=== PATIENT | female | born 1960 | race Caucasian/White ===

== ENCOUNTER 2021-04-28 07:36 | Outpatient (REF) | payer MEDICAID, SELFPAY ==
--- NOTE | ~2021-04-28 | XR_ITS ---
EXAMINATION: XR LUMBOSACRAL SPINE WITH OBLIQUES CLINICAL INFORMATION: Back pain with left-sided sciatica. COMPARISON: None TECHNIQUE: AP, lateral, coned-down, and bilateral oblique views of the lumbar spine. FINDINGS: The lumbar lordosis is maintained. No acute fracture or subluxation. No loss of vertebral body height. Multilevel loss of intervertebral disc height with endplate osteophytes with L4-L5 and L5-S1 bilateral facet arthropathy. Moderate stool burden. No lytic or blastic osseous lesion. XR/XR lumbar spine 4V min IMPRESSION: Moderate multilevel degenerative disc disease with bilateral facet arthropathy at L4-L5 and L5-S1. Moderate stool burden.
--- NOTE | ~2021-04-28 | XR_ITS ---
EXAMINATION: XR FACIAL BONES CLINICAL INFORMATION: Ocular pain right eye. COMPARISON: None TECHNIQUE: 4 views of the facial bones were obtained. FINDINGS: There are no fractures or dislocations. No bone, joint or soft tissue abnormality is demonstrated. XR/XR facial bones min 3V IMPRESSION: Unremarkable examination.
--- NOTE | ~2021-04-28 | XR_ITS ---
EXAMINATION: XR CHEST CLINICAL INFORMATION: Moderate persistent asthma with exacerbation. COMPARISON: None TECHNIQUE: 2 views of the chest were obtained. FINDINGS: The lungs are clear. The cardiomediastinal silhouette is normal in size. There is no pleural effusion or pneumothorax. No acute osseous abnormality. XR/XR chest 2V IMPRESSION: No acute cardiopulmonary findings.
== END 2021-04-28 07:37 | disposition home or self-care (01) ==
LOC: HO.XRAY 07:36
PROVIDERS: Visit Provider Internal Medicine
DX: J45.41 Moderate persistent asthma with (acute) exacerbation (principal); H57.11 Ocular pain, right eye; M54.42 Lumbago with sciatica, left side
CPT/HCPCS: 70150; 71046; 72110

== ENCOUNTER → 2022-05-22 10:11 | Outpatient (BNVA) | payer MEDICAID, SELFPAY | PROVIDERS: PCP Internal Medicine; Visit Provider Internal Medicine Pulmonary Disease | DX: J45.909 Unspecified asthma, uncomplicated (principal); J44.9 Chronic obstructive pulmonary disease, unspecified; R06.09 Other forms of dyspnea; R91.8 Other nonspecific abnormal finding of lung field; G47.33 Obstructive sleep apnea (adult) (pediatric); Z99.89 Dependence on other enabling machines and devices | CPT/HCPCS: 99202 ==

== ENCOUNTER 2022-06-10 15:10 | Outpatient (REF) | payer MEDICAID, SELFPAY ==
--- NOTE | ~2022-06-10 | CT_ITS ---
EXAMINATION: CT CHEST WITHOUT CONTRAST CLINICAL INFORMATION: Other nonspecific finding of lung field COMPARISON: Previous chest x-ray most recent April 2021 and lung windows from pelvic CT October 2015 TECHNIQUE: Multidetector volumetric CT imaging of the chest was done. Axial MIP volume rendering provided. Sagittal and coronal reformatted images were obtained. This CT examination was performed using dose optimization techniques as appropriate, variously including the following: *Automated exposure control *Adjustment of mA and/or kV according to patient size (this includes techniques or standardized protocols for targeted exams where dose is matched to indication/reason for exam; i.e. extremities or head) *Use of iterative reconstruction technique DLP: 143 mGy-cm FINDINGS: LUNGS: There is evidence of paraseptal emphysema. There are increased peripheral reticular markings and parenchymal attenuation. This is seen diffusely throughout the lungs but greatest at the lung bases. There is mild traction bronchiolectasis. No honeycombing is seen. Findings are suggestive of mild interstitial lung disease. There are several small bilateral upper lobe nodules. Largest measure 4 mm in the left upper lobe axial image 90 series 7. There is a 4 mm right lower lobe nodule axial image 267 series 7. This may be endobronchial. There is a 4 mm left lower lobe nodule axial image 272 series 7. This may be endobronchial. There is scarring or subsegmental atelectasis in the inferior segment of the lingula. MEDIASTINUM: Shotty mediastinal lymphadenopathy. No enlarged lymph nodes. The mediastinum is otherwise normal. CORONARY ARTERY CALCIFICATION: None visualized on this study. PLEURA: There is no pleural effusion. No pleural mass or thickening. AXILLA: Asymmetric tissue in the breasts. 1 exam and mammogram recommended. No axillary adenopathy. UPPER ABDOMEN: Degenerative changes of the spine. OSSEOUS STRUCTURES: Unremarkable. CT/CT chest wo IV con IMPRESSION: Emphysema and interstitial lung disease. Several small pulmonary nodules, largest measuring 4 mm in the left upper lobe and bilateral lower lobes. According to the UPDATED 2017 Fleischner Society recommendations, the advised follow-up imaging for less than 6 mm solid nodule: Low risk, no chest CT follow-up and high risk, optional the follow-up in one year. Shotty mediastinal lymphadenopathy. No enlarged lymph nodes. Asymmetric soft tissue in the left lateral breast. Correlation with physical exam and mammogram recommended. Fleischner guidelines were followed.
== END 2022-06-10 15:11 | disposition home or self-care (01) ==
LOC: HO.CT 15:10
PROVIDERS: Visit Provider Internal Medicine Pulmonary Disease
DX: R91.8 Other nonspecific abnormal finding of lung field (principal)
CPT/HCPCS: 71250

== ENCOUNTER → 2022-06-24 14:04 | Outpatient (REF) | payer MEDICAID, SELFPAY ==
--- NOTE | 2022-06-24 14:07 | CA_ITS ---
Transthoracic Echocardiogram Patient (Last, First, Middle): Myra Parsons E Gender: Female Date of : 1960 Age: 62 Procedure Date: 06/24/2022 Procedure Type: Transthoracic Echocardiogram Location: OP Height: 154.94 cm Weight: 72.58 kg BSA: 1.72 m2 Heart Rate: bpm BP: 124 / 60 mmHg Outside Event Sales Specialist: Referring MD: Lj Espitia MD Symptoms: R06.09 - Other forms of dyspnea Study Quality: Adequate w Contrast ECG Rhythm: Sinus Conclusions: - The left ventricular systolic function is normal. The calculated ejection fraction is 56% by biplane method. - No obvious valvular pathology seen on this study. Findings Procedure Information Contrast agent, definity, is being given per protocol without apparent complications. Left Ventricle Normal left ventricular cavity size. There is normal left ventricular wall thickness. The left ventricular systolic function is normal. The calculated ejection fraction is 56% by biplane method. There is no evidence of regional wall motion abnormalities. Diastolic function is normal for age. Right Ventricle Normal right ventricular cavity size and systolic function. Atria Both atria are normal in size. Aortic Valve There is a normal trileaflet aortic valve. There is no aortic valve stenosis. There is no aortic valve regurgitation. Mitral Valve The mitral valve appears normal. There is mild mitral valve regurgitation. There is no mitral valve stenosis. Pulmonic Valve The pulmonic valve is likely normal. Tricuspid Valve There is trace tricuspid valve regurgitation. There is no evidence of pulmonary hypertension. Great Vessels The aortic annulus, sinuses of valsalva, and asc aorta are normal in size. Venous The inferior vena cava is normal in size and collapses greater than 50% with inspiration. Pericardium/Pleural There is no evidence of pericardial effusion. Prior Study Comparison No prior study available for comparison. Recommendations, Care & Conclusions No obvious valvular pathology seen on this study. Measurements 2D Linear Measurements IVSd: 1.10 0.6-0.9/0.6-1.0 cm LVIDd: 4.40 3.9-5.3/4.2-5.9 cm LVIDd Index: 2.56 2.4-3.2/2.2-3.1 cm/m2 LVIDs: 2.81 2.0-3.6 cm LVPWd: 1.03 0.7-1.1 cm Ao Root: 2.90 2.1-3.5 cm LA Diam: 3.60 2.7-3.8/3.0-4.0 cm LAIDs Index: 2.09 1.5-2.3 cm/m2 LV Mass: 200.99 67-162/88-224 g LV Mass Index: 116.86 43-95/49-115 g/m2 LVOT Diam: 1.90 3.0+(-)1.3 cm 2D Systolic Function EF 4C: 52.10 >55% EF 2C: 55.20 >55% EF BiP: 55.50 >55% Mitral Valve MV Pk E: 0.92 MV PK A: 0.90 MV Decel Time: 214.00 E/A: 1.00 E'Lateral: 8.59 E'Medial: 7.18 E/E' Med: 12.80 E/E' Lat: 10.70 PHT: 63.00 MVA PHT: 3.49 Decel [place]: 4.28 Aortic Valve AoV Pk Will: 1.33 AoV Mn Will: 0.85 AoV VTI: 0.29 AoV Pk Grad: 7.00 Aov Mn Grad: 4.00 EMILEE Cont.VTI: 2.07 LVOT LVOT Pk Will: 0.95 LVOT Mn Will: 0.66 LVOT VTI: 0.21 LVOT Pk Grad: 4.00 LVOT Mn Grad: 2.00 LVOT Diam: 1.90 LVOT Area: 2.84 Diastolic Function MV Pk E: 0.92 MV Pk A: 0.90 E/A: 1.00 E'Medial: 7.18 E/E' Med: 12.80 E' Laterial: 8.59 E/E' Lat: 10.70 Right Ventricle TAPSE (mm): 22.00 Tricuspid Valve TR Pk Will: 2.10 TR Pk Grad: 18.00 RA Press: 3.00 RVSP: 21.00 Great Vessels Aorta Ao Root-2D: 2.90 2.0-3.7 cm Ao Asc: 2.60 2.1-3.4 cm Pulmonary Valve PV Pk Will: 0.98 Peak PV Grad: 4.00 Updated in Other Vendor System with Status of Final Christos Forrest MD electronically signed on 06/25/2022 12:35:41 PM with status of Final
== END ==
LOC: HO.CARD 14:04
PROVIDERS: Visit Provider Internal Medicine Pulmonary Disease
DX: R06.09 Other forms of dyspnea (principal)
CPT/HCPCS: 93306; Q9957

== ENCOUNTER 2022-09-19 10:00 | Outpatient (REF) | payer MEDICAID, SELFPAY ==
--- NOTE | 2022-09-19 12:49 | PFT_ITS ---
FLOWS: FEV1 80% of predicted at 1.81 L. FVC 82% of predicted at 2.36 L. FEV1 to FVC ratio of 0.76. No bronchodilator response except in small to medium airways. LUNG VOLUMES: Total lung capacity 77% of predicted at 3.55 L. Residual volume 58% of predicted at 1.09 L. Slow vital capacity 89% of predicted at 2.46 L. Expiratory reserve volume 127% of predicted at 0.93 L. Diffusion capacity is moderately decreased, diffusion capacity corrects to normal after adjustment to alveolar ventilation. IMPRESSION: Mild restrictive ventilatory defect with no bronchodilator response except in small to medium airways. MD ZIA Villanueva/MODL / [id number]
== END 2022-09-19 10:01 | disposition home or self-care (01) ==
LOC: HO.RESP 10:00
PROVIDERS: Visit Provider Internal Medicine Pulmonary Disease
DX: J45.909 Unspecified asthma, uncomplicated (principal)
CPT/HCPCS: 94060; 94727; 94729

== ENCOUNTER → 2022-10-22 15:02 | Outpatient (BNVA) | payer MEDICAID, SELFPAY | PROVIDERS: PCP Internal Medicine; Visit Provider Internal Medicine Pulmonary Disease | DX: J44.9 Chronic obstructive pulmonary disease, unspecified (principal); J45.909 Unspecified asthma, uncomplicated; G47.33 Obstructive sleep apnea (adult) (pediatric); Z99.89 Dependence on other enabling machines and devices | CPT/HCPCS: 99212 ==

== ENCOUNTER → 2023-03-18 11:52 | Outpatient (BNVA) | payer MEDICAID, SELFPAY | PROVIDERS: PCP Internal Medicine; Visit Provider Internal Medicine Pulmonary Disease ==

== ENCOUNTER 2023-10-28 10:50 | Outpatient (REF) | payer MEDICAID, SELFPAY ==
[2023-10-28 12:28] LABS: Alanine Aminotransferase 12 U/L (0-31); Albumin Level 3.5 g/dL (3.5-5.0); Alkaline Phosphatase 87 U/L (39-117); Anion Gap 12 (12-20); Aspartate Amino Transferase 18 U/L (5-31); Bilirubin Total 0.8 mg/dL (0.0-1.0); Blood Urea Nitrogen 7 mg/dL (9-16); Calcium 8.7 mg/dL (8.4-10.2); Carbon Dioxide 29 mmol/L (22-29); Chloride 103 mmol/L (96-108); Estimated Glomerular Filt Rate > 60; Glucose Random 114 mg/dL (60-115); Potassium 4.3 mmol/L (3.3-5.1); Sodium 140 mmol/L (135-145); Total Protein 6.9 g/dL (6.5-8.0)
[2023-10-28 12:31] LABS: TSH reflex Free T4 1.87 uIU/mL (0.32-4.0)
== END 2023-10-28 10:51 | disposition home or self-care (01) ==
LOC: HO.HHCL 10:50
PROVIDERS: Visit Provider Student in an Organized Health Care Education/Training Program
DX: R60.0 Localized edema (principal)
CPT/HCPCS: 36415; 80053; 84443

== ENCOUNTER 2024-03-04 13:17 | Emergency (ER) | payer MEDICAID, SELFPAY ==
--- NOTE | ~2024-03-04 | XR_ITS ---
EXAMINATION: XR CHEST 2 VIEW CLINICAL INFORMATION: Shortness of breath COMPARISON: 04/28/2021 TECHNIQUE: PA and lateral views of the chest obtained. FINDINGS: There are increased bronchovascular markings bilaterally. No pleural effusions are evident. The cardiomediastinal silhouette is stable. XR/XR chest 2V IMPRESSION: Increased bronchovascular markings bilaterally, nonspecific. This might be on the basis of viral syndrome, although other interstitial lung processes are not excluded. Suggest follow-up to confirm clearing. If persistent, suggest thoracic CT.
[2024-03-04 13:26] VITALS: BP 156/91; PULSE 100; RESP 19; TEMP 36.8; O2SAT 96; BMI 26.2
--- NOTE | 2024-03-04 13:26 | ED_ITS ---
HPI - General Adult General Chief complaint: General Medical Stated complaint: swollen glands lots of phlem Related Data Home Medications ?Medication ?Instructions ?Recorded ?Confirmed albuterol sulfate 90 mcg/actuation 2 puff inhalation Q4-6H PRN asthma 05/22/22 aerosol inhaler (ProAir HFA) clonidine HCl 0.1 mg tablet 0.1 mg PO BID PRN 05/22/22 famotidine 20 mg tablet 20 mg PO DAILY 05/22/22 hydroxyzine pamoate 25 mg capsule 25 mg PO TID PRN anxiety 05/22/22 lamotrigine 25 mg tablet 25 mg PO BEDTIME 05/22/22 montelukast 10 mg tablet 10 mg PO QPM 05/22/22 trazodone 100 mg tablet 100 mg PO BEDTIME 05/22/22 fluticasone 250 mcg-salmeterol 50 ea inhalation 10/22/22 mcg/dose blistr powdr for inhalation (Advair Diskus) Previous Rx's ?Medication ?Instructions ?Recorded levofloxacin 750 mg tablet 750 mg PO DAILY 7 days #7 tabs 10/22/22 Allergies Allergy/AdvReac Type Severity Reaction Status Date / Time Sulfa (Sulfonamide Allergy Unknown HIVES AND Verified 03/04/24 13:28 Antibiotics) RASH [SULFA (SULFONAMIDE ANTIBIOTICS)] sulfamethoxazole Allergy Unknown HIVES AND Verified 03/04/24 13:28 [From BACTRIM] RASH trimethoprim [From BACTRIM] Allergy Unknown HIVES AND Verified 03/04/24 13:28 RASH Physical Exam ED Vital Signs: BMI result Body Mass Index 26.2 Course Course Course Narrative: This is an RME: Additional HPI, ROS, PE not included below will be deferred to primary provider. 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 Patient also states that her asthma has been exacerbated. She is speaking in full sentences. Plan: Labs, chest x-ray, strep test Reevaluation(s) Reevaluation #1: Patient left without completing treatment. Medical Decision Making Lab Data 03/04/24 15:05 03/04/24 15:05 Labs: Lab Results 03/04/24 Range/Units 15:05 WBC 10.8 (4.8-10.8) X10*3/uL RBC 4.06 L (4.20-5.50) X10*6/uL Hgb 13.8 (12.0-16.0) g/dl Hct 39.8 (37.0-47.0) % MCV 98.0 (80.0-98.0) fL MCH 34.0 H (27.0-33.0) pg MCHC 34.7 (31.0-35.0) g/dl RDW 13.5 (11.0-16.0) % Plt Count 256 (160-400) X10*3/uL MPV 9.1 L (9.4-12.3) fL Immature Gran % (Auto) 1.0 H (0.0-0.4) % Neut % (Auto) 80.0 H (45-73) % Lymph % (Auto) 11.6 L (20-40) % [place] % (Auto) 5.2 (2-11) % Eos % (Auto) 1.8 (0-4) % Baso % (Auto) 0.4 (0-2) % Lymph # (Auto) 1.3 (1.2-4.9) X10*3/uL [place] # (Auto) 0.6 (0.1-1.2) X10*3/uL Eos # (Auto) 0.2 (0.0-0.4) X10*3/uL Baso # (Auto) 0.0 (0.0-0.2) X10*3/uL Abs Immat Gran (auto) 0.11 H (0.00-0.03) X10*3/uL Absolute Neuts (auto) 8.7 H (2.0-8.3) x10*3/uL Absolute Nucleated RBC 0.000 (0.0-0.012) X10*3/uL Nucleated RBC % (auto) 0.0 (0.0-0.2) /100WBC Sodium 137 (135-145) mmol/L Potassium 3.8 (3.3-5.1) mmol/L Chloride 102 (96-108) mmol/L Carbon Dioxide 28 (22-29) mmol/L Anion Gap 11 L (12-20) BUN 8 L (9-16) mg/dL Creatinine 0.72 (0.5-1.4) mg/dL Estim Creat Clear Calc 69.8 Estimated GFR > 60 Random Glucose 103 (60-115) mg/dL Calcium 9.0 (8.4-10.2) mg/dL Total Bilirubin 1.4 H (0.0-1.0) mg/dL Direct Bilirubin 0.6 H (0.0-0.5) mg/dL AST 120 H (5-31) U/L ALT 58 H (0-31) U/L Alkaline Phosphatase 117 (39-117) U/L Total Protein 7.1 (6.5-8.0) g/dL Albumin 3.5 (3.5-5.0) g/dL Monoscreen Negative (Negative) Influenza Type A (PCR) NEGATIVE (Negative) Influenza Type B (PCR) NEGATIVE (Negative) RSV RNA Qual (PCR) NEGATIVE (Negative) SARS-CoV-2 RNA (RT-PCR) NEGATIVE (Negative) S. pyogenes GrpA VIKTORIYA Negative (Negative) Discharge Plan Discharge Clinical Impression: Sore throat Patient Disposition: Left W/O Completing Treatment Prescriptions: No Action lamotrigine 25 mg tablet 25 mg PO BEDTIME clonidine HCl 0.1 mg tablet 0.1 mg PO BID PRN trazodone 100 mg tablet 100 mg PO BEDTIME albuterol sulfate [ProAir HFA] 90 mcg/actuation HFA aerosol inhaler 2 puff inhalation Q4-6H PRN (Reason: asthma) montelukast 10 mg tablet 10 mg PO QPM famotidine 20 mg tablet 20 mg PO DAILY hydroxyzine pamoate 25 mg capsule 25 mg PO TID PRN (Reason: anxiety) fluticasone propion-salmeterol [Advair Diskus] 250-50 mcg/dose blister with device inhalation levofloxacin 750 mg tablet 750 mg PO DAILY 7 Days Qty: 7 0RF Discharge Date/Time: 03/05/24 00:35
[2024-03-04 15:14] LABS: MANUAL DIFF FLAG NO
[2024-03-04 15:19] LABS: Basophils Percent Auto 0.4 % (0-2); Eosinophils Absolute Auto 0.2 X10*3/uL (0.0-0.4); Eosinophils Percent Auto 1.8 % (0-4); Hematocrit 39.8 % (37.0-47.0); Hemoglobin 13.8 g/dl (12.0-16.0); Imm Gran Abs Auto 0.11 X10*3/uL (0.00-0.03); Lymphocytes Absolute Auto 1.3 X10*3/uL (1.2-4.9); Lymphocytes Percent Auto 11.6 % (20-40); Mean Corpuscular HGB Conc 34.7 g/dl (31.0-35.0); Mean Platelet Volume 9.1 fL (9.4-12.3); Monocytes Absolute Auto 0.6 X10*3/uL (0.1-1.2); Monocytes Percent Auto 5.2 % (2-11); Neutrophils Absolute Auto 8.7 x10*3/uL (2.0-8.3); Platelet Count 256 X10*3/uL (160-400); Red Blood Count 4.06 X10*6/uL (4.20-5.50); Red Cell Distribution Width 13.5 % (11.0-16.0); White Blood Count 10.8 X10*3/uL (4.8-10.8)
[2024-03-04 15:28] LABS: IDNOW Serial# 58CA691E; Strep A Nucleic Acid Negative (Negative)
[2024-03-04 15:31] LABS: Alanine Aminotransferase 58 U/L (0-31); Albumin Level 3.5 g/dL (3.5-5.0); Alkaline Phosphatase 117 U/L (39-117); Anion Gap 11 (12-20); Aspartate Amino Transferase 120 U/L (5-31); Bilirubin Direct 0.6 mg/dL (0.0-0.5); Bilirubin Total 1.4 mg/dL (0.0-1.0); Blood Urea Nitrogen 8 mg/dL (9-16); Carbon Dioxide 28 mmol/L (22-29); Chloride 102 mmol/L (96-108); Creatinine Clr Calc Pharmacy 69.8; Estimated Glomerular Filt Rate > 60; Glucose Random 103 mg/dL (60-115); Potassium 3.8 mmol/L (3.3-5.1); Sodium 137 mmol/L (135-145); Total Protein 7.1 g/dL (6.5-8.0)
[2024-03-04 15:32] LABS: Monotest Negative (Negative)
[2024-03-04 15:58] LABS: Influenza A PCR NEGATIVE (Negative); Influenza B PCR NEGATIVE (Negative); Resp Syncy Virus RNA Qual PCR NEGATIVE (Negative); SARS COV2 PCR INHOUSE NEGATIVE (Negative)
[2024-03-04 19:26] VITALS: PULSE 95; RESP 18; TEMP 36.5; O2SAT 97
--- NOTE | 2024-03-05 00:34 | PC.NURSE ---
Pt not present in [facility] when called for reeval.
== END 2024-03-05 00:35 | disposition left against medical advice (07) ==
PROVIDERS: Physician Assistant Medical; Emergency Provider Emergency Medicine; PCP Student in an Organized Health Care Education/Training Program
DX: J02.9 Acute pharyngitis, unspecified (principal); F11.20 Opioid dependence, uncomplicated; J45.909 Unspecified asthma, uncomplicated; Z03.818 Encounter for observation for suspected exposure to other biological agents ruled out
CPT/HCPCS: 0241U; 36415; 71046; 80048; 80076; 85025; 86308; 87651; 99281; 99283

== ENCOUNTER 2024-03-05 17:08 | Outpatient (REF) | payer MEDICAID, SELFPAY ==
[2024-03-10 04:59] LABS: Legionella Ag Urine Not Detected (Not Detected)
== END 2024-03-05 17:09 | disposition home or self-care (01) ==
LOC: HO.HHCLNP 17:08
PROVIDERS: Visit Provider Internal Medicine
DX: R05.9 Cough, unspecified (principal)
CPT/HCPCS: 87449

== ENCOUNTER 2024-08-02 15:22 | Emergency (ER) | payer MEDICAID, SELFPAY ==
--- NOTE | ~2024-08-02 | CT_ITS ---
EXAM: CT HEAD WITHOUT CONTRAST CT CERVICAL SPINE INDICATION: headache, photophobia TECHNIQUE: A noncontrast CT scan was performed from the skull base to the vertex. A noncontrast CT scan of the cervical spine was performed from the base of the skull through T1 at 2.5 mm and 0.625 mm collimation. Coronal and sagittal reformats were obtained at the acquisition workstation. This CT examination was performed using dose optimization techniques as appropriate, variously including the following: * Automated exposure control * Adjustment of mA and/or kV according to patient size (this includes techniques or standardized protocols for targeted exams where dose is matched to indication/reason for exam; i.e. extremities or head) * Use of iterative reconstruction technique Dose length product is 382 mGy-cm. COMPARISON: None FINDINGS: Head: There is no evidence of acute intracranial hemorrhage or edematous large vessel territorial infarction. No abnormal mass effect or midline shift is seen. Mcclellan to white matter differentiation is well preserved. No abnormal extra-axial fluid collections are identified. The ventricles are normal in size. No abnormal attenuation in the brain parenchyma. Cerebellar tonsils are appropriately positioned. No acute calvarial fracture.. Partial effusions and bilateral mastoid air cells. Right maxillary, ethmoid sinus mucosal thickening. Cervical Spine: The atlantooccipital and atlantoaxial articulations remain well aligned. Straightening of the normal cervical lordosis. Vertebral body sagittal alignment is maintained. Atlantodens articulation arthritis. No evidence of acute fracture or subluxation. The vertebral bodies and posterior elements are normal. The disc spaces are preserved. The bony canal is maintained. No prevertebral soft tissue swelling.The visualized lung apices are clear. CT/CT cervical spine wo IV con IMPRESSION: No CT evidence of acute intracranial hemorrhage or edematous territorial infarction. No CT evidence of acute cervical spine fracture or malalignment. Electronically signed by: Jose Francis MD 08/02/2024 06:41 PM [facility]
--- NOTE | ~2024-08-02 | CT_ITS ---
EXAM: CT HEAD WITHOUT CONTRAST CT CERVICAL SPINE INDICATION: headache, photophobia TECHNIQUE: A noncontrast CT scan was performed from the skull base to the vertex. A noncontrast CT scan of the cervical spine was performed from the base of the skull through T1 at 2.5 mm and 0.625 mm collimation. Coronal and sagittal reformats were obtained at the acquisition workstation. This CT examination was performed using dose optimization techniques as appropriate, variously including the following: * Automated exposure control * Adjustment of mA and/or kV according to patient size (this includes techniques or standardized protocols for targeted exams where dose is matched to indication/reason for exam; i.e. extremities or head) * Use of iterative reconstruction technique Dose length product is 382 mGy-cm. COMPARISON: None FINDINGS: Head: There is no evidence of acute intracranial hemorrhage or edematous large vessel territorial infarction. No abnormal mass effect or midline shift is seen. Mcclellan to white matter differentiation is well preserved. No abnormal extra-axial fluid collections are identified. The ventricles are normal in size. No abnormal attenuation in the brain parenchyma. Cerebellar tonsils are appropriately positioned. No acute calvarial fracture.. Partial effusions and bilateral mastoid air cells. Right maxillary, ethmoid sinus mucosal thickening. Cervical Spine: The atlantooccipital and atlantoaxial articulations remain well aligned. Straightening of the normal cervical lordosis. Vertebral body sagittal alignment is maintained. Atlantodens articulation arthritis. No evidence of acute fracture or subluxation. The vertebral bodies and posterior elements are normal. The disc spaces are preserved. The bony canal is maintained. No prevertebral soft tissue swelling.The visualized lung apices are clear. CT/CT head/brain wo IV con IMPRESSION: No CT evidence of acute intracranial hemorrhage or edematous territorial infarction. No CT evidence of acute cervical spine fracture or malalignment. Electronically signed by: Jose Francis MD 08/02/2024 06:41 PM [facility]
[2024-08-02 15:40] VITALS: BP 166/91; PULSE 86; RESP 18; TEMP 36.8; O2SAT 97; BMI 29.4
--- NOTE | 2024-08-02 15:58 | ED.GENADULT ---
HPI - General Adult General Chief complaint: Headache Stated complaint: Migraine 1 week Source: patient and family (patient's daughter) Mode of arrival: ambulatory Limitations: no limitations History of Present Illness ED Provider: Elly Willis PA-C HPI narrative: Patient is a 64 year old assigned female at with a history of COPD, asthma, and [place]ASIA presenting to the emergency department today with a right sided headache. Patient states that she has been having a right sided headache for a week with intermittent blurry vision and photophobia. Patient denies any dizziness, lightheadedness, abdominal pain, nausea, vomiting, fever, chills, double vision, loss of vision, chest pain, difficulty breathing, shortness of breath, back pain, night sweats, pain with urination, increased urinary frequency, increased urinary urgency, blood in her urine or stool, syncope or a near syncopal episode, recent trauma or falls, bowel incontinence, bladder incontinence, or any other complaints at this time. Onset (ago): week(s) (1) Location: head Relieving factors: none Exacerbating factors: other (lights) Associated symptoms: headaches Treatments prior to arrival: other (tylenol) Related Data Home Medications ?Medication ?Instructions ?Recorded ?Confirmed albuterol sulfate 90 mcg/actuation 2 puff inhalation Q4-6H PRN asthma 05/22/22 aerosol inhaler (ProAir HFA) clonidine HCl 0.1 mg tablet 0.1 mg PO BID PRN 05/22/22 famotidine 20 mg tablet 20 mg PO DAILY 05/22/22 hydroxyzine pamoate 25 mg capsule 25 mg PO TID PRN anxiety 05/22/22 lamotrigine 25 mg tablet 25 mg PO BEDTIME 05/22/22 montelukast 10 mg tablet 10 mg PO QPM 05/22/22 trazodone 100 mg tablet 100 mg PO BEDTIME 05/22/22 fluticasone 250 mcg-salmeterol 50 ea inhalation 10/22/22 mcg/dose blistr powdr for inhalation (Advair Diskus) Previous Rx's ?Medication ?Instructions ?Recorded levofloxacin 750 mg tablet 750 mg PO DAILY 7 days #7 tabs 10/22/22 Allergies Allergy/AdvReac Type Severity Reaction Status Date / Time Sulfa (Sulfonamide Allergy Unknown HIVES AND Verified 08/02/24 15:43 Antibiotics) RASH [SULFA (SULFONAMIDE ANTIBIOTICS)] sulfamethoxazole Allergy Unknown HIVES AND Verified 08/02/24 15:43 [From BACTRIM] RASH trimethoprim [From BACTRIM] Allergy Unknown HIVES AND Verified 08/02/24 15:43 RASH Review of Systems Constitutional: Constitutional: Reports no additional constitutional complaints, Denies chills, Denies fever(s), Reports headache(s) and Denies night sweats Eyes: Eyes: Reports no additional eye complaints, Reports blurry vision, Denies change in vision, Denies diplopia, Denies eye discharge, Denies loss of vision, Denies eye pain and Reports photophobia ENT: Denies dizziness and Reports headache(s) Cardiovascular: Cardiovascular: Reports no additional cardiovascular complaints, Denies chest pain, Denies lightheadedness, Denies Loss of Consciousness and Denies dyspnea Respiratory: Respiratory: Reports no additional respiratory complaints and Denies dyspnea Gastrointestinal: Gastrointestinal: Reports no additional gastrointestinal complaints, Denies abdominal pain, Denies melena, Denies hematochezia, Denies change in bowel habits and Denies change in stool character Genitourinary: Genitourinary: Denies hematuria, Denies urinary frequency, Denies dysuria, Denies urinary incontinence, Denies urinary hesitancy and Denies urinary urgency Musculoskeletal: Musculoskeletal: Reports no additional musculoskeletal complaints, Denies numbness and Denies tingling Neurologic: Denies dizziness, Reports headache(s), Denies loss of vision, Denies numbness and Denies tingling Psychiatric: Psychiatric: Reports no additional psychiatric complaints Endocrine: Endocrine: Reports no additional endocrine complaints Hematologic/Lymphatic: Hematologic/Lymphatic: Reports no additional hematologic/lymphatic complaints Allergic/Immunologic: Allergic/Immunologic: Reports no additional allergic/immunologic complaints PMFSH Past Medical History Attestation statement: The following information was validated with the patient. (all information validated with the patient's daughter) Source: old records reviewed, obtained from family (patient's daughter provided additional history and confirmed the history provided by the patient.) and nursing notes reviewed Physical Exam ED Vital Signs: Vital Signs - 24 hr 08/02/24 15:40 Temperature 98.3 F Pulse Rate 86 Respiratory Rate 18 Blood Pressure 166/91 H Pulse Oximetry 97 Oxygen Delivery Method Room Air BMI result Body Mass Index 29.4 Const General: cooperative, no acute distress, alert and awake Nutritional Appearance: well nourished Orientation/consciousness: patient oriented x3 Limitations: no limitations HENMT Head: Yes normal to inspection and Yes atraumatic Ears: hearing grossly normal bilaterally and external ears normal General nose exam: Normal external nose present, no nasal discharge noted and no epistaxis Face and sinus: Yes normal facial exam, No abrasion and No laceration Mouth: Normal oral and palatal mucosa present, no drooling and no muffled voice Eyes General: appearance normal, both eyes and all related structures Periorbital: periorbital findings normal Eyelids: Yes eyelids normal Conjunctivae: conjunctivae normal Pupils: Equal, round and reactive pupils present EOM: EOMs intact bilaterally Direct Ophthalmoscopy: photophobia Neck Neck: Yes normal visual inspection, Yes full ROM and Yes no lymphadenopathy Chest Chest palpation & inspection: normal inspection of the chest Resp Effort & Inspection: normal respiratory effort and able to speak in complete sentences GI Inspection: Yes normal to inspection Neuro General: patient oriented x3 and moves all extremities Cranial nerves: Yes Equal, round and reactive pupils present Cognition (Neuro): normal cognition Extrem General: Yes normal to inspection, Yes full ROM and Yes capillary refill normal Psych Appearance: grossly normal Mental Status: mental status grossly normal Affect: normal affect Attitude: cooperative Thought process: Normal thought process present Thought content: Normal thought content present Insight: Good insight present (Psych) Course Course Course Narrative: RME performed by Elly Willis PA-C. Patient is a 64 year old assigned female at presenting to the emergency department with right sided headache. Detailed physical exam and review of systems are deferred to the regional account director. Labs and imaging ordered. Patient placed back in the waiting room pending room availability and results. Medications Administered Discontinued Medications Generic Name Dose Route Start Last Admin Trade Name Rylee PRN Reason Stop Dose Admin Acetaminophen 975 mg 08/02/24 18:43 08/02/24 18:46 Acetaminophen 325 Mg Tablet PO 08/02/24 18:44 975 mg ONCE ONE Administration Medical Decision Making Medical Decision Making MDM Narrative: Patient is a 64 year old assigned female at with a history of COPD, asthma, and [place] presenting to the emergency department today with a right sided headache. Patient's limited physical exam performed in triage was unremarkable. Patient's blood work was unremarkable. Patient's CT head and C-spine were unremarkable. Patient left the department without completing treatment. Patient left the department before myself or any of the other emergency department clinicians could explain to or review with the patient; physical exam findings, test results, need or lack there of for additional testing, need or lack there of for a procedure to be performed, need or lack there of for hospital admission / transfer, need or lack there of for prescription medication, treatment options, or a treatment plan. Differential Diagnosis Differential Diagnoses: The differential diagnosis associated with the presentation includes Migraine headache Headache Admission/Observation Consideration of admission/observation: Escalation of care including admission/observation considered Patient would have been admitted to the hospital had she completed her work up and it had any findings where hospital admission was appropriate, her clinical presentation warranted hospital admission, had myself or any other emergency repair department supervisor had the ability to discuss need or lack there of for hospital admission, and the patient hadn't left the department without completing treatment. Lab Data [facility] Lab Attestation statement: I reviewed the patient's lab results. My interpretation of these results are in the [facility] Rationale portion of this note. 08/02/24 16:17 08/02/24 16:17 Labs: Lab Results 08/02/24 Range/Units 16:17 WBC 11.0 H (4.8-10.8) X10*3/uL RBC 4.49 (4.20-5.50) X10*6/uL Hgb 14.3 (12.0-16.0) g/dl Hct 43.0 (37.0-47.0) % MCV 95.8 (80.0-98.0) fL MCH 31.8 (27.0-33.0) pg MCHC 33.3 (31.0-35.0) g/dl RDW 13.2 (11.0-16.0) % Plt Count 400 D (160-400) X10*3/uL MPV 8.5 L (9.4-12.3) fL Immature Gran % (Auto) 0.8 H (0.0-0.4) % Neut % (Auto) 77.3 H (45-73) % Lymph % (Auto) 11.9 L (20-40) % [place] % (Auto) 6.5 (2-11) % Eos % (Auto) 3.1 (0-4) % Baso % (Auto) 0.4 (0-2) % Lymph # (Auto) 1.3 (1.2-4.9) X10*3/uL [place] # (Auto) 0.7 (0.1-1.2) X10*3/uL Eos # (Auto) 0.3 (0.0-0.4) X10*3/uL Baso # (Auto) 0.0 (0.0-0.2) X10*3/uL Abs Immat Gran (auto) 0.09 H (0.00-0.03) X10*3/uL Absolute Neuts (auto) 8.5 H (2.0-8.3) x10*3/uL Absolute Nucleated RBC 0.000 (0.0-0.012) X10*3/uL Nucleated RBC % (auto) 0.0 (0.0-0.2) /100WBC Sodium 137 (135-145) mmol/L Potassium 4.1 (3.3-5.1) mmol/L Chloride 101 (96-108) mmol/L Carbon Dioxide 29 (22-29) mmol/L Anion Gap 11 L (12-20) BUN 6 L (9-16) mg/dL Creatinine 0.78 (0.5-1.4) mg/dL Estim Creat Clear Calc 61.7 Estimated GFR > 60 Random Glucose 165 H (60-115) mg/dL Calcium 9.6 D (8.4-10.2) mg/dL Magnesium 2.2 (1.6-2.6) mg/dL Total Bilirubin 0.7 (0.0-1.0) mg/dL AST 30 (5-31) U/L ALT 49 H (0-31) U/L Alkaline Phosphatase 140 H (39-117) U/L Total Protein 7.7 (6.5-8.0) g/dL Albumin 3.6 (3.5-5.0) g/dL Independent Interpretation I performed an independent interpretation of an: CT Scan Interpretation: My interpretation is in agreement with the radiologist's impression of these imaging studies. EXAM: CT HEAD WITHOUT CONTRAST CT CERVICAL SPINE INDICATION: headache, photophobia TECHNIQUE: A noncontrast CT scan was performed from the skull base to the vertex. A noncontrast CT scan of the cervical spine was performed from the base of the skull through T1 at 2.5 mm and 0.625 mm collimation. Coronal and sagittal reformats were obtained at the acquisition workstation. This CT examination was performed using dose optimization techniques as appropriate, variously including the following: * Automated exposure control * Adjustment of mA and/or kV according to patient size (this includes techniques or standardized protocols for targeted exams where dose is matched to indication/reason for exam; i.e. extremities or head) * Use of iterative reconstruction technique Dose length product is 382 mGy-cm. COMPARISON: None FINDINGS: Head: There is no evidence of acute intracranial hemorrhage or edematous large vessel territorial infarction. No abnormal mass effect or midline shift is seen. Mcclellan to white matter differentiation is well preserved. No abnormal extra-axial fluid collections are identified. The ventricles are normal in size. No abnormal attenuation in the brain parenchyma. Cerebellar tonsils are appropriately positioned. No acute calvarial fracture.. Partial effusions and bilateral mastoid air cells. Right maxillary, ethmoid sinus mucosal thickening. Cervical Spine: The atlantooccipital and atlantoaxial articulations remain well aligned. Straightening of the normal cervical lordosis. Vertebral body sagittal alignment is maintained. Atlantodens articulation arthritis. No evidence of acute fracture or subluxation. The vertebral bodies and posterior elements are normal. The disc spaces are preserved. The bony canal is maintained. No prevertebral soft tissue swelling.The visualized lung apices are clear. CT/CT cervical spine wo IV con IMPRESSION: No CT evidence of acute intracranial hemorrhage or edematous territorial infarction. No CT evidence of acute cervical spine fracture or malalignment. Electronically signed by: Jose Francis MD 08/02/2024 06:41 PM [facility] [place] Dictated By: Jose Francis MD Signed By: Electronically signed by Jose Francis MD 08/02/24 184 Radiology Impression Discussion of test interpretation with radiology: I have reviewed the radiologist's reading. Independent Historian Clinical information obtained from an independent historian. History obtained from or confirmed by: Other (patient's daughter provided additional history and confirmed the history provided by the patient.) Discharge Plan Discharge Clinical Impression: Headache Patient Disposition: Left W/O Completing Treatment Prescriptions: No Action lamotrigine 25 mg tablet 25 mg PO BEDTIME clonidine HCl 0.1 mg tablet 0.1 mg PO BID PRN trazodone 100 mg tablet 100 mg PO BEDTIME albuterol sulfate [ProAir HFA] 90 mcg/actuation HFA aerosol inhaler 2 puff inhalation Q4-6H PRN (Reason: asthma) montelukast 10 mg tablet 10 mg PO QPM famotidine 20 mg tablet 20 mg PO DAILY hydroxyzine pamoate 25 mg capsule 25 mg PO TID PRN (Reason: anxiety) fluticasone propion-salmeterol [Advair Diskus] 250-50 mcg/dose blister with device inhalation levofloxacin 750 mg tablet 750 mg PO DAILY 7 Days Qty: 7 0RF Discharge Date/Time: 08/02/24 21:00
[2024-08-02 16:28] LABS: Basophils Percent Auto 0.4 % (0-2); Eosinophils Absolute Auto 0.3 X10*3/uL (0.0-0.4); Eosinophils Percent Auto 3.1 % (0-4); Hemoglobin 14.3 g/dl (12.0-16.0); Imm Gran Abs Auto 0.09 X10*3/uL (0.00-0.03); Imm Gran Pct Auto 0.8 % (0.0-0.4); Lymphocytes Absolute Auto 1.3 X10*3/uL (1.2-4.9); Lymphocytes Percent Auto 11.9 % (20-40); MANUAL DIFF FLAG NO; Mean Corpuscular HGB Conc 33.3 g/dl (31.0-35.0); Mean Corpuscular Hemoglobin 31.8 pg (27.0-33.0); Mean Corpuscular Volume 95.8 fL (80.0-98.0); Mean Platelet Volume 8.5 fL (9.4-12.3); Monocytes Absolute Auto 0.7 X10*3/uL (0.1-1.2); Monocytes Percent Auto 6.5 % (2-11); Neutrophils Absolute Auto 8.5 x10*3/uL (2.0-8.3); Neutrophils Percent Auto 77.3 % (45-73); Platelet Count 400 X10*3/uL (160-400); Red Blood Count 4.49 X10*6/uL (4.20-5.50); Red Cell Distribution Width 13.2 % (11.0-16.0)
[2024-08-02 16:44] LABS: Alanine Aminotransferase 49 U/L (0-31); Albumin Level 3.6 g/dL (3.5-5.0); Alkaline Phosphatase 140 U/L (39-117); Anion Gap 11 (12-20); Aspartate Amino Transferase 30 U/L (5-31); Bilirubin Total 0.7 mg/dL (0.0-1.0); Blood Urea Nitrogen 6 mg/dL (9-16); Calcium 9.6 mg/dL (8.4-10.2); Carbon Dioxide 29 mmol/L (22-29); Chloride 101 mmol/L (96-108); Creatinine Clr Calc Pharmacy 61.7; Estimated Glomerular Filt Rate > 60; Glucose Random 165 mg/dL (60-115); Magnesium 2.2 mg/dL (1.6-2.6); Potassium 4.1 mmol/L (3.3-5.1); Sodium 137 mmol/L (135-145); Total Protein 7.7 g/dL (6.5-8.0)
[2024-08-02] MEDS: Acetaminophen 325 MG TABLET 975 MG PO (18:46)
--- NOTE | 2024-08-02 18:47 | PC.NURSE ---
pt requesting tylenol to take edge off while she was waiting in the [facility] to be seen, pt has 10/10 headache
[2024-08-02 19:26] VITALS: BP 143/71; PULSE 72; RESP 19; TEMP 36.8; O2SAT 92
== END 2024-08-02 21:00 | disposition left against medical advice (07) ==
PROVIDERS: Physician Assistant Medical; Emergency Provider Emergency Medicine
DX: R51.9 Headache, unspecified (principal); H53.149 Visual discomfort, unspecified; H53.8 Other visual disturbances; J44.9 Chronic obstructive pulmonary disease, unspecified; G47.33 Obstructive sleep apnea (adult) (pediatric); Z79.899 Other long term (current) drug therapy
CPT/HCPCS: 36415; 70450; 72125; 80053; 83735; 85025; 99282; 99284

== ENCOUNTER 2024-08-03 10:02 | Outpatient (REF) | payer MEDICAID, SELFPAY ==
[2024-08-03 12:06] LABS: Hematocrit 38.7 % (37.0-47.0); Hemoglobin 13.1 g/dl (12.0-16.0); Mean Corpuscular HGB Conc 33.9 g/dl (31.0-35.0); Mean Corpuscular Volume 94.4 fL (80.0-98.0); Mean Platelet Volume 8.7 fL (9.4-12.3); Platelet Count 357 X10*3/uL (160-400); Red Cell Distribution Width 13.1 % (11.0-16.0); White Blood Count 9.5 X10*3/uL (4.8-10.8)
[2024-08-03 12:30] LABS: Alanine Aminotransferase 45 U/L (0-31); Albumin Level 3.4 g/dL (3.5-5.0); Alkaline Phosphatase 128 U/L (39-117); Anion Gap 12 (12-20); Aspartate Amino Transferase 42 U/L (5-31); Bilirubin Direct 0.3 mg/dL (0.0-0.5); Bilirubin Total 0.6 mg/dL (0.0-1.0); Blood Urea Nitrogen 7 mg/dL (9-16); Calcium 8.9 mg/dL (8.4-10.2); Carbon Dioxide 25 mmol/L (22-29); Chloride 101 mmol/L (96-108); Estimated Glomerular Filt Rate > 60; Glucose Random 120 mg/dL (60-115); Potassium 4.1 mmol/L (3.3-5.1); Sodium 134 mmol/L (135-145)
[2024-08-03 12:42] LABS: Erythrocyte Sedimentation Rate 75 MM/HR (0-20)
== END 2024-08-03 10:03 | disposition home or self-care (01) ==
LOC: HO.HHCL 10:02
PROVIDERS: Internal Medicine; Visit Provider Student in an Organized Health Care Education/Training Program
DX: R51.9 Headache, unspecified (principal); R74.8 Abnormal levels of other serum enzymes
CPT/HCPCS: 36415; 80053; 80076; 82248; 85027; 85652; 86140

== ENCOUNTER 2024-08-10 15:25 | Outpatient (REF) | payer MEDICAID, SELFPAY ==
--- NOTE | ~2024-08-10 | MR_ITS ---
EXAMINATION: MR BRAIN WITHOUT AND WITH CONTRAST CLINICAL INFORMATION: Worsening headache COMPARISON: CT scan of brain on 08/02/2024 TECHNIQUE: Multiplanar, multisequence MRI of the brain was obtained before and after the intravenous administration of 8 mL Gadavist. FINDINGS: Ventricles, sulci and cisterns are normal. Several nonenhancing T2 hyperintense focal lesions are seen in right frontal subcortical white matter, left frontal deep white matter. No focal cerebral, brainstem or cerebellar lesions with abnormal signal can be seen. Diffusion weighted images show no abnormal regional decrease in diffusion. Post contrast images show no enhancing cerebral, brainstem or cerebellar lesions. No abnormal meningeal enhancement is seen. The pituitary gland is normal. Optic chiasm is not displaced. Cerebellar tonsils position is normal. Bilateral ethmoid sinuses, bilateral maxillary sinus floor show mild mucosal thickening. MR/MR head/brain wo/w con IMPRESSION: 1. A few nonenhancing bilateral frontal white matter lesions are seen, could represent lesions associated with migraine headache, focal demyelinating disease or ischemic white matter lesions due to microangiopathy. 2. No acute cerebral infarction is seen. 3. No evidence of space occupying mass lesion could be found. 4. No evidence of intracranial hemorrhage. Electronically signed by: Oscar Whittaker MD 08/11/2024 03:48 PM EST
[2024-08-10] MEDS: gadobutroL 10 ML VIAL 8 ML IVPUSH (16:22)
== END 2024-08-10 15:26 | disposition home or self-care (01) ==
LOC: HO.MRI 15:25
PROVIDERS: PCP Student in an Organized Health Care Education/Training Program; Visit Provider Student in an Organized Health Care Education/Training Program
DX: R51.9 Headache, unspecified (principal)
CPT/HCPCS: 70553; A9585

== ENCOUNTER 2024-11-01 12:39 | Outpatient (REF) | payer MEDICAID, SELFPAY ==
[2024-11-01 14:02] LABS: Estimated Average Glucose 103 mg/dL; Hemoglobin A1C 108.0671 umol/L; Hemoglobin A1c % 5.2 % (<6.0); Total Hemoglobin (HGBA1C) 3256.9404 umol/L
[2024-11-01 14:05] LABS: Anion Gap 12 (12-20); Blood Urea Nitrogen 8 mg/dL (9-16); Calcium 8.9 mg/dL (8.4-10.2); Carbon Dioxide 26 mmol/L (22-29); Chloride 105 mmol/L (96-108); Estimated Glomerular Filt Rate > 60; Glucose Random 94 mg/dL (60-115); Potassium 4.6 mmol/L (3.3-5.1); Sodium 138 mmol/L (135-145)
--- OUTSIDE RECORDS SUMMARY | 2024-11-01 14:19 | XMS_ITS | Encounter Summary ---
Author Organization [employer] Address [address] [place] [address] [address] [place] [address] Care Team Providers Care Hazardous Materials Handler Name Role Phone Rowena Lynne MD Primary Care Pro vider Cami Buckley Unavailable Unavailable Margarita Coulter PharmD Unavailable [phone] Maine Bass RN Unavailable [phone] Reason for Visit * Reason Comments Care Coordination mail Encounter Details Date Type Department Care Team (Latest Contact Info) Description 10/21/2024 Patient Outreach [facility] [address] [place] [address] Rowena Lynne MD [address] [place] [address] Care Coordination (mail) Social History Tobacco Use Types Packs/Day Years Used Date Smoking Tobacco: Every Day Cigarettes Passive Smoke Exposure: Current Smokeless Tobacco: Never Comments:Started smoking 14 y of age until now -smokes 5 to 10 cigarettes a day trying to cut down -smoking x 48 h -PQT a year charlene is 26 Alcohol Use Standard Drinks/Week Comments Yes 0 (1 standard drink = 0.6 oz pur e alcohol) Depression Answer Date Recorded Patient Health Questionnaire-9 Score 23 08/17/2024 Patient Health Questionnaire-9 Score 23 08/17/2024 Last PHQ-9: Questionnaire Data Not on file 1 10/18/2023 Housing Stability Answer Date Recorded What is your housing situation today? I have nallely sing 01/29/[address] you li ve. Do you have problems with any of the following? Mold 01/29/2024 Food Insecurity Answer Date Recorded Within the past 12 months, y ou worried that your food would run out before you got money to buy more: Sometimes True 2022 Within the past 12 months,th e food you bought just didn't last and you didn't have enough money to get more: Sometimes True 07/07/2023 Transportation Answer Date Recorded In the past 12 months, has l ack of transportation kept you from medical appts, meetings, work or from getting things needed for daily living? Yes, it has kept me from medical appointments or getting medications. 06/15/2023 Utilities Answer Date Recorded In the past 12 months, has t he electric, gas, oil or water company threatened to shut off services in your home? Yes 01/29/2024 Depression Answer Date Recorded Patient Health Questionnaire-2 Score 6 08/17/2024 Internet Access Answer Date Recorded Internet Access Q1 Yes 05/10/2024 Internet Access Q2 Not on file 05/10/2024 Comments Unknown Sex and Gender Information Value Date Recorded Sex Assigned at Female 07/08/2022 10:14 AM EDT Legal Sex Female 10:14 AM EDT Gender Identity Female 07/08/2022 10:14 AM EDT Sexual Orientation Straight 07/08/2022 10 :14 AM EDT documented as of this encounter Progress Notes * Lyndsey Shea - 10/21/2024 11:18 AM EST [facility] Lyndsey Shea mailed out housing resources and applications. CHW will call patient within 10 days to see if she received them. documented in this encounter Plan of Treatment Upcoming Encounters Date Type Department Care Team (Late st Contact Info) Description 11/15/2024 11:15 AM EDT Office Visit [facility] [address] [place] [address] Rowena Rodriguez MD [address] [place] [address] documented as of this encounter Goals Goal Patient Goal Type Associated Problems Recent Progress Patient-Stated? Author Quit using tobacco (cigarettes, smokeless, etc) Tobacco Use Tobacco dependence syndrome On track(09/15/19 24 4:37 PM EST) No Margarita Coulter, PharmD documented as of this encounter Visit Diagnoses Not on filedocumented in this encounter Additional Health Concerns Assessment Noted Time PHQ-9 Depression Total Score: 23 024 9:16 AM EST documented as of this encounter Care Teams Hazardous Materials Handler Relationship Specialty Start Date End Date Rowena Lynne MD [address] [place] [id number] PCP - General Internal Medicine 02/20/23 Cami Buckley [facility] Worker 10/16/23 Margarita Coulter, PharmD [address] [place] [address] Pharmacist Internal Medicine 11/20/23 Maine Bass RN [address] [place] [id number] Test DriverBenzene Washer Operator 09/30/24 documented as of this encounter
--- OUTSIDE RECORDS SUMMARY | 2024-11-01 14:19 | XMS_ITS | Encounter Summary ---
Author Organization [employer] Address [address] [facility] 7t [place] [address] Care Team Providers Care Statement Request Clerk Name Role Phone Rowena Lynne MD Primary Care Pro vider Cami Buckley Unavailable Unavailable Margarita Coulter PharmD Unavailable [phone] Maine Bass RN Unavailable [phone] Reason for Visit * Reason Onset Date Comments Care Management 10/13/2024 C3CM- f/u call Encounter Details Date Type Department Care Team (Late st Contact Info) Description 10/13/2024 Telephone [facility] MEDICINE [address] [place] [address] Maine Bass, RN [address] [place], [place] [phone] Care Management (C3CM- f/u call) Social History Tobacco Use Types Packs/Day Years [...] AM EDT documented as of this encounter Miscellaneous Notes * Telephone Encounter - Manie Bass RN - 10/13/2024 12:53 PM EST FRANKIE Bass RN placed outbound call to patient. FRANKIE spoke with patient's daughter Myra. Patient's name, and address confirmed. Myra states patient is doing well with no recent [facility]. She states patient attended visit with Neurology yesterday. She states the biopsy results were reviewed and Dx was confirmed. Per Myra, provider did tell her that the results had been discussed with patient during her hospitalization. Patient did not recall this. She states the patient has not yet been contacted with MRI appt details. She was advised that the office would reach out to her to schedule this. She also states the patient's BP was elevated yesterday. Per Myra, advised that patient address this during her scheduled HDF tomorrow. Myar also states she was advised that it is important that patient attend visit with Ophthalmology scheduled on 10/15. Per Myra,provider advised that the visit notes be faxed to Neuro after the visit. She states she will make this request with OPH during the appt. Myra is aware that PT1 has been set for the visit on 10/15/24 and she was provided with that information today. CM also reminded her of the scheduled HDF with Dr. Quiros tomorrow. She states she was under the impression that the visit was over the phone. CM advised that the visit is in person. She verbalizes understanding and denies any barriers to attending. Myra confirms that she received the [facility] [employer] list that was mailed out to her. She states she has not been able to follow up but agrees to do so when able. No further questions or concerns. CM reinforced direct contact information or CHW for any additional questions or concerns. Education provided on Walk-In Urgent Care located in [facility] of [facility]. Myra provided with after-hours line for [facility], , which offer night time triage service and option to transfer to construction stonemason provider if needed. She verbalizes understanding, and able to repeat back to process description writer. A follow up call will be placed within 10 days, she agrees with plan. documented in this encounter Plan of Treatment Upcoming Encounters Date Type Department Care Team ([facility] st Contact Info) Description 11/15/2024 11:15 AM EDT Office Visit [facility] MEDICINE [address] [place] [address] Rownea Rodriguez MD [address] [place], [place] [phone] documented as of this encounter Goals Goal [...] documented as of this encounter Care Teams Statement Request Clerk Relationship Specialty Start Date End Date Rowena Lynne MD [address] [place] [phone] PCP - General Internal Medicine 02/20/23 Cami Buckley [facility] Health Worker 10/16/23 Margarita Coulter, DoreenD [address] [place] [phone] Pharmacist Internal Medicine 11/20/23 Maine Bass, FERNANDO [address] [place] [address] Small Electric Engine TechnicianBuilding Maintenance Mechanic 09/30/24 documented as of this encounter
--- OUTSIDE RECORDS SUMMARY | 2024-11-01 14:19 | XMS_ITS | Encounter Summary ---
Author Organization [employer] Address [address] [facility] 7t [place] [address] Care Team Providers Care Food Service Sales Representatives Name Role Phone Rowena Lynne MD Primary Care Pro vider Cami Buckley Unavailable Unavailable Margarita Coulter PharmD Unavailable [phone] Maine Bass RN Unavailable [phone] Encounter Details Date Type Department Care Team (Late st Contact Info) Description 12/17/2023 Orders Only [facility] MEDICINE [address] [place] [address] Provider, MD Betsy Social History Tobacco Use Types Packs/Day Years Used Date Smoking Tobacco: Every Day Cigarettes Smokeless Tobacco: Never Comments:Started smoking 14 y of age until now -smokes 5 to 10 cigarettes a day trying to cut down -smoking x 48 h -PQT a year charlene is 26 Alcohol Use Standard Drinks/Week Comments Yes 0 (1 standard drink = 0.6 oz pur e alcohol) Depression Answer Date Recorded Patient Health Questionnaire-9 Score 10 03/26/2023 Housing Stability Answer Date Recorded What is your housing situation today? I have nallelyamandeep ordonez 06/15/[address] you li ve. Do you have problems with any of the following? Lead [place] or Pipes 06/15/2023 Food Insecurity Answer Date Recorded Within the [...] to shut off services in your home? No 07/07/2023 Depression Answer Date Recorded Patient Health Questionnaire-2 Score 2 03/26/2023 Comments Unknown Sex and Gender Information Value Date Recorded Sex Assigned at Female 07/08/2022 10:14 AM EDT Legal Sex Female 10:14 AM EDT Gender Identity Female 07/08/2022 10:14 AM EDT Sexual Orientation Straight 07/08/2022 10 :14 AM EDT documented as of this encounter Plan of Treatment Upcoming Encounters Date Type Department Care Team (Late st Contact Info) Description 11/15/2024 11:15 AM EDT Office Visit [facility] MEDICINE [address] [place] [address] Rowena Rodriguez MD [address] [place] [phone] documented as of this encounter Goals Goal Patient Goal Type Associated Problems Recent Progress Patient-Stated? Author Quit using tobacco (cigarettes, smokeless, etc) Tobacco Use Tobacco dependence syndrome On track(09/15/19 24 4:37 PM EST) No Margarita Coulter, DoreenD documented as of this encounter Procedures Procedure Name Priority Date/Time Associated Diagnosis Comments COLONOSCOPY Routine 11/30/2014 8:07 AM EDT documented in this encounter Results * Colonoscopy (11/30/2014 8:07 AM EDT) us Historical Provider HEALTH MAINTENANCE Final Result documented in this encounter Visit Diagnoses Not on filedocumented in this encounter Additional Health Concerns Assessment Noted Time PHQ-9 Depression Total Score: 10 023 3:50 PM EDT documented as of this encounter Care Teams Food Service Sales Representatives Relationship Specialty Start Date End Date Rowena Lynne MD [address] [place] [address] [phone] PCP - General Internal Medicine 02/20/23 Cami Buckley Community Health Worker 10/16/23 Margarita Coulter, DoreenD [address] [place] [phone] Pharmacist Internal Medicine 11/20/23 Maine Bass RN [address] [place] [phone] Silverware WasherVibrator Equipment Tester 09/30/24 documented as of this encounter
--- OUTSIDE RECORDS SUMMARY | 2024-11-01 14:19 | XMS_ITS | Encounter Summary ---
Author Organization [employer] Address [address] [place] [address] 7t [place] [address] Care Team Providers Care Carbide Powder Processor Name Role Phone Rowena Lynne MD Primary Care Pro vider Cami Buckley Unavailable Unavailable Margarita Coulter PharmD Unavailable [phone] Maine Bass RN Unavailable Reason for Visit * Reason Onset Date Comments Appointment Request 07/21/2023 Encounter Details Date Type Department Care Team ([facility] st Contact Info) Description 07/21/2023 Telephone [facility] MEDICINE [address] [place] [address] Rowena Lynne MD [address] [place] [address] Appointment Request Social History Tobacco Use Types Packs/Day Years [...] your housing situation today? I have nallely ordonez 06/15/[address] you li ve. Do you have problems with any of the following? Lead [place] or Pipes 06/15/2023 Food Insecurity Answer Date [...] encounter Miscellaneous Notes * Telephone Encounter - Wen Phillips - 07/21/2023 2:59 PM EST Tc from pt requesting f/u appt, public relations writer attempted to schedule, no availability at the moment. documented in this encounter Plan of Treatment Upcoming Encounters Date Type Department Care Team (Late st Contact Info) Description 11/15/2024 11:15 AM EDT Office Visit [facility] MEDICINE [address] [place] [address] Rowena Rodriguez MD [address] [place] [address] documented as of this encounter Visit Diagnoses Not on filedocumented in this encounter Additional Health Concerns Assessment Noted Time PHQ-9 Depression Total Score: 10 023 3:50 PM EDT documented as of this encounter Care Teams Carbide Powder Processor Relationship Specialty Start Date End Date Rowena Lynne MD [address] [place] [address] [phone] PCP - General Internal Medicine 02/20/23 Cami Buckley Community Health Worker 10/16/23 Margarita Coulter, DoreenD [address] [place] [phone] Pharmacist Internal Medicine 11/20/23 Maine Bass RN [address] [place] [phone] Video Game EngineerAdjusto Writer Operator 09/30/24 documented as of this encounter
--- OUTSIDE RECORDS SUMMARY | 2024-11-01 14:19 | XMS_ITS | Encounter Summary ---
Author Organization [employer] Address 75 [facility] 7t [place] [address] Care Team Providers Care Briquette Operator Name Role Phone Rowena Lynne MD Primary Care Pro vider Cami Buckley Unavailable Unavailable Margarita Coulter PharmD Unavailable [phone] Maine Bass RN Unavailable [phone] Encounter Details Date Type Department Care Team (Late st Contact Info) Description 10/12/2024 Patient Outreach [facility] MEDICINE [address] [place] [address] Rowena Lynne MD [address] [place] [address] Social History Tobacco Use Types Packs/Day Years [...] housing situation today? I have nallely ordonez 01/29/[address] you li [...] Description 11/15/2024 11:15 AM EDT Office Visit [facility] MEDICINE [address] [place] [phone] Rowena Rodriguez MD [address] [place] [address] documented as of this encounter Goals Goal Patient Goal Type Associated Problems Recent Progress Patient-Stated? Author Quit using tobacco (cigarettes, smokeless, etc) Tobacco Use Tobacco dependence syndrome On track(09/15/19 24 4:37 PM EST) No Margarita Coulter, DoreenD documented as of this encounter Visit Diagnoses Not on filedocumented in this encounter Additional Health Concerns Assessment Noted Time PHQ-9 Depression Total Score: 23 024 9:16 AM EST documented as of this encounter Care Teams Briquette Operator Relationship Specialty Start Date End Date Rowena Lynne MD [address] [place] [phone] PCP - General Internal Medicine 02/20/23 Cami Buckley Community Health Worker 10/16/23 Margarita Coulter, DoreenD [address] [place] [phone] Pharmacist Internal Medicine 11/20/23 Maine Bass, FERNANDO [address] [place] [phone] Contact Center EngineerRiveter Automobile Brakes 09/30/24 documented as of this encounter
--- OUTSIDE RECORDS SUMMARY | 2024-11-01 14:19 | XMS_ITS | Encounter Summary ---
Author Organization [employer] Address [address] [place] [address] 7t [place] [address] Care Team Providers Care Cloth Tester Quality Name Role Phone Rowena Lynne MD Primary Care Pro vider Cami Buckley Unavailable Unavailable Margarita Coulter PharmD Unavailable [phone] Maine Bass RN Unavailable Reason for Visit * Reason Comments Care Coordination PT1 Encounter Details Date Type Department Care Team (Latest Contact Info) Description 10/12/2024 Patient Outreach [facility] MEDICINE [address] [place] [address] Rowena Lynne MD [address] [place] [address] Care Coordination (PT1) Social History Tobacco Use Types Packs/Day Years [...] encounter Progress Notes * Lyndsey Shea - 10/12/2024 10:55 AM EST CHW Lyndsey Shea scheduled pt1 for appt on 10/15/24 at 1:25pm at [address] [place] [address] in [place], [place]. CHW will follow up with pt with a reminder. documented in this encounter Plan of Treatment Upcoming Encounters Date Type Department Care Team (Late st Contact Info) Description 11/15/2024 11:15 AM EDT Office Visit [facility] MEDICINE [address] [place] [address] Rowena Rodriguez MD [address] [place] [address] documented as of this encounter Goals Goal [...] documented as of this encounter Care Teams Cloth Tester Quality Relationship Specialty Start Date End Date Rowena Lynne MD [address] [place] [phone] PCP - General Internal Medicine 02/20/23 Cami Buckley [facility] Health Worker 10/16/23 Margarita Coulter, DoreenD [address] [place] [phone] Pharmacist Internal Medicine 11/20/23 Maine Bass RN [address] [place] [phone] Cabinet BuilderGrain Unloader Machine 09/30/24 documented as of this encounter
--- OUTSIDE RECORDS SUMMARY | 2024-11-01 14:19 | XMS_ITS | Encounter Summary ---
Author Organization [employer] Address 75 [facility] 7t [place] [address] Care Team Providers Care Mica Miner Blasting Name Role Phone Rowena Lynne MD Primary Care Pro vider Cami Buckley Unavailable Unavailable Margarita Coulter PharmD Unavailable [phone] Maine Bass RN Unavailable [phone] Encounter Details Date Type Department Care Team (Latest Contact Info) Description 10/14/2024 Travel Social History Tobacco Use Types Packs/Day Years [...] Description 11/15/2024 11:15 AM EDT Office Visit [facility] MEDICINE [address] [place] [address] Rowena Rodriguez MD [address] [place] [phone] documented as of this encounter Goals Goal [...] documented as of this encounter Care Teams Mica Miner Blasting Relationship Specialty Start Date End Date Rowena Lynne MD [address] [place] [phone] PCP - General Internal Medicine 02/20/23 Cami Buckley Community Health Worker 10/16/23 Margarita Coulter, PharmD [address] [place] [phone] Pharmacist Internal Medicine 11/20/23 Maine Bass RN [address] [place] [phone] Concrete SpreaderDigital Program Manager 09/30/24 documented as of this encounter
--- OUTSIDE RECORDS SUMMARY | 2024-11-01 14:19 | XMS_ITS | Clinical Summary ---
Author Organization [employer] Address [address] [place] [address] [address] [place] [address] Care Team Providers Care Automobile Washer Steam Name Role Phone Rowena Lynne MD Primary Care Pro vider Cami Buckley Unavailable Unavailable Margarita Coulter PharmD Unavailable [phone] Maine Bass RN Unavailable [phone] Allergies No known active allergies Medications methadone (Dolophine) 10 MG/ML solution Take 60 mg by mouth in the morning. Active nicotine polacrilex (Nicotine Mini) 2 MG lozenge Dissolve 1 lozenge (2 mg) in the mouth if needed for smoking cessation. May use 1 lozenge every 1-2 hours PRN. No more than 20/ daily 135 lozenge 1 09/15/19 24 Active hydrOXYzine pamoate (Vistaril) 25 MG capsule Take 1 capsule (25 mg) by mouth every 8 (eight) hours if needed for anxiety. 30 capsule 1 08/03/20 24 Active cloNIDine (Catapres) 0.1 MG tablet Take 1 tablet (0.1 mg) by mouth if needed in the morning and at bedtime (anxiety). 30 tablet 1 08/03/20 24 Active albuterol (Ventolin HFA) 108 (90 Base) MCG/ACT inhaler INHALE 2 PUFFS BY MOUTH EVERY 4 TO 6 HOURS NEEDED FOR ASTHMA 18 g 08/03/20 24 Active Advair Diskus 250-50 MCG/ACT aerosol powder Inhale 1 puff at noon and 1 puff in the evening. 1 each 2 08/03/20 24 Active albuterol (2.5 MG/3ML) 0.083% nebulizer solution USE 3 ML VIA NEBULIZER THREE TIMES DAILY DIRECTED 75 mL 1 08/03/20 24 Active pantoprazole (ProtoNix) 40 MG EC tablet Take 1 tablet by mouth Once per day. 09/21/19 25 Active sulfamethoxazole- trimethoprim (Bactrim DS) 800-160 MG tablet TAKE 1 TABLET BY MOUTH EVERY FRIDAY, FRIDAY AND FRIDAY FOR 30 DAYS WHILE ON HIGH DOSE PREDNISONE. 09/21/19 25 Active predniSONE (Deltasone) 20 MG tablet Take 3 tablets by mouth Once per day. Active predniSONE (Deltasone) 20 MG tablet Take 3 tablets (60 mg) by mouth Once per day. 90 tablet 10/05/19 25 2024 Active gabapentin (Neurontin) 100 MG capsule Take 3 capsules (300 mg) by mouth every 8 (eight) hours. 270 capsule 10/05/192025 Active losartan (Cozaar) 25 MG tablet Take 1 tablet (25 mg) by mouth Once per day. 30 tablet 10/14/192025 Active Blood Pressure Monitor [facility] Check BP daily 1 each 10/14/19 25 Active Acetaminophen Extra Strength 500 MG tablet TAKE 1 TABLET BY MOUTH EVERY 6 HOURS NEEDED FOR MILD PAIN 120 tablet 10/28/19 25 Active topiramate (Topamax) 25 MG tabletIndications :Chronic nonintractable headache, unspecified headache type Take 1 tablet (25 mg) by mouth at bedtime. 30 tablet 1 10/28/19 25 2025 Active traZODone (Desyrel) 100 MG tablet Take 1.5 tablets (150 mg) by mouth at bedtime. 45 tablet 1 10/28/19 25 Active buPROPion SR (Wellbutrin SR) 100 MG 12 hr tablet Take 100 mg by mouth 2 times daily. 02/01/20 23 2024 Discontinued(M ed list cleanup (will not trigger notification to Pharmacy)) docusate sodium (Colace) 100 MG capsule Take 1 capsule by mouth every 12 (twelve) hours. 12/10/192024 Discontinued(M ed list cleanup (will not trigger notification to Pharmacy)) Diclofenac Sodium 1 % gelIndications:Fi nger joint swelling, right,Finger joint swelling, left Apply topically to affected areas twice daily 150 g 1 02/21/20 23 2024 Discontinued(M ed list cleanup (will not trigger notification to Pharmacy)) capsaicin (Zostrix) 0.025 % creamIndications: Finger joint swelling, right,Finger joint swelling, left APPLY TOPICALLY TO THE AFFECTED AREA TWICE DAILY 60 g 01/31/20 24 2024 Discontinued(M ed list cleanup (will not trigger notification to Pharmacy)) azithromycin (Zithromax) 250 MG tablet Take 2 tabs PO daily x 1d then 1 tab PO daily on D2 to D5 6 tablet 03/05/20 24 2024 Discontinued(M ed list cleanup (will not trigger notification to Pharmacy)) acetaminophen (Tylenol Extra Strength) 500 MG tablet Take 1 tablet (500 mg) by mouth every 6 (six) hours if needed for mild pain. 120 tablet 03/05/20 24 2024 Discontinued traZODone (Desyrel) 100 MG tablet Take 1.5 tablets (150 mg) by mouth at bedtime. 45 tablet 1 08/03/20 24 2024 Discontinued(R eorder (will not trigger notification to Pharmacy)) predniSONE (Deltasone) 20 MG tabletIndications :Acute intractable headache, unspecified headache type Take 40 mg for 5 days ( 2 tab a day) ,then 1 tab and a half for 5 days ,then 1 tab for 5 days , then half tablet for 5 days 30 tablet 08/03/20 24 2024 Discontinued(M ed list cleanup (will not trigger notification to Pharmacy)) omeprazole OTC (PriLOSEC OTC) 20 MG EC tablet Take 1 tablet (20 mg) by mouth before breakfast. Do not crush, chew, or split. 30 tablet 08/03/20 24 2024 Discontinued(M ed list cleanup (will not trigger notification to Pharmacy)) topiramate (Topamax) 25 MG tabletIndications :Chronic nonintractable headache, unspecified headache type Take 1 tablet (25 mg) by mouth at bedtime. 30 tablet 1 08/17/20 24 2024 Discontinued(R eorder (will not trigger notification to Pharmacy)) Active Problems Problem Noted Date Diagnosed Date Hypertension 10/15/2024 Assessment & Plan (10/15/2024 5:58 PM EST): - in a setting of systemic steroid use and pain, yet her BP has been high at home and other clinic - continue working on lifestyle modifications - start losartan 25 mg daily - check BP at home Temporal arteritis 10/14/2024 Assessment & Plan (10/15/2024 6:01 PM EST): - confirmed by biopsy - seen by neurologist on 10/13/24. - continue prednisone - tried to reschedule rheumatology appointment which her PCP has originally made. However, there is a long wait list, and she was given an appointment in January. Will request another rheumatology office. Chronic nonintractable headache 08/17/2024 Assessment & Plan (10/15/2024 5:56 PM EST): - Dx temporal arteritis - Continue prednisone until seen by electronic prepress operator and milker machine - Continue judicious use of gabapentin Assessment & Plan (08/17/2024 2:25 PM EST): Probably multifactorial, secundary to trauma? Migraine? Temporal arteritis? Tension headaches? I advise: I advise to avoid triggers like red wine, chocolate, cheese, strong perfumes, screens, dehydration I will start her on topomax 25mg at bed time (patient has listen on her condition bipolar she ca not do amitriptyline) and I will prescribe excedrin migraines Her referral for rheumatology, ophthalmology and neurology where printed and given to patient RTC 4 weeks televisit f/u headaches Headache 08/04/2024 Assessment & Plan (08/04/2024 5:12 AM EST): Pt with on and off intense CANO worse in right side of CANO associated w nausea, photophobia, malaise, anorexia,on scalp complete neuro exam is normal but noted significant tenderness over right side of scalp w superficial palpation. Concern with possibility of GCA( temporal arteritis ) ,vs migraine CANO , Already r/o intracranial bleeding w image yesterday Noted CT scan findings of Partial effusions and bilateral mastoid air cells.Right maxillary, ethmoid sinus mucosal thickening.but clinically symptoms are not consistent w ear/mastoid infection -will need to eval at next apt -ordered CRP,ESR,CBC,chem -referred today for MRI brain w/wo contrast --sent as STAT -referred STAT to Milking Machine Technician for possible temporal arteritis for bx and management if actual dx -ophthalmology STAT referral -Start prednisone 40 mg daily for 5 days then decrease to 30 mg daily for 5 days then 20 mg daily for 5 days then 10 mg daily for 7 days --may need to prolong course -start PPIS in fasting while taking steroids given prolong course -zofran PRN -excedrin PRN -Alarm signs and symptoms discussed in length today,explained to pt nature of disease in case is dx and need to to go to ED immediately if having again episodes of blurry vision or worsening symptoms -Pt agreed w plan -requesting rn staff to f on referrals and help w f up apt in clinic Cough in adult 05/12/2024 Elevated liver enzymes 05/12/2024 Assessment & Plan (05/12/2024 3:19 PM EDT): It could be related to acute infection, will repeat LFTs in 5d. Bronchitis 03/05/2024 Assessment & Plan (05/12/2024 3:18 PM EDT): Rapid viral tests today are NEG> Order CXR to ro pneumonia. Albuterol nebs now, should continue albuterol inh q6h at home x 3d then prn. Rx medrol pack + Z-pack. Re consult prn if sxs do not significantly improve within 4d. Bipolar 1 disorder 03/26/2023 Assessment & Plan (08/04/2024 5:12 AM EST): -states will start care w new psychiatrist this week and f w therapist already weekly -refilled today requested meds today and req rn staff in green team to help w tube for NBZ machine Assessment & Plan (03/26/2023 5:47 PM EDT): Pt reports to have Bipolar dx and anxiety ,denies SI States to be stable -per pt is changing care of her previous psychiatrist and is in waiting list, reports is already following w therapist -pt request refill of clonidine taking prn BID x anxiety and trazodone x now until starts care -refilled meds today -from med reconciliation noted she used to take lamotrigine -per pt states stopped 2 mo ago ,was not taking regularly -will hold on resume -pt to start care w new psychiatrist Health care maintenance 03/26/2023 Assessment & Plan (03/26/2023 5:40 PM EDT): -menopause: 40s -pap smear: Record says JAVY 1 before but last pap smear done in 06/20/2021 was normal ---will discuss w pt at next apt if ok To be referred w Sylvia. R to repeat pap smear and if normal would to every 5 years -MM:2019: BIRADS 2-referred today -colonoscopy:per pt done 6 y ago told to be normal -.---- requested record to [facility] Fallon -vaccines: s/p covid 19 x1-pt wants to hold, tdap 2000-today tdap dose, p20 today, will offer zoster vaccine at next apt -labs x annual exam-will RTC in fasting -pt agreed to have STI testing including HIV to have for baseline Lump in neck 03/26/2023 Assessment & Plan (03/26/2023 5:41 PM EDT): Pt reports noticing since last week a lump in right side of neck w no obvious infectious symptoms and reports ongoing night sweats -will do neck US to eval palpated nodule -will also do quantiferon, LDH ,CBC Leg pain 03/26/2023 Assessment & Plan (03/26/2023 5:48 PM EDT): Reports bilateral leg pain and on and off LE swelling not seen on today exam Noted as well mottled skin -referred to vascular to r/o vascular etiology ,possible venous insuf but with her change in skin color will need as well to eval arterial specially x tobacco use -raise legs -will do MILAGROS to r/o lupus associated w skin changes Finger pain 03/26/2023 Assessment & Plan (03/26/2023 5:44 PM EDT): Pt reports pain specifically in both of her index fingers w thickening of the joint w no swelling and denies rigidity w no other concerning symptoms for autoimmune arthritis -referred x bl hand XR -pt using diclofenac and capsaicin cream that is helping -tylenol prn Moderate persistent asthma with acute exacerbati on 08/27/2022 Assessment & Plan (03/26/2023 5:29 PM EDT): asthma/COPD?f w patternmaker apprentice metal -pt on advair and albuterol prn -per pt has upcoming apt w patternmaker apprentice metal next month -pt will discuss about still needing albuterol -may need trelegy instead Anxiety 09/17/2018 Chronic hepatitis C 02/27/2017 Assessment & Plan (03/26/2023 5:29 PM EDT): S/p tx years ago w neg VL per pt -will check hep C VL Sleep apnea 07/31/2015 Assessment & Plan (03/26/2023 5:28 PM EDT): Pt w NYASIA using CPAP Cervical intraepithelial neoplasia grade 1 03/03 Assessment & Plan (03/26/2023 5:33 PM EDT): Record says JAVY 1 before but last pap smear done in 06/20/2021 was normal ---will discuss w pt at next apt if ok To be referred w J. R to repeat pap smear and if normal would to every 5 y Episodic opioid dependence 09/08/1959 Assessment & Plan (03/26/2023 5:38 PM EDT): Pt reports not been using crack nor snored heroine x the last 5 months -denies hx of IVDU -on methadone clinic Gastroesophageal reflux disease 09/08/1959 Impaired fasting glucose 09/08/1957 Assessment & Plan (10/15/2024 5:57 PM EST): - check A1C since she has been on high-dose prednisone - continue working on lifestyle modifications Tobacco dependence syndrome 09/08/1957 Overview (11/03/2023): Pharmacotherapy: (updated 11/03/23) - Nicotine Lozenges 2mg Dissolve 1 lozenge every 1-2 hours as needed History: (updated 11/03/23) First smoking cessation visit with pharmacist on 09/15/2023. Smoking since 14 years of age, at height was smoking about 12 cigarettes daily (1/2PPD). Is now down to 1/4 PPD. Does not smoke within 30 mins of waking up. Triggers include depression and anxiety. Previous attempts to quit were done without the use of NRT products but has used patches in the past and does not want to use them again. Tried lozenges but patient reports no progress. However, states that she is smoking later into the day. Congratulated on success. Assessment & Plan (11/03/2023 2:23 PM EST): Assessment: - Patient continuing to make progress toward tobacco cessation Plan: - Continue with current therapy as needed; schedule new visit when ready to try again. Assessment & Plan (09/15/2023 4:36 PM EST): Assessment: Patient is currently smoking 1/2PPD and approaching goal of tobacco cessation Plan: - START nicotine lozenges 2 MG, dissolve 1 lozenge every 1-2 hours as needed for urge to smoke - F/U in 3 weeks as requested by patient. Assessment & Plan (03/26/2023 5:37 PM EDT): Started smoking 14 y of age until now -smokes 5 to 10 cigarettes a day trying to cut down -smoking x 48 h -PQT a year charlene is 26 -CT chest 06/2022: Emphysema with interstitial lung disease and small several pulmonary nodules larger 4 mm in LAXMI and bl lung bases -tobacco cessation advised -referred today x tobacco cessation program -pt interested in smoking cessation -referred x lung ca screening program Resolved Problems Problem Noted Date Diagnosed Date Resolved Date Acute cystitis 01/07/2018 03/26/2023 Depressive disorder 09/08/1957 03/26/20 23 Encounters Date Type Department Care Team Description 10/29/2024 Telephone [facility] [address] [place] [phone] Rowena Lynne MD Care Management (C3CM- f/u call) 10/28/2024 Refill [facility] [address] [place] [id number] Rowena Rodriguez MD Chronic nonintractable headache, unspecified headache type 10/28/2024 Refill [facility] [address] [place] [address] Milagros Hernández MD Chronic nonintractable headache, unspecified headache type 10/28/2024 Refill [facility] [address] [place] [phone] Rowena Lynne MD 10/21/2024 Patient Outreach [address] [address] Rowena Lynne MD Care Coordination (mail) 10/14/2024 9:30 AM EST Office Visit [address] [address] Lauryn Quiros MD Chronic nonintractable headache, unspecified headache type (Primary Dx); Temporal arteritis ([facility]/HCC); Bilateral carotid artery stenosis; Current chronic use of systemic steroids; Hypertension, unspecified type; Impaired fasting glucose 10/14/[address] [address] Rowena Lynne MD 10/14/2024 Patient Outreach [address] [address] Rowena Lynne MD Care Coordination (Appt reminder) 10/14/2024 Travel 10/13/[address] [address] aMine Bass RN Care Management (C3- f/u call) 10/13/2024 Patient Outreach [address] [address] Rowena Lynne MD Care Coordination (SDOH) 10/12/2024 Patient Outreach [address] [id number] Rowena Lynne MD Care Coordination (PT1) 10/12/2024 Patient Outreach [facility] [address] [facility] [place] [address] Rowena Lynne MD 10/12/2024 Patient Outreach [facility] [address] [facility] [place] [address] Rowena Lynne MD Care Coordination (SDOH ) 10/08/2024 Orders Only [facility] [address] [facility] [place] [address] Lauryn Quiros MD 10/06/2024 Patient Outreach [facility] [address] [facility] [place] [address] Rowena Lynne MD Care Coordination (SDOH) 10/05/2024 Refill [facility] [address] [facility] [place] [address] Rowena Lynne MD 10/04/[address] [place] [address] Maine Bass, RN 10/01/[address] [place] [address] Maine Bass, RN 09/30/[address] [place] [address] Maine Bass, RN Care Management (C3CM- initial assessment/ enrollment) 09/29/2024 Patient Outreach [address] [place] [address] Rowena Lynne MD Care Coordination (CM/CHW appt reminder) 09/24/2024 Patient Outreach [facility] [address] [place], [place] [address] [facility] [place] [address] Rowena Lynne MD Care Coordination (CM/CHW outreach) 09/24/[address] [place] [address] Rowena Lynne MD Medication Question 09/24/2024 Patient Outreach [facility] [address] [place] [address], [place] [address] Rowena Lynne MD Transition Of Care (Tcm) (HDF scheduled) 09/20/2024 Patient Outreach [facility] [place] [facility] [place] [address] Rowena Lynne MD Care Coordination (CM/CHW outreach) 09/20/2024 Telephone [facility] [place] [address] Maine Bass RN Care Management (C3- chart review) 08/17/2024 9:15 AM EST Office Visit [facility] [place] [address] Rowena Rodriguez MD Chronic nonintractable headache, unspecified headache type (Primary Dx) 08/17/2024 Travel 08/16/2024 Telephone [facility] [place] [address] Turner Ackerman MA Chart Prep 08/13/2024 Telephone [facility] [facility] [place] [address] Rowena Lynne MD 08/12/2024 [address] [place] [address] Danii Ambrosio RN Results 08/11/2024 Orders Only [facility] [place] [place] [address] Rowena Lynne MD Nonintractable headache, unspecified chronicity pattern, unspecified headache type (Primary Dx) 08/10/2024 Telephone [facility] [facility] [place] [address] Mell Good MA Durable Medical Equipment 08/09/2024 Telephone [facility] [address] [facility] [place] [address] Mell Good MA Durable Medical Equipment 08/04/2024 Telephone [facility] [place] [facility] [place] [address] Danii Ambrosio RN 08/04/2024 Telephone [facility] [facility] [place] [address] Rowena Lynne MD 08/03/2024 9:00 AM EST Office Visit [facility] [place] [address] Rowena Lynne MD Acute intractable headache, unspecified headache type (Primary Dx); Bipolar 1 disorder (CMS/HCC); Blurry vision, right eye 08/02/2024 Orders Only GENERIC EXTERNAL DATA DEPARTMENT Provider, Generic External Data from Last 3 Months Immunizations Name Administration Dates Next Due Influenza injectable quadrivalent preservative f ree 06/20/2021 Influenza, IIV3, injectable 05/03/2013, 1 Influenza, Split (incl. purified surface antigen ) 09/22/2012 Influenza, seasonal, injectable, preservative fr ee 07/02/2015 Pneumococcal Conjugate PCV 20 03/26/2023 TD (adult), 2 Lf tetanus tox oid, preservative free, adsorbed 01/29/2000 Tdap 03/26/2023 Social History Tobacco Use Types Packs/Day Years Used Date Smoking Tobacco: Every Day Cigarettes Passive Smoke Exposure: Current Smokeless Tobacco: Never Tobacco Cessation:Ready to Q uit: Not Asked; Counseling Given: Not Answered Comments:Started smoking 14 y of age until [...] your housing situation today? I have nallely josé luis 01/29/[address] you li [...] Orientation Straight 07/08/2022 10 :14 AM EDT Last Filed Vital Signs Vital Sign Reading Time Taken Comments Blood Pressure 158/90 10/14/2024 9:36 AM EST Pulse 84 10/14/2024 9:36 AM EST Temperature 35.4 ??C (95.7 ??F) 10/14/2024 9:36 AM ES T Respiratory Rate 19 10/14/2024 9:36 AM EST Oxygen Saturation 98% 10/14/2024 9:36 AM EST Inhaled Oxygen Concentration - - Weight 69.5 kg (153 lb 3.2 oz) 10/14/2024 9:36 A M EST Height 154.5 cm (5' 0.83 ) 10/14/2024 9:36 AM ES T Body Mass Index 29.11 10/14/2024 9:36 AM EST Plan of Treatment Upcoming Encounters Date Type Department Care Team (Late st Contact Info) Description 11/15/2024 11:15 AM EDT Office Visit [facility] [address] [place] [address] Rowena Rodriguez MD [address] [place] [address] Health Maintenance Due Date Last Done Comments CT Colonography 1962 FIT DNA/Cologuard 1962 FIT 1962 FOBT 1962 HIV Screening 1962 Sigmoidoscopy 1962 Hepatitis A Vaccines (1 of 2 - Risk 2-dose series) 1981 Zoster Vaccines (1 of 2) 2012 Mammogram 11/06/2020 11/06/2018 Hepatitis B Vaccines (1 of 3 - Risk 3-dose series) 2022 RSV Patients and Patients Aged 60 years or older (1 - Risk 60-74 years 1-dose series) 2022 COVID-19 Vaccine (2 - season) 2024 01/26/2021 Influenza Vaccine (#1) 2024 , 07/02/2015, 05/03/2013, Additional history exists Colonoscopy 11/30/2024 11/30/2014 Colorectal Cancer Screening 11/30/2024 SDOH Screening 01/28/2025 01/29/2024 Depression Monitoring (PHQ-9) 02/15/2025 08/17/2024, 08/17/2024 Depression Screening 08/17/2025 08/17/2024, 08/17/20 Alcohol/Substance Use Screening 10/14/2025 10/14/2024 Tobacco Screening 10/14/2025 10/14/2024 Lipid Panel 05/07/2026 05/07/2021 Cervical Cancer Screening 06/20/2026 HPV/Cotest 06/20/2026 06/20/2021, 06/20/2021 Pap Smear 06/20/2026 06/20/2021 DTaP/Tdap/Td Vaccines (2 - Td or Tdap) 03/26/2033 03/26/2023, 01/29/2000 Pneumococcal Vaccine: 50+ Years Completed 03/26/2023 HIB Vaccines Aged Out No longer eligi ble based on patient's age to complete this topic HPV Vaccines Aged Out No longer eligi ble based on patient's age to complete this topic IPV Vaccines Aged Out No longer eligi ble based on patient's age to complete this topic Meningococcal Vaccine Aged Out No rachel romaine eligible based on patient's age to complete this topic RSV under 20 months Aged Out No longe r eligible based on patient's age to complete this topic Rotavirus Vaccines Aged Out No longer eligible based on patient's age to complete this topic Goals Goal Patient Goal Type Associated Problems Recent Progress Patient-Stated? Author Quit using tobacco (cigarettes, smokeless, etc) Tobacco Use Tobacco dependence syndrome On track(09/15/19 4:37 PM EST) No Coulter, Jerril, PharmD Procedures Procedure Name Priority Date/Time Associated Diagnosis Comments BASIC METABOLIC PANEL Routine 11/01/2024 12:42 PM EST Current chronic use of systemic steroids HEMOGLOBIN A1C Routine 11/01/2024 12:42 PM EST Current chronic use of systemic steroids AMB REFERRAL TO NEUROLOGY Routine 10/12/2024 Nonintractable headache, unspecified chronicity pattern, unspecified headache type MR BRAIN W AND WO CONTRAST STAT 08/10/2024 3:35 PM EST Acute intractable headache, unspecified headache type CBC Routine 08/03/2024 10:07 AM EST Acute intractable headache, unspecified headache type COMPREHENSIVE METABOLIC PANEL Routine 08/03/2024 10:07 AM EST Acute intractable headache, unspecified headache type C-REACTIVE PROTEIN Routine 08/03/2024 10 :07 AM EST Acute intractable headache, unspecified headache type SED RATE BY MODIFIED WESTERGREN Routine 08/03/2024 10:07 AM EST Acute intractable headache, unspecified headache type HEPATIC FUNCTION PANEL Routine 10:07 AM EST Elevated liver enzymes CT HEAD WO CONTRAST Routine 08/02/2024 4 :42 PM EST CBC WITH AUTO DIFFERENTIAL Routine 08/02/2024 4:17 PM EST MAGNESIUM Routine 08/02/2024 4:17 PM EST COMPREHENSIVE METABOLIC PANEL Routine 08/02/2024 4:[address] CERVICAL SPINE WO CONTRAST Routine 08/02/2024 3:58 PM EST HPV GENOTYPES 16,18/45 Routine 1 2:58 PM EDT THINPREP PAP Routine 06/20/2021 2:58 PM EDT LIPID PANEL, STANDARD Routine 05/07/2021 11:17 AM EDT BI MAMMOGRAM SCREENING BILATERAL Routine 11/06/2018 3:42 PM EST HM COLONOSCOPY Routine 11/30/2014 8:07 AM EDT from Last 3 Months or Most Recently Relevant to Health Maintenance Results * Hemoglobin A1c (11/01/2024 12:42 PM EST) Hemoglobin A1c 5.2 <6.0 % [facility] Comment:Hemoglobin A1C Refer ence Range Adults: 4.8 - 6.0 % Non diabetic: < 6.0 % Goal: < 7.0 %Additional Action Suggested: > 8.0 %Note: Hemoglobin A1c results are invalid for patients with abnormal amounts of HbF. Blood transfusions may impact the HbA1c concentration in the patient sample. Estimated Average Glucose 103 mg/dL [facility] Comment:eAG = Estimated ave rage glucose which is %A1C expressed asaverage glucose, using the formula of the B0A-TtmzuuaNuguksl Glucose study (ADAG), Diabetes Care, Vol.31,#8,Apr. 2007 Blood Venous blood specimen / Unknown 11/01/2024 12:42 PM EST 11/01/2024 1:40 PM EST us Lauryn Quiros MD LAB BLOOD ORDERABLES Final Resul t [facility] [address] [place] [phone] * (ABNORMAL) Basic Metabolic Panel (11/01/2024 12:42 PM EST) Sodium 138 135 - 145 mmol/L [facility] Potassium 4.6 3.3 - 5.1 mmol/L [facility] Comment:Mild Hemolysis.Inter pret result with caution Chloride 105 96 - 108 mmol/L [facility] Carbon Dioxide 26 22 - 29 mmol/L [facility] Anion Gap 12 12 - 20 [facility] Urea Nitrogen (BUN) 8(L) 9 - 16 mg/dL [facility] Creatinine, Serum 0.72 0.5 - 1.4 mg/dL [facility] Estimated Glomerular Filt Rate >60 [facility] Comment:Chronic Kidney Disea se: Estimated GFR < 60 mL/min/[id number] Kidney Disease: Estimated GFR < 15 mL/min/1.73m2 Glucose 94 60 - 115 mg/dL [facility] Calcium 8.9 8.4 - 10.2 mg/dL [facility] Blood Venous blood specimen / Unknown 11/01/2024 12:42 PM EST 11/01/2024 1:40 PM EST us Lauryn Quiros MD LAB BLOOD ORDERABLES Final Resul t [facility] [address] [place] [phone] * Referral to Neurology (10/12/2024) us Rowena Vargas MD OUTPATIENT REFERR AL ORDERABLES Final Result * Mr Brain w/ and w/o Contrast (08/10/2024 3:35 PM EST) Anatomical Region Laterality Modality Brain Magnetic Resonan ce 08/10/2024 3:35 PM EST Narrative 08/11/2024 3:50 PM EST ? [facility] ?[address] ?[place] [address] ? Magnetic Resonance Report ? Signed ? Patient: Parsons,Myra E ?MR#: [id number] ?? 60 ? : 1960 ?Acct:[id number] ? Age/Sex: 64 / F ?ADM Date: 12/03/24 ? Loc: HO.MRI ? Attending Dr: Rowena Vargas MD ? Ordering Physician: Rowena Lynne MD ?? Date of Service: 08/10/24 ?? Procedure(s): MR head/brain wo/w con ?? Accession Number(s): [id number] ? cc: Rowena Lynne MD ? EXAMINATION: ?? MR BRAIN WITHOUT AND WITH CONTRAST ? CLINICAL INFORMATION: ?? Worsening headache ? COMPARISON: ?? CT scan of brain on 08/02/2024 ? TECHNIQUE: ?? Multiplanar, multisequence MRI of the brain was obtained before and ?? after the intravenous administration of 8 mL Gadavist. ? FINDINGS: ?? Ventricles, sulci and cisterns are normal. ? Several nonenhancing T2 hyperintense focal lesions are seen in right ?? frontal subcortical white matter, left frontal deep white matter. ?? No focal cerebral, brainstem or cerebellar lesions with abnormal signal ?? can be seen. ? Diffusion weighted images show no abnormal regional decrease in ?? diffusion. ?? Post contrast images show no enhancing cerebral, brainstem or ?? cerebellar lesions. ??No abnormal meningeal enhancement is seen. ? The pituitary gland is normal. ??Optic chiasm is not displaced. ? Cerebellar tonsils position is normal. ?? Bilateral ethmoid sinuses, bilateral maxillary sinus floor show mild ?? mucosal thickening. ? MR/MR head/brain wo/w con ?? IMPRESSION: ? 1. A few nonenhancing bilateral frontal white matter lesions are seen, ?? could represent lesions associated with migraine headache, focal ?? demyelinating disease or ischemic white matter lesions due to ?? microangiopathy. ?? 2. ??No acute cerebral infarction is seen. ?? 3. ??No evidence of space occupying mass lesion could be found. ?? 4. ??No evidence of intracranial hemorrhage. ? Electronically signed by: ??Oscar Whittaker MD ??08/11/2024 03:48 PM EST ?? RP ? Dictated By: ?Oscar Whittaker ? Signed By: ?<Electronically signed by Oscar Whittaker in OV> ? 08/11/24 1548 ? DD/ 1535 ? TD/TT: 08/10/24 1605 ? Solar Sales Manager: ? Procedure Note Francisca, Leonela - 08/11/2024 [address] [place] [address] Magnetic Resonance Report Signed Patient: Myra Parsons EMR#: [id number] 60 : 2Acct:[id number] Age/Sex: 64 / FADM Date: 08/10/24 Loc: HO.MRI Attending Dr: Rowena Vargas MD Ordering Physician: Rowena Lynne MD Date of Service: 08/10/24 Procedure(s): MR head/brain wo/w con Accession Number(s): [id number] cc: Rowena Lynne MD EXAMINATION: MR BRAIN WITHOUT AND WITH CONTRAST CLINICAL INFORMATION: Worsening headache COMPARISON: CT scan of brain on 08/02/2024 TECHNIQUE: Multiplanar, multisequence MRI of the brain was obtained before and after the intravenous administration of 8 mL Gadavist. FINDINGS: Ventricles, sulci and cisterns are normal. Several nonenhancing T2 hyperintense focal lesions are seen in right frontal subcortical white matter, left frontal deep white matter. No focal cerebral, brainstem or cerebellar lesions with abnormal signal can be seen. Diffusion weighted images show no abnormal regional decrease in diffusion. Post contrast images show no enhancing cerebral, brainstem or cerebellar lesions. No abnormal meningeal enhancement is seen. The pituitary gland is normal. Optic chiasm is not displaced. Cerebellar tonsils position is normal. Bilateral ethmoid sinuses, bilateral maxillary sinus floor show mild mucosal thickening. MR/MR head/brain wo/w con IMPRESSION: 1. A few nonenhancing bilateral frontal white matter lesions are seen, could represent lesions associated with migraine headache, focal demyelinating disease or ischemic white matter lesions due to microangiopathy. 2. No acute cerebral infarction is seen. 3. No evidence of space occupying mass lesion could be found. 4. No evidence of intracranial hemorrhage. Electronically signed by: Oscar Whittaker MD 08/11/2024 03:48 PM [facility] Dictated By: Oscar Whittaker Signed By: <Electronically signed by Oscar Whittaker in OV> 08/11/24 1548 DD/ 1535 TD/TT: 08/10/24 1605 Solar Sales Manager: us Rowena Vargas MD IMG MRI PROCEDURE S Final Result * (ABNORMAL) Sed Rate by Modified Westergren (08/03/2024 10:07 AM EST) Erythrocyte Sedimentation Rate 75(H) 0 - 20 MM/HR [facility] Comment:Patients with polycy themia and many hemoglobin abnormalitiesmay have depressed sed rates whereas patients with anemiamay have elevated sed rates. Blood Venous blood specimen / Unknown 08/03/2024 10:07 AM EST 08/03/2024 11:47 AM EST us Rowena Vargas MD LAB BLOOD ORDERAB LES Final Result [facility] [address] [place] [phone] * (ABNORMAL) CBC (08/03/2024 10:07 AM EST) Pathologist [facility] White Blood Count 9.5 4.8 - 10.8 X10*3/uL [facility] Red Blood Count 4.10(L) 4.20 - 5.50 X10*6/uL [facility] Hemoglobin 13.1 12.0 - 16.0 g/dl [facility] Hematocrit 38.7 37.0 - 47.0 % [facility] Mean Corpuscular Volume 94.4 80.0 - 98.0 fL [facility] Mean Corpuscular Hemoglobin 32.0 27.0 - 33.0 pg [facility] Mean Corpuscular HGB Conc 33.9 31.0 - 35.0 g/dl [facility] Red Cell Distribution Width 13.1 11.0 - 16.0 % [facility] Platelet Count 357 160 - 400 X10*3/uL [facility] Mean Platelet Volume 8.7(L) 9.4 - 12.3 fL [facility] NRBC Pct Auto 0.0 0.0 - 0.2 /100WBC [facility] NRBC Abs Auto 0.000 0.0 - 0.012 X10*3/uL [facility] Blood Venous blood specimen / Unknown 08/03/2024 10:07 AM EST 08/03/2024 11:47 AM EST us Rowena Vargas MD LAB BLOOD ORDERAB LES Final Result Performing Organization Address [facility] Co de Phone Number [facility] [address] [place] [phone] * (ABNORMAL) C-reactive Protein (08/03/2024 10:07 AM EST) C Reactive Protein 12.70(H) < or = 0.50 mg/dL [facility] Blood Venous blood specimen / Unknown 08/03/2024 10:07 AM EST 08/03/2024 11:47 AM EST us Rowena Vargas MD LAB BLOOD ORDERAB LES Final Result Performing Organization Address [facility] Co de Phone Number [facility] [address] [place] [phone] * Hepatic Function Panel (08/03/2024 10:07 AM EST) Bilirubin, Direct 0.3 0.0 - 0.5 mg/dL [facility] Blood Venous blood specimen / Unknown 08/03/2024 10:07 AM EST 08/03/2024 11:47 AM EST Milagros Hernández MD LAB BLOOD ORDERABLES Fin al Result Performing Organization Address [facility] Co de Phone Number [facility] [address] [place] [phone] * (ABNORMAL) Comprehensive Metabolic Panel (08/03/2024 10:07 AM EST) Only the most recent of2 resultswithin the time period is included. Sodium 134(L) 135 - 145 mmol/L [facility] Potassium 4.1 3.3 - 5.1 mmol/L [facility] Chloride 101 96 - 108 mmol/L [facility] Carbon Dioxide 25 22 - 29 mmol/L [facility] Anion Gap 12 12 - 20 [facility] Urea Nitrogen (BUN) 7(L) 9 - 16 mg/dL [facility] Creatinine, Serum 0.68 0.5 - 1.4 mg/dL [facility] Estimated Glomerular Filt Rate >60 [facility] Comment:Chronic Kidney Disea se: Estimated GFR < 60 mL/min/[id number] Kidney Disease: Estimated GFR < 15 mL/min/1.73m2 Glucose 120(H) 60 - 115 mg/dL [facility] Calcium 8.9 8.4 - 10.2 mg/dL [facility] Bilirubin, Total 0.6 0.0 - 1.0 mg/dL [facility] Aspartate Amino Transferase 42(H) 5 - 31 U/L [facility] Alanine Aminotransferase 45(H) 0 - 31 U/L [facility] Total Protein 7.0 6.5 - 8.0 g/dL [facility] Albumin Level 3.4(L) 3.5 - 5.0 g/dL [facility] Alkaline Phosphatase 128(H) 39 - 117 U/L [facility] Blood Venous blood specimen / Unknown 08/03/2024 10:07 AM EST 08/03/2024 11:47 AM EST Rowena Vargas MD LAB BLOOD ORDERAB LES Final Result [facility] [address] [place] [phone] * CT Head w/o Contrast (08/02/2024 4:42 PM EST) Anatomical Region Laterality Modality Head, Neck Computed Tomogra phy 08/02/2024 4:42 PM EST Narrative 08/02/2024 6:44 PM EST ? [facility] ?[address] ?[place] [address] ? CT Scan Report ? Signed ? Patient: Parsons,Myra E ?MR#: [id number] ?? 60 ? : 1960 ?Acct:[id number] ? Age/Sex: 64 / F ?ADM Date: 08/02/24 ? Loc: HO.ED ? Attending Dr: ? Ordering Physician: Elly Willis ?? Date of Service: 08/02/24 ?? Procedure(s): CT head/brain wo IV con ?? Accession Number(s): [id number] ? cc: Elly Willis; [facility] ? EXAM: ?? CT HEAD WITHOUT CONTRAST ?? CT CERVICAL SPINE ? INDICATION: ?? headache, photophobia ? TECHNIQUE: ?? A noncontrast CT scan was performed from the skull base to the vertex. ?? A noncontrast CT scan of the cervical spine was performed from the base ?? of the skull through T1 at 2.5 mm and 0.625 mm collimation. Coronal and ?? sagittal reformats were obtained at the acquisition workstation. ?? This CT examination was performed using dose optimization techniques as ?? appropriate, variously including the following: ?? * ??Automated exposure control ?? * ??Adjustment of mA and/or kV according to patient size (this includes ?? techniques or standardized protocols for targeted exams where dose is ?? matched to indication/reason for exam; i.e. extremities or head) ?? * ??Use of iterative reconstruction technique ? Dose length product is 382 mGy-cm. ? COMPARISON: ?? None ? FINDINGS: ? Head: ?? There is no evidence of acute intracranial hemorrhage or edematous ?? large vessel territorial infarction. No abnormal mass effect or midline ?? shift is seen. Mcclellan to white matter differentiation is well preserved. ?? No abnormal extra-axial fluid collections are identified. ? The ventricles are normal in size. No abnormal attenuation in the brain ?? parenchyma. Cerebellar tonsils are appropriately positioned. No acute ?? calvarial fracture.. Partial effusions and bilateral mastoid air cells. ?? Right maxillary, ethmoid sinus mucosal thickening. ? Cervical Spine: ?? The atlantooccipital and atlantoaxial articulations remain well ?? aligned. Straightening of the normal cervical lordosis. Vertebral body ?? sagittal alignment is maintained. Atlantodens articulation arthritis. ?? No evidence of acute fracture or subluxation. The vertebral bodies and ?? posterior elements are normal. The disc spaces are preserved. The bony ?? canal is maintained. No prevertebral soft tissue swelling.The ?? visualized lung apices are clear. ? CT/CT head/brain wo IV con ?? IMPRESSION: ?? No CT evidence of acute intracranial hemorrhage or edematous ?? territorial infarction. ?? No CT evidence of acute cervical spine fracture or malalignment. ? Electronically signed by: ??Jose Francis MD ??08/02/2024 06:41 PM EST ?? RP ? Dictated By: ?Jose Francis MD ? Signed By: ?<Electronically signed by Jose Francis MD in OV> ?08/02/24 1841 ? DD/ 1642 ? TD/TT: 08/02/24 1642 ? Solar Sales Manager: HB ? Procedure Note Francisca, Image - 08/02/[address] [address] [address] Scan Report Signed Patient: Myra Parsons EMR#: [id number] 60 : 2Acct:[id number] Age/Sex: 64 / FADM Date: 08/02/24 Loc: HO.ED Attending Dr: Ordering Physician: Elly Willis Date of Service: 08/02/24 Procedure(s): CT head/brain wo IV con Accession Number(s): [id number] cc: Elly Willis; [facility] EXAM: CT HEAD WITHOUT CONTRAST CT CERVICAL SPINE INDICATION: headache, photophobia TECHNIQUE: A noncontrast CT scan was performed from the skull base to the vertex. A noncontrast CT scan of the cervical spine was performed from the base of the skull through T1 at 2.5 mm and 0.625 mm collimation. Coronal and sagittal reformats were obtained at the acquisition workstation. This CT examination was performed using dose optimization techniques as appropriate, variously including the following: * Automated exposure control * Adjustment of mA and/or kV according to patient size (this includes techniques or standardized protocols for targeted exams where dose is matched to indication/reason for exam; i.e. extremities or head) * Use of iterative reconstruction technique Dose length product is 382 mGy-cm. COMPARISON: None FINDINGS: Head: There is no evidence of acute intracranial hemorrhage or edematous large vessel territorial infarction. No abnormal mass effect or midline shift is seen. Mcclellan to white matter differentiation is well preserved. No abnormal extra-axial fluid collections are identified. The ventricles are normal in size. No abnormal attenuation in the brain parenchyma. Cerebellar tonsils are appropriately positioned. No acute calvarial fracture.. Partial effusions and bilateral mastoid air cells. Right maxillary, ethmoid sinus mucosal thickening. Cervical Spine: The atlantooccipital and atlantoaxial articulations remain well aligned. Straightening of the normal cervical lordosis. Vertebral body sagittal alignment is maintained. Atlantodens articulation arthritis. No evidence of acute fracture or subluxation. The vertebral bodies and posterior elements are normal. The disc spaces are preserved. The bony canal is maintained. No prevertebral soft tissue swelling.The visualized lung apices are clear. CT/CT head/brain wo IV con IMPRESSION: No CT evidence of acute intracranial hemorrhage or edematous territorial infarction. No CT evidence of acute cervical spine fracture or malalignment. Electronically signed by: Jose Francis MD 08/02/2024 06:41 PM EST Dictated By: Jose Francis MD Signed By: <Electronically signed by Jose Francis MD in OV> 08/02/24 1841 DD/ 1642 TD/TT: 08/02/24 1642 Solar Sales Manager: ARMANDO us [facility] External Provider IMG CT PROCEDURES Final Result * (ABNORMAL) CBC auto differential (08/02/2024 4:17 PM EST) White Blood Count 11.0(H) 4.8 - 10.8 X10*3/uL [facility] Red Blood Count 4.49 4.20 - 5.50 X10*6/uL [facility] Hemoglobin 14.3 12.0 - 16.0 g/dl [facility] Hematocrit 43.0 37.0 - 47.0 % [facility] Mean Corpuscular Volume 95.8 80.0 - 98.0 fL [facility] Mean Corpuscular Hemoglobin 31.8 27.0 - 33.0 pg [facility] Mean Corpuscular HGB Conc 33.3 31.0 - 35.0 g/dl [facility] Red Cell Distribution Width 13.2 11.0 - 16.0 % [facility] Platelet Count 400 160 - 400 X10*3/uL [facility] Mean Platelet Volume 8.5(L) 9.4 - 12.3 fL [facility] Neutrophils Percent Auto 77.3(H) 45 - 73 % [facility] Imm Gran Pct Auto 0.8(H) 0.0 - 0.4 % [facility] Lymphocytes Percent Auto 11.9(L) 20 - 40 % [facility] Monocytes Percent Auto 6.5 2 - 11 % [facility] Eosinophils Percent Auto 3.1 0 - 4 % [facility] Basophils Percent Auto 0.4 0 - 2 % [facility] NRBC Pct Auto 0.0 0.0 - 0.2 /100WBC [facility] Neutrophils Absolute Auto 8.5(H) 2.0 - 8.3 x10*3/uL [facility] Imm Gran Abs Auto 0.09(H) 0.00 - 0.03 X10*3/uL [facility] Lymphocytes Absolute Auto 1.3 1.2 - 4.9 X10*3/uL [facility] Monocytes Absolute Auto 0.7 0.1 - 1.2 X10*3/uL [facility] Eosinophils Absolute Auto 0.3 0.0 - 0.4 X10*3/uL [facility] Basophils Absolute Auto 0.0 0.0 - 0.2 X10*3/uL [facility] NRBC Abs Auto 0.000 0.0 - 0.012 X10*3/uL [facility] 08/02/2024 4:17 PM EST 08/02/2024 4:26 PM EST us Generic External Data Provider LAB BLOOD ORDERAB LES Final Result Performing Organization Address [facility] de Phone Number [facility] [address] [place] [phone] * Magnesium (08/02/2024 4:17 PM EST) Magnesium 2.2 1.6 - 2.6 mg/dL [facility] 08/02/2024 4:17 PM EST 08/02/2024 4:26 PM EST Generic External Data Provider LAB BLOOD ORDERAB LES Final Result Performing Organization Address [facility] de Phone Number [facility] [address] [place] [phone] * CT Cervical Spine w/o Contrast (08/02/2024 3:58 PM EST) Anatomical Region Laterality Modality Spine, C-spine Computed Tomogra phy 08/02/2024 3:58 PM EST Narrative 08/02/2024 6:44 PM EST ? [facility] ?[address] ?[place] [address] ? CT Scan Report ? Signed ? Patient: Parsons,Myra E ?MR#: [id number] ?? 60 ? : 1960 ?Acct:[id number] ? Age/Sex: 64 / F ?ADM Date: 08/02/24 ? Loc: HO.ED ? Attending Dr: ? Ordering Physician: Elly Willis ?? Date of Service: 08/02/24 ?? Procedure(s): CT cervical spine wo IV con ?? Accession Number(s): [id number] ? cc: Elly Willis; [facility] ? EXAM: ?? CT HEAD WITHOUT CONTRAST ?? CT CERVICAL SPINE ? INDICATION: ?? headache, photophobia ? TECHNIQUE: ?? A noncontrast CT scan was performed from the skull base to the vertex. ?? A noncontrast CT scan of the cervical spine was performed from the base ?? of the skull through T1 at 2.5 mm and 0.625 mm collimation. Coronal and ?? sagittal reformats were obtained at the acquisition workstation. ?? This CT examination was performed using dose optimization techniques as ?? appropriate, variously including the following: ?? * ??Automated exposure control ?? * ??Adjustment of mA and/or kV according to patient size (this includes ?? techniques or standardized protocols for targeted exams where dose is ?? matched to indication/reason for exam; i.e. extremities or head) ?? * ??Use of iterative reconstruction technique ? Dose length product is 382 mGy-cm. ? COMPARISON: ?? None ? FINDINGS: ? Head: ?? There is no evidence of acute intracranial hemorrhage or edematous ?? large vessel territorial infarction. No abnormal mass effect or midline ?? shift is seen. Mcclellan to white matter differentiation is well preserved. ?? No abnormal extra-axial fluid collections are identified. ? The ventricles are normal in size. No abnormal attenuation in the brain ?? parenchyma. Cerebellar tonsils are appropriately positioned. No acute ?? calvarial fracture.. Partial effusions and bilateral mastoid air cells. ?? Right maxillary, ethmoid sinus mucosal thickening. ? Cervical Spine: ?? The atlantooccipital and atlantoaxial articulations remain well ?? aligned. Straightening of the normal cervical lordosis. Vertebral body ?? sagittal alignment is maintained. Atlantodens articulation arthritis. ?? No evidence of acute fracture or subluxation. The vertebral bodies and ?? posterior elements are normal. The disc spaces are preserved. The bony ?? canal is maintained. No prevertebral soft tissue swelling.The ?? visualized lung apices are clear. ? CT/CT cervical spine wo IV con ?? IMPRESSION: ?? No CT evidence of acute intracranial hemorrhage or edematous ?? territorial infarction. ?? No CT evidence of acute cervical spine fracture or malalignment. ? Electronically signed by: ??Jose Francis MD ??08/02/2024 06:41 PM EST ?? RP ? Dictated By: ?Jose Francis MD ? Signed By: ?<Electronically signed by Jose Francis MD in OV> ?08/02/24 1841 ? DD/ 1558 ? TD/TT: 08/02/24 1642 ? Solar Sales Manager: HB ? Procedure Note Donotsherlyter, Image - 08/02/[address] [address] [address] Scan Report Signed Patient: Myra Parsons EMR#: [id number] 60 : 2Acct:[id number] Age/Sex: 64 / FADM Date: 08/02/24 Loc: HO.ED Attending Dr: Ordering Physician: Elly Willis Date of Service: 08/02/24 Procedure(s): CT cervical spine wo IV con Accession Number(s): [id number] cc: Elly Willis; [facility] EXAM: CT HEAD WITHOUT CONTRAST CT CERVICAL SPINE INDICATION: headache, photophobia TECHNIQUE: A noncontrast CT scan was performed from the skull base to the vertex. A noncontrast CT scan of the cervical spine was performed from the base of the skull through T1 at 2.5 mm and 0.625 mm collimation. Coronal and sagittal reformats were obtained at the acquisition workstation. This CT examination was performed using dose optimization techniques as appropriate, variously including the following: * Automated exposure control * Adjustment of mA and/or kV according to patient size (this includes techniques or standardized protocols for targeted exams where dose is matched to indication/reason for exam; i.e. extremities or head) * Use of iterative reconstruction technique Dose length product is 382 mGy-cm. COMPARISON: None FINDINGS: Head: There is no evidence of acute intracranial hemorrhage or edematous large vessel territorial infarction. No abnormal mass effect or midline shift is seen. Mcclellan to white matter differentiation is well preserved. No abnormal extra-axial fluid collections are identified. The ventricles are normal in size. No abnormal attenuation in the brain parenchyma. Cerebellar tonsils are appropriately positioned. No acute calvarial fracture.. Partial effusions and bilateral mastoid air cells. Right maxillary, ethmoid sinus mucosal thickening. Cervical Spine: The atlantooccipital and atlantoaxial articulations remain well aligned. Straightening of the normal cervical lordosis. Vertebral body sagittal alignment is maintained. Atlantodens articulation arthritis. No evidence of acute fracture or subluxation. The vertebral bodies and posterior elements are normal. The disc spaces are preserved. The bony canal is maintained. No prevertebral soft tissue swelling.The visualized lung apices are clear. CT/CT cervical spine wo IV con IMPRESSION: No CT evidence of acute intracranial hemorrhage or edematous territorial infarction. No CT evidence of acute cervical spine fracture or malalignment. Electronically signed by: Jose Francis MD 08/02/2024 06:41 PM EST RP Dictated By: Jose Francis MD Signed By: <Electronically signed by Jose Francis MD in OV> 08/02/24 1841 DD/ 1558 TD/TT: 08/02/24 1642 Solar Sales Manager: [facility] External Provider IMG CT PROCEDURES Final Result * THINPREP PAP (06/20/2021 2:58 PM EDT) Clinical Information: None given [facility] COMMENT SEE COMMENT [facility] Comment: EXPLANATORY NOTE: ? The Pap is a screening test for cervical cancer. It is ?? not a diagnostic test and is subject to false negative ?? and false positive results. It is most reliable when a ?? satisfactory sample, regularly obtained, is submitted ?? with relevant clinical findings and history, and when ?? the Pap result is evaluated along with historic and ?? current clinical information. ?? Director Of Sales Support : SEE COMMENT [facility] Comment: YP, CT(ASCP) CT screening location: [address] ??[address] Interpretation/R esult: Negative for intraepithelial lesion or malignancy. [facility] LMP: NONE GIVEN [facility] Prev. BX: NONE GIVEN [facility] Prev. PAP: NONE GIVEN [facility] SOURCE: None given [facility] Statement Of Adequacy: SEE COMMENT [facility] Comment: Satisfactory for evaluation. Endocervical/transformation zone component present. Age and/or menstrual status not provided 06/20/2021 2:58 PM EDT Karol Curry MD LAB PATHOLOGY ORDERABLES Fin al Result Performing Organization Address [facility] de Phone Number [facility] [address] * HPV GENOTYPES 16,18/45 (06/20/2021 2:58 PM EDT) HPV 16 RNA NOT DETECTED NOT DETECTED [facility] HPV 18/45 RNA NOT DETECTED NOT DETECTED [facility] Comment: Methodology: Seat Trimmer Mediated Amplification The analytical performance characteristics of this assay have been determined by [employer]. The modifications have not been cleared or approved by the FDA. This assay has been validated pursuant to the CLIA regulations and is used for clinical purposes. 06/20/2021 2:58 PM EDT Karol Curry MD LAB BLOOD ORDERABLES Final R esult Performing Organization Address [facility] Phone Number [facility] [address] * LIPID PANEL, STANDARD (05/07/2021 11:17 AM EDT) Pathologist [facility] Chol/HDLC Ratio 2.9 <5.0 (calc) [facility] Cholesterol, Total 163 <200 mg/dL [facility] HDL Cholesterol 56 > OR = 50 mg/dL [facility] LDL Cholesterol 91 mg/dL (calc) [facility] Comment: Reference range: <100 ?? Desirable range <100 mg/dL for primary prevention; ?? <70 mg/dL for patients with CHD or diabetic patients ?? with > or = 2 CHD risk factors. ?? LDL-C is now calculated using the Radha ?? calculation, which is a validated novel method providing ?? better accuracy than the Friedewald equation in the ?? estimation of LDL-C. ?? Chacho WILKERSON et al. EMETERIO. 2013;310(19): 7280-7630 ?? (http://education.[employer]/faq/SVA345) Non-HDL Cholesterol 107 <130 mg/dL (calc) [facility] Comment: For patients with diabetes plus 1 major ASCVD risk ?? factor, treating to a non-HDL-C goal of <100 mg/dL ?? (LDL-C of <70 mg/dL) is considered a therapeutic ?? option. Triglycerides 72 <150 mg/dL [facility] 05/07/2021 11:1 7 AM EDT us Karol Curry MD LAB BLOOD ORDERABLES Final R esult [facility] [address] [place] [address], * DIGITAL BILATERAL SCREEN 1 (11/06/2018 3:42 PM EST) Anatomical Region Laterality Modality Breast Bilateral Mammography 11/06/2018 3:42 PM EST Narrative 11/06/2018 3:45 PM EST Refer to the Notes tab for result details [facility] Procedure: DIGITAL BILATERAL SCREEN 1 Procedure Note Provider, Betsy, - 11/30/2022 Refer to the Notes tab for result details [facility] Procedure: DIGITAL BILATERAL SCREEN 1 Matteo Sanchez MD IMG BI PROCEDURES Final Resul t * Hm Colonoscopy (11/30/2014 8:07 AM EDT) Historical Provider HEALTH MAINTENANCE Final Result from Last 3 Months or Most Recently Relevant to Health Maintenance Insurance * Guarantor: Myra Parsons Account Type Relation to Patient Date of Phone Billing Address Personal/Family Self 1960 [address] [place] [address] [facility] C[facility] * Guarantor: Myra Parsons Account Type Relation to Patient Date of Phone Billing Address Personal/Family Self [address] [facility] [address] [place] [address] Care Teams Automobile Washer Steam Relationship Specialty Start Date End Date Rowena Lynne MD [address] [place] [address] PCP - General Internal Medicine 02/20/23 Cami Buckley Community Health Worker 10/16/23 Margarita Coulter, DoreenD [address] [place] [address] Pharmacist Internal Medicine 11/20/23 Maine Bass, RN [address] [place] [phone] Director Of Acquisition MarketingInjury Prevention Coordinator 09/30/24
--- OUTSIDE RECORDS SUMMARY | 2024-11-01 14:19 | XMS_ITS | Encounter Summary ---
Author Organization [employer] Address [address] [place] [address] 7t [place] [address] Care Team Providers Care Drafter Directional Survey Name Role Phone Rowena Lynne MD Primary Care Pro vider Cami Buckley Unavailable Unavailable Margarita Coulter PharmD Unavailable [phone] Maine Bass RN Unavailable [phone] Reason for Visit * Reason Onset Date Comments Med Refill 10/05/2024 Encounter Details Date Type Department Care Team (Late st Contact Info) Description 10/05/2024 Refill [facility] [address] [place] [address] Rowena Lynne MD [address] [place] [address] Social History Tobacco Use Types Packs/Day Years [...] encounter Miscellaneous Notes * Telephone Encounter - Paulie Hoffman RN - 10/05/2024 2:10 PM EST Spoke to covering provider regarding refill of prednisone which was sent to pharmacy. [facility] can be overrided for early refill [facility] but they can use a coupon and it would cost the patient $9.42 out of pocket. RN called patient who was informed of above. 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 Patient verbalized understanding and agrees with plan. Patient informed that provider here is only prescribing until her f/u with the neurologist so its very important for her to make sure she sees them for her appt. Patient agrees with plan. * Addendum Note - Selena Fofana RN - 10/05/2024 11:54 AM ESTAddended by: SELENA FOFANA on: 10/05/2024 11:54 AM Modules accepted: Orders * Telephone Encounter - Paulie Hoffman RN - 10/05/2024 11:49 AM EST Spoke to patient last dose of prednisone taken on Friday. Lost RX for prednisone cannot find it anywhere. Patient informed will call back once we figure out if we can get her a new RX filled at the pharmacy. Patient verbalized understanding and agreed with plan. * Addendum Note - Paulie Hoffman RN - 10/05/2024 11:43 AM ESTAddended by: PAULIE HOFFMAN on: 10/05/2024 11:43 AM Modules accepted: Orders * Telephone Encounter - Paulie Hoffman RN - 10/05/2024 11:40 AM EST Please review Rx request and check refills and adjust as needed. Patient has f/u with neurology on 10/12/24. HDF is next week. Thank you. * Telephone Encounter - Carmen Vargas PharmD - 10/05/2024 10:34 AM EST Contacted patient for pre-HDF med rec and patient reports prednisone has been misplaced and they are unable to find it. Requesting a new prescription from PCP. Patient was discharged on prednisone 60mg once daily for possible temporal giant cell arteritis. Please note, a lost prescription override will be most likely need to be obtained from insurance bypreferred pharmacy. * Telephone Encounter - Mary Rawls - 10/05/2024 9:13 AM EST TC from pt requesting medication refill. Medications needing refill : predniSONE (Deltasone) 20 MG tablet To be sent to:[id number] documented in this encounter Plan of Treatment Upcoming Encounters Date Type Department Care Team (Late st Contact Info) Description 11/15/2024 11:15 AM EDT Office Visit [facility] [address] [place] [address] Rowena Rodriguez MD [address] [place] [address] documented as of this encounter Goals Goal [...] documented as of this encounter Care Teams Drafter Directional Survey Relationship Specialty Start Date End Date Rowena Lynne MD [address] [place] [phone] PCP - General Internal Medicine 02/20/23 Cami Buckley Community Health Worker 10/16/23 Margarita Coulter, PharmD [address] [place] [address] Pharmacist Internal Medicine 11/20/23 Maine Bass, FERNANDO [address] [place] [phone] Cooking TeacherSenior Telecommunications Technician 09/30/24 documented as of this encounter
--- OUTSIDE RECORDS SUMMARY | 2024-11-01 14:19 | XMS_ITS | Encounter Summary ---
Author Organization [employer] Address [address] [place] [address] 7t [place] [address] Care Team Providers Care Viner Operator Name Role Phone Rowena Lynne MD Primary Care Pro vider Cami Buckley Unavailable Unavailable Margarita Coulter PharmD Unavailable [phone] Maine Bass RN Unavailable [phone] Reason for Visit * Reason Comments Care Coordination SDOH Encounter Details Date Type Department Care Team (Latest Contact Info) Description 10/06/2024 Patient Outreach [facility] [address] [place] [address] Rowena Lynne MD [address] [place] [address] Care Coordination (SDOH) Social History Tobacco Use Types Packs/Day Years [...] encounter Progress Notes * Lyndsey Shea - 10/06/2024 11:42 AM EST CHW Lyndsey Shea placed outbound call to patient to follow up on SDOH needs. Patient's name, and address confirmed. Patient states is doing well. Patient stated she gets 120 in FS a month but would benefit from a food pantry list. CHW will mail out list. Patient also requesting help with housing, patient has a huge pest problem and would like to move, CHW will also help with housing resources, will help patient fill out applications for one-bedroom apts. PT1 is also needed for upcoming appts. No further questions or concerns. CHW reinforced direct contact information or CM for any additional questions or concerns and extended clinic hours on Mondays and Wednesdays, and Walk-In Urgent Care Located in [facility]. Patient provided with after-hours line for [facility], , which offer nighttime triage service and option to transfer [facility] montessori lead [facility]. Patient verbalizes understanding, and able to repeat back to video game script writer. A follow up call will be placed within 10 days, patient agrees with plan. documented in this encounter Plan of Treatment Upcoming Encounters Date Type Department Care Team (Late st Contact Info) Description 11/15/2024 11:15 AM EDT Office Visit [facility] [address] [place] [address] Rowena Rodriguez MD [address] [place] [address] documented as of this encounter Goals Goal Patient Goal Type Associated Problems Recent Progress Patient-Stated? Author Quit using tobacco (cigarettes, smokeless, etc) Tobacco Use Tobacco dependence syndrome On track(09/15/19 24 4:37 PM EST) No Margarita Coulter PharmD documented as of this encounter Visit Diagnoses Not on filedocumented in this encounter Additional Health Concerns Assessment Noted Time PHQ-9 Depression Total Score: 23 024 9:16 AM EST documented as of this encounter Care Teams Viner Operator Relationship Specialty Start Date End Date Rowena Lynne MD [address] [place] [phone] PCP - General Internal Medicine 02/20/23 Cami Buckley Community Health Worker 10/16/23 Margarita Coulter, PharmD [address] [place] [address] Pharmacist Internal Medicine 11/20/23 Maine Bass RN [address] [place] [phone] Buffer NickelShake Packer 09/30/24 documented as of this encounter
--- OUTSIDE RECORDS SUMMARY | 2024-11-01 14:19 | XMS_ITS | Encounter Summary ---
Author Organization [employer] Address [address] [place] [address] 7t [place] [address] Care Team Providers Care Sales Promotion Representative Name Role Phone Rowena Lynne MD Primary Care Pro vider Cami Buckley Unavailable Unavailable Margarita Coulter PharmD Unavailable [phone] Maine Bass RN Unavailable [phone] Reason for Visit * Reason Onset Date Comments Lab Orders 05/26/2023 Encounter Details Date Type Department Care Team (Late st Contact Info) Description 05/26/2023 Telephone [facility] [address] [place] [address] Rowena Lynne MD [address] [place] [address] Lab Orders Social History Tobacco Use Types Packs/Day Years [...] Recorded Patient Health Questionnaire-9 Score 10 03/26/2023 Depression Answer Date Recorded Patient Health Questionnaire-2 Score 2 03/26/2023 Comments Unknown Sex and Gender Information Value Date Recorded Sex Assigned at Female 07/08/2022 10:14 AM EDT Legal Sex Female 10:14 AM EDT Gender Identity Female 07/08/2022 10:14 AM EDT Sexual Orientation Straight 07/08/2022 10 :14 AM EDT documented as of this encounter Miscellaneous Notes * Telephone Encounter - Brandy Albright RN - 05/27/2023 10:49 AM EDT Labs changed. * Telephone Encounter - Sadaf Epperson - 05/26/2023 1:47 PM EDT Tc from patient requesting all active labs to be faxed to lab. Acid Purification Equipment Operator faxed all active labs except 2 lab orders made to [facility]. Labs need to be switched to [facility] labs. TSH W/Reflex to FT4 Comprehensive Metabolic Panel documented in this encounter Plan of Treatment Upcoming Encounters Date Type Department Care Team (Late st Contact Info) Description 11/15/2024 11:15 AM EDT Office Visit [facility] [address] [place] [address] Rowena Rodriguez MD [address] [place] [address] documented as of this encounter Procedures Procedure Name Priority Date/Time Associated Diagnosis Comments TSH W/REFLEX TO FT4 Routine 10/28/2023 1 0:53 AM EST Bilateral leg edema COMPREHENSIVE METABOLIC PANEL Routine 10/28/2023 10:53 AM EST Bilateral leg edema documented in this encounter Results * TSH W/Reflex to FT4 (10/28/2023 10:53 AM EST) TSH reflex Free T4 1.87 0.32 - 4.0 uIU/mL [facility] Blood 10/28/2023 10:5 3 AM EST 10/28/2023 11:25 AM EST us Rowena Vargas MD LAB BLOOD ORDERAB LES Final Result [facility] [address] [place] [address] [phone] * (ABNORMAL) Comprehensive Metabolic Panel (10/28/2023 10:53 AM EST) Sodium 140 135 - 145 mmol/L [facility] Potassium 4.3 3.3 - 5.1 mmol/L [facility] Chloride 103 96 - 108 mmol/L [facility] Carbon Dioxide 29 22 - 29 mmol/L [facility] Anion Gap 12 12 - 20 [facility] Urea Nitrogen (BUN) 7(L) 9 - 16 mg/dL [facility] Creatinine, Serum 0.81 0.5 - 1.4 mg/dL [facility] Estimated Glomerular Filt Rate >60 [facility] Comment:NOTE: For -Am erican individuals, multiply the result by 1.210.Chronic Kidney Disease: Estimated GFR < 60 mL/min/1.84l7Gyhqvl Kidney Disease: Estimated GFR < 15 mL/min/1.73m2 Glucose 114 60 - 115 mg/dL [facility] Calcium 8.7 8.4 - 10.2 mg/dL [facility] Bilirubin, Total 0.8 0.0 - 1.0 mg/dL [facility] Aspartate Amino Transferase 18 5 - 31 U/L [facility] Alanine Aminotransferase 12 0 - 31 U/L [facility] Total Protein 6.9 6.5 - 8.0 g/dL [facility] Albumin Level 3.5 3.5 - 5.0 g/dL [facility] Alkaline Phosphatase 87 39 - 117 U/L [facility] Blood Venous blood specimen / Unknown 10/28/2023 10:53 AM EST 10/28/2023 11:25 AM EST us Rowena Vargas MD LAB BLOOD ORDERAB LES Final Result [facility] [address] [place] [address] [phone] documented in this encounter Visit Diagnoses Diagnosis Bilateral leg edema Edema documented in this encounter Additional Health Concerns Assessment Noted Time PHQ-9 Depression Total Score: 10 023 3:50 PM EDT documented as of this encounter Care Teams Sales Promotion Representative Relationship Specialty Start Date End Date Rowena Lynne MD [address] [place] [address] PCP - General Internal Medicine 02/20/23 Cami Buckley Community Health Worker 10/16/23 Margarita Coulter, DoreenD [address] [place] [address] Pharmacist Internal Medicine 11/20/23 Maine Bass, FERNANDO [address] [place] [phone] Crane HelperSchool Cleaner 09/30/24 documented as of this encounter
--- OUTSIDE RECORDS SUMMARY | 2024-11-01 14:19 | XMS_ITS | Encounter Summary ---
Author Organization [employer] Address [address] [place] [address] 7t [place] [address] Care Team Providers Care Lead Project Manager Name Role Phone Rowena Lynne MD Primary Care Pro vider Cami Buckley Unavailable Unavailable Margarita Coulter PharmD Unavailable [phone] Maine Bass RN Unavailable [phone] Reason for Visit * Reason Onset Date Comments Medication Question 09/24/2024 Encounter Details Date Type Department Care Team ([facility] st Contact Info) Description 09/24/2024 Telephone [facility] [address] [place] [address] Rowena Lynne MD [address] [place] [address] Medication Question Social History Tobacco Use Types Packs/Day Years [...] encounter Miscellaneous Notes * Telephone Encounter - Inga Fofana RN - 10/04/2024 11:40 AM EST Images from the original note were not included. Telephone call placed to pt who reports was discharged with gabapentin. However, she took the last dose last night. She states that now she has no medications at all for her pain. Pt tearful. Reportspain in her head, back, and right arm. Reports pain is 10/10 right now. Reviewed Mpages and it looks like gabapentin was Rxd in hospital: Telephone call placed to Carmen in pharmacy. No answer, left v/m requesting Carmen complete med rec ANDRES. Reviewed hospital record. Neurologist's note documents to continue gabapentin 300 mg tid and lidocaine (oragel). Yet it was not on the list of inpatient medication list or discharge medication list.Please ask if she is taking anything for her pain and where her pain is (she was hospitalized for headache). Please ask our pharmacist to do preHDF visit and ask if they can check whether gabapentin was given while she was in the hospital. Thank you. * Telephone Encounter - Gerardo Maldonado - 09/24/2024 9:27 AM EST TC from pt and daughter wanting to know if can get prescribed gabapentin . They were prescribing this while admitted and she stated it helped with pain . documented in this encounter Plan of Treatment Upcoming Encounters Date Type Department Care Team (Late st Contact Info) Description 11/15/2024 11:15 AM EDT Office Visit [facility] [address] [place] [address] Rowena Rodriguez MD [address] [place] [address] documented as of this encounter Goals Goal [...] documented as of this encounter Care Teams Lead Project Manager Relationship Specialty Start Date End Date Rowena Lynne MD [address] [place] [phone] PCP - General Internal Medicine 02/20/23 Cami Buckley Community Health Worker 10/16/23 Margarita Coulter, PharmD [address] [place] [phone] Pharmacist Internal Medicine 11/20/23 Maine Bass, FERNANDO [address] [place] [phone] Sole PolisherClam Digger 09/30/24 documented as of this encounter
--- OUTSIDE RECORDS SUMMARY | 2024-11-01 14:19 | XMS_ITS | Encounter Summary ---
Author Organization [employer] Address [address] [place] [address] 7t [place] [address] Care Team Providers Care Making Line Worker Name Role Phone Rowena Lynne MD Primary Care Pro vider Cami Buckley Unavailable Unavailable Margarita Coulter PharmD Unavailable [phone] Maine Bass RN Unavailable [phone] Reason for Visit * Reason Comments Med Refill Encounter Details Date Type Department Care Team (Late st Contact Info) Description 10/28/2024 Refill [facility] [address] [place] [address] Rowena Lynne MD [address] [place] [address] Social History Tobacco Use Types Packs/Day Years [...] housing situation today? I have nallelyamandeep ordonez 01/29/[address] you [...] Description 11/15/2024 11:15 AM EDT Office Visit [facility] [address] [place] [address] Rowena Rodriguez MD [address] [place] [address] documented as of this encounter Goals Goal Patient Goal Type Associated Problems Recent Progress Patient-Stated? Author Quit using tobacco (cigarettes, smokeless, etc) Tobacco Use Tobacco dependence syndrome On track(09/15/19 24 4:37 PM EST) No Margarita Coulter, Bogdan documented as of this encounter Visit Diagnoses Not on filedocumented in this encounter Additional Health Concerns Assessment Noted Time PHQ-9 Depression Total Score: 23 024 9:16 AM EST documented as of this encounter Care Teams Making Line Worker Relationship Specialty Start Date End Date Rowena Lynne MD [address] [place] [phone] PCP - General Internal Medicine 02/20/23 Cami Buckley Community Health Worker 10/16/23 Margarita Coulter, Bogdan [address] [place] [phone] Pharmacist Internal Medicine 11/20/23 Maine Bass, FERNANDO [address] [place] [address] Supervisor Facepiece LinePulmonologist/Intensivist 09/30/24 documented as of this encounter
--- OUTSIDE RECORDS SUMMARY | 2024-11-01 14:19 | XMS_ITS | Encounter Summary ---
Author Organization [employer] Address [address] [facility] 7t [place] [address] Care Team Providers Care Preventive Maintenance Engineer Name Role Phone Rowena Lynne MD Primary Care Pro vider Cami Buckley Unavailable Unavailable Margarita Coulter PharmD Unavailable [phone] Maine Bass RN Unavailable [phone] Reason for Visit * Reason Comments Med Refill Encounter Details Date Type Department Care Team (Late st Contact Info) Description 10/28/2024 Refill [facility] [address] [place] [address] Rowena Rodriguez MD [address] [place], [place] [phone] Chronic nonintractable headache, unspecified headache type Social History Tobacco Use Types Packs/Day Years [...] Description 11/15/2024 11:15 AM EDT Office Visit [facility] [address] [place] [address] Rowena Rodriguez MD 230 [place] [address] documented as of this encounter Goals Goal Patient Goal Type Associated Problems Recent Progress Patient-Stated? Author Quit using tobacco (cigarettes, smokeless, etc) Tobacco Use Tobacco dependence syndrome On track(09/15/19 24 4:37 PM EST) No Margarita Coulter, PharmD documented as of this encounter Visit Diagnoses Diagnosis Chronic nonintractable headache, unspecified headache type documented in this encounter Additional Health Concerns Assessment Noted Time PHQ-9 Depression Total Score: 23 024 9:16 AM EST documented as of this encounter Care Teams Preventive Maintenance Engineer Relationship Specialty Start Date End Date Rowena Lynne MD 230 [place] [address] PCP - General Internal Medicine 02/20/23 Cami Buckley Community Health Worker 10/16/23 Margarita Coulter, Bogdan [address] [place], [place] [phone] Pharmacist Internal Medicine 11/20/23 Maine Bass, FERNANDO [address] [place] [address] Business Management ConsultantCertified Diabetes Educator 09/30/24 documented as of this encounter
--- OUTSIDE RECORDS SUMMARY | 2024-11-01 14:19 | XMS_ITS | Encounter Summary ---
Author Organization [employer] Address [address] [place] [address] 7t [place] [address] Care Team Providers Care Sourcing Assistant Name Role Phone Rowena Lynne MD Primary Care Pro vider Cami Buckley Unavailable Unavailable Margarita Coulter PharmD Unavailable [phone] Maine Bass RN Unavailable [phone] Reason for Visit * Reason Onset Date Comments Care Management 10/29/2024 C3CM- f/u call Encounter Details Date Type Department Care Team (Late st Contact Info) Description 10/29/2024 Telephone [facility] [address] [place] [address] Rowena Lynne MD 230 [place] [address] Care Management (C3CM- f/u call) Social History [...] encounter Miscellaneous Notes * Telephone Encounter - Maine Bass RN - 10/29/2024 11:08 AM EST CM Maine Bass RN placed outbound call to patient. Call answered by patient's daughter Myra. Patient's name, and address confirmed. Myra states patient is doing okay. She states the patient met with Dr. Quiros as scheduled on 10/14. She states the visit went well. Myra states the patient has not completed the blood work that was ordered. She states she may bring the patient into the clini c to have those done today. Per Myra, has not monitored patient's BP. She states the patient is taking all of her medications as directed and denies any concerns or side effects. Per Myra, patient attended visit with Ophthalmology as scheduled. She states the provider was very thorough. 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 She states the patient does have to wear glasses now. She confirms receiving a prescription but has not followed up with getting the glasses. CM willcall the office to request the prescription be faxed and will f/u with [facility]. Myra states the patient is scheduled at [facility] on 11/09/24 at 2:00pm. The patient is also scheduled to [place] [facility] [place] at 5:15pm. She denies need for PT1 and confirms that she has transportation to the scheduled visits. CM also reminded her of the scheduled f/u with PCP on 11/15/24 at 11:15am. Myra states she stopped by [employer] yesterday and was informed that the application was submitted and is in process. She states she was informed that [employer] is no longer providing servic es to help with cleaning, cooking, etc. She states that if these services are no longer being offered, she may have to look elsewhere. CM will contact the agency to inquire on services. Will also mail out a list of agency names to Myra so that she can follow up. She agrees. Per Myra, [facility] is scheduled to go to the patient's home on 11/19. She also states she has not received a call from Rheumatology with an appt. (Patient recently referred to a new office as she has a pending appt in January with another office and appt too far out). Myra cannot recall who the patient is scheduled tosee in January. She states that the pending appt is scheduled in [place] and she would prefer to beseen in [place]. The new referral in the system is also noted to be [address] [place] [address] in [place]. CM will f/u. CM updated patient's daughter Myra on their upcoming graduation of the program and of CM's wish toplace a referral to the LTSS program. Myra given information on the program and is agreeable to a referral being placed. CM will place referral to LTSS in preparation for graduation. CM will follow up with program in order to ensure a warm hand-off. No further questions or concerns. CM reinforced direct contact information for any additional questions or concerns. Education provided on Walk-In Urgent Care located in [facility]. Myra provided with after-hours line for [facility], , which offer night time triage service and option to transfer to immigration manager provider if needed. She verbalizes understanding, and able to repeat back to promotion writer. A follow up call will be placed within 10 days, she agrees with plan. documented in this encounter Plan of Treatment Upcoming Encounters Date Type Department Care Team (Late st Contact Info) Description 11/15/2024 11:15 AM EDT Office Visit [facility] [address] [place] [address] [phone] Rowena Rodriguez MD [address] [place] [address] documented as of this encounter Goals Goal [...] documented as of this encounter Care Teams Sourcing Assistant Relationship Specialty Start Date End Date Rowena Lynne MD [address] [place] [phone] PCP - General Internal Medicine 02/20/23 Cami Buckley Community Health Worker 10/16/23 Margarita Coulter, PharmD [address] [place] [address] Pharmacist Internal Medicine 11/20/23 Maine Bass, FERNANDO [address] [place] [address] Stock ControllerFundraiser 09/30/24 documented as of this encounter
--- OUTSIDE RECORDS SUMMARY | 2024-11-01 14:19 | XMS_ITS | Encounter Summary ---
Author Organization [employer] Address 75 [facility] 7t [place] [address] Care Team Providers Care Stitch Rubber Name Role Phone Rowena Lynne MD Primary Care Pro vider Cami Buckley Unavailable Unavailable Margarita Coulter PharmD Unavailable [phone] Maine Bass RN Unavailable [phone] Reason for Visit * Reason Onset Date Comments Care Management 09/30/2024 C3- initial as sessment/ enrollment Encounter Details Date Type Department Care Team (Late st Contact Info) Description 09/30/2024 Telephone [facility] [address] [place] [address] Maine Bass, RN [address] [place], [place] [phone] Care Management (C3- initial assessment/ enrollment) Social History Tobacco Use Types Packs/Day Years [...] Telephone Encounter - Maine Bass RN - 09/30/2024 6:11 PM EST FRANKIE Bass RN, provided notification to PCP Dr. Lux of patient's enrollment into C3 Complex Care Program. CM Maine Bass RN, completed care plan and sent to HIM to be scanned into the medical record. PCP notified and awaiting review from provider. CM plan: - assist patient with scheduling appointments with [facility] and Ophthalmology - provide appointment reminders and transportation to visits as needed - provide education on disease processes and management - provide resources based on positive SDOH needs * Telephone Encounter - Maine Bass RN - 09/30/2024 6:11 PM EST FRANKIE Bass RN placed outbound call to patient for agreed upon time for initial assessment for enrollment into Adult Care Management Program. Patient's name, , and address were verified. Myra is a 64 year old female with Hx of sleep apnea, chronic non intractable headache, asthma, chronicHep C, GERD, impaired fasting glucose, anxiety, opioid dependence, tobacco dependence, bipolar 1 disorder, lump in neck, and elevated liver enzymes. Patient reports recent discharge from [facility]. 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 Per patient, a biopsy was done during the hospital admission and she is awaiting results. Patient in need of assistance with scheduling appointments with Ophthalmology, Rheumatology (if bx positive), and Vascular. Patient does have an appointment scheduled with [facility] on [place]/[place]. CM reminded patient and daughter of the scheduled visit and provided patient with appointment details. She verbalizes understanding and confirms that she will be attending. Patient is also aware of her scheduled HDF on 10/14/24 and denies any barriers to attending. She states her daughter- Myra, who is her office machines teacher, will be taking her to her appointments but agrees to f/u with CM/CHW if in need of PT1. Patient also reports being followed by [facility] for [facility] Health. She states she sees her therapist via telehealth on a biweekly basis and follows up with her psychiatrist every month. Per patient, being transferred to another psych provider within the same practice. She reports having a pending appt scheduled. Patient reports increase in anxiety and depression within the last few days. She denies SI/HI. Per patient, just had a televisit with her therapist yesterday and states she is able to follow up as needed. She also confirms having the number to crisis and knows to call as needed. Per patient, attends the methadone clinic ([place]) daily. She reports taking Rx as directed. Per patient, stopped smoking cigarettes and drinking alcohol about 2 weeks ago. Patient states I don't even miss it. She also states she has not used any illegal drugs in 3 weeks. Patient reports needing assistance with ADLs. She states she suffers from anxiety and tends to lose her train of thought often. Patient worried because she lives alone. She states she receives help from her daughter but would like to start receiving [employer] services. CM provided education and also prepared a list of local agencies to be mailed out to patient. Advised that she contact these offices to inquire on services. She agrees. Patient denies use of DME other than a CPAP and nebulizer machine. She states the CPAP settings are up to date and reports receiving supplies every 2 months. Patient states she has a working nebulizer machine but would like a new one as hers is several years old. CM recommended she make request for Rx during upcoming visit. She agrees. Patient requesting assistance with moving into a new apartment. She states her current apartment is not up to code.Per patient, unit had recent vance infestation as well as mold. She states she has been getting sick more often and believes that this may be a factor. Per daughter, has called several offices, including units for the elderly, and is waiting to hear back. CHW will assist with providing resources. Patient denies any further needs or concerns at this time. Care management program explained and contact information given. Patient verbalizes understanding, and able to repeat back to ticket writer. A follow up call will be placed within 10 days, patient agrees with plan. documented in this encounter Plan of Treatment Upcoming Encounters Date Type Department Care Team (Late st Contact Info) Description 11/15/2024 11:15 AM EDT Office Visit [facility] [address] [place] [address] [phone] Rowena Rodriguez MD [address] [place] [address] documented as of this encounter Goals Goal [...] documented as of this encounter Care Teams Stitch Rubber Relationship Specialty Start Date End Date Rowena Lynne MD [address] [place] [phone] PCP - General Internal Medicine 6/15/23 Cami Buckley Community Health Worker 10/16/23 Margarita Coulter, DoreenD [address] [place] [address] Pharmacist Internal Medicine 11/20/23 Maine Bass RN [address] [place] [address] Tape Controlled Machine StitcherOilseed Meat Presser 09/30/24 documented as of this encounter
--- OUTSIDE RECORDS SUMMARY | 2024-11-01 14:19 | XMS_ITS | Encounter Summary ---
Author Organization [employer] Address 75 [facility] 7t [place] [address] Care Team Providers Care Fisherman Helper Name Role Phone Rowena Lynne MD Primary Care Pro vider Cami Buckley Unavailable Unavailable Margarita Coulter PharmD Unavailable [phone] Maine Bass RN Unavailable [phone] Encounter Details Date Type Department Care Team (Late st Contact Info) Description 10/14/2024 Telephone [facility] [address] [place] [address] Rowena Lynne MD 230 [place] [address] Social History Tobacco Use Types Packs/Day Years [...] Description 11/15/2024 11:15 AM EDT Office Visit [facility] [address] [place] [address] Rowena Rodriguez MD [address] [place] [address] documented as of this encounter Goals Goal [...] documented as of this encounter Care Teams Fisherman Helper Relationship Specialty Start Date End Date Rowena Lynne MD [address] [place] [address] PCP - General Internal Medicine 02/20/23 Cami Buckley Community Health Worker 10/16/23 Margarita Coulter, DoreenD [address] [place] [address] Pharmacist Internal Medicine 11/20/23 Maine Bass RN [address] [place] [address] Skip PitmanChemistry Department Chair 09/30/24 documented as of this encounter
--- OUTSIDE RECORDS SUMMARY | 2024-11-01 14:19 | XMS_ITS | Encounter Summary ---
Author Organization [employer] Address [address] [place] [address] 7t [place] [address] Care Team Providers Care Control Panel Builder Name Role Phone Rowena Lynne MD Primary Care Pro vider Cami Buckley Unavailable Unavailable Margarita Coulter PharmD Unavailable [phone] Miane Bass RN Unavailable [phone] Reason for Visit * Reason Comments Care Coordination SDOH Encounter Details Date Type Department Care Team (Latest Contact Info) Description 10/13/2024 Patient Outreach [facility] [address] [place] [address] Rowena Lynne MD 230 [place] [address] Care Coordination (SDOH) Social History Tobacco Use [...] t he electric, gas, oil or water [employer] threatened to shut off services in your [...] encounter Progress Notes * Lyndsey Shea - 10/13/2024 9:25 AM EST CHW Lyndsey Shea mailed out an updated food pantry list, CHW will follow up with patient within 10 days. documented in this encounter Plan of Treatment Upcoming Encounters Date Type Department Care Team (Late st Contact Info) Description 11/15/2024 11:15 AM EDT Office Visit [facility] [address] [place] [address] Rowena Rodriguez MD [address] [place] [address] documented as of this encounter Goals Goal [...] documented as of this encounter Care Teams Control Panel Builder Relationship Specialty Start Date End Date Rowena Lynne MD [address] [place] [address] PCP - General Internal Medicine 02/20/23 Cami Buckley [facility] Health Worker 10/16/23 Margarita Coulter, PharmD 230 [place] [address] Pharmacist Internal Medicine 11/20/23 Maine Bass RN [address] [place] [address] Solder SprayerManager Of Manufacturing 09/30/24 documented as of this encounter
--- OUTSIDE RECORDS SUMMARY | 2024-11-01 14:19 | XMS_ITS | Encounter Summary ---
Author Organization [employer] Address [address] [place] [address] 7t [place] [address] Care Team Providers Care Otr Driver Name Role Phone Rowena Lynne MD Primary Care Pro vider Cami Buckley Unavailable Unavailable Margarita Coulter PharmD Unavailable [phone] Maine Bass RN Unavailable [phone] Reason for Visit * Reason Comments Care Coordination Appt reminder Encounter Details Date Type Department Care Team (Latest Contact Info) Description 10/14/2024 Patient Outreach [facility] [address] [place] [address] Rowena Lynne MD 230 [place] [address] Care Coordination (Appt reminder) Social History Tobacco Use Types Packs/Day Years [...] encounter Progress Notes * Lyndsey Shea - 10/14/2024 9:30 AM EST CHW Lyndsey Shea placed call to patient's daughter Myra to remind of appt for Ophthalmology set up pt1 10/15/24 at 1:25pm at [address] [place] [address] [address] in [place], [place]. Daughter is aware PT1 will pickup patient at 1245pm and has no barriers in attending. documented in this encounter Plan of Treatment Upcoming Encounters Date Type Department Care Team (Late st Contact Info) Description 11/15/2024 11:15 AM EDT Office Visit [facility] [address] [place] [address] Rowena Rodriguez MD [address] [place] [address] documented as of this encounter Goals Goal [...] documented as of this encounter Care Teams Otr Driver Relationship Specialty Start Date End Date Rowena Lynne MD [address] [place] [address] PCP - General Internal Medicine 02/20/23 Cami Buckley [facility] Health Worker 10/16/23 Margarita Coulter, DoreenD [address] [place] [phone] Pharmacist Internal Medicine 11/20/23 Maine Bass, FERNANDO [address] [place] [address] Mill OperatorDispensary Clerk 09/30/24 documented as of this encounter
--- OUTSIDE RECORDS SUMMARY | 2024-11-01 14:19 | XMS_ITS | Encounter Summary ---
Author Organization [employer] Address [address] [place] [address] 7t [place] [address] Care Team Providers Care Senior Reservations Agent Name Role Phone Rowena Lynne MD Primary Care Pro vider Cami Buckley Unavailable Unavailable Margarita Coulter PharmD Unavailable [phone] Maine Bass RN Unavailable [phone] Reason for Visit * Reason Comments Care Coordination SDOH Encounter Details Date Type Department Care Team (Latest Contact Info) Description 10/12/2024 Patient Outreach [facility] [address] [place] [address] Rowena Lynne MD [address] [place] [address] Care Coordination (SDOH ) Social History Tobacco Use Types Packs/Day Years [...] Progress Notes * Lyndsey Shea - 10/12/2024 10:28 AM EST CHW Lyndsey Shea placed outbound call to patient for follow up call on SDOH needs. No answer at this time. LVM introducing herself from [facility] CM Department. Requested call back. CHWreinforced direct contact information or for any additional questions or concernsand extended clinic hours on Mondays and Wednesdays, and Walk-In Urgent Care Located in [facility]. Patient provided with after-hours line for [facility], , which offer night time triage service and option to transfer to chemist water purification provider if needed. CHW will attempt another follow up call within 10 days. documented in this encounter Plan of Treatment Upcoming Encounters Date Type Department Care Team (Late st Contact Info) Description 11/15/2024 11:15 AM EDT Office Visit [facility] [address] [place] [address] Rowena Rodriguez MD [address] [place] [address] documented as of this encounter Goals Goal [...] documented as of this encounter Care Teams Senior Reservations Agent Relationship Specialty Start Date End Date Rowena Lynne MD [address] [place] [address] PCP - General Internal Medicine 02/20/23 Cami Buckley [facility] Health Worker 10/16/23 Margarita Coulter, PharmD [address] [place] [address] Pharmacist Internal Medicine 11/20/23 Maine Bass, FERNANDO [address] [place] [address] Kaiako Kura TuaruaMaterials Management Manager 09/30/24 documented as of this encounter
--- OUTSIDE RECORDS SUMMARY | 2024-11-01 14:19 | XMS_ITS | Encounter Summary ---
Author Organization [employer] Address [address] [facility] [address] [place] [address] Care Team Providers Care Skein Bander Name Role Phone Rowena Lynne MD Primary Care Pro vider Cami Buckley Unavailable Unavailable Margarita Coulter PharmD Unavailable [phone] Maine Bass RN Unavailable [phone] Reason for Referral * Consultation (Urgent) - Authorized Specialty Diagnoses / Procedures Referred By Bertrand cowan Referred To Contact Rheumatology Diagnoses Temporal arteritis (CMS/HCC) Lauryn Quiros MD [address] [place] [address] Phone: tel: fax: [facility] [address] [place] [address] Phone: tel: fax: Referral ID Status Reason Start Date Expiration Date Visits Requested Visits Authorized [id number] Authorized Specialty Services Required 10/14/2024 10/14/2025 6 6 * Imaging (Routine) - Authorized Specialty Diagnoses / Procedures Referred By Bertrand cowan Referred To Contact Cardiology Diagnoses Bilateral carotid artery stenosis Procedures Vascular US carotid artery duplex bilateral Lauryn Quiros MD [address] [place] [address] Phone: tel: fax: [facility] [address] [place] [address] Phone: tel: fax: Referral ID Status Reason Start Date Expiration Date Visits Requested Visits Authorized [id number] Authorized Perform Procedure 10/14/2024 10/14/2025 1 1 Encounter Details Date Type Department Care Team (Latest Contact Info) Description 10/14/2024 9:30 AM EST Office Visit [facility] [address] [place] [address] Lauryn Quiros MD [address] [place] [address] Chronic nonintractable headache, unspecified headache type (Primary Dx); Temporal arteritis (CMS/HCC); Bilateral carotid artery stenosis; Current chronic use of systemic steroids; Hypertension, unspecified type; Impaired fasting glucose Social History Tobacco Use Types Packs/Day Years Used Date Smoking Tobacco: Every Day Cigarettes Passive Smoke Exposure: Current Smokeless Tobacco: Never Comments:Started smoking 14 y of age until now -smokes 5 to 10 cigarettes a day trying to cut down -smoking x 48 h -PQT a year chalrene is 24 Alcohol Use Standard Drinks/Week Comments [...] AM EDT documented as of this encounter Last Filed Vital Signs Vital Sign Reading [...] Mass Index 29.11 10/14/2024 9:36 AM EST documented in this encounter Progress Notes * Lauryn Quiros MD - 10/14/2024 9:30 AM EST Subjective Myra Parsons is a 64 y.o. female who has asthma/COPD, NYASIA, mood disorder, prediabetes, and tobacco use, and patient presents for hospital discharge follow-up on Migraines. Background: Seen by her PCP, Dr. Lux, on 08/03/24 for headache. Patient was seen in ED and had CT scan. PCP evaluated for temporal arteritis. Patient was referred to strand galvanizer and neurologist. Interval history: Patient was hospitalized at [facility] from 09/19/24 to 09/13/24 for headache with right eye pain and blindness. Admitted for giant cell arteritis, which was confirmed by biopsy. Started on high-dose methylprednisolone. Discharged with prednisone 60 mg daily, and with recommendation to follow up with neurology, ophthalmology, and rheumatology. CT head on 09/19/24: Unremarkable. CTA head/neck on 09/19/24 Bilateral internal carotid arteries at the skull base appear decreased in calibers with diffuse irregularities. The right cavernous ICA has focal areas of moderate to severe stenosis. There is a focal mural calcification causing a severe stenosis versus occlusion at the anterior genu of the cavernous segment of the left ICA. No cutoff or high-grade stenosis of the major branches of the intracranial arteries. There is a 2 mm focal dilatation at the right MCA bifurcation projecting laterally suspicious for tiny aneurysm. The right proximal internal carotid artery show no significant stenosis byNASCET criteria. The mid and distal cervical ICA shows diffuse moderate stenosis. The left proximalinternal carotid artery show no significant stenosis by NASCET criteria. The mid and distal cervical ICA shows diffuse moderate stenosis. The right cervical vertebral artery shows no significant stenosis. The left cervical vertebral artery shows no significant stenosis. The preliminary reports were given by the [facility]. WSN: [id number] Patient called our clinic stating that they lost prednisone. Patient also requested gabapentin because she was receiving it while she was in the hospital and it was effective in pain management. Prednisone and gabapentin scripts were sent, for the period until patient follow up with strand galvanizer / neurologist. Patient was seen by [facility] neurologist on 10/13/24. Dr. Bernstein ordered MRI/MRA, CBC, ESR, and recommended to continue prednisone 60 mg daily until seen by supervisor blasting and strand galvanizer. Started on indomethacin 25 mg bid for CANO. Follow up in 1 mo. Today: Patient is accompanied by her Daughter. Patient complains of headache. The first time this happened she went to the ED, they performed sometest and they all came back normal. After some days she felt like she was having a stroke and was admitted to [facility] ED. She was in migraine like pain and visual disturbance from right eye. At the ED they diagnosed her with Temporal Arteritis that was confirmed with a biopsy on 09/20/2024. Patient was seen by the neurologist 10/13/2024, has had no significant improvment in her symptoms. She is currently taking Prednisone, antibiotics, migraine medication, Gabapentin and antidepressant. Patient's daughter is concerned about the patient's BP rising. She denies being diagnosed with HTN inthe past and does not take any BP medications. Patient complains of not being able to see from her right eye. She currently smokes one cigarette a day. Review of Systems Constitutional: Positive for activity change. Negative for appetite change and fever. HENT: Positive for facial swelling. Eyes: Positive for photophobia and visual disturbance (Right eye is not closing properly). Respiratory: Negative for shortness of breath. Cardiovascular: Negative for chest pain. Musculoskeletal: Positive for gait problem. Neurological: Positive for numbness and headaches. Objective Vitals: 10/14/24 0936 BP: (!) 158/90 Pulse: 84 Resp: 19 Temp: 95.7 ??F (35.4 ??C) TempSrc: Temporal SpO2: 98% Weight: 153 lb 3.2 oz (69.5 kg) Height: 5' 0.83 (1.545 m) Physical Exam Constitutional: General: She is not in acute distress. Appearance: Normal appearance. She is not ill-appearing. HENT: Head: Normocephalic and atraumatic. Comments: Scar from the biopsy on right forehead, dry, closed, and intact. No erythema. Mouth/Throat: Mouth: Mucous membranes are moist. Eyes: Extraocular Movements: Extraocular movements intact. Pupils: Pupils are equal, round, and reactive to light. Cardiovascular: Rate and Rhythm: Normal rate and regular rhythm. Heart sounds: No murmur heard. Pulmonary: Effort: Pulmonary effort is normal. No respiratory distress. Breath sounds: Normal breath sounds. No wheezing or rhonchi. Skin: General: Skin is warm. Neurological: Mental Status: She is alert. Mental status is at baseline. Psychiatric: Mood and Affect: Mood normal. Assessment/Plan Problem List Items Addressed This Visit Impaired fasting glucose - check A1C since she has been on high-dose prednisone - continue working on lifestyle modifications Chronic nonintractable headache - Primary - Dx temporal arteritis - Continue prednisone until seen by strand galvanizer and supervisor blasting - Continue judicious use of gabapentin Temporal arteritis (CMS/HCC) - confirmed by biopsy - seen by neurologist on 10/13/24. - continue prednisone - tried to reschedule rheumatology appointment which her PCP has originally made. However, there ivon long wait list, and she was given an appointment in January. Will request another rheumatology office. Relevant Orders Referral to Rheumatology Hypertension - in a setting of systemic steroid use and pain, yet her BP has been high at home and other clinic - continue working on lifestyle modifications - start losartan 25 mg daily - check BP at home Other Visit Diagnoses Bilateral carotid artery stenosis Relevant Orders Vascular US carotid artery duplex bilateral Current chronic use of systemic steroids Relevant Orders Hemoglobin A1c Basic Metabolic Panel No Known Allergies Current Outpatient Medications Medication Instructions Advair Diskus 250-50 MCG/ACT aerosol powder 1 puff, Inhalation, Twice a day (mid-day and evening) albuterol (2.5 MG/3ML) 0.083% nebulizer solution USE 3 ML VIA NEBULIZER THREE TIMES DAILY DIRECTED albuterol (Ventolin HFA) 108 (90 Base) MCG/ACT inhaler INHALE 2 PUFFS BY MOUTH EVERY 4 TO 6 HOURS NEEDED FOR ASTHMA Blood Pressure Monitor [facility] Check BP daily cloNIDine (CATAPRES) 0.1 mg, Oral, 2 times daily PRN gabapentin (NEURONTIN) 300 mg, Oral, Every 8 hours scheduled hydrOXYzine pamoate (VISTARIL) 25 mg, Oral, Every 8 hours PRN losartan (COZAAR) 25 mg, Oral, Daily methadone (DOLOPHINE) 60 mg, Oral, Daily nicotine polacrilex (NICOTINE MINI) 2 mg, Mouth/Throat, As needed, May use 1 lozenge every 1-2 hours PRN. No more than 20/ daily pantoprazole (ProtoNix) 40 MG EC tablet 1 tablet, Daily predniSONE (Deltasone) 20 MG tablet 3 tablets, Oral, Daily predniSONE (DELTASONE) 60 mg, Oral, Daily sulfamethoxazole-trimethoprim (Bactrim DS) 800-160 MG tablet TAKE 1 TABLET BY MOUTH EVERY FRIDAY, FRIDAY AND FRIDAY FOR 30 DAYS WHILE ON HIGH DOSE PREDNISONE. topiramate (TOPAMAX) 25 mg, Oral, Nightly traZODone (DESYREL) 150 mg, Oral, Nightly Follow-up: with PCP or sooner if any problem arises. Scribe Attestation: Soo Keen, am serving as a scribe to document services personally performed by Lauryn Quiros MD, based on the patient's response to questions by provider and provides statements to me. documented in this encounter Miscellaneous Notes * Assessment & Plan Note - Lauryn Quiros MD - 10/15/2024 6:01 PM ESTAssociated Problem(s): Temporal arteritis (CMS/HCC) - confirmed by biopsy - seen by neurologist on 10/13/24. - continue prednisone - tried to reschedule rheumatology appointment which her PCP has originally made. However, there ivon long wait list, and she was given an appointment in January. Will request another rheumatology office. * Assessment & Plan Note - Lauryn Quiros MD - 10/15/2024 5:58 PM ESTAssociated Problem(s): Hypertension - in a setting of systemic steroid use and pain, yet her BP has been high at home and other clinic - continue working on lifestyle modifications - start losartan 25 mg daily - check BP at home * Assessment & Plan Note - Lauryn Quiros MD - 10/15/2024 5:57 PM ESTAssociated Problem(s): Impaired fasting glucose - check A1C since she has been on high-dose prednisone - continue working on lifestyle modifications * Assessment & Plan Note - Lauryn Quiros MD - 10/15/2024 5:56 PM ESTAssociated Problem(s): Chronic nonintractable headache - Dx temporal arteritis - Continue prednisone until seen by strand galvanizer and supervisor blasting - Continue judicious use of gabapentin documented in this encounter Plan of Treatment Upcoming Encounters Date Type Department Care Team (Late st Contact Info) Description 11/15/2024 11:15 AM EDT Office Visit [address] [address] Rowena Rodriguez MD [address] [place] [address] Scheduled Referrals Name Type Priority Associated Diagnoses Order Schedule Referral to Rheumatology Outpatient Referral Urgent Temporal arteritis (CMS/HCC) Expected: 10/14/2024 (Approximate), Expires: 10/14/2025 documented as of this encounter Goals Goal Patient Goal Type Associated Problems Recent Progress Patient-Stated? Author Quit using tobacco (cigarettes, smokeless, etc) Tobacco Use Tobacco dependence syndrome On track(09/15/19 4:37 PM EST) No Margarita Coulter, DoreenD documented as of this encounter Procedures Procedure Name Priority Date/Time Associated Diagnosis Comments HEMOGLOBIN A1C Routine 11/01/2024 12:42 PM EST Current chronic use of systemic steroids BASIC METABOLIC PANEL Routine 11/01/2024 12:42 PM EST Current chronic use of systemic steroids documented in this encounter Results * (ABNORMAL) Basic Metabolic Panel (11/01/2024 12:42 PM EST) Sodium 138 135 - 145 mmol/L [facility] Potassium 4.6 3.3 - 5.1 mmol/L [facility] Comment:Mild Hemolysis.Inter pret result with caution Chloride 105 96 - 108 mmol/L [facility] Carbon Dioxide 26 22 - 29 mmol/L [facility] Anion Gap 12 12 - 20 [facility] Urea Nitrogen (BUN) 8(L) 9 - 16 mg/dL [facility] Creatinine, Serum 0.72 0.5 - 1.4 mg/dL [facility] Estimated Glomerular Filt Rate >60 [facility] Comment:Chronic Kidney Disea se: Estimated GFR < 60 mL/min/1.86s6Hkrzwd Kidney Disease: Estimated GFR < 15 mL/min/1.73m2 Glucose 94 60 - 115 mg/dL [facility] Calcium 8.9 8.4 - 10.2 mg/dL [facility] Blood Venous blood specimen / Unknown 11/01/2024 12:42 PM EST 11/01/2024 1:40 PM EST us Lauryn Quiros MD LAB BLOOD ORDERABLES Final Resul t Performing Organization Address [facility] Co de Phone Number [facility] [address] [place] [phone] * Hemoglobin A1c (11/01/2024 12:42 PM EST) Hemoglobin A1c 5.2 <6.0 % [facility] Comment:Hemoglobin A1C Refer ence Range Adults: 4.8 - 6.0 % Non diabetic: < 6.0 % Goal: < 7.0 %Additional Action Suggested: > 8.0 %Note: Hemoglobin A1c results are invalid for patients with abnormal amounts of HbF. Blood transfusions may impact the HbA1c concentration in the patient sample. Estimated Average Glucose 103 mg/dL [facility] Comment:eAG = Estimated ave rage glucose which is %A1C expressed asaverage glucose, using the formula of the N1X-MoyjjaiExbiihb Glucose study (ADAG), Diabetes Care, Vol.31,#8,Apr. 2007 Blood Venous blood specimen / Unknown 11/01/2024 12:42 PM EST 11/01/2024 1:40 PM EST us Lauryn Quiros MD LAB BLOOD ORDERABLES Final Resul t Performing Organization Address [facility] Co de Phone Number [facility] [address] [place] [phone] documented in this encounter Visit Diagnoses Diagnosis Chronic nonintractable headache, unspecified headache type- Primary Temporal arteritis (CMS/HCC) Giant cell arteritis Bilateral carotid artery stenosis Occlusion and stenosis of carotid artery without mention of cerebral infarction Current chronic use of systemic steroids Hypertension, unspecified type Impaired fasting glucose documented in this encounter Additional Health Concerns Assessment Noted Time PHQ-9 Depression Total Score: 23 12/2 024 9:16 AM EST documented as of this encounter Care Teams Skein Bander Relationship Specialty Start Date End Date Rowena Lynne MD [address] [place] [phone] PCP - General Internal Medicine 02/20/23 Cami Buckley Community Health Worker 10/16/23 Margarita Coulter, DoreenD [address] [place] [phone] Pharmacist Internal Medicine 11/20/23 Maine Bass RN [address] [place] [phone] Nut ThreaderBread Wrapper Operator 09/30/24 documented as of this encounter
--- OUTSIDE RECORDS SUMMARY | 2024-11-01 14:19 | XMS_ITS | Encounter Summary ---
Author Organization [employer] Address [address] [facility] 7t [place] [address] Care Team Providers Care Corporate Receptionist Name Role Phone Rowena Lynne MD Primary Care Pro vider Cami Buckley Unavailable Unavailable Margarita Coulter PharmD Unavailable [phone] Maine Bass RN Unavailable [phone] Encounter Details Date Type Department Care Team (Late st Contact Info) Description 10/08/2024 Orders Only [facility] [address] [place] [address] Lauryn Quiros MD [address] [place] [address] Social History Tobacco Use Types Packs/Day Years [...] Office Visit [facility] [address] [place] [phone] Rowena Rodriguez MD [address] [place] [phone] documented as of this encounter Goals Goal [...] documented as of this encounter Care Teams Corporate Receptionist Relationship Specialty Start Date End Date Rowena Lynne MD [address] [place] [address] PCP - General Internal Medicine 02/20/23 Cami Buckley Community Health Worker 10/16/23 Margarita Coulter, DoreenD [address] [place] [phone] Pharmacist Internal Medicine 11/20/23 Maine Bass RN [address] [place] [phone] Space And Missile Operations SpaceliftScuba Dive Training Instructor 09/30/24 documented as of this encounter
--- OUTSIDE RECORDS SUMMARY | 2024-11-01 14:19 | XMS_ITS | Encounter Summary ---
Author Organization [employer] Address [address] [facility] 7t [place] [address] Care Team Providers Care Lead Press Operator Name Role Phone Rowena Lynne MD Primary Care Pro vider Cami Buckley Unavailable Unavailable Margarita Coulter PharmD Unavailable [phone] Maine Bass RN Unavailable [phone] Encounter Details Date Type Department Care Team (Late st Contact Info) Description 10/04/2024 Telephone [facility] [address] [place], [place] [phone] Maine Bass, RN [address] [place], [place] [phone] Social History Tobacco Use Types Packs/Day Years [...] the past 12 months, has t he [employer], gas, oil or water company threatened to [...] Telephone Encounter - Inga Fofana RN - 10/05/2024 12:57 PM EST Addressed in other encounter * Telephone Encounter - Chayo Braun RN - 10/04/2024 3:59 PM EST [facility] discharge papers from 09/23/24 state that the pt was discharged on PredniSONE (predniSONE 20 mgoral tablet) 60 Milligram By Mouth Daily . Discharge papers available under Media. Please advise on if new Rx can be sent. Green team contacted [facility] to complete med rec priorto HDF with Dr Quiros on 10/14/24. * Telephone Encounter - Maine Bass RN - 10/04/2024 3:02 PM EST CM received v/m from patient's daughter Myra. Call returned. She is requesting PT1 to the visit with [facility] on 10/15/24. [facility] made aware and will submit the request today. Patient's daughter also states she has not been contacted by [facility] regarding the MRI. CM will f/u with the office. Myra also states she was preparing patient's med boxes for the upcoming week and noted that the patient did not have the prednisone. She states she is unsure if the patient finished Rx or if she misplaced the medication? She states patient last took prednisone yesterday. CM advised a call will be placed to [facility] to f/u. Will contact her with status. She agrees. Call placed to [facility]. Informed the prednisone 20mg (take 60mg by mouth daily) was last filled on 09/24/24. Patient was given 90 tabs (30 day supply). Call placed to Myra. Informed a message will be sent to covering provider to review Rx request. She verbalizes understanding and states she will continue to look for Rx. Will call CM if she finds the medications. documented in this encounter Plan of Treatment Upcoming Encounters Date Type Department Care Team (Late st Contact Info) Description 11/15/2024 11:15 AM EDT Office Visit [facility] [address] [place] [phone] Rowena Rodriguez MD [address] [place] [phone] documented as of this encounter Goals Goal [...] as of this encounter Care Teams Lead Press Operator Relationship Specialty Start Date End Date Rowena Lynne MD [address] [place] [phone] PCP - General Internal Medicine 02/20/23 Cami Buckley Community Health Worker 10/16/23 Margarita Coulter, Bogdan [address] [place] [phone] Pharmacist Internal Medicine 11/20/23 Maine Bass RN [address] [place] [phone] Health Insurance AssessorRules Examiner 09/30/24 documented as of this encounter
--- OUTSIDE RECORDS SUMMARY | 2024-11-01 14:19 | XMS_ITS | Encounter Summary ---
Author Organization [employer] Address [address] [facility] 7t [place] [address] Care Team Providers Care Automotive Tire Testing Supervisor Name Role Phone Rowena Lynne MD Primary Care Pro vider Cami Buckley Unavailable Unavailable Margarita Coulter PharmD Unavailable [phone] Maine Bass RN Unavailable [phone] Reason for Visit * Reason Comments Med Refill Encounter Details Date Type Department Care Team (Late st Contact Info) Description 10/28/2024 Refill [facility] [address] [place] [address] Dagmar Hernández MD [address] [place], [place] [phone] Chronic nonintractable headache, unspecified headache type Social [...] 11:15 AM EDT Office Visit [facility] [address] [place] [phone] Rowena Rodriguez MD [address] [place] [address] documented as of this encounter Goals Goal [...] documented as of this encounter Care Teams Automotive Tire Testing Supervisor Relationship Specialty Start Date End Date Rowena Lynne MD [address] [place] [address] PCP - General Internal Medicine 02/20/23 Cami Buckley Community Health Worker 10/16/23 Margarita Coulter, DoreenD [address] [place] [phone] Pharmacist Internal Medicine 11/20/23 Maine Bass, FERNANDO [address] [place] [phone] LeathersmithShale Planer Operator Helper 09/30/24 documented as of this encounter
--- OUTSIDE RECORDS SUMMARY | 2024-11-01 14:19 | XMS_ITS | Encounter Summary ---
Author Organization [employer] Address [address] [place] [address] 7t [place] [address] Care Team Providers Care Library Services Assistant Name Role Phone Rowena Lynne MD Primary Care Pro vider Cami Buckley Unavailable Unavailable Margarita Coulter PharmD Unavailable [phone] Maine Bass RN Unavailable [phone] Reason for Visit * Reason Onset Date Comments Appointment Request 11/17/2023 Encounter Details Date Type Department Care Team (Late st Contact Info) Description 11/17/2023 Telephone [facility] [address] [place] [address] Rowena Lynne MD [address] [place] [address] Appointment Request Social History Tobacco Use Types [...] problems with any of the following? Lead [place] or [place] 06/15/2023 Food Insecurity Answer Date [...] encounter Miscellaneous Notes * Telephone Encounter - Donnell Miles - 11/17/2023 3:12 PM EDT Tc from patient calling to reschedule PE appt on 11/16 was not able to attend appt due to emergency in family telegraphic typewriter installer did offer appt but patient wanted something sooner documented in this encounter Plan of Treatment Upcoming Encounters Date Type Department Care Team (Late st Contact Info) Description 11/15/2024 11:15 AM EDT Office Visit [facility] [address] [place] [address] Rowena Rodriguez MD [address] [place] [address] documented as of this encounter Goals Goal [...] documented as of this encounter Care Teams Library Services Assistant Relationship Specialty Start Date End Date Rowena Lynne MD [address] [place] [address] PCP - General Internal Medicine 02/20/23 Cami Buckley Community Health Worker 10/16/23 Margarita Coulter, PharmD [address] [place] [phone] Pharmacist Internal Medicine 11/20/23 Maine Bass, FERNANDO [address] [place] [phone] [address] EngineerReceptionist Scheduler 09/30/24 documented as of this encounter
--- OUTSIDE RECORDS SUMMARY | 2024-11-01 14:19 | XMS_ITS | Encounter Summary ---
Author Organization [employer] Address [address] [place] [address] 7t [place] [address] Care Team Providers Care Sizing Machine Tender Name Role Phone China Chris VMWARE SYSTEMS ADMINISTRATOR Primary Care Provider [phone] Rowena Lynne MD Primary Care Pro vider Cami Buckley Unavailable Unavailable Margarita Coulter PharmD Unavailable [phone] Maine Bass RN Unavailable [phone] Encounter Details Date Type Department Care Team (Late st Contact Info) Description 01/27/2023 Telephone [facility] [address] [place], [place] [phone] Uzma Aguilar, FERNANDO Social History Tobacco Use Types Packs/Day Years Used Date Smoking Tobacco: Every Day Cigarettes Alcohol Use Standard Drinks/Week Comments Never 0 (1 standard drink = 0.6 oz pur e alcohol) Comments Unknown Sex and Gender Information Value [...] Description 11/15/2024 11:15 AM EDT Office Visit [facility] [address] [place], [place] [phone] Rowena Rodriguez MD [address] [place], [place] [phone] documented as of this encounter Visit Diagnoses Not on filedocumented in this encounter Additional Health Concerns Assessment Noted Time PHQ-9 Depression Total Score: 0 08/27/20 1:32 PM EST documented as of this encounter Care Teams Sizing Machine Tender Relationship Specialty Start Date End Date China Chris FNP [address] [place] [address] PCP - General Family Medicine 07/30/22 02/19/23 Rowena Lynne MD [address] [place] [address] PCP - General Internal Medicine 02/20/23 Cami Buckley [facility] Health Worker 10/16/23 Margarita Coulter, Bogdan [address] [place] [address] Pharmacist Internal Medicine 11/20/23 Maine Bass, FERNANDO [address] [place] [address] Bench ManagerLabel Press Operator 09/30/24 documented as of this encounter
== END 2024-11-01 12:40 | disposition home or self-care (01) ==
LOC: HO.HHCL 12:39
PROVIDERS: Visit Provider Family Medicine
DX: Z79.52 Long term (current) use of systemic steroids (principal)
CPT/HCPCS: 36415; 80048; 83036

== ENCOUNTER 2024-11-09 13:51 | Outpatient (REF) | payer MEDICAID, SELFPAY ==
--- NOTE | ~2024-11-09 | US_ITS ---
EXAMINATION: US EXTRACRANIAL CAROTID DUPLEX, BILATERAL CLINICAL INFORMATION: Incidental finding of carotid stenosis on CT angiogram neck. COMPARISON: None available. TECHNIQUE: Real-time ultrasound and Doppler techniques (integrating B-mode 2-D vascular images, Doppler spectral analysis and color-flow Doppler imaging) were utilized to interrogate the extracranial carotid arteries, the vertebral arteries and proximal subclavian arteries bilaterally. The degree of stenosis is determined by criteria similar to NASCET. FINDINGS: Right Side: 1. There is calcified atherosclerotic plaque seen in the bifurcation/proximal ICA region. 2. The common carotid artery PSV proximally is 56 cm/s and distally 38 cm/s. 3. The proximal internal carotid artery velocities are 75 cm/s systolic and 8 cm/s diastolic. There is no flow in the distal segment. 4. The proximal external carotid artery PSV is 118 cm/s. Spectral broadening. 5. The vertebral artery shows antegrade flow. Peak systolic velocity: 122 cm/s. Spectral broadening. 6. The subclavian artery waveforms are triphasic. Left Side: 1. There is calcified atherosclerotic plaque seen in the bifurcation/proximal ICA region. 2. The common carotid artery PSV proximally is 54 cm/s and distally 39 cm/s. 3. The proximal internal carotid artery velocities are 99 cm/s systolic and 10 cm/s diastolic. 4. The proximal external carotid artery PSV is 96 cm/s. 5. The vertebral artery shows antegrade flow. 6. The subclavian artery waveforms are triphasic. US/US carotid duplex BI IMPRESSION: 1. RIGHT: High degree stenosis in the distal right ICA with trickle flow. 2. LEFT: 0-49% stenosis left ICA. Consider CT angiogram neck. Electronically signed by: Rickie Jimenez MD 11/09/2024 03:33 PM EST
--- OUTSIDE RECORDS SUMMARY | 2024-11-09 17:28 | XMS_ITS | Clinical Summary ---
Author Organization [employer] Address [address] [place] [address] 7t [place] [address] Care Team Providers Care Java Enterprise Architect Name Role Phone Rowena Lynne MD Primary Care Pro vider Cami Buckley Unavailable Unavailable Margarita Coulter PharmD Unavailable [phone] Maine Bass RN Unavailable [phone] Allergies No known active allergies Medications [...] DIRECTED 75 mL 1 08/03/20 24 Active predniSONE (Deltasone) 20 MG tablet Take 3 tablets by mouth Once per day. Active gabapentin (Neurontin) 100 MG capsule Take 3 capsules (300 mg) by mouth every 8 (eight) hours. 270 capsule 11 10/05/19 25 2025 Active losartan (Cozaar) 25 MG tablet Take 1 tablet (25 mg) by mouth Once per day. 30 tablet 11 10/14/19 25 2025 Active Blood Pressure Monitor [facility] Check BP daily 1 each 10/14/19 25 [...] bedtime. 45 tablet 1 10/28/19 25 Active pantoprazole (ProtoNix) 40 MG EC tabletIndications :Gastroesophageal reflux disease, unspecified whether esophagitis present Take 1 tablet (40 mg) by mouth Once per day. 90 tablet 11/09/19 25 Active acetaminophen (Tylenol Extra Strength) 500 MG tablet Take 1 tablet (500 mg) by mouth every 6 (six) hours if needed for mild pain. 120 tablet 03/05/20 24 2024 Discontinued traZODone (Desyrel) 100 MG tablet Take 1.5 tablets (150 mg) by mouth at bedtime. 45 tablet 1 08/03/20 24 2024 Discontinued(R eorder (will not trigger notification to Pharmacy)) topiramate (Topamax) 25 MG tabletIndications :Chronic nonintractable headache, unspecified headache type Take 1 tablet (25 mg) by mouth at bedtime. 30 tablet 1 08/17/20 24 2024 Discontinued(R eorder (will not trigger notification to Pharmacy)) pantoprazole (ProtoNix) 40 MG EC tablet Take 1 tablet by mouth Once per day. 09/21/192024 Discontinued(R eorder (will not trigger notification to Pharmacy)) sulfamethoxazole- trimethoprim (Bactrim DS) 800-160 MG tablet TAKE 1 TABLET BY MOUTH EVERY FRIDAY, FRIDAY AND FRIDAY FOR 30 DAYS WHILE ON HIGH DOSE PREDNISONE. 09/21/192024 Discontinued(M ed list cleanup (will not trigger notification to Pharmacy)) predniSONE (Deltasone) 20 MG tablet Take 3 tablets (60 mg) by mouth Once per day. 90 tablet 10/05/192024 Active Problems Problem Noted Date Diagnosed Date [...] arteritis - Continue prednisone until seen by psych assistant and brake adjuster - Continue judicious use of gabapentin Assessment [...] contrast --sent as STAT -referred STAT to Team Psychologist for possible temporal arteritis for bx and [...] worsening symptoms -Pt agreed w plan -requesting staff physician to f on referrals and help w [...] -refilled today requested meds today and req staff physician in green team to help w tube [...] Plan (03/26/2023 5:29 PM EDT): asthma/COPD?f w seed production field supervisor -pt on advair and albuterol prn -per pt has upcoming apt w seed production field supervisor next month -pt will discuss about still [...] Encounters Date Type Department Care Team Description 11/08/2024 Orders Only [facility] [address] [place] [address] Lauryn Quiros MD 11/08/2024 Orders Only [facility] [address] [place] [address] Leann Bunn ANP Gastroesophageal reflux disease, unspecified whether esophagitis present (Primary Dx) 11/08/2024 Telephone [facility] [address] [place] [address] Rowena Lynne MD Medication Question 10/29/2024 Telephone [facility] [address] [place] [address] Rowena Lynne MD Care Management (C3CM- f/u call) 10/28/2024 Refill [facility] [address] [place] [address] Rowena Rodriguez MD Chronic nonintractable headache, unspecified headache type 10/28/2024 Refill [facility] [address] [place] [address] Milagros Hernández MD Chronic nonintractable headache, unspecified headache type 10/28/2024 Refill [facility] [address] [place] [address] [phone] Rowena Lynne MD 10/21/2024 Patient Outreach [facility] [address] [place] [address] Rowena Lynne MD Care Coordination (mail) 10/14/2024 9:30 AM EST Office Visit [facility] [address] [place] [address] Lauryn Quiros MD Chronic nonintractable headache, unspecified headache type (Primary Dx); Temporal arteritis (CMS/HCC); Bilateral carotid artery stenosis; Current chronic use of systemic steroids; Hypertension, unspecified type; Impaired fasting glucose 10/14/[address] [address] Rowena Lynne MD 10/14/2024 Patient Outreach [address] [address] Rowena Lynne MD Care Coordination (Appt reminder) 10/14/2024 Travel 10/13/[address] [address] Maine Bass, RN Care Management (C3- f/u call) 10/13/2024 Patient Outreach [address] [address] Rowena Lynne MD Care Coordination (SDOH) 10/12/2024 Patient Outreach [address] [address] Rowena Lynne MD Care Coordination (PT1) 10/12/2024 Patient Outreach [address] [address] Rowena Lynne MD 10/12/2024 Patient Outreach [address] [address] Rowena Lynne MD Care Coordination (SDOH ) 10/08/2024 Orders Only [address] [address] Lauryn Quiros MD 10/06/2024 Patient Outreach [address] [address] Rowena Lynne MD Care Coordination (SDOH) 10/05/2024 Refill [facility] [address] [place] [address] Rowena Lynne MD 10/04/[address] [address] Maine Bass RN 10/01/2024 Telephone [facility] [place] [address] Maine Bass RN 09/30/2024 Telephone [facility] [place] [address] Maine Bass RN Care Management (C3- initial assessment/ enrollment) 09/29/2024 Patient Outreach [address] [place] [address] Rowena Lynne MD Care Coordination (CM/CHW appt reminder) 09/24/2024 Patient Outreach [address] [place] [address] Rowena Lynne MD Care Coordination (CM/CHW outreach) 09/24/2024 Telephone [address] [place] [address] Rowena Lynne MD Medication Question 09/24/2024 Patient Outreach [address] [place] [address] Rowena Lynne MD Transition Of Care (Tcm) (HDF scheduled) 09/20/2024 Patient Outreach [address] [place] [address] Rowena Lynne MD Care Coordination (CM/CHW outreach) 09/20/[address] [address] Maine Bass RN Care Management (C3- chart review) 08/17/2024 9:15 AM EST Office Visit [facility] [place] [address] Rowena Rodriguez MD Chronic nonintractable headache, unspecified headache type (Primary Dx) 08/17/2024 Travel 08/16/2024 Telephone [address] [place] [address] Turner Ackerman MA Chart Prep 08/13/[address] [address] Rowena Lynne MD 08/12/2024 Telephone [facility] [address] [facility] [place] [address] Danii Ambrosio RN Results 08/11/2024 Orders Only [facility] [address] [place] [address] Rowena Lynne MD Nonintractable headache, unspecified chronicity pattern, unspecified headache type (Primary Dx) from Last 3 Months Immunizations Name Administration [...] Description 11/15/2024 11:15 AM EDT Office Visit [facility] [address] [place] [address] Rowena Rodriguez MD [address] [place] [address] Health Maintenance Due Date Last Done Comments [...] 08/17/2024, 08/17/2024 Depression Screening 08/17/2025 08/17/2024, 08/17/20 24 Alcohol/Substance Use Screening 10/14/2025 10/14/2024 Tobacco Screening [...] On track(09/15/19 4:37 PM EST) No Margarita Coulter PharmD Procedures Procedure Name Priority Date/Time Associated Diagnosis Comments [facility] US CAROTID ARTERY DUPLEX BILATERAL Routine 11/09/2024 2:16 PM EST Bilateral carotid artery stenosis BASIC METABOLIC PANEL Routine 11/01/2024 12:42 PM EST Current chronic use of systemic steroids HEMOGLOBIN A1C Routine 11/01/2024 12:42 PM EST Current chronic use of systemic steroids AMB REFERRAL TO NEUROLOGY Routine 10/12/2024 Nonintractable headache, unspecified chronicity pattern, unspecified headache type HPV GENOTYPES 16,18/45 Routine 06/20/2021 2:58 PM EDT THINPREP PAP Routine 06/20/2021 2:58 PM EDT LIPID PANEL, STANDARD Routine 05/07/2021 11:17 AM EDT BI MAMMOGRAM SCREENING BILATERAL Routine 11/06/2018 3:42 PM EST HM COLONOSCOPY Routine 11/30/2014 8:07 AM EDT from Last 3 Months or Most Recently Relevant to Health Maintenance Results * Vascular US carotid artery duplex bilateral (11/09/2024 2:16 PM EST) 11/09/2024 2:16 PM EST Narrative [facility] - 11/09/2024 3:36 PM EST ? [facility] ?[address] ?[place] [address] ? Ultrasound Report ? Signed ? Patient: Parsons,Myra E ?MR#: [id number] ?? 60 ? : 1960 ?Acct:[id number] ? Age/Sex: 64 / F ?ADM Date: 03/04/25 ? Loc: HO.US ? Attending Dr: Lauryn Quiros MD ? Ordering Physician: Lauryn Quiros MD ?? Date of Service: 11/09/24 ?? Procedure(s): US carotid duplex BI ?? Accession Number(s): [id number] ? cc: Rowena Lynne MD; Lauryn Quiros MD ? EXAMINATION: ?? US EXTRACRANIAL CAROTID DUPLEX, BILATERAL ? CLINICAL INFORMATION: ?? Incidental finding of carotid stenosis on CT angiogram neck. ? COMPARISON: ?? None available. ? TECHNIQUE: ?? Real-time ultrasound and Doppler techniques (integrating B-mode 2-D ?? vascular images, Doppler spectral analysis and color-flow Doppler ?? imaging) were ?? utilized to interrogate the extracranial carotid arteries, the ?? vertebral arteries and proximal subclavian arteries bilaterally. The ?? degree of stenosis is determined by criteria similar to NASCET. ? FINDINGS: ?? Right Side: ?? 1. There is calcified atherosclerotic plaque seen in the ?? bifurcation/proximal ICA region. ?? 2. The common carotid artery PSV proximally is 56 cm/s and distally 38 ?? cm/s. ?? 3. The proximal internal carotid artery velocities are 75 cm/s systolic ?? and 8 cm/s diastolic. There is no flow in the distal segment. ?? 4. The proximal external carotid artery PSV is 118 cm/s. Spectral ?? broadening. ?? 5. The vertebral artery shows antegrade flow. Peak systolic velocity: ?? 122 cm/s. Spectral broadening. ?? 6. The subclavian artery waveforms are triphasic. ? Left Side: ?? 1. There is calcified atherosclerotic plaque seen in the ?? bifurcation/proximal ICA region. ?? 2. The common carotid artery PSV proximally is 54 cm/s and distally 39 ?? cm/s. ?? 3. The proximal internal carotid artery velocities are 99 cm/s systolic ?? and 10 cm/s diastolic. ?? 4. The proximal external carotid artery PSV is 96 cm/s. ?? 5. The vertebral artery shows antegrade flow. ?? 6. The subclavian artery waveforms are triphasic. ? US/US carotid duplex BI ?? IMPRESSION: ?? 1. RIGHT: High degree stenosis in the distal right ICA with trickle ?? flow. ? 2. LEFT: 0-49% stenosis left ICA. ? Consider CT angiogram neck. ? Electronically signed by: ??Rickie Jimenez MD ??11/09/2024 03:33 PM ?? EST RP ? Dictated By: ?Rickie Mckeon MD ? Signed By: ?<Electronically signed by Rickie Fofana MD in OV> ? 11/09/24 1533 ? DD/ 1416 ? TD/TT: 11/09/24 1507 ? Spray Mixer: ? Procedure Note Donsarahter, Image - 11/09/[address] [address] Ultrasound Report Signed Patient: Myra Parsons EMR#: [id number] 60 : 1960cct:[id number] Age/Sex: 64 / FADM Date: 11/09/24 Loc: .US Attending Dr: Lauryn Quiros MD Ordering Physician: Lauryn Quiros MD Date of Service: 11/09/24 Procedure(s): US carotid duplex BI Accession Number(s): [id number] cc: Rowena Lynne MD; Lauryn Quiros MD EXAMINATION: US EXTRACRANIAL CAROTID DUPLEX, BILATERAL CLINICAL INFORMATION: Incidental finding of carotid stenosis on CT angiogram neck. COMPARISON: None available. TECHNIQUE: Real-time ultrasound and Doppler techniques (integrating B-mode 2-D vascular images, Doppler spectral analysis and color-flow Doppler imaging) were utilized to interrogate the extracranial carotid arteries, the vertebral arteries and proximal subclavian arteries bilaterally. The degree of stenosis is determined by criteria similar to NASCET. FINDINGS: Right Side: 1. There is calcified atherosclerotic plaque seen in the bifurcation/proximal ICA region. 2. The common carotid artery PSV proximally is 56 cm/s and distally 38 cm/s. 3. The proximal internal carotid artery velocities are 75 cm/s systolic and 8 cm/s diastolic. There is no flow in the distal segment. 4. The proximal external carotid artery PSV is 118 cm/s. Spectral broadening. 5. The vertebral artery shows antegrade flow. Peak systolic velocity: 122 cm/s. Spectral broadening. 6. The subclavian artery waveforms are triphasic. Left Side: 1. There is calcified atherosclerotic plaque seen in the bifurcation/proximal ICA region. 2. The common carotid artery PSV proximally is 54 cm/s and distally 39 cm/s. 3. The proximal internal carotid artery velocities are 99 cm/s systolic and 10 cm/s diastolic. 4. The proximal external carotid artery PSV is 96 cm/s. 5. The vertebral artery shows antegrade flow. 6. The subclavian artery waveforms are triphasic. US/US carotid duplex BI IMPRESSION: 1. RIGHT: High degree stenosis in the distal right ICA with trickle flow. 2. LEFT: 0-49% stenosis left ICA. Consider CT angiogram neck. Electronically signed by: Rickie Jimenez MD 11/09/2024 03:33 PM EST Dictated By: Rickie Mckeon MD Signed By: <Electronically signed by Rickie Fofana MDin OV> 11/09/24 1533 DD/ 1416 TD/TT: 11/09/24 1507 Spray Mixer: us Lauryn Quiros MD CV VASCULAR PROCEDURES Final Res ult [facility] [address] [place] [phone] * Hemoglobin A1c (11/01/2024 12:42 PM EST) Hemoglobin A1c 5.2 <6.0 % [facility] Comment:Hemoglobin A1C Refer ence Range Adults: 4.8 - 6.0 % Non diabetic: < 6.0 % Goal: < 7.0 %Additional Action Suggested: > 8.0 %Note: Hemoglobin A1c results are invalid for patients with abnormal amounts of HbF. Blood transfusions may impact the HbA1c concentration in the patient sample. Estimated Average Glucose 103 mg/dL [facility] Comment:eAG = Estimated ave rage glucose which is %A1C expressed asaverage glucose, using the formula of the [id number] Glucose study (ADAG), Diabetes Care, Vol.31,#8,Apr. 2007 Blood Venous blood specimen / Unknown 11/01/2024 12:42 PM EST 11/01/2024 1:40 PM EST Lauryn Quiros MD LAB BLOOD ORDERABLES Final Resul t Performing Organization Address [facility] de Phone Number [facility] [address] [place] [phone] * (ABNORMAL) Basic Metabolic Panel (11/01/2024 12:42 PM EST) Sodium 138 135 - 145 mmol/L [facility] Potassium 4.6 3.3 - 5.1 mmol/L [facility] Comment:Mild Hemolysis.Inter pret result with caution Chloride 105 96 - 108 mmol/L [facility] Carbon Dioxide 26 22 - 29 mmol/L [facility] Anion Gap 12 12 - 20 [facility] Urea Nitrogen (BUN) 8(L) 9 - 16 mg/dL [facility] Creatinine, Serum 0.72 0.5 - 1.4 mg/dL [facility] Estimated Glomerular Filt Rate >60 [facility] Comment:Chronic Kidney Disea se: Estimated GFR < 60 mL/min/[id number] Kidney Disease: Estimated GFR < 15 mL/min/1.73m2 Glucose 94 60 - 115 mg/dL [facility] Calcium 8.9 8.4 - 10.2 mg/dL [facility] Blood Venous blood specimen / Unknown 11/01/2024 12:42 PM EST 11/01/2024 1:40 PM EST Lauryn Quiros MD LAB BLOOD ORDERABLES Final Resul t Performing Organization Address [facility] Co de Phone Number [facility] [address] [place] [phone] [phone] * Referral to Neurology (10/12/2024) Rowena Vargas MD OUTPATIENT REFERR AL ORDERABLES Final Result * THINPREP PAP (06/20/2021 2:58 [...] historic and ?? current clinical information. ?? Dryland Farmer : SEE COMMENT [facility] Comment: YP, CT(ASCP) CT screening location: [address] ??[phone] Interpretation/R esult: Negative for intraepithelial lesion or malignancy. [facility] LMP: NONE GIVEN [facility] Prev. BX: NONE [facility]IVEN [facility] Prev. PAP: NONE GIVEN [facility] SOURCE: None given [facility] Statement Of Adequacy: [facility] Comment: Satisfactory for evaluation. Endocervical/transformation zone component present. Age and/or menstrual status not provided 06/20/2021 2:58 PM EDT Karol Curry MD LAB PATHOLOGY ORDERABLES Fin al Result Performing Organization Address [facility] de Phone Number [facility] [address] * HPV GENOTYPES 16,18/45 (06/20/2021 2:58 PM EDT) Pathologist [facility] HPV 16 RNA NOT DETECTED NOT DETECTED [facility] HPV 18/45 RNA NOT DETECTED NOT DETECTED [facility] Comment: Methodology: Real Estate Sales Agent Mediated Amplification The analytical performance characteristics of this assay have been determined by [employer]. The modifications have not been cleared or approved by the FDA. This assay has been validated pursuant to the CLIA regulations and is used for clinical purposes. 06/20/2021 2:58 PM EDT Karol Curry MD LAB BLOOD ORDERABLES Final R esult Performing Organization Address [facility] Co de Phone Number [facility] [address] [place] [address], * LIPID PANEL, STANDARD (05/07/2021 11:17 AM EDT) Chol/HDLC Ratio 2.9 <5.0 (calc) [facility] [...] ?? Chacho WILKERSON et al. EMETERIO. 2013;310(19): 7154-6277 ?? (http://education.WeVideo.It/faq/FZT310) Non-HDL Cholesterol 107 <130 mg/dL (calc) [facility] Comment: For patients with diabetes plus 1 major ASCVD risk ?? factor, treating to a non-HDL-C goal of <100 mg/dL ?? (LDL-C of <70 mg/dL) is considered a therapeutic ?? option. Triglycerides 72 <150 mg/dL [facility] 05/07/2021 11:1 7 AM EDT Karol Curry MD LAB BLOOD ORDERABLES Final R esult [facility] [address] [place] [address], [place] * DIGITAL BILATERAL SCREEN 1 (11/06/2018 3:42 PM EST) Anatomical Region Laterality Modality Breast Bilateral Mammography 11/06/2018 3:42 PM EST Narrative 11/06/2018 3:45 PM EST Refer to the Notes tab for result details [facility] Procedure: DIGITAL BILATERAL SCREEN 1 Procedure Note Provider, MD Betsy - 11/30/2022 Refer to the Notes tab for result details [facility] Procedure: DIGITAL BILATERAL SCREEN 1 Matteo Sanchez MD IMG BI PROCEDURES Final Resul t * Hm Colonoscopy (11/30/2014 8:07 AM EDT) Historical Provider HEALTH MAINTENANCE Final Result from Last 3 Months or Most Recently Relevant to Health Maintenance Insurance Care Teams Java Enterprise Architect Relationship Specialty Start Date End Date Rowena Lynne MD [address] [place] [address] PCP - General Internal Medicine 02/20/23 Cami Buckley Community Health Worker 10/16/23 Margarita Coulter, DoreenD [address] [place] [address] Pharmacist Internal Medicine 11/20/23 Maine Bass RN [address] [place] [address] DensitometristCosmetic Maker 09/30/24
--- OUTSIDE RECORDS SUMMARY | 2024-11-09 17:28 | XMS_ITS | Encounter Summary ---
Author Organization [employer] Address [address] [facility] 7t [place] [address] Care Team Providers Care Sporting Goods Sales Associate Name Role Phone Rowena Lynne MD Primary Care Pro vider Cami Buckley Unavailable Unavailable Margarita Coulter PharmD Unavailable [phone] Maine Bass RN Unavailable [phone] Encounter Details Date Type Department Care Team (Late st Contact Info) Description 10/08/2024 Orders Only [facility] [address] [place] [address] Lauryn Quiros MD [address] [place] [address] Social History Tobacco Use Types Packs/Day Years [...] 11:15 AM EDT Office Visit [facility] [address] [place] [address] Rowena Rodriguez MD [address] [place] [phone] documented as of this encounter Goals Goal [...] documented as of this encounter Care Teams Sporting Goods Sales Associate Relationship Specialty Start Date End Date Rowena Lynne MD [address] [place] [phone] PCP - General Internal Medicine 02/20/23 Cami Buckley Community Health Worker 10/16/23 Margarita Coulter, DoreenD [address] [place] [phone] Pharmacist Internal Medicine 11/20/23 Maine Bass RN [address] [place] [phone] Solar Energy Systems DesignerSupervisor Delivery Department 09/30/24 documented as of this encounter
--- OUTSIDE RECORDS SUMMARY | 2024-11-09 17:28 | XMS_ITS | Encounter Summary ---
Author Organization [employer] Address [address] [place] [address] 7t [place] [address] Care Team Providers Care Internet Technology Manager Name Role Phone Rowena Lynne MD Primary Care Pro vider Cami Buckley Unavailable Unavailable Margarita Coulter PharmD Unavailable [phone] Maine Bass RN Unavailable [phone] Reason for Visit * Reason Onset Date Comments Medication Question 09/24/2024 Encounter Details Date Type Department Care Team ([facility] st Contact Info) Description 09/24/2024 Telephone [facility] [address] [place] [address] Rowena Lynne MD 230 [place] [address] Medication Question Social History Tobacco Use Types [...] 11:15 AM EDT Office Visit [facility] [address] [place] [address] Rowena Rodriguez MD [address] [place] [address] documented as of this encounter Goals Goal [...] documented as of this encounter Care Teams Internet Technology Manager Relationship Specialty Start Date End Date Rowena Lynne MD [address] [place] [address] 264[address] PCP - General Internal Medicine 02/20/23 Cami Buckley Community Health Worker 10/16/23 Margarita Coulter, PharmD [address] [place] [address] 11206 Pharmacist Internal Medicine 11/20/23 Maine Bass, FERNANDO [address] [place] [address] Paste MixerDirector Of Therapy Services 09/30/24 documented as of this encounter
--- OUTSIDE RECORDS SUMMARY | 2024-11-09 17:29 | XMS_ITS | Encounter Summary ---
Author Organization [employer] Address [address] [facility] 7t [place] [address] Care Team Providers Care Injection Molding Supervisor Name Role Phone Rowena Lynne MD Primary Care Pro vider Cami Buckley Unavailable Unavailable Margarita Coulter PharmD Unavailable [phone] Maine Bass RN Unavailable [phone] Encounter Details Date Type Department Care Team (Late st Contact Info) Description 11/08/2024 Orders Only [facility] MEDICINE 230 [place] [address] Leann Bunn, ANP 230 [place] [address] Gastroesophageal reflux disease, unspecified whether esophagitis present (Primary Dx) Social History Tobacco Use Types Packs/Day Years [...] as of this encounter Progress Notes * WAQAR Samuels - 11/08/2024 5:01 PM EST Have sent PPI to continue - pt on high dose prednisone and indomethacin via neurology documented in this encounter Plan of Treatment Upcoming Encounters Date Type Department Care Team (Late st Contact Info) Description 11/15/2024 11:15 AM EDT Office Visit [facility] MEDICINE 230 [place] [address] Rowena Rodriguez MD 230 [place] [address] documented as of this encounter Goals Goal Patient Goal Type Associated Problems Recent Progress Patient-Stated? Author Quit using tobacco (cigarettes, smokeless, etc) Tobacco Use Tobacco dependence syndrome On track(09/15/19 4:37 PM EST) No Margarita Coulter, PharmD documented as of this encounter Visit Diagnoses Diagnosis Gastroesophageal reflux disease, unspecified whether esophagitis present- Primary documented in this encounter Additional Health Concerns Assessment Noted Time PHQ-9 Depression Total Score: 23 024 9:16 AM EST documented as of this encounter Care Teams Injection Molding Supervisor Relationship Specialty Start Date End Date Rowena Lynne MD [address] [place] [address] PCP - General Internal Medicine 02/20/23 Cami Buckley [facility] Health Worker 10/16/23 Margarita Coulter PharmD [address] [place] [address] Pharmacist Internal Medicine 11/20/23 Maine Bass RN [address] [place] [address] Skein Yarn DyerBoom Stick Worker 09/30/24 documented as of this encounter
--- OUTSIDE RECORDS SUMMARY | 2024-11-09 17:29 | XMS_ITS | Encounter Summary ---
Author Organization [employer] Address [address] [place] [address] 7t [place] [address] Care Team Providers Care Strategic Advisor Name Role Phone Rowena Lynne MD Primary Care Pro vider Cami Buckley Unavailable Unavailable Margarita Coulter PharmD Unavailable [phone] Maine Bass RN Unavailable [phone] Reason for Visit * Reason Comments Care Coordination Appt reminder Encounter Details Date Type Department Care Team (Latest Contact Info) Description 10/14/2024 Patient Outreach [facility]INE 230 [place] [address] Rowena Lynne MD 230 [place] [address] Care Coordination (Appt reminder) Social History Tobacco [...] set up pt1 10/15/24 at 1:25pm at [address] [place] [address] [address] in [place], [place]. Daughter is aware PT1 will pickup patient at 1245pm and has no barriers in attending. documented in this encounter Plan of Treatment Upcoming Encounters Date Type Department Care Team (Late st Contact Info) Description 11/15/2024 11:15 AM EDT Office Visit [facility] 230 [place] [address] Rowena Rodriguez MD 230 [place] [address] documented as of this encounter [...] documented as of this encounter Care Teams Strategic Advisor Relationship Specialty Start Date End Date Rowena Lynne MD [address] [place] [address]47 PCP - General Internal Medicine 02/20/23 Cami Buckley [facility] Health Worker 10/16/23 Margarita Coulter, DoreenD [address] [place] [address]326 Pharmacist Internal Medicine 11/20/23 Maine Bass, FERNANDO [address] [place] [address] Cv RnWindows Server Specialist 09/30/24 documented as of this encounter
--- OUTSIDE RECORDS SUMMARY | 2024-11-09 17:29 | XMS_ITS | Encounter Summary ---
Author Organization [employer] Address [address] [place] [address] 7t [place] [address] Care Team Providers Care Elementary School Librarian Name Role Phone Rowena Lynne MD Primary Care Pro vider Cami Buckley Unavailable Unavailable Margarita Coulter PharmD Unavailable [phone] Maine Bass RN Unavailable [phone] Reason for Visit * Reason Comments Care Coordination SDOH Encounter Details Date Type Department Care Team (Latest Contact Info) Description 10/13/2024 Patient Outreach [facility] MEDICINE 230 [place] [address] Rowena Lynne MD 230 [place] [address] Care Coordination (SDOH) Social History Tobacco Use [...] t he electric, gas, oil or water [employer] threatened to shut off services in your [...] Description 11/15/2024 11:15 AM EDT Office Visit [facility] MEDICINE 230 [place] [address] Rowena Rodriguez MD 230 [place] [address] documented as of this encounter Goals Goal [...] documented as of this encounter Care Teams Elementary School Librarian Relationship Specialty Start Date End Date Rowena Lynne MD [address] [place] [address] PCP - General Internal Medicine 02/20/23 Cami Buckley [facility] Health Worker 10/16/23 Margarita Coulter, PharmD 230 [place] [address] Pharmacist Internal Medicine 11/20/23 Maine Bass RN [address] [place] [address] MeringuerElectrodynamicist 09/30/24 documented as of this encounter
--- OUTSIDE RECORDS SUMMARY | 2024-11-09 17:29 | XMS_ITS | Encounter Summary ---
Author Organization [employer] Address [address] [facility] 7t [place] [address] Care Team Providers Care Marker Machine Attendant Name Role Phone Rowena Lynne MD Primary Care Pro vider Cami Buckley Unavailable Unavailable Margarita Coulter PharmD Unavailable [phone] Maine Bass RN Unavailable [phone] Encounter Details Date Type Department Care Team (Late st Contact Info) Description 10/12/2024 Patient Outreach [facility] MEDICINE 230 [place] [address] Rowena Lynne MD 230 [place] [address] Social History Tobacco Use Types Packs/Day Years [...] 11:15 AM EDT Office Visit [facility] MED[facility]INE [address] [place] [address] Rowena Rodriguez MD [address] [place] [address] documented as of this encounter Goals Goal [...] documented as of this encounter Care Teams Marker Machine Attendant Relationship Specialty Start Date End Date Rowena Lynne MD [address] [place] [address] PCP - General Internal Medicine 02/20/23 Cami Buckley Community Health Worker 10/16/23 Margarita Coulter, DoreenD [address] [place] [address] Pharmacist Internal Medicine 11/20/23 Maine Bass, FERNANDO [address] [place] [address] Bpm AnalystTurkey Boner 09/30/24 documented as of this encounter
--- OUTSIDE RECORDS SUMMARY | 2024-11-09 17:29 | XMS_ITS | Encounter Summary ---
Author Organization [employer] Address [address] [place] [address] 7t [place] [address] Care Team Providers Care Applications Administrator Name Role Phone Rowena Lynne MD Primary Care Pro vider Cami Buckley Unavailable Unavailable Margarita Coulter PharmD Unavailable [phone] Maine Bass RN Unavailable [phone] Reason for Visit * Reason Comments Med Refill Encounter Details Date Type Department Care Team (Late st Contact Info) Description 10/28/2024 Refill [facility] 230 [place] [address] Rowena Lynne MD 230 [place] [address] Social History Tobacco Use Types Packs/Day Years [...] Description 11/15/2024 11:15 AM EDT Office Visit [facility] MEDICINE [address] [place] [address] Rowena Rodriguez MD 230 [place] [address] documented as of this encounter Goals Goal [...] documented as of this encounter Care Teams Applications Administrator Relationship Specialty Start Date End Date Rowena Lynne MD [address] [place] [address] PCP - General Internal Medicine 02/20/23 Cami Buckley Community Health Worker 10/16/23 Margarita Coulter, Bogdan [address] [place] [address] Pharmacist Internal Medicine 11/20/23 Maine Bass, FERNANDO [address] [place] [address]118 Content AnalystOccupational Therapy Professor 09/30/24 documented as of this encounter
--- OUTSIDE RECORDS SUMMARY | 2024-11-09 17:29 | XMS_ITS | Encounter Summary ---
Author Organization [employer] Address [address] [facility] 7t [place] [address] Care Team Providers Care Pt Escort Name Role Phone Rowena Lynne MD Primary Care Pro vider Cami Buckley Unavailable Unavailable Margarita Coulter PharmD Unavailable [phone] Maine Bass RN Unavailable [phone] Reason for Visit * Reason Onset Date Comments Care Management 10/13/2024 C3CM- f/u call Encounter Details Date Type Department Care Team (Late st Contact Info) Description 10/13/2024 Telephone [facility] MEDICINE 230 [place] [address] Maine Bass, RN [address] [place], [place] [phone] Care Management (C3CM- f/u call) Social History [...] Telephone Encounter - Maine Bass RN - 10/13/2024 12:53 PM EST FRANKIE Bass RN placed outbound call to patient. FRANKIE spoke with patient's daughter Myra. Patient's name, and address confirmed. Myra states patient is doing well with no recent [facility]. She states patient attended [...] address this during her scheduled HDF tomorrow. Myra also states she was advised that it [...] attending. Myra confirms that she received the MANAGER BRIDGE list that was mailed out to her. She states she has not been able to follow up but agrees to do so when able. No further questions or concerns. CM reinforced direct contact information or CHW for any additional questions or concerns. Education provided on Walk-In Urgent Care located in [facility]. Myra provided with after-hours line for [facility], , which offer night time triage service and option to transfer to paper conservator provider if needed. She verbalizes understanding, and able to repeat back to commercial insurance underwriter. A follow up call will be placed within 10 days, she agrees with plan. documented in this encounter Plan of Treatment Upcoming Encounters Date Type Department Care Team ([facility] st Contact Info) Description 11/15/2024 11:15 AM EDT Office Visit [facility] MEDICINE 230 [place] [address] Rowena Rodriguez MD 230 [place], [place] [phone] documented as of this encounter Goals Goal [...] documented as of this encounter Care Teams Pt Escort Relationship Specialty Start Date End Date Rowena Lynne MD [address] [place] [address] PCP - General Internal Medicine 02/20/23 Cami Buckley [facility] Health Worker 10/16/23 Margarita Coulter, DoreenD [address] [place] [address]761 Pharmacist Internal Medicine 11/20/23 Maine Bass, FERNANDO [address] [place] [address] 04191 Diesel ElectricianQuality Control Lab Tech 09/30/24 documented as of this encounter
--- OUTSIDE RECORDS SUMMARY | 2024-11-09 17:29 | XMS_ITS | Encounter Summary ---
Author Organization [employer] Address [address] [facility] 7t [place] [address] Care Team Providers Care Embedder Name Role Phone Rowena Lynne MD Primary Care Pro vider Cami Buckley Unavailable Unavailable Margarita Coulter PharmD Unavailable [phone] Maine Bass RN Unavailable [phone] Encounter Details Date Type Department Care Team (Late st Contact Info) Description 10/14/2024 Telephone [facility] MEDICINE 230 [place] [address] Rowena Lynne MD 230 [place] [address] Social History Tobacco Use Types Packs/Day Years [...] Description 11/15/2024 11:15 AM EDT Office Visit [facility] MEDICINE [address] [place] [address] Rowena Rodriguez MD [address] [place] [address] documented as of this encounter Goals Goal [...] documented as of this encounter Care Teams Embedder Relationship Specialty Start Date End Date Rowena Lynne MD [address] [place] [address]773 PCP - General Internal Medicine 02/20/23 Cami Buckley Community Health Worker 10/16/23 Margarita Coulter, DoreenD [address] [place] [address]24 Pharmacist Internal Medicine 11/20/23 Maine Bass RN [address] [place] [address] 24685 Rn ClinicianWell Reactivator Operator 09/30/24 documented as of this encounter
--- OUTSIDE RECORDS SUMMARY | 2024-11-09 17:29 | XMS_ITS | Encounter Summary ---
Author Organization [employer] Address [address] [place] [address] 7t [place] [address] Care Team Providers Care Electrician Chief Name Role Phone Rowena Lynne MD Primary Care Pro vider Cami Buckley Unavailable Unavailable Margarita Coulter PharmD Unavailable [phone] Maine Bass RN Unavailable [phone] Reason for Visit * Reason Comments Care Coordination mail Encounter Details Date Type Department Care Team (Latest Contact Info) Description 10/21/2024 Patient Outreach [facility] MEDICINE 230 [place] [address] Rowena Lynne MD 230 [place] [address] Care Coordination (mail) Social History Tobacco Use [...] 11:15 AM EDT Office Visit [facility] MED[facility]INE 230 [place] [address] Rowena Rodriguez MD 230 [place] [address] documented as of this encounter Goals Goal [...] documented as of this encounter Care Teams Electrician Chief Relationship Specialty Start Date End Date Rowena Lynne MD [address] [place] [address] PCP - General Internal Medicine 02/20/23 Cami Buckley [facility] Health Worker 10/16/23 Margarita Coulter, PharmD 230 [place] [address] Pharmacist Internal Medicine 11/20/23 Maine Bass RN [address] [place] [address]67 Rolling AttendantOperator Automated Process 09/30/24 documented as of this encounter
--- OUTSIDE RECORDS SUMMARY | 2024-11-09 17:29 | XMS_ITS | Encounter Summary ---
Author Organization [employer] Address [address] [place] [address] 7t [place] [address] Care Team Providers Care Construction Manager Name Role Phone Rowena Lynne MD Primary Care Pro vider Cami Buckley Unavailable Unavailable Margarita Coulter PharmD Unavailable [phone] Maine Bass RN Unavailable [phone] Reason for Visit * Reason Onset Date Comments Appointment Request 07/21/2023 Encounter Details Date Type Department Care Team ([facility] st Contact Info) Description 07/21/2023 Telephone [facility] 230 [place] [address] Rowena Lynne MD 230 [place] [address] Appointment Request Social History Tobacco Use Types [...] problems with any of the following? Lead [place] or [place] 06/15/2023 Food Insecurity Answer Date [...] EST Tc from pt requesting f/u appt, senior grant writer attempted to schedule, no availability at the moment. documented in this encounter Plan of Treatment Upcoming Encounters Date Type Department Care Team (Late st Contact Info) Description 11/15/2024 11:15 AM EDT Office Visit [facility] [address] [place] [address] Rowena Rodriguez MD 230 [place] [address] documented as of this encounter Visit Diagnoses Not on filedocumented in this encounter Additional Health Concerns Assessment Noted Time PHQ-9 Depression Total Score: 10 023 3:50 PM EDT documented as of this encounter Care Teams Construction Manager Relationship Specialty Start Date End Date Rowena Lynne MD [address] [place] [address] [phone] PCP - General Internal Medicine 02/20/23 Cami Buckley Community Health Worker 10/16/23 Margarita Coulter, DoreenD [address] [place] [address] 28431 Pharmacist Internal Medicine 11/20/23 Maine Bass RN [address] [place] [address] 95681 Camp ManagerHand Worker 09/30/24 documented as of this encounter
--- OUTSIDE RECORDS SUMMARY | 2024-11-09 17:29 | XMS_ITS | Encounter Summary ---
Author Organization [employer] Address [address] [facility] 7t [place] [address] Care Team Providers Care Screw Machine Tender Name Role Phone Rowena Lynne MD Primary Care Pro vider Cami Buckley Unavailable Unavailable Margarita Coulter PharmD Unavailable [phone] Maine Bass RN Unavailable [phone] Reason for Visit * Reason Comments Med Refill Encounter Details Date Type Department Care Team (Late st Contact Info) Description 10/28/2024 Refill [facility] MEDICINE 230 [place] [address] Rowena Rodriguez MD 230 [place], [place] [phone] Chronic nonintractable headache, unspecified headache type Social [...] Description 11/15/2024 11:15 AM EDT Office Visit [facility] MEDICINE [address] [place] [address] Rowena Rodriguez MD 230 [place] [address] documented as of this encounter Goals Goal [...] documented as of this encounter Care Teams Screw Machine Tender Relationship Specialty Start Date End Date Rowena Lynne MD 230 [place] [address] PCP - General Internal Medicine 02/20/23 Cami Buckley Community Health Worker 10/16/23 Margarita Coulter, Bogdan 230 [place], [place] [phone] Pharmacist Internal Medicine 11/20/23 Maine Bass, FERNANDO [address] [place] [address] Psychometric ExaminerSticker Hand 09/30/24 documented as of this encounter
--- OUTSIDE RECORDS SUMMARY | 2024-11-09 17:29 | XMS_ITS | Encounter Summary ---
Author Organization [employer] Address [address] [place] [address] 7t [place] [address] Care Team Providers Care Methods And Procedures Analyst Name Role Phone Rowena Lynne MD Primary Care Pro vider Cami Buckley Unavailable Unavailable Margarita Coulter PharmD Unavailable [phone] Maine Bass RN Unavailable [phone] Reason for Visit * Reason Onset Date Comments Medication Question 11/08/2024 Encounter Details Date Type Department Care Team (Late st Contact Info) Description 11/08/2024 Telephone [facility] MEDICINE 230 [place] [address] Rowena Lynne MD 230 [place] [address] Medication Question Social History Tobacco Use Types [...] the past 12 months, has t he [employer], gas, oil or water [employer] threatened to shut off services in your [...] encounter Miscellaneous Notes * Telephone Encounter - Chayo Braun RN - 11/09/2024 9:30 AM EST Telephone call to pt to advise pantoprazole Rx sent to pharmacy. Pt verbalized understanding, no further questions. * Telephone Encounter - Lauryn Quiros MD - 11/08/2024 5:33 PM EST It seems that Leann has already sent pantoprazole script, and I agree with the plan. * Telephone Encounter - Chayo Braun RN - 11/08/2024 4:08 PM EST Spoke with [place]. [facility] neuro stated below no need to continue Bactrim at this point while on prednisone. Pt was prescribed pantoprazole at [facility], in discharge note from 09/21/24 it states Will also keep her on Protonix however no pantoprazole listed on previous med list. Pt saw Dr Quiros for hospital follow up on 10/14/24, PCP out of office, will send message to Dr Quiros to comment on pantoprazole med at this point. * Telephone Encounter - Maine Bass RN - 11/08/2024 3:47 PM EST CM received call back from Gabrielle with [facility] Neurology. She states their provider advised no need for Bactrim. Patient to continue the prednisone until she is seen by Ophthalmology and Rheumatology. Per Gabrielle, called the patient and informed her of this so patient is aware of plan. She states the patient is scheduled to f/u with Neurology on 11/24/24 at 10:30am. * Telephone Encounter - Maine Bass RN - 11/08/2024 3:12 PM EST FRANKIE received call from patient's daughter requesting medication refills for Rx sulfamethoxazole-trimethoprim and pantoprazole. She states these medications were prescribed to the patient during her hospitalization at [facility]. She states patient ran out of meds today. FRANKIE advised a message will be sent toteam to review. She verbalizes understanding and is requesting return call to [phone]. Call to [facility]. Informed both medications were last filled on 09/21/24- 30 day supply. Advised no refills left on Rx. FRANKIE called [facility] Neuro. FRANKIE spoke with Chichi who states she will be sending a message to the team to inquire on meds, including prednisone, as well as the ordered MRI/MRA and f/u visit in 1 month. -FRANKIE received a call from Gabrielle with [facility] Neuro. She state she will be sending a message to their provider to inquire on the plan for prednisone and Bactrim. She states she will also be following up withthe scheduling team to inquire on the status of the f/u appt. Patient was last seen by Dr. Quiros on 10/14. Will send message to team to review and f/u with patient. documented in this encounter Plan of Treatment Upcoming Encounters Date Type Department Care Team (Late st Contact Info) Description 11/15/2024 11:15 AM EDT Office Visit [facility] MEDICINE [address] [place] [address] Rowena Rodriguez MD [address] [place] [address] documented as of this encounter Goals Goal [...] documented as of this encounter Care Teams Methods And Procedures Analyst Relationship Specialty Start Date End Date Rowena Lynne MD [address] [place] [address] PCP - General Internal Medicine 02/20/23 Cami Buckley Community Health Worker 10/16/23 Margarita Coulter, PharmD [address] [place] [address] Pharmacist Internal Medicine 11/20/23 Maine Bass RN [address] [place] [address] Non Emergency Services Ambulance DriverMath And Sciences Department Chair 09/30/24 documented as of this encounter
--- OUTSIDE RECORDS SUMMARY | 2024-11-09 17:29 | XMS_ITS | Encounter Summary ---
Author Organization [email or web address] Address [address] [place] [address] 7t [place] [address] Care Team Providers Care Splicing Supervisor Name Role Phone China Chris COMPLAINT OPERATOR Primary Care Provider [phone] Rowena Lynne MD Primary Care Pro vider Cami Buckley Unavailable Unavailable Margarita Coulter PharmD Unavailable [phone] Maine Bass RN Unavailable [phone] Encounter Details Date Type Department Care Team (Late st Contact Info) Description 01/27/2023 Telephone [facility] MED[facility]INE [address] [place], [place] [phone] Uzma Aguilar, FERNANDO Social History Tobacco Use [...] Description 11/15/2024 11:15 AM EDT Office Visit [facility] [address] [place], [place] [phone] Rowena Rodriguez MD 230 [place], [place] [phone] documented as of this encounter Visit Diagnoses Not on filedocumented in this encounter Additional Health Concerns Assessment Noted Time PHQ-9 Depression Total Score: 0 08/27/20 1:32 PM EST documented as of this encounter Care Teams Splicing Supervisor Relationship Specialty Start Date End Date China Chris FNP [address] [place] [address] PCP - General Family Medicine 07/30/22 02/19/23 Rowena Lynne MD [address] [place] [address] PCP - General Internal Medicine 02/20/23 Cami Buckley [facility] Health Worker 10/16/23 Margarita Coulter, Bogdan [address] [place] [address] Pharmacist Internal Medicine 11/20/23 Maine Bass, FERNANDO [address] [place] [address] Ax Survey WorkerComplaint Specialist 09/30/24 documented as of this encounter
--- OUTSIDE RECORDS SUMMARY | 2024-11-09 17:29 | XMS_ITS | Encounter Summary ---
Author Organization [employer] Address [address] [facility] 7t [place] [address] Care Team Providers Care Sustainability Director Name Role Phone Rowena Lynne MD Primary Care Pro vider Cami Buckley Unavailable Unavailable Margarita Coulter PharmD Unavailable [phone] Maine Bass RN Unavailable [phone] Reason for Visit * Reason Comments Med Refill Encounter Details Date Type Department Care Team (Late st Contact Info) Description 10/28/2024 Refill [facility] MEDICINE [address] [place] [address] Dagmar Hernández MD [address] [place], [place] [phone] Chronic nonintractable headache, unspecified headache type Social [...] 11:15 AM EDT Office Visit [facility] [address] [place] [address] Rowena Rodriguez MD [address] [place] [address] documented as of this encounter Goals Goal [...] documented as of this encounter Care Teams Sustainability Director Relationship Specialty Start Date End Date Rowena Lynne MD 230 [place] [address] PCP - General Internal Medicine 02/20/23 Cami Buckley Community Health Worker 10/16/23 Margarita Coulter, DoreenD [address] [place] [address] Pharmacist Internal Medicine 11/20/23 Maine Bass, FERNANDO [address] [place] [address] Mold Car PusherNewspaper Distributor Supervisor 09/30/24 documented as of this encounter
--- OUTSIDE RECORDS SUMMARY | 2024-11-09 17:29 | XMS_ITS | Encounter Summary ---
Author Organization [employer] Address [address] [place] [address] 7t [place] [address] Care Team Providers Care Wire Harness Design Engineer Name Role Phone Rowena Lynne MD Primary Care Pro vider Cami Buckley Unavailable Unavailable Margarita Coulter PharmD Unavailable [phone] Maine Bass RN Unavailable [phone] Reason for Visit * Reason Onset Date Comments Appointment Request 11/17/2023 Encounter Details Date Type Department Care Team (Late st Contact Info) Description 11/17/2023 Telephone [facility] MEDICINE 230 [place] [address] Rowena Lynne MD 230 [place] [address] Appointment Request Social History Tobacco Use Types [...] problems with any of the following? Lead [place] or Pipes 06/15/2023 Food Insecurity Answer Date [...] attend appt due to emergency in family tag writer did offer appt but patient wanted something sooner documented in this encounter Plan of Treatment Upcoming Encounters Date Type Department Care Team (Late st Contact Info) Description 11/15/2024 11:15 AM EDT Office Visit [facility] MEDICINE [address] [place] [address] Rowena Rodriguez MD 230 [place] [address] documented as of this encounter Goals Goal [...] documented as of this encounter Care Teams Wire Harness Design Engineer Relationship Specialty Start Date End Date Rowena Lynne MD [address] [place] [address] PCP - General Internal Medicine 02/20/23 Cami Buckley Community Health Worker 10/16/23 Margarita Coulter, PharmD [address] [place] [address] Pharmacist Internal Medicine 11/20/23 Maine Bass, FERNANDO [address] [place] [address] Beef GraderLine Servicer 09/30/24 documented as of this encounter
--- OUTSIDE RECORDS SUMMARY | 2024-11-09 17:29 | XMS_ITS | Encounter Summary ---
Author Organization [employer] Address [address] [facility] 7t [place] [address] Care Team Providers Care Date Night Caregiver Name Role Phone Rowena Lynne MD Primary Care Pro vider Cami Buckley Unavailable Unavailable Margarita Coulter PharmD Unavailable [phone] Maine Bass RN Unavailable [phone] Encounter Details Date Type Department Care Team (Late st Contact Info) Description 12/17/2023 Orders Only [facility] MEDICINE [address] [place] [address] Provider, MD Betsy Social History Tobacco Use [...] problems with any of the following? Lead [place] or [place] 06/15/2023 Food Insecurity Answer Date [...] 11:15 AM EDT Office Visit [facility] MEDICINE [address] [place] [address] Rowena Rodriguez MD [address] [place] [address] documented as of this encounter Goals Goal [...] documented as of this encounter Care Teams Date Night Caregiver Relationship Specialty Start Date End Date Rowena Lynne MD [address] [place] [address] [phone] PCP - General Internal Medicine 02/20/23 Cami Buckley Community Health Worker 10/16/23 Margarita Coulter, DoreenD [address] [place] [address] Pharmacist Internal Medicine 11/20/23 Maine Bass RN [address] [place] [address] Precision Machine OperatorHand Brush Filler 09/30/24 documented as of this encounter
--- OUTSIDE RECORDS SUMMARY | 2024-11-09 17:29 | XMS_ITS | Encounter Summary ---
Author Organization [employer] Address [address] [place] [address] 7t [place] [address] Care Team Providers Care Assistant Casino Shift Manager Name Role Phone Rowena Lynne MD Primary Care Pro vider Cami Buckley Unavailable Unavailable Margarita Coulter PharmD Unavailable [phone] Maine Bass RN Unavailable [phone] Reason for Visit * Reason Onset Date Comments Lab Orders 05/26/2023 Encounter Details Date Type Department Care Team (Late st Contact Info) Description 05/26/2023 Telephone [facility] MEDICINE [address] [place] [address] Rowena Lynne MD [address] [place] [address] Lab Orders Social History Tobacco Use Types [...] active labs to be faxed to lab. Manager Machine faxed all active labs except 2 lab orders made to [employer]. Labs need to be switched to [facility] labs. TSH W/Reflex to FT4 Comprehensive Metabolic Panel documented in this encounter Plan of Treatment Upcoming Encounters Date Type Department Care Team (Late st Contact Info) Description 11/15/2024 11:15 AM EDT Office Visit [facility] MEDICINE [address] [place] [address] Rowena Rodriguez MD 230 [place] [address] documented as of this encounter Procedures Procedure Name Priority Date/Time Associated Diagnosis Comments TSH W/REFLEX TO FT4 Routine 10/28/2023 1 0:53 AM EST Bilateral leg edema COMPREHENSIVE METABOLIC PANEL Routine 10/28/2023 10:53 AM EST Bilateral leg edema documented in this encounter Results * TSH W/Reflex to FT4 (10/28/2023 10:53 AM EST) TSH reflex Free T4 1.87 0.32 - 4.0 uIU/mL [facility] Blood 10/28/2023 10:5 3 AM EST 10/28/2023 11:25 AM EST us Rowena Vargas MD LAB BLOOD ORDERAB LES Final Result [facility] [address] [place] [address] [phone] * (ABNORMAL) Comprehensive Metabolic Panel (10/28/2023 10:53 AM EST) Sodium 140 135 - 145 mmol/L [facility] Potassium 4.3 3.3 - 5.1 mmol/L [facility] Chloride 103 96 - 108 mmol/L [facility] Carbon Dioxide 29 22 - 29 mmol/L [facility] Anion Gap 12 12 - 20 [facility] Urea Nitrogen (BUN) 7(L) 9 - 16 mg/dL [facility] Creatinine, Serum 0.81 0.5 - 1.4 mg/dL [facility] Estimated Glomerular Filt Rate >60 [facility] Comment:NOTE: For -Am erican individuals, multiply the result by 1.210.Chronic Kidney Disease: Estimated GFR < 60 mL/min/1.65y3Ypuyzq Kidney Disease: Estimated GFR < 15 mL/min/1.73m2 Glucose 114 60 - 115 mg/dL [facility] Calcium 8.7 8.4 - 10.2 mg/dL [facility] Bilirubin, Total 0.8 0.0 - 1.0 mg/dL [facility] Aspartate Amino Transferase 18 5 - 31 U/L [facility] Alanine Aminotransferase 12 0 - 31 U/L [facility] Total Protein 6.9 6.5 - 8.0 g/dL [facility] Albumin Level 3.5 3.5 - 5.0 g/dL [facility] Alkaline Phosphatase 87 39 - 117 U/L [facility] Blood Venous blood specimen / Unknown 10/28/2023 10:53 AM EST 10/28/2023 11:25 AM EST us Rowena Vargas MD LAB BLOOD ORDERAB LES Final Result [facility] [address] [place] [address] [phone] documented in this encounter Visit Diagnoses Diagnosis Bilateral leg edema Edema documented in this encounter Additional Health Concerns Assessment Noted Time PHQ-9 Depression Total Score: 10 023 3:50 PM EDT documented as of this encounter Care Teams Assistant Casino Shift Manager Relationship Specialty Start Date End Date Rowena Lynne MD [address] [place] [address] PCP - General Internal Medicine 02/20/23 Cami Buckley Community Health Worker 10/16/23 Margarita Coulter, DoreenD [address] [place] [address] Pharmacist Internal Medicine 11/20/23 Maine Bass, FERNANDO [address] [place] [phone] Sugar DrierLine Analyst 09/30/24 documented as of this encounter
--- OUTSIDE RECORDS SUMMARY | 2024-11-09 17:29 | XMS_ITS | Encounter Summary ---
Author Organization [employer] Address [address] [place] [address] 7t [place] [address] Care Team Providers Care Sales Representative Gas Service Name Role Phone Rowena Lynne MD Primary Care Pro vider Cami Buckley Unavailable Unavailable Margarita Coulter PharmD Unavailable [phone] Maine Bass RN Unavailable [phone] Reason for Visit * Reason Comments Care Coordination SDOH Encounter Details Date Type Department Care Team (Latest Contact Info) Description 10/12/2024 Patient Outreach [facility] MEDICINE [address] [place] [address] Rowena Lynne MD [address] [place] [address] Care Coordination (SDOH ) Social History Tobacco [...] at this time. LVM introducing herself from [facility] CM Department. Requested call back. CHWreinforced direct contact information or for any additional questions or concernsand extended clinic hours on Mondays and Wednesdays, and Walk-In Urgent Care Located in [facility] of [facility]. Patient provided with after-hours line for [facility], , which offer night time triage service and option to transfer to reconnaissance crewmember provider if needed. CHW will attempt another follow up call within 10 days. documented in this encounter Plan of Treatment Upcoming Encounters Date Type Department Care Team (Late st Contact Info) Description 11/15/2024 11:15 AM EDT Office Visit [facility] MEDICINE [address] [place] [address] Rowena Rodriguez MD 230 [place] [address] documented as of this encounter Goals Goal [...] as of this encounter Care Teams Sales Representative Gas Service Relationship Specialty Start Date End Date Rowena Lynne MD [address] [place] [address] PCP - General Internal Medicine 02/20/23 Cami Buckley [facility] Health Worker 10/16/23 Margarita Coulter, PharmD [address] [place] [address] Pharmacist Internal Medicine 11/20/23 Maine Bass, FERNANDO [address] [place] [address] Gusset MakerSole Stapler Welt 09/30/24 documented as of this encounter
--- OUTSIDE RECORDS SUMMARY | 2024-11-09 17:29 | XMS_ITS | Encounter Summary ---
Author Organization [employer] Address [address] [facility] 7t [place] [address] Care Team Providers Care Craft Artist Name Role Phone Rowena Lynne MD Primary Care Pro vider Cami Buckley Unavailable Unavailable Margarita Coulter PharmD Unavailable [phone] Maine Bass RN Unavailable [phone] Reason for Referral * Consultation (Urgent) - Authorized Specialty Diagnoses / Procedures Referred By Bertrand cowan Referred To Contact Rheumatology Diagnoses Temporal arteritis (CMS/HCC) Lauryn Quiros MD [address] [place] [address] Phone: tel: fax: [facility] [address] [place] [address] Phone: tel: fax: Referral ID Status Reason Start Date Expiration Date Visits Requested Visits Authorized [id number] Authorized Specialty Services Required 10/14/2024 10/14/2025 6 6 * Imaging (Routine) - Authorized Specialty Diagnoses / Procedures Referred By Bertrand cowan Referred To Contact Cardiology Diagnoses Bilateral carotid artery stenosis Procedures Vascular US carotid artery duplex bilateral Lauryn Quiros MD [address] [place] [address] Phone: tel: fax: [facility] [address] [place] [address] Phone: tel: fax: Referral ID Status Reason Start Date Expiration Date Visits Requested Visits Authorized [id number] Authorized Perform Procedure 10/14/2024 10/14/2025 1 1 Encounter Details Date Type Department Care Team (Latest Contact Info) Description 10/14/2024 9:30 AM EST Office Visit [facility] MEDICINE [address] [place] [address] Lauryn Quiros MD [address] [place] [address] Chronic nonintractable headache, unspecified headache type (Primary [...] for temporal arteritis. Patient was referred to fire extinguisher installer and neurologist. Interval history: Patient was hospitalized at [facility] from 09/19/24 to 09/13/24 for headache with [...] The preliminary reports were given by the [facility]. WSN: [id number] Patient called our clinic stating that they lost prednisone. Patient also requested gabapentin because she was receiving it while she was in the hospital and it was effective in pain management. Prednisone and gabapentin scripts were sent, for the period until patient follow up with fire extinguisher installer / neurologist. Patient was seen by [facility] neurologist on 10/13/24. Dr. Bernstein ordered MRI/MRA, CBC, ESR, and recommended to continue prednisone 60 mg daily until seen by strategic communications specialist and fire extinguisher installer. Started on indomethacin 25 mg bid for CANO. Follow up in 1 mo. Today: Patient is accompanied by her Daughter. Patient complains of headache. The first time this happened she went to the ED, they performed sometest and they all came back normal. After some days she felt like she was having a stroke and was admitted to [facility] ED. She was in migraine like [...] arteritis - Continue prednisone until seen by fire extinguisher installer and strategic communications specialist - Continue judicious use of gabapentin Temporal [...] HOURS NEEDED FOR ASTHMA Blood Pressure Monitor [facility] Check BP daily cloNIDine (CATAPRES) 0.1 mg, [...] arteritis - Continue prednisone until seen by fire extinguisher installer and strategic communications specialist - Continue judicious use of gabapentin documented in this encounter Plan of Treatment Upcoming Encounters Date Type Department Care Team (Late st Contact Info) Description 11/15/2024 11:15 AM EDT Office Visit [address] [address] Rowena Rodriguez MD [address] [place] [address] Scheduled Referrals Name Type Priority Associated Diagnoses [...] Coulter, PharmD documented as of this encounter Procedures Procedure Name Priority Date/Time Associated Diagnosis Comments VASC US CAROTID ARTERY DUPLEX BILATERAL Routine 11/09/2024 2:16 PM EST Bilateral carotid artery stenosis HEMOGLOBIN A1C Routine 11/01/2024 12:42 PM EST Current chronic use of systemic steroids BASIC METABOLIC PANEL Routine 11/01/2024 12:42 PM EST Current chronic use of systemic steroids documented in this encounter Results * Vascular US carotid artery duplex bilateral (11/09/2024 2:16 PM EST) 11/09/2024 2:16 PM EST Narrative [facility] - 11/09/2024 3:36 PM EST ? [facility] ?[address] ?[place] [address] ? Ultrasound Report ? Signed ? Patient: Parsons,Myra E ?MR#: [id number] ?? 60 ? : 1960 ?Acct:[id number] ? Age/Sex: 64 / F ?ADM Date: 03/04/25 ? Loc: HO.US ? Attending Chente Quiros MD ? Ordering Physician: Lauryn Quiros MD ?? Date of Service: 11/09/24 ?? Procedure(s): carotid duplex BI ?? Accession Number(s): [id number] ? cc: Rowena Lynne MD; Lauryn Quiros [...] DD/ 1416 ? TD/TT: 11/09/24 1507 ? Lgsw: ? Procedure Note Donotuseinterpreter, Image - 11/09/[address] [address] Ultrasound Report Signed Patient: Myra Parsons EMR#: [id number] 60 : 2Acct:[id number] Age/Sex: 64 / FADM Date: 11/09/24 Loc: HO.US Attending Dr: Lauryn Quiros MD Ordering Physician: Lauryn Quiros MD Date of Service: 11/09/24 Procedure(s): US carotid duplex BI Accession Number(s): [id number] cc: Rowena Lynne MD; Lauryn Quiros MD [...] Rickie Jimenez MD 11/09/2024 03:33 PM EST RP Dictated By: Rickie Mckeon MD Signed By: <Electronically signed by Rickie Fofana MDin OV> 11/09/24 1533 DD/ 1416 TD/TT: 11/09/24 1507 Lgsw: us Lauryn Quiros MD CV VASCULAR PROCEDURES Final Res ult [facility] [address] [place] [address] [phone] * (ABNORMAL) Basic Metabolic Panel (11/01/2024 12:42 PM EST) Sodium 138 135 - 145 mmol/L [facility] Potassium 4.6 3.3 - 5.1 mmol/L [facility] Comment:Mild Hemolysis.Inter pret result with caution Chloride 105 96 - 108 mmol/L [facility] Carbon Dioxide 26 22 - 29 mmol/L [facility] Anion Gap 12 12 - 20 [facility] Urea Nitrogen (BUN) 8(L) 9 - 16 mg/dL [facility] Creatinine, Serum 0.72 0.5 - 1.4 mg/dL [facility] Estimated Glomerular Filt Rate >60 [facility] Comment:Chronic Kidney Disea se: Estimated GFR < 60 mL/min/1.92v9Nchpti Kidney Disease: Estimated GFR < 15 mL/min/1.73m2 Glucose 94 60 - 115 mg/dL [facility] Calcium 8.9 8.4 - 10.2 mg/dL [facility] Blood Venous blood specimen / Unknown 11/01/2024 12:42 PM EST 11/01/2024 1:40 PM EST us Lauryn Quiros MD LAB BLOOD ORDERABLES Final Resul t Performing Organization Address [facility] Co de Phone Number [facility] [address] [place] [phone] * Hemoglobin A1c (11/01/2024 12:42 PM EST) Hemoglobin A1c 5.2 <6.0 % [facility] Comment:Hemoglobin A1C Refer ence Range Adults: 4.8 - 6.0 % Non diabetic: < 6.0 % Goal: < 7.0 %Additional Action Suggested: > 8.0 %Note: Hemoglobin A1c results are invalid for patients with abnormal amounts of HbF. Blood transfusions may impact the HbA1c concentration in the patient sample. Estimated Average Glucose 103 mg/dL [facility] Comment:eAG = Estimated ave rage glucose which is %A1C expressed asaverage glucose, using the formula of the D0A-WhftnheGctzcgt Glucose study (ADAG), Diabetes Care, Vol.31,#8,Apr. 2007 Blood Venous blood specimen / Unknown 11/01/2024 12:42 PM EST 11/01/2024 1:40 PM EST us Lauryn Quiros MD LAB BLOOD ORDERABLES Final Resul t Performing Organization Address [facility] Co de Phone Number [facility] [address] [place] [phone] documented in this encounter Visit Diagnoses [...] documented as of this encounter Care Teams Craft Artist Relationship Specialty Start Date End Date Rowena Lynne MD [address] [place] [address] PCP - General Internal Medicine 02/20/23 Cami Buckley Community Health Worker 10/16/23 Margarita Coulter, DoreenD [address] [place] [address] Pharmacist Internal Medicine 11/20/23 Maine Bass RN [address] [place] [phone] Intensive Care Unit Registered NurseEngineering Tech 09/30/24 documented as of this encounter
--- OUTSIDE RECORDS SUMMARY | 2024-11-09 17:29 | XMS_ITS | Encounter Summary ---
Author Organization [employer] Address [address] [place] [address] 7t [place] [address] Care Team Providers Care Server Developer Name Role Phone Rowena Lynne MD Primary Care Pro vider Cami Buckley Unavailable Unavailable Margarita Coulter PharmD Unavailable [phone] Maine Bass RN Unavailable [phone] Reason for Visit * Reason Onset Date Comments Care Management 10/29/2024 C3CM- f/u call Encounter Details Date Type Department Care Team (Late st Contact Info) Description 10/29/2024 Telephone [facility] [address] [place] [address] Rowena Lynne MD [address] [place] [address] Care Management (C3CM- f/u call) Social History [...] prescription be faxed and will f/u with [facility]. Myra states the patient is scheduled at [facility] on 11/09/24 at 2:00pm. The patient is also [place] [facility] [place] at 5:15[place]. She denies need for PT1 and confirms that she has transportation to the scheduled visits. CM also reminded her of the scheduled f/u with PCP on 11/15/24 at 11:15am. Myra states she stopped by [employer] yesterday and was informed that the application was submitted and is in process. She states she was informed that [employer] is no longer providing servic es to help with cleaning, cooking, etc. She states that if these services are no longer being offered, she may have to look elsewhere. CM will contact the agency to inquire on services. Will also mail out a list of agency names to Myra so that she can follow up. She agrees. Per Myra, [facility] is scheduled to go to the patient's [...] that the pending appt is scheduled in [place] and she would prefer to beseen in [place]. The new referral in the system is also noted to be [address] [place] [address] in [place]. CM will f/u. CM updated patient's daughter [...] provided on [facility] located in [facility] of [facility]. Myra provided with after-hours line for [facility], , which offer night time triage service and option to transfer to concrete pavement installer provider if needed. She verbalizes understanding, and able to repeat back to junior underwriter. A follow up call will be placed within 10 days, she agrees with plan. documented in this encounter Plan of Treatment Upcoming Encounters Date Type Department Care Team (Late st Contact Info) Description 11/15/2024 11:15 AM EDT Office Visit [facility] [address] [place] [address] [phone] Rowena Rodriguez MD [address] [place] [phone] documented as of this encounter Goals Goal [...] documented as of this encounter Care Teams Server Developer Relationship Specialty Start Date End Date Rowena Lynne MD [address] [place] [phone] PCP - General Internal Medicine 02/20/23 Cami Buckley Community Health Worker 10/16/23 Margarita Coulter, PharmD [address] [place] [phone] Pharmacist Internal Medicine 11/20/23 Maine Bass, FERNANDO [address] [place] [address] Waste Water WorkerMedical Associate 09/30/24 documented as of this encounter
--- OUTSIDE RECORDS SUMMARY | 2024-11-09 17:29 | XMS_ITS | Encounter Summary ---
Author Organization [employer] Address [address] [place] [address] 7t [place] [address] Care Team Providers Care Marble Mechanic Helper Name Role Phone Rowena Lynne MD Primary Care Pro vider Cami Buckley Unavailable Unavailable Margarita Coulter PharmD Unavailable [phone] Maine Bass RN Unavailable [phone] Reason for Visit * Reason Comments Care Coordination PT1 Encounter Details Date Type Department Care Team (Latest Contact Info) Description 10/12/2024 Patient Outreach [facility] MEDICINE [address] [place] [address] Rowena Lynne MD [address] [place] [address] Care Coordination (PT1) Social History Tobacco Use [...] for appt on 10/15/24 at 1:25pm at [address] [place] [address] in [place], [place]. CHW will follow up with pt with a reminder. documented in this encounter Plan of Treatment Upcoming Encounters Date Type Department Care Team (Late st Contact Info) Description 11/15/2024 11:15 AM EDT Office Visit [facility] MED[facility]INE [address] [place] [address] Rowena Rodriguez MD [address] [place] [address] documented as of this encounter Goals Goal [...] documented as of this encounter Care Teams Marble Mechanic Helper Relationship Specialty Start Date End Date Rowena Lynne MD [address] [address] PCP - General Internal Medicine 02/20/23 Cami Buckley [facility] Health Worker 10/16/23 Margarita Coulter, DoreenD [address] [place] [phone] Pharmacist Internal Medicine 11/20/23 Maine Bass RN [address] [place] [phone] Ball SorterCommunication Arts Lecturer 09/30/24 documented as of this encounter
--- OUTSIDE RECORDS SUMMARY | 2024-11-09 17:29 | XMS_ITS | Encounter Summary ---
Author Organization [employer] Address [address] [facility] 7t [place] [address] Care Team Providers Care Forging Dies Final Finisher Name Role Phone Rowena Lynne MD Primary Care Pro vider Cami Buckley Unavailable Unavailable Margarita Coulter PharmD Unavailable [phone] Maine Bass RN Unavailable [phone] Encounter Details Date Type Department Care [...] 11:15 AM EDT Office Visit [facility] MEDICINE [address] [place] [address] Rowena Rodriguez MD [address] [place] [address] documented as of this encounter Goals Goal [...] documented as of this encounter Care Teams Forging Dies Final Finisher Relationship Specialty Start Date End Date Rowena Lynne MD [address] [place] [phone] PCP - General Internal Medicine 02/20/23 Cami Buckley Community Health Worker 10/16/23 Margarita Coulter, PharmD [address] [place] [address] Pharmacist Internal Medicine 11/20/23 Maine Bass RN [address] [place] [address] Government Affairs ResearcherFreelance Copywriter 09/30/24 documented as of this encounter
--- OUTSIDE RECORDS SUMMARY | 2024-11-09 17:29 | XMS_ITS | Encounter Summary ---
Author Organization [email or web address] Address [address] [facility] 7t [place] [address] Care Team Providers Care Communications Equipment Supervisor Name Role Phone Rowena Lynne MD Primary Care Pro vider Cami Buckley Unavailable Unavailable Margarita Coulter PharmD Unavailable [phone] Maine Bass RN Unavailable [phone] Encounter Details Date Type Department Care Team (Late st Contact Info) Description 11/08/2024 Orders Only [facility] MEDICINE [address] [place] [address] Lauryn Quiros MD [address] [place] [address] Social History Tobacco Use Types Packs/Day Years [...] Description 11/15/2024 11:15 AM EDT Office Visit [facility] [address] [place] [address] Rowena Rodriguez MD [address] [place] [phone] documented as of this encounter Goals Goal [...] documented as of this encounter Care Teams Communications Equipment Supervisor Relationship Specialty Start Date End Date Rowena Lynne MD [address] [place] [address] PCP - General Internal Medicine 02/20/23 Cami Buckley Community Health Worker 10/16/23 Margarita Coulter, DoreenD [address] [place] [phone] Pharmacist Internal Medicine 11/20/23 Maine Bass RN [address] [place] [address] Automotive Sales ProfessionalProgramming Development Project Manager 09/30/24 documented as of this encounter
== END 2024-11-09 13:52 | disposition home or self-care (01) ==
LOC: HO.US 13:51
PROVIDERS: PCP Student in an Organized Health Care Education/Training Program; Visit Provider Family Medicine
DX: I65.23 Occlusion and stenosis of bilateral carotid arteries (principal)
CPT/HCPCS: 93880

== ENCOUNTER → 2024-11-09 13:53 | Outpatient (BNV) | payer MEDICAID, SELFPAY | PROVIDERS: PCP Student in an Organized Health Care Education/Training Program; Visit Provider Radiology Diagnostic Radiology | DX: I65.23 Occlusion and stenosis of bilateral carotid arteries (principal) | CPT/HCPCS: 93880 ==

== ENCOUNTER 2024-11-19 13:05 | Outpatient (REF) | payer MEDICAID, SELFPAY ==
--- NOTE | ~2024-11-19 | US_ITS ---
EXAMINATION: US LOWER EXTREMITY VEINS LIMITED FOLLOW UP RIGHT HISTORY: RLE PAIN COMPARISON: There are no prior studies for comparison. TECHNIQUE: Duplex and color Doppler sonographic examination of the deep venous system of the right lower extremity was performed. FINDINGS: The common femoral, superficial femoral, and popliteal veins are patent demonstrating normal compressibility, spontaneous flow, and augmentation. There is a normal color and spectral Doppler waveform appearance of the visualized deep venous system above the knee. The posterior tibial and peroneal veins are patent. US/US venous duplex LE RT IMPRESSION: No evidence of acute DVT in the right lower extremity. Electronically signed by: Placido Cee MD 11/19/2024 02:21 PM EDT
[2024-11-19 14:43] LABS: Anion Gap 15 (12-20); Blood Urea Nitrogen 9 mg/dL (9-16); C Reactive Protein 4.57 mg/dL (< or = 0.50); Calcium 9.4 mg/dL (8.4-10.2); Carbon Dioxide 28 mmol/L (22-29); Chloride 103 mmol/L (96-108); Estimated Glomerular Filt Rate > 60; Glucose Random 108 mg/dL (60-115); Potassium 3.7 mmol/L (3.3-5.1); Sodium 142 mmol/L (135-145)
[2024-11-19 15:08] LABS: Erythrocyte Sedimentation Rate 42 MM/HR (0-20)
== END 2024-11-19 13:06 | disposition home or self-care (01) ==
LOC: HO.LAB 13:05
PROVIDERS: Surgery Vascular Surgery; Visit Provider Nurse Practitioner Primary Care
DX: Z87.39 Personal history of other diseases of the musculoskeletal system and connective tissue (principal); M62.838 Other muscle spasm
CPT/HCPCS: 36415; 80048; 85652; 86140; 93971

== ENCOUNTER → 2024-11-19 13:29 | Outpatient (BNV) | payer MEDICAID, SELFPAY | PROVIDERS: Visit Provider Radiology Diagnostic Radiology | DX: M79.661 Pain in right lower leg (principal) | CPT/HCPCS: 93971 ==

== ENCOUNTER 2024-12-14 11:30 | Outpatient (REF) | payer MEDICAID, SELFPAY ==
--- NOTE | ~2024-12-14 | CT_ITS ---
EXAMINATION: CTA NECK WITH CONTRAST (STROKE) CTA BRAIN WITH CONTRAST (STROKE) CLINICAL INFORMATION: Occlusion and stenosis carotid arteries, right ICA. COMPARISON: None available. TECHNIQUE: CTA of the head and neck was performed in the axial plane from the mediastinum to the skull vertex using 70 mL Omnipaque 350 intravenous contrast. Additional reformatted multiplanar images including maximum intensity projection MIP images are generated on the CT workstation. This CT examination was performed using dose optimization techniques as appropriate, variously including the following: *Automated exposure control *Adjustment of mA and/or kV according to patient size (this includes techniques or standardized protocols for targeted exams where dose is matched to indication/reason for exam; i.e. extremities or head) *Use of iterative reconstruction technique. DLP: 1412 mGy centimeter FINDINGS: The degree of stenosis determined by criteria similar to NASCET. Brain: No acute intracranial hemorrhage, mass effect, midline shift, hydrocephalus or herniation. Multifocal old lacunar infarcts, centrum semiovale and caba radiata. Bilateral mild patchy deep periventricular white matter hypodensity. Calcified plaques in the cavernous supracavernous segments of the ICA and V4 segments of the vertebral arteries. No air-fluid levels in the included paranasal sinuses. Tympanic cavities and mastoid cells are aerated. Edentulous. Chest CTA: Normal diameter without focal stenosis or intimal flap, thoracic aortic arch. Calcified plaque in the aortic arch. The left vertebral artery origin is between the left CCA and the left subclavian artery. The right vertebral artery origin is from the right subclavian artery. Neck CTA: Right CCA: Normal patency. No focal stenosis. No intimal flap. Right ICA: No IV contrast within its lumen from the origin. Left CCA: Normal patency. No focal stenosis. No intimal flap. Mixed plaques in the distal segment. Left ICA: Circumferential mixed plaque reducing the and the IV contrast lumen involving more than 90% with a trickle flow distally. V1/V2 segments: Normal patency. No focal stenosis. No intimal flap. Codominant vertebral arteries. Brain CTA: Anterior cerebral circulation: ICAs: No IV contrast enhancement in the right. Right ICA terminus is enhanced via right posterior communicating artery. There is a trickle of flow/IV contrast in the petrous and cavernous segment of the left ICA. The left ICA terminus intravenous patent left posterior communicating artery. MCA's: There is IV contrast enhancement/patency without focal stenosis or abrupt cut off. Bifurcation/trifurcation demonstrated normal vascular irregularity. ACAs: There is any contrast enhancement without focal stenosis or abrupt cut off. Anterior communicating artery is patent with small caliber. The right ophthalmic artery is patent with a trickle of flow. The left ophthalmic artery is not fully enhanced. The posterior communicating arteries are patent, the left is robust. Posterior cerebral circulation: V3/V4 segments: Normal patency without focal stenosis or intimal flap. Codominant vertebral arteries. Posterior inferior cerebral arteries are patent. Anterior inferior cerebral arteries are patent. Basilar artery is patent without focal stenosis or intimal flap. Superior cerebellar arteries are patent. spot machine operator: No focal stenosis or abrupt cut off. Ancillary findings: Centrilobular and paraseptal emphysematous changes. Pulmonary mosaic pattern. CT/CT angio head neck IMPRESSION: Right ICA occlusion, likely old. 90-99 % stenosis, Left ICA with trickle flow, intracranially Restitution of the enterprise of [place] via posterior communicating artery/posterior cerebral circulation. This critical test result is communicated to: Electronically signed by: Rickie Jimenez MD 12/14/2024 01:09 PM EDT
[2024-12-14] MEDS: iohexoL 350 MG/ML 75 ML INFUS..BTL 70 ML IV (12:36)
== END 2024-12-14 11:31 | disposition home or self-care (01) ==
LOC: HO.CT 11:30
PROVIDERS: Visit Provider Surgery Vascular Surgery
DX: I65.23 Occlusion and stenosis of bilateral carotid arteries (principal)
CPT/HCPCS: 70496; 70498; Q9967

== ENCOUNTER → 2024-12-14 11:32 | Outpatient (BNV) | payer MEDICAID, SELFPAY | PROVIDERS: Visit Provider Radiology Diagnostic Radiology | DX: I65.23 Occlusion and stenosis of bilateral carotid arteries (principal); I66.29 Occlusion and stenosis of unspecified posterior cerebral artery; Q25.49 Other congenital malformations of aorta | CPT/HCPCS: 70496; 70498 ==

== ENCOUNTER 2025-01-04 14:18 | Outpatient (AMB) | payer MEDICAID, SELFPAY ==
--- NOTE | 2025-01-04 14:22 | MHC.OFFVIS ---
Intake Visit Reasons: TECHNOLOGY INFUSION SPECIALIST/HHC ref for CT neck Intake Note: New patient presents for s/p CT neck. Patient states she had a CT scan after having vision problems in the right eye. Had migraines for months, lost eyesight completely. Numbness on right side. Patient also had a biopsy after complaining of migraines. Accompanied by: Daughter Allergies Sulfa (Sulfonamide Antibiotics) [SULFA (SULFONAMIDE ANTIBIOTICS)] Allergy (Unknown, Verified 01/04/25 14:25) HIVES AND RASH sulfamethoxazole [From BACTRIM] Allergy (Unknown, Verified 01/04/25 14:25) HIVES AND RASH trimethoprim [From BACTRIM] Allergy (Unknown, Verified 01/04/25 14:25) HIVES AND RASH HPI HPI TECHNOLOGY INFUSION SPECIALIST/HHC ref for CT neck: Details: Complex 64-year-old female who smokes a proximally 5 cigarettes daily. presents for evaluation regarding carotid stenosis that was discovered upon workup for a right-sided headache. She originally presented to our emergency room on 08/02/2024. At that time she a right-sided headache and intermittent blurry vision photophobia. At that time she was worked up and CT of the head demonstrated no acute intracranial hemorrhage, and MRI had no evidence of an acute cerebral infarct or hemorrhage as well. It appears that at that point the patient left without her workup being complete. She then presented to her primary care physician complaints right lower extremity pain and weakness in addition to some right upper extremity discomfort. At that point it appears an ultrasound was obtained and we subsequently obtained a CT angiogram. She now presents to us for vascular evaluation. Upon discussion with her it is ascertain a good history and timeline of events for her. She does note right upper extremity and lower extremity weakness and discomfort. She now presents for vascular evaluation Review of Systems Const All systems reviewed & are unremarkable except as noted in HPI and below Reports no additional complaints ENT Reports Normal hearing present Card Denies chest pain, Denies chest pain at rest, Denies chest pain with activity and Denies pedal edema Resp Denies cough GI Denies abdominal pain Musc Denies abnormal gait, Denies muscle cramps and Denies radiating pain into limb Skin/Breast Denies skin ulcer and Denies wounds Neuro Reports Normal hearing present and Denies abnormal gait Psych Reports no additional complaints Physical Exam Const General: cooperative, healthy appearing and comfortable Orientation/consciousness: oriented to person, oriented to place and oriented to time HEENT Head: Yes normal to inspection Neck Neck: Yes normal visual inspection Carotids: no bruits Chest Chest palpation & inspection: normal inspection of the chest Resp Effort & Inspection: normal respiratory effort and able to speak in complete sentences Auscultation: clear to auscultation bilaterally, no crackles, no rales, no rhonchi and no wheezes Cardio Rate: regular rate Rhythm: regular rhythm Heart sounds: S1 normal heart sound present and S2 normal heart sound present Bruits: no carotid bruits Peripheral pulses: Peripheral pulses 2+ throughout GI Inspection: Yes normal to inspection Skin Wounds: no wounds Hair: normal Neuro General: oriented to person, oriented to place and oriented to time Cranial nerves: Yes CN's II-XII intact bilaterally and Yes Normal hearing present Cognition (Neuro): normal cognition Motor exam (neuro): 5/5 motor strength present throughout Extrem Other: Bilateral upper and lower extremities appear to have equal motor and sensation at the current time. General: No clubbing, No cyanosis and No edema Psych Appearance: grossly normal Mental Status: mental status grossly normal Speech and movement: Normal speech and movement present Results Reviewed Results Reviewed: Ultrasound dated 11/09/2024 demonstrates right with tick trickle flow and left with 0-49% stenosis this is not in agreement with CT angiogram findings dated 12/14 2024 which demonstrates right side occlusion 90-99% stenosis on the left side. Assessment & Plan Assessment & Plan (1) Bilateral carotid artery stenosis: Code(s): I65.23 - Occlusion and stenosis of bilateral carotid arteries Category: Medical Plan: In short patient has high-grade carotid stenosis and occlusion.. We have reviewed signs and symptoms of a stroke. We also discussed risk factor modification inclusive a healthy diet low in cholesterol. The patient will require higher level care in regards to her carotid disease. We will try to refer her out to higher institution. Should there be any changes or signs or symptoms of a stroke we will be happy to try to expedite transfer of care to a higher institution.. Thank you for allowing us to participate in this patient's care. If there are any questions or concerns please do not hesitate to contact us. Coding Level of Care Code New Pt Level 4 (93197) Complex EM visit Add On G2211 Diagnoses Bilateral carotid artery stenosis I65.23
--- OUTSIDE RECORDS SUMMARY | 2025-01-04 16:32 | XMS_ITS | Encounter Summary ---
Author Organization [employer] Address [address] [facility] 7t [place] [address] Care Team Providers Care Marriage And Family Social Worker Name Role Phone Rowena yLnne MD Primary Care Pro vider Cami Buckley Unavailable Unavailable Margarita Coulter PharmD Unavailable [phone] Maine Bass RN Unavailable [phone] Reason for Visit * Reason Onset Date Comments Appointment Request 07/21/2023 Encounter Details Date Type Department Care Team (Late st Contact Info) Description 07/21/2023 Telephone [facility] [address] [place] [address] Rowena Lynne MD [address] [place] [address] Appointment Request Social History Tobacco Use Types [...] problems with any of the following? Lead Johnston or Pipes 06/15/2023 Food Insecurity Answer Date [...] the past 12 months, has t he [employer], gas, oil or water [employer] threatened to shut off services in your [...] EST Tc from pt requesting f/u appt, advertising copywriter attempted to schedule, no availability at the moment. documented in this encounter Plan of Treatment Upcoming Encounters Date Type Department Care Team (Late st Contact Info) Description 01/25/2025 1:00 PM EDT Office Visit [facility] [address] [place] [address] Rowena Lynne MD [address] [place] [address] documented as of this encounter Visit Diagnoses Not on filedocumented in this encounter Additional Health Concerns Assessment Noted Time PHQ-9 Depression Total Score: 10 023 3:50 PM EDT documented as of this encounter Care Teams Marriage And Family Social Worker Relationship Specialty Start Date End Date Rowena Lynne MD [address] [place] [phone] PCP - General Internal Medicine 02/20/23 Cami Buckley Community Health Worker 10/16/23 Margarita Coulter, DoreenD [address] [place] [address] Pharmacist Internal Medicine 11/20/23 Maine Bass RN [address] [place] [phone] Assistant Program DirectorMortising Machine Operator 09/30/24 12/28/24 documented as of this encounter
--- OUTSIDE RECORDS SUMMARY | 2025-01-04 16:32 | XMS_ITS | Encounter Summary ---
Author Organization [employer] Address [address] [facility] 7t [place] [address] Care Team Providers Care Self Pay Representative Name Role Phone Rowena Lynne MD Primary Care Pro vider Cami Buckley Unavailable Unavailable Margarita Coulter PharmD Unavailable [phone] Maine Bass RN Unavailable [phone] Encounter Details Date Type Department Care Team (Late st Contact Info) Description 11/08/2024 Orders Only [facility] MEDICINE [address] [place] [address] Lauryn Quiros MD [address] [place] [address] Social History Tobacco Use Types Packs/Day Years [...] Description 01/25/2025 1:00 PM EDT Office Visit [facility] MEDICINE [address] [place] [address] Rowena Lynne MD [address] [place] [address] documented as of this encounter Goals Goal [...] documented as of this encounter Care Teams Self Pay Representative Relationship Specialty Start Date End Date Rowena Lynne MD [address] [place] [address] PCP - General Internal Medicine 02/20/23 Cami Buckley Community Health Worker 10/16/23 Margarita Coulter, DoreenD [address] [place] [address] Pharmacist Internal Medicine 11/20/23 Maine Bass RN [address] [place] [address] Agriculture Science TeacherPlatform Mill Supervisor 09/30/24 12/28/24 documented as of this encounter
--- OUTSIDE RECORDS SUMMARY | 2025-01-04 16:32 | XMS_ITS | Clinical Summary ---
Author Organization [employer] Address [address] [place] [address] 7[address] [place] [address] Care Team Providers Care Surface Boss Name Role Phone Rowena Lynne MD Primary Care Pro vider Cami Buckley Unavailable Unavailable Margarita Coulter PharmD Unavailable [phone] Allergies No known active allergies Medications methadone (Dolophine) 10 MG/ML solution Take 60 mg by mouth in the morning. Active hydrOXYzine pamoate (Vistaril) 25 MG capsule Take 1 capsule (25 mg) by mouth every 8 (eight) hours if needed for anxiety. 30 capsule 1 4 Active cloNIDine (Catapres) 0.1 MG tablet Take 1 tablet (0.1 mg) by mouth if needed in the morning and at bedtime (anxiety). 30 tablet 1 4 Active albuterol (Ventolin HFA) 108 (90 Base) MCG/ACT inhaler INHALE 2 PUFFS BY MOUTH EVERY 4 TO 6 HOURS NEEDED FOR ASTHMA 18 g 4 Active Advair Diskus 250-50 MCG/ACT aerosol powder Inhale 1 puff at noon and 1 puff in the evening. 1 each 2 4 Active albuterol (2.5 MG/3ML) 0.083% nebulizer solution USE 3 ML VIA NEBULIZER THREE TIMES DAILY DIRECTED 75 mL 1 4 Active predniSONE (Deltasone) 20 MG tablet Take 3 tablets by mouth Once per day. Active gabapentin (Neurontin) 100 MG capsule Take 3 capsules (300 mg) by mouth every 8 (eight) hours. 270 capsule 11 5 10/05/19 26 Active losartan (Cozaar) 25 MG tablet Take 1 tablet (25 mg) by mouth Once per day. 30 tablet 11 5 10/14/19 26 Active Blood Pressure Monitor misc Check BP daily 1 each 5 Active Acetaminophen Extra Strength 500 MG tablet TAKE 1 TABLET BY MOUTH EVERY 6 HOURS NEEDED FOR MILD PAIN 120 tablet 5 Active topiramate (Topamax) 25 MG tabletIndications: Chronic nonintractable headache, unspecified headache type Take 1 tablet (25 mg) by mouth at bedtime. 30 tablet 1 5 10/28/19 26 Active traZODone (Desyrel) 100 MG tablet Take 1.5 tablets (150 mg) by mouth at bedtime. 45 tablet 5 Active pantoprazole (ProtoNix) 40 MG EC tabletIndications: Gastroesophageal reflux disease, unspecified whether esophagitis present Take 1 tablet (40 mg) by mouth Once per day. 90 tablet 5 Active capsaicin (Zostrix) 0.025 % creamIndications:R ight leg pain Apply topically 2 times daily. As needed to affected areas 60 g 1 5 11/20/19 26 Active nicotine polacrilex (Nicotine Mini) 2 MG lozenge Dissolve 1 lozenge (2 mg) in the mouth if needed for smoking cessation. May use 1 lozenge every 1-2 hours PRN. No more than 20/ daily 135 lozenge 1 5 Active Active Problems Problem Noted Date Diagnosed Date History of temporal arteritis 11/19/2024 Hypertension 10/15/2024 Assessment & Plan (10/15/2024 5:58 [...] arteritis - Continue prednisone until seen by tow truck operator and operational risk manager - Continue judicious use of gabapentin Assessment [...] contrast --sent as STAT -referred STAT to [facility] for possible temporal arteritis for bx and [...] symptoms -Pt agreed w plan -requesting staff psychiatrist to f on referrals and help w [...] today requested meds today and req staff psychiatrist in green team to help w tube [...] Plan (03/26/2023 5:29 PM EDT): asthma/COPD?f w chairman and chief executive officer -pt on advair and albuterol prn -per pt has upcoming apt w chairman and chief executive officer next month -pt will discuss about still [...] Encounters Date Type Department Care Team Description 01/04/2025 Patient Outreach [facility] [address] [place] [phone] Rowena Lynne MD Care Coordination (Appt reminder) 01/03/2025 Patient Outreach [facility] [address] [place] [address] Rowena Lynne MD Care Coordination (Appt reminder) 12/30/[address] [address] Rowena Lynne MD 12/29/2024 Patient Outreach [address] [address] Rowena Lynne MD Care Coordination (SDOH f/u) 12/29/[address] [address] Rowena Lynne MD Care Management (C3CM- f/u call) 12/17/[address] [address] Rowena Lynne MD Care Management (C3CM- f/u call lvm) 12/13/2024 Patient Outreach [address] [address] Rowena Lynne MD Care Coordination (Appt reminder) 12/07/[address] [address] Rowena Lynne MD Care Management (C3CM- f/u call) 12/07/2024 Patient Outreach [address] [address] Rowena Lynne MD Care Coordination (SDOH f/u) 11/26/2024 Patient Outreach [address] [address] Rowena Lynne MD Care Coordination (SDOH f/u) 11/26/[address] [address] Rowena Lynne MD Care Management (C3- f/u call) 11/23/2024 Patient Outreach [address] [address] Rowena Lynne MD Care Coordination (Appt reminder) 11/19/2024 11:15 AM EDT Office Visit [address] [address] Alva Travis ANP Muscle spasm (Primary Dx); Right leg pain; Right leg weakness; History of temporal arteritis; Smoking; Acute right-sided low back pain with right-sided sciatica 11/19/2024 Orders Only [address] [address] Alva Travis ANP 11/19/2024 Telephone [facility] [address] [facility] [place] [address] Alva Travis ANP Referral 11/19/2024 Travel 11/19/2024 Population Health Risk Score [facility] (C3) [address] [phone] Provider, Population Health Generic 11/18/2024 3:15 PM EDT Office Visit [facility] [address] [place] [address] Collin, Alda, OD Presbyopia (Primary Dx) 11/18/2024 Patient Outreach [facility] [address] [facility] [place] [address] Rowena Lynne MD Care Coordination (Appt reminder) 11/15/2024 Telephone [facility] [place] [address] Rowena Lynne MD Care Management ([facility]- f/u call) 11/12/2024 Telephone [facility] [place] [address] Rowena Lynne MD Chart Prep 11/11/2024 Telephone [facility] [address] Inga Fofana, RN Results 11/10/2024 Orders Only [facility] [address] Lauryn Quiros MD Carotid stenosis, right (Primary Dx) 11/08/2024 Orders Only [facility] [address] Lauryn Quiros MD 11/08/2024 Orders Only [facility] [address] Alva Travis ANP Gastroesophageal reflux disease, unspecified whether esophagitis present (Primary Dx) 11/08/2024 Telephone [facility] [address] Rowena Lynne MD Medication Question 10/29/2024 Telephone [facility] [address] Rowena Lynne MD Care Management (C3CM- f/u call) 10/28/2024 Refill [facility] [address] [place] [address] Rowena Rodriguez MD Chronic nonintractable headache, unspecified headache type 10/28/2024 Refill [facility] [address] [place] [address] Milagros Hernández MD Chronic nonintractable headache, unspecified headache type 10/28/2024 Refill [facility] [address] [place] [address] Rowena Lynne MD 10/21/2024 Patient Outreach [address] [address] Rowena Lynne MD Care Coordination (mail) 10/14/2024 9:30 AM EST Office Visit [address] [address] Lauryn Quiros MD Chronic nonintractable headache, unspecified headache type (Primary Dx); Temporal arteritis ([facility]/HCC); Bilateral carotid artery stenosis; Current chronic use of systemic steroids; Hypertension, unspecified type; Impaired fasting glucose 10/14/[address] [address] Rowena Lynne MD 10/14/2024 Patient Outreach [address] [address] Rowena Lynne MD Care Coordination (Appt reminder) 10/14/2024 Travel 10/13/[address] [address] Maine Bass RN Care Management (C3CM- f/u call) 10/13/2024 Patient Outreach [address] [address] Rowena Lynne MD Care Coordination (SDOH) 10/12/2024 Patient Outreach [address] [address] Rowena Lynne MD Care Coordination (PT1) 10/12/2024 Patient Outreach [facility] [address] [place] [address] Rowena Lynne MD 10/12/2024 Patient Outreach [facility] [address] [place] [address] Rowena Lynne MD Care Coordination (SDOH ) 10/08/2024 Orders Only [facility] [address] [facility], [place] [phone] Lauryn Quiros MD 10/06/2024 Patient Outreach [facility] [address] [place] [address] Rowena Lynne MD Care Coordination (SDOH) from Last 3 Months Immunizations Name Administration [...] Sign Reading Time Taken Comments Blood Pressure 109/67 11/19/2024 11:33 AM EDT Pulse 86 11/19/2024 11:33 AM EDT Temperature 36.2 ??C (97.1 ??F) 11/19/2024 11:33 AM E DT Respiratory Rate 12 11/19/2024 11:33 AM EDT Oxygen Saturation 97% 11/19/2024 11:33 AM EDT Inhaled Oxygen Concentration - - Weight 67 kg (147 lb 9.6 oz) 11/19/2024 11:33 AM EDT Height 152.4 cm (5') 11/19/2024 11:33 AM EDT Body Mass Index 28.83 11/19/2024 11:33 AM EDT Plan of Treatment Upcoming Encounters Date Type Department Care Team (Late st Contact Info) Description 01/25/2025 1:00 PM EDT Office Visit [facility] [address] [place] [address] Rowena Lynne MD [address] [place] [address] Health Maintenance Due Date Last Done Comments [...] Screening 11/30/2024 SDOH Screening 01/28/2025 01/29/2024 Depression Screening 08/17/2025 08/17/2024, 08/17/20 Alcohol/Substance Use Screening 10/14/2025 10/14/2024 Tobacco Screening 11/19/2025 11/19/2024 Lipid Panel 05/07/2026 05/07/2021 Cervical Cancer Screening [...] Procedure Name Priority Date/Time Associated Diagnosis Comments US VENOUS DUPLEX LE RT Routine 11/19/2024 1:59 PM EDT C-REACTIVE PROTEIN Routine 11/19/2024 1: 20 PM EDT History of temporal arteritis SED RATE BY MODIFIED WESTERGREN Routine 11/19/2024 1:20 PM EDT History of temporal arteritis BASIC METABOLIC PANEL Routine 11/19/2024 1:20 PM EDT Muscle spasm VASC US CAROTID ARTERY DUPLEX BILATERAL Routine [...] Recently Relevant to Health Maintenance Results * US VENOUS DUPLEX LE RT (11/19/2024 1:59 PM EDT) Anatomical Region Laterality Modality Abdomen Ultrasound 11/19/2024 1:59 PM EDT Narrative 11/19/2024 2:24 PM EDT ? [facility] ?[address] ?[place] [address] ? Ultrasound Report ? Signed ? Patient: Parsons,Myra E ?MR#: [id number] ?? 60 ? : 1960 ?Acct:[id number] ? Age/Sex: 64 / F ?ADM Date: 11/19/24 ? Loc: HO.LAB ? Attending Dr: Alva Travis NP ? Ordering Physician: ALVA TRAVIS NP ?? Date of Service: 11/19/24 ?? Procedure(s): US venous duplex LE RT ?? Accession Number(s): [id number] ? cc: ALVA TRAVIS NP ? EXAMINATION: ??US LOWER EXTREMITY VEINS LIMITED FOLLOW UP RIGHT ? HISTORY: RLE PAIN ? COMPARISON: There are no prior studies for comparison. ? TECHNIQUE: ??Duplex and color Doppler sonographic examination of the ?? deep venous system of the right lower extremity was performed. ? FINDINGS: ? The common femoral, superficial femoral, and popliteal veins are patent ?? demonstrating normal compressibility, spontaneous flow, and ?? augmentation. ??There is a normal color and spectral Doppler waveform ?? appearance of the visualized deep venous system above the knee. ??The ?? posterior tibial and peroneal veins are patent. ? US/US venous duplex LE RT ?? IMPRESSION: ?? No evidence of acute DVT in the right lower extremity. ? Electronically signed by: ??Placido Cee MD ??11/19/2024 02:21 PM EDT ?? RP ? Dictated By: ?Placido Cee MD ? Signed By: ?<Electronically signed by Placido Cee MD in OV> ?11/19/24 1421 ? DD/ 1359 ? TD/TT: 11/19/24 1410 ? Clinical Leader: ? Procedure Note Francisca Image - 11/19/[address] [address] Ultrasound Report Signed Patient: Myra Parsons EMR#: [id number] 60 : 2Acct:[id number] Age/Sex: 64 / FADM Date: 11/19/24 Loc: .LAB Attending Dr: Alva Travis NP Ordering Physician: ALVA TRAVIS NP Date of Service: 11/19/24 Procedure(s): US venous duplex LE RT Accession Number(s): [id number] cc: ALVA TRAVIS NP EXAMINATION: US LOWER EXTREMITY VEINS LIMITED FOLLOW UP RIGHT HISTORY: RLE PAIN COMPARISON: There are no prior studies for comparison. TECHNIQUE: Duplex and color Doppler sonographic examination of the deep venous system of the right lower extremity was performed. FINDINGS: The common femoral, superficial femoral, and popliteal veins are patent demonstrating normal compressibility, spontaneous flow, and augmentation. There is a normal color and spectral Doppler waveform appearance of the visualized deep venous system above the knee. The posterior tibial and peroneal veins are patent. US/US venous duplex LE RT IMPRESSION: No evidence of acute DVT in the right lower extremity. Electronically signed by: Placido Cee MD 11/19/2024 02:21 PM EDT Dictated By: Placido Cee MD Signed By: <Electronically signed by Placido Cee MD in OV> 11/19/24 1421 DD/ 1359 TD/TT: 11/19/24 1410 Clinical Leader: us Alva Travis ANP IMG US PROCEDURES Final Result * (ABNORMAL) Sed Rate by Modified Karma (11/19/2024 1:20 PM EDT) Erythrocyte Sedimentation Rate 42(H) 0 - 20 MM/HR [facility] Comment:Patients with polycy themia and many hemoglobin abnormalitiesmay have depressed sed rates whereas patients with anemiamay have elevated sed rates. Blood Venous blood specimen / Unknown 11/19/2024 1:20 PM EDT 11/19/2024 1:20 PM EDT Critical access hospital LAB BLOOD ORDERABLES Final Resul t Performing Organization Address [facility] de Phone Number [facility] [address] [place] [address] [phone] * (ABNORMAL) C-reactive Protein (11/19/2024 1:20 PM EDT) C Reactive Protein 4.57(H) < or = 0.50 mg/dL [facility] Blood Venous blood specimen / Unknown 11/19/2024 1:20 PM EDT 11/19/2024 1:20 PM EDT Critical access hospital LAB BLOOD ORDERABLES Final Resul t Performing Organization Address [facility] de Phone Number [facility] [address] [place] [address] [phone] * Basic Metabolic Panel (11/19/2024 1:20 PM EDT) Only the most recent of2 resultswithin the time period is included. Sodium 142 135 - 145 mmol/L [facility] Potassium 3.7 3.3 - 5.1 mmol/L [facility] Chloride 103 96 - 108 mmol/L [facility] Carbon Dioxide 28 22 - 29 mmol/L [facility] Anion Gap 15 12 - 20 [facility] Urea Nitrogen (BUN) 9 9 - 16 mg/dL [facility] Creatinine, Serum 0.87 0.5 - 1.4 mg/dL [facility] Estimated Glomerular Filt Rate >60 [facility] Comment:Chronic Kidney Disea se: Estimated GFR < 60 mL/min/1.98s3Axxrjs Kidney Disease: Estimated GFR < 15 mL/min/1.73m2 Glucose 108 60 - 115 mg/dL [facility] Calcium 9.4 8.4 - 10.2 mg/dL [facility] Blood Venous blood specimen / Unknown 11/19/2024 1:20 PM EDT 11/19/2024 1:20 PM EDT us Alva Travis ANP LAB BLOOD ORDERABLES Final Resul t [facility] [address] [place] [address] [phone] * Vascular US carotid artery duplex bilateral (11/09/2024 2:16 PM EST) 11/09/2024 2:16 PM EST Narrative [facility] - 11/09/2024 3:36 PM EST ? [facility] ?[address] ?[place] [address] ? Ultrasound Report ? Signed ? Patient: Parsons,Myra E ?MR#: [id number] ?? 60 ? : 1960 ?Acct:[id number] ? Age/Sex: 64 / F ?ADM Date: 11/09/24 ? Loc: HO.US ? Attending Dr: Lauryn Quiros MD ? Ordering Physician: Lauryn Quiros MD ?? Date of Service: 11/09/24 ?? Procedure(s): US carotid duplex BI ?? Accession Number(s): [id number] ? cc: Rowena Lynne MD; Lauryn Quiros [...] Jimenez MD ??11/09/2024 03:33 PM ?? EST ? Dictated By: ?Rickie Mckeon MD ? Signed By: ?<Electronically signed by Rickie Fofana MD in OV> ? 11/09/24 1533 ? DD/ 1416 ? TD/TT: 11/09/24 1507 ? Clinical Leader: ? Procedure Note Francisca, Image - 11/09/[address] [address] Ultrasound Report Signed Patient: Myra Parsons EMR#: [id number] 60 : 2Acct:[id number] Age/Sex: 64 / FADM Date: 11/09/24 Loc: HO. Attending Dr: Lauryn Quiros MD Ordering Physician: Lauryn Quiros MD Date of Service: 11/09/24 Procedure(s): US carotid duplex BI Accession Number(s): [id number] cc: Rowena Lynne MD; Lauryn Quiros MD [...] 11/09/24 1533 DD/ 1416 TD/TT: 11/09/24 1507 Clinical Leader: Lauryn Quiros MD CV VASCULAR PROCEDURES Final Res ult Performing Organization Address City/[facility]/ZIP Co de Phone Number [facility] [address] [place] [address] * Hemoglobin A1c (11/01/2024 12:42 PM EST) Hemoglobin A1c 5.2 <6.0 % [facility] Comment:Hemoglobin A1C Refer ence Range Adults: 4.8 - 6.0 % Non diabetic: < 6.0 % Goal: < 7.0 %Additional Action Suggested: > 8.0 %Note: Hemoglobin A1c results are invalid for patients with abnormal amounts of HbF. Blood transfusions may impact the HbA1c concentration in the patient sample. Estimated Average Glucose 103 mg/dL [facility] Comment:eAG = Estimated ave rage glucose which is %A1C expressed asaverage glucose, using the formula of the K0T-NpjtgnbFjelgag Glucose study (ADAG), Diabetes Care, Vol.31,#8,Aug. 2007 Blood Venous blood specimen / Unknown 11/01/2024 12:42 PM EST 11/01/2024 1:40 PM EST Lauryn Quiros MD LAB BLOOD ORDERABLES Final Resul t Performing Organization Address [facility]/ZIP Co de Phone Number [facility] [address] [place] [address] [phone] * Referral to Neurology (10/12/2024) us [...] historic and ?? current clinical information. ?? Manager Revenue : SEE COMMENT [facility] Comment: YP, CT(ASCP) CT screening location: [address] ??[address] Interpretation/R esult: Negative for intraepithelial lesion or malignancy. [facility] LMP: NONE GIVEN [facility] Prev. BX: NONE [facility]IV[facility] Prev. PAP: NONE [facility]IVEN [facility] SOURCE: None given [facility] Statement Of Adequacy: SEE COMMENT [facility] Comment: Satisfactory for evaluation. Endocervical/transformation zone component present. Age and/or menstrual status not provided 06/20/2021 2:58 PM EDT Karol Curry MD LAB PATHOLOGY ORDERABLES Fin al Result Performing Organization Address [facility] de Phone Number [facility] [address] * HPV GENOTYPES 16,18/45 (06/20/2021 2:58 PM EDT) Pathologist [facility] HPV 16 RNA NOT DETECTED NOT DETECTED [facility] HPV 18/45 RNA NOT DETECTED NOT DETECTED [facility] Comment: Methodology: Fashion Editor Mediated Amplification The analytical performance characteristics of this assay have been determined by [facility]. The modifications have not been cleared or approved by the FDA. This assay has been validated pursuant to the CLIA regulations and is used for clinical purposes. 06/20/2021 2:58 PM EDT Karol Curry MD LAB CYTOLOGY ORDERABLES Vilma l Result Performing Organization Address [facility] de Phone Number [facility] [address] * LIPID PANEL, STANDARD (05/07/2021 11:17 [...] ?? LDL-C is now calculated using the Radah ?? calculation, which is a validated novel method providing ?? better accuracy than the Friedewald equation in the ?? estimation of LDL-C. ?? Chacho WILKERSON et al. EMETERIO. 2013;310(19): 4350-3361 ?? (http://[employer]/faq/MVQ896) Non-HDL Cholesterol 107 <130 mg/dL (calc) [facility] Comment: For patients with diabetes plus 1 major ASCVD risk ?? factor, treating to a non-HDL-C goal of <100 mg/dL ?? (LDL-C of <70 mg/dL) is considered a therapeutic ?? option. Triglycerides 72 <150 mg/dL [facility] 05/07/2021 11:1 7 AM EDT Karol Curry MD LAB BLOOD ORDERABLES Final R esult Performing Organization Address City/State/[facility] Co de Phone Number [facility] [address] [place] [address], * DIGITAL BILATERAL SCREEN 1 (11/06/2018 3:42 [...] Relevant to Health Maintenance Insurance Care Teams Surface Boss Relationship Specialty Start Date End Date Rowena Lynne MD [address] [place] [address] PCP - General Internal Medicine 02/20/23 Cami Buckley Community Health Worker 10/16/23 Margarita Coulter, DoreenD [address] [place] [phone] Pharmacist Internal Medicine 11/20/23
--- OUTSIDE RECORDS SUMMARY | 2025-01-04 16:32 | XMS_ITS | Encounter Summary ---
Author Organization [employer] Address [address] [facility] 7t [place] [address] Care Team Providers Care Counter Clerk Name Role Phone Rowena Lynne MD Primary Care Pro vider Cami Buckley Unavailable Unavailable Margarita Coulter PharmD Unavailable [phone] Reason for Visit * Reason Comments Care Coordination Appt reminder Encounter Details Date Type Department Care Team (Latest Contact Info) Description 01/04/2025 Patient Outreach [facility] [address] [place] [address] Rowena Lynne MD [address] [place] [phone] Care Coordination (Appt reminder) Social History Tobacco [...] encounter Progress Notes * Lyndsey Shea - 01/04/2025 9:44 AM EDT CHW Lyndsey Shea placed call to patient's daughter to remind of appt for [facility]- EEG 01/05/25 at 11:00am, daughter has no barriers in attend to appt with patient. documented in this encounter Plan of Treatment Upcoming Encounters Date Type Department Care Team (Late st Contact Info) Description 01/25/2025 1:00 PM EDT Office Visit [facility] [address] [place] [address] Rowena Lynne MD [address] [place], [place] [phone] documented as of this encounter Goals Goal [...] documented as of this encounter Care Teams Counter Clerk Relationship Specialty Start Date End Date Rowena Lynne MD [address] [place] [address] PCP - General Internal Medicine 02/20/23 Cami Buckley [facility] Health Worker 10/16/23 Margarita Coulter PharmD [address] [place] [phone] Pharmacist Internal Medicine 11/20/23 documented as of this encounter
--- OUTSIDE RECORDS SUMMARY | 2025-01-04 16:32 | XMS_ITS | Encounter Summary ---
Author Organization [employer] Address [address] [facility] 7t [place] [address] Care Team Providers Care Dairy Chemist Name Role Phone [facility] Primary Care Provider [phone] Rowena Lynne MD Primary Care Pro vider Cami Buckley Unavailable Unavailable Margarita Coulter PharmD Unavailable [phone] Maine Bass RN Unavailable [phone] Encounter Details Date Type Department Care Team (Late Contact Info) Description 01/27/2023 Telephone [facility] [address] [place] [phone] Uzma Aguilar, FERNANDO Social History Tobacco Use [...] Encounters Date Type Department Care Team (Late Contact Info) Description 01/25/2025 1:00 PM EDT Office Visit [facility] [address] [place], [place] [phone] Rowena Lynne MD [address] [place], [place] [phone] documented as of this encounter Visit Diagnoses Not on filedocumented in this encounter Additional Health Concerns Assessment Noted Time PHQ-9 Depression Total Score: 0 08/27/20 22 1:32 PM EST documented as of this encounter Care Teams Dairy Chemist Relationship Specialty Start Date End Date [place] Chris FNP [address] [place] [address] PCP - General Family Medicine 07/30/22 02/19/23 Rowena Lynne MD [address] [place] [address] PCP - General Internal Medicine 02/20/23 Cami Buckley Community Health Worker 10/16/23 Margarita Coulter, DoreenD [address] [place] [phone] Pharmacist Internal Medicine 11/20/23 Maine Bass, RN [address] [place] [address] Jackhammer Splitter OperatorVamp Strap Ironer 09/30/24 12/28/24 documented as of this encounter
--- OUTSIDE RECORDS SUMMARY | 2025-01-04 16:32 | XMS_ITS | Encounter Summary ---
Author Organization [employer] Address [address] [facility] 7t [place] [address] Care Team Providers Care Buy Boat Operator Name Role Phone Rowena Lynne MD Primary Care Pro vider Cami Buckley Unavailable Unavailable Margarita Coulter PharmD Unavailable [phone] Maine Bass RN Unavailable [phone] Reason for Visit * Reason Onset Date Comments Appointment Request 11/17/2023 Encounter Details Date Type Department Care Team (Late st Contact Info) Description 11/17/2023 Telephone [facility] MEDICINE [address] [place] [address] Rowena Lynne MD [address] [place] [address] Appointment Request Social History Tobacco Use Types [...] problems with any of the following? Lead [place] or Pipes 06/15/2023 Food Insecurity Answer Date [...] the past 12 months, has t he [employer], gas, oil or water [employer] threatened to shut off services in your [...] attend appt due to emergency in family entry writer did offer appt but patient wanted something sooner documented in this encounter Plan of Treatment Upcoming Encounters Date Type Department Care Team (Late st Contact Info) Description 01/25/2025 1:00 PM EDT Office Visit [facility] MEDICINE [address] [place] [address] Rowena Lynne MD [address] [place] [address] documented as of this encounter Goals Goal [...] documented as of this encounter Care Teams Buy Boat Operator Relationship Specialty Start Date End Date Rowena Lynne MD [address] [place] [address] PCP - General Internal Medicine 02/20/23 Cami Buckley [facility] Health Worker 10/16/23 Margarita Coulter, DoreenD [address] [place] [address] Pharmacist Internal Medicine 11/20/23 Maine Bass, FERNANDO [address] [place] [address] Immunology TeacherUnit Manager [employer]ience [employer] 09/30/24 12/28/24 documented as of this encounter
--- OUTSIDE RECORDS SUMMARY | 2025-01-04 16:32 | XMS_ITS | Encounter Summary ---
Author Organization [employer] Address [address] [facility] 7t [place] [address] Care Team Providers Care Director Of Analytical Development Name Role Phone Rowena Lynne MD Primary Care Pro vider Cami Buckley Unavailable Unavailable Margarita Coulter PharmD Unavailable [phone] Reason for Visit * Reason Comments Care Coordination Appt reminder Encounter Details Date Type Department Care Team (Latest Contact Info) Description 01/03/2025 Patient Outreach [facility] MEDICINE [address] [place] [address] Rowena Lynne MD [address] [place] [address] Care Coordination (Appt reminder) Social History Tobacco [...] t he electric, gas, oil or water [employer] threatened to shut off services in your [...] encounter Progress Notes * Lyndsey Shea - 01/03/2025 1:17 PM EDT CHW Lyndsey Shea placed call to patient's daughter Myra no answer at this time, left VM with details of appt for [facility] Vascular 01/04/25 at 2:30pm. [address] documented in this encounter Plan of Treatment Upcoming Encounters Date Type Department Care Team (Late st Contact Info) Description 01/25/2025 1:00 PM EDT Office Visit [facility] MEDICINE [address] [place] [address] [phone] Rowena Lynne MD 230 [place], [place] [phone] documented as of this encounter Goals Goal [...] documented as of this encounter Care Teams Director Of Analytical Development Relationship Specialty Start Date End Date Rowena Lynne MD [address] [place] [address] PCP - General Internal Medicine 02/20/23 Cami Buckley [facility] Health Worker 10/16/23 Margarita Coulter, DoreenD [address] [place] [address] Pharmacist Internal Medicine 11/20/23 documented as of this encounter
--- OUTSIDE RECORDS SUMMARY | 2025-01-04 16:32 | XMS_ITS | Encounter Summary ---
Author Organization [employer] Address [address] [facility] 7t [place] [address] Care Team Providers Care Media Center Specialist Name Role Phone Rowena Lynne MD Primary Care Pro vider Cami Buckley Unavailable Unavailable Margarita Coulter PharmD Unavailable [phone] Maine Bass RN Unavailable [phone] Encounter Details Date Type Department Care Team (Late st Contact Info) Description 10/08/2024 Orders Only [facility] MEDICINE 230 [place] [address] Lauryn Quiros MD [address] [place] [address] Social History Tobacco Use Types Packs/Day Years [...] Description 01/25/2025 1:00 PM EDT Office Visit [facility]INE [address] [place] [address] Rowena Lynne MD [address] [place] [address] documented as of this encounter Goals Goal [...] documented as of this encounter Care Teams Media Center Specialist Relationship Specialty Start Date End Date Rowena Lynne MD [address] [place] [address] PCP - General Internal Medicine 02/20/23 Cami Buckley Community Health Worker 10/16/23 Margarita Coulter, DoreenD [address] [place] [address] Pharmacist Internal Medicine 11/20/23 Maine Bass RN [address] [place] [address] Solution Make Up OperatorSpeed Runner 09/30/24 12/28/24 documented as of this encounter
--- OUTSIDE RECORDS SUMMARY | 2025-01-04 16:32 | XMS_ITS | Encounter Summary ---
Author Organization [employer] Address [address] [facility] 7t [place] [address] Care Team Providers Care Informatics Coordinator Name Role Phone Rowena Lynne MD Primary Care Pro vider Cami Buckley Unavailable Unavailable Margarita Coulter PharmD Unavailable [phone] Encounter Details Date Type Department Care Team ([facility] st Contact Info) Description 12/30/2024 Telephone [facility] 230 [place] [address] Rowena Lynne MD 230 [place] [address] Social History Tobacco Use Types Packs/Day Years [...] Telephone Encounter - Maine Bass RN - 12/30/2024 2:03 PM EDT CM received email from [facility]. Informed that Vanda Gaines reached out to patient on 12/16 and also sent additional paperwork to patient via mail, which they have not yet received back. Call to patient's daughter Myra. She states she was contacted by Vanda today. She states she plans on going over to patient's home to look over her mail and make sure that the documents are filled out and sent back to [facility] to enroll/ start services. She states she has Vanda's contact information and will reach out to her as needed. documented in this encounter Plan of Treatment Upcoming Encounters Date Type Department Care Team ([facility] st Contact Info) Description 01/25/2025 1:00 PM EDT Office Visit [facility] [address] [place] [address] Rowena Lynne MD [address] [place] [address] documented as of this encounter Goals Goal [...] documented as of this encounter Care Teams Informatics Coordinator Relationship Specialty Start Date End Date Rowena Lynne MD [address] [place] [address] PCP - General Internal Medicine 02/20/23 Cami Buckley [facility] Worker 10/16/23 Margarita Coulter, PharmD [address] [place] [address] Pharmacist Internal Medicine 11/20/23 documented as of this encounter
--- OUTSIDE RECORDS SUMMARY | 2025-01-04 16:32 | XMS_ITS | Encounter Summary ---
Author Organization [employer] Address [address] [facility] 7t [place] [address] Care Team Providers Care Dog Groomer Name Role Phone Rowena Lynne MD Primary Care Pro vider Cami Buckley Unavailable Unavailable Margarita Coulter PharmD Unavailable [phone] Maine Bass RN Unavailable [phone] Reason for Referral * Consultation (Urgent) - Closed Specialty Diagnoses / Procedures Referred By Bertrand cowan Referred To Contact Vascular Surgery Diagnoses Carotid stenosis, right Lauryn Quiros MD 230 [place] [address] Phone: tel: fax: [facility] Referral ID Status Reason Start Date Expiration Date V isits Requested Visits Authorized [id number] Closed Specialty Services Required 11/11/2024 11/11/2025 6 6 Encounter Details Date Type Department Care Team (Late st Contact Info) Description 11/10/2024 Orders Only [facility] MEDICINE 230 [place] [address] Lauryn Quiros MD [address] [place] [address] Carotid stenosis, right (Primary Dx) Social History Tobacco Use Types [...] Upcoming Encounters Date Type Department Care Team ([facility] st Contact Info) Description 01/25/2025 1:00 PM EDT Office Visit [facility] MEDICINE [address] [place] [address] Rowena Lynne MD 230 [place] [address] Scheduled Referrals Name Type Priority Associated Diagnoses Orde r Schedule Referral to Vascular Surgery Outpatient Referral Urgent Carotid stenosis, right Expected: 11/10/2024 (Approximate), Expires: 11/10/2025 documented as of this encounter Goals Goal Patient Goal Type Associated Problems Recent Progress Patient-Stated? Author Quit using tobacco (cigarettes, smokeless, etc) Tobacco Use Tobacco dependence syndrome On track(09/15/19 24 4:37 PM EST) No Margarita Coulter, PharmD documented as of this encounter Visit Diagnoses Diagnosis Carotid stenosis, right- Primary Occlusion and stenosis of carotid artery without mention of cerebral infarction documented in this encounter Additional Health Concerns Assessment Noted Time PHQ-9 Depression Total Score: 23 024 9:16 AM EST documented as of this encounter Care Teams Dog Groomer Relationship Specialty Start Date End Date Rowena Lynne MD [address] [place] [address] PCP - General Internal Medicine 02/20/23 Cami Buckley [facility] Health Worker 10/16/23 Margarita Coulter, PharmD [address] [place] [address] Pharmacist Internal Medicine 11/20/23 Maine Bass, FERNANDO [address] [place] [address] Alarm AdjusterConstruction Technology Instructor 09/30/24 12/28/24 documented as of this encounter
--- OUTSIDE RECORDS SUMMARY | 2025-01-04 16:32 | XMS_ITS | Encounter Summary ---
Author Organization [employer] Address [address] [facility] 7t [place] [address] Care Team Providers Care Kindergarten Aide Name Role Phone Rowena Lynne MD Primary Care Pro vider Cami Buckley Unavailable Unavailable Margarita Coulter PharmD Unavailable [phone] Maine Bass RN Unavailable [phone] Encounter Details Date Type Department Care Team (Late st Contact Info) Description 12/17/2023 Orders Only [facility] MEDICINE 230 [place] [address] Provider, MD Btesy Social History Tobacco Use Types Packs/Day Years [...] housing situation today? I have nallely sing 06/15/[address] you li ve. Do you have problems with any of the following? Lead [place] or Pipes 06/15/2023 Food Insecurity Answer Date [...] Description 01/25/2025 1:00 PM EDT Office Visit [facility] MEDICINE [address] [place] [address] Rowena Lynne MD [address] [place] [address] documented as of this encounter Goals Goal Patient Goal Type Associated Problems Recent Progress Patient-Stated? Author Quit using tobacco (cigarettes, smokeless, etc) Tobacco Use Tobacco dependence syndrome On track(09/15/19 24 4:37 PM EST) No Coulter, Darial, PharmD documented as of this encounter Procedures [...] documented as of this encounter Care Teams Kindergarten Aide Relationship Specialty Start Date End Date Rowena Lynne MD [address] [place] [address] PCP - General Internal Medicine 02/20/23 Cami Buckley Community Health Worker 10/16/23 Margarita Coulter, DoreenD 230 [place] [address] Pharmacist Internal Medicine 11/20/23 Maine Bass RN [address] [place] [address] Supervisor Benzene RefiningEmbroidery Worker 09/30/24 12/28/24 documented as of this encounter
--- OUTSIDE RECORDS SUMMARY | 2025-01-04 16:32 | XMS_ITS | Encounter Summary ---
Author Organization [employer] Address [address] [place] [address] 7t [place] [address] Care Team Providers Care Pet Feeder Name Role Phone Rowena Lynne MD Primary Care Pro vider Cami Buckley Unavailable Unavailable Margarita Coulter PharmD Unavailable [phone] Maine Bass RN Unavailable [phone] Reason for Visit * Reason Onset Date Comments Lab Orders 05/26/2023 Encounter Details Date Type Department Care Team (Late st Contact Info) Description 05/26/2023 Telephone [facility] MEDICINE [address] [place] [address] Rowena Lynne MD [address] [place] [address] Lab Orders Social History Tobacco Use Types [...] active labs to be faxed to lab. Journeyman Level Acoustic Analyst faxed all active labs except 2 lab orders made to [facility]. Labs need to be switched to [facility] labs. TSH W/Reflex to FT4 Comprehensive Metabolic Panel documented in this encounter Plan of Treatment Upcoming Encounters Date Type Department Care Team (Late st Contact Info) Description 01/25/2025 1:00 PM EDT Office Visit [facility] MEDICINE [address] [place] [address] Rowena Lynne MD [address] [place] [address] documented as of this encounter Procedures Procedure Name Priority Date/Time Associated Diagnosis Comments TSH W/REFLEX TO FT4 Routine 10/28/2023 1 0:53 AM EST Bilateral leg edema COMPREHENSIVE METABOLIC PANEL Routine 10/28/2023 10:53 AM EST Bilateral leg edema documented in this encounter Results * TSH W/Reflex to FT4 (10/28/2023 10:53 AM EST) TSH reflex Free T4 1.87 0.32 - 4.0 uIU/mL [facility] Blood 10/28/2023 10:5 3 AM EST 10/28/2023 11:25 AM EST us Rowena Vargas MD LAB BLOOD ORDERAB LES Final Result [facility] [address] [place] [address] [phone] * (ABNORMAL) Comprehensive Metabolic Panel (10/28/2023 10:53 AM EST) Sodium 140 135 - 145 mmol/L [facility] Potassium 4.3 3.3 - 5.1 mmol/L [facility] Chloride 103 96 - 108 mmol/L [facility] Carbon Dioxide 29 22 - 29 mmol/L [facility] Anion Gap 12 12 - 20 [facility] Urea Nitrogen (BUN) 7(L) 9 - 16 mg/dL [facility] Creatinine, Serum 0.81 0.5 - 1.4 mg/dL [facility] Estimated Glomerular Filt Rate >60 [facility] Comment:NOTE: For -Am erican individuals, multiply the result by 1.210.Chronic Kidney Disease: Estimated GFR < 60 mL/min/1.06j1Crepuj Kidney Disease: Estimated GFR < 15 mL/min/1.73m2 Glucose 114 60 - 115 mg/dL [facility] Calcium 8.7 8.4 - 10.2 mg/dL [facility] Bilirubin, Total 0.8 0.0 - 1.0 mg/dL [facility] Aspartate Amino Transferase 18 5 - 31 U/L [facility] Alanine Aminotransferase 12 0 - 31 U/L [facility] Total Protein 6.9 6.5 - 8.0 g/dL [facility] Albumin Level 3.5 3.5 - 5.0 g/dL [facility] Alkaline Phosphatase 87 39 - 117 U/L [facility] Blood Venous blood specimen / Unknown 10/28/2023 10:53 AM EST 10/28/2023 11:25 AM EST us Rowena Vargas MD LAB BLOOD ORDERAB LES Final Result Performing Organization Address City/[facility]/ZIP Co de Phone Number [facility] [address] [place] [address] [phone] documented in this encounter Visit Diagnoses Diagnosis Bilateral leg edema Edema documented in this encounter Additional Health Concerns Assessment Noted Time PHQ-9 Depression Total Score: 10 023 3:50 PM EDT documented as of this encounter Care Teams Pet Feeder Relationship Specialty Start Date End Date Rowena Lynne MD 230 [place] [address] PCP - General Internal Medicine 02/20/23 Cami Buckley Community Health Worker 10/16/23 Margarita Coulter PharmD 230 [place] [address] Pharmacist Internal Medicine 11/20/23 Maine Bass, FERNANDO [address] [place] [address] Food Service SpecialistDividend Deposit Entry Clerk 09/30/24 12/28/24 documented as of this encounter
--- OUTSIDE RECORDS SUMMARY | 2025-01-04 16:32 | XMS_ITS | Encounter Summary ---
Author Organization [employer] Address [address] [facility] 7t [place] [address] Care Team Providers Care Sales And Service Officer Name Role Phone Rowena Lynne MD Primary Care Pro vider Cami Buckley Unavailable Unavailable Margarita Coulter PharmD Unavailable [phone] Maine Bass RN Unavailable [phone] Reason for Visit * Reason Onset Date Comments Medication Question 09/24/2024 Encounter Details Date Type Department Care Team (Late st Contact Info) Description 09/24/2024 Telephone [facility] MEDICINE 230 [place] [address] Rowena Lynne MD [address] [place] [address] Medication Question Social History Tobacco Use Types [...] Description 01/25/2025 1:00 PM EDT Office Visit [facility] MEDICINE [address] [place] [address] Rowena Lynne MD [address] [place] [address] documented as of this encounter Goals Goal [...] as of this encounter Care Teams Sales And Service Officer Relationship Specialty Start Date End Date Rowena Lynne MD [address] [place] [address] PCP - General Internal Medicine 02/20/23 Cami Buckley Community Health Worker 10/16/23 Margarita Coulter, PharmD [address] [place] [address] Pharmacist Internal Medicine 11/20/23 Maine Bass RN [address] [place] [address] Erection Shop SupervisorHealthcare Administration Intern 09/30/24 12/28/24 documented as of this encounter
== END 2025-01-04 15:07 | disposition home or self-care (01) ==
LOC: HO.HVS 14:18
PROVIDERS: Visit Provider Surgery Vascular Surgery
DX: I65.23 Occlusion and stenosis of bilateral carotid arteries (principal)
CPT/HCPCS: 99204

== ENCOUNTER → 2025-01-04 14:18 | Outpatient (BNVA) | payer MEDICAID, SELFPAY | PROVIDERS: Visit Provider Surgery Vascular Surgery | DX: I65.23 Occlusion and stenosis of bilateral carotid arteries (principal); F17.210 Nicotine dependence, cigarettes, uncomplicated | CPT/HCPCS: 99202 ==

== ENCOUNTER 2025-06-28 09:12 | Emergency (ER) | payer MEDICAID, SELFPAY ==
--- OUTSIDE RECORDS SUMMARY | 2025-06-23 12:30 | XMS_ITS | Encounter Summary ---
[facility] Address [address] [place] [address] Care Team Providers Care Infection Control Specialist Name Role Phone Vida Parsons TECHNICAL TRAINING COORDINATOR Primary Care Provider [phone] Encounter Details Date Type Department Care Team (Late st Contact Info) Description 06/23/2025 12:30 PM EDT Office Visit [facility] [address] [place] [id number] Vida Parsons NP 200 [facility] [address] [place] [address] Hypotension due to hypovolemia (Primary Dx); Gastroenteritis and colitis, viral; Myalgia Social History Tobacco Use Types Packs/Day Years Used Date Smoking Tobacco: Every Day Cigarettes Smokeless Tobacco: Never Alcohol Use Standard Drinks/Week Comments Yes 0 (1 standard drink = 0.6 oz pur e alcohol) socially on holidays Education Answer Date Recorded What is the highest level of school you have completed or the highest degree you have received? 9th grade 03/18/2025 Comments Unknown Sex and Gender Information Value Date Recorded Sex Assigned at Female 01/27/2025 6:30 PM EDT Legal Sex Female 4:36 AM EST Gender Identity Female 01/27/2025 6:30 PM EDT Sexual Orientation Straight 01/27/2025 6: 30 PM EDT documented as of this encounter Last Filed Vital Signs Vital Sign Reading Time Taken Comments Blood Pressure 75/42 06/24/2025 11:17 AM EDT Pulse 78 06/24/2025 11:17 AM EDT Temperature 36.1 C (97 F) 06/24/2025 11:17 AM EDT Respiratory Rate 18 06/24/2025 11:17 AM EDT Oxygen Saturation 93% 06/24/2025 11:17 AM EDT Inhaled Oxygen Concentration - - Weight - - Height - - Body Mass Index - - documented in this encounter Progress Notes * Vida Parsons, TECHNICAL TRAINING COORDINATOR - 06/23/2025 12:30 PM EDT Subjective Patient ID: Myra Parsons is a 65 y.o. female. PAR presents to clinic reporting weakness and not feeling well. Reports lower back and bilateral leg pain x 6 days. Reports urine being dark. Admits to not drinking enough fluids. Still having diarrhea but it has lessened to twice a day. Denies nausea. Abdominal pain still present but improving. Review of Systems Constitutional: Positive for fatigue. Negative for appetite change, chills, diaphoresis and fever. Respiratory: Negative for shortness of breath. Cardiovascular: Negative for chest pain, palpitations and leg swelling. Genitourinary: Negative for difficulty urinating, dysuria, frequency and urgency. Musculoskeletal: Positive for back pain. Neurological: Positive for dizziness and weakness. Objective Physical Exam Constitutional: General: She is not in acute distress. Appearance: Normal appearance. She is not ill-appearing, toxic-appearing or diaphoretic. Cardiovascular: Rate and Rhythm: Normal rate and regular rhythm. Heart sounds: Normal heart sounds. Pulmonary: Effort: Pulmonary effort is normal. Breath sounds: Normal breath sounds. Abdominal: General: Abdomen is flat. Bowel sounds are normal. There is no distension. Palpations: Abdomen is soft. Tenderness: There is abdominal tenderness (generalized). Musculoskeletal: Cervical back: Neck supple. Right lower leg: No edema. Left lower leg: No edema. Skin: General: Skin is warm and dry. Neurological: Mental Status: She is alert and oriented to person, place, and time. Mental status is at baseline. Assessment/Plan 1. Hypotension due to hypovolemia (Primary) Hydrated with 1 liter of Lactated Ringers. PAR still significantly orthostatic. Symptoms improving.Highly advised need to hydrate further either in clinic with a second liter of IV fluids or send toED. PAR refusing. I also had Narcotics And/Or Vice Detective speak to PAR in order attempt to convince her to continue with treatment. She reports if she feels worse, she will call daughter to take there to the ED. PAR is also scheduled to to come to day center tomorrow. IV lock removed and PAR left against AMA. 2. Gastroenteritis and colitis, viral Symptoms seem to be improving,b ut diarrhea still presents. Consider stool sample collection. 3. Myalgia STAT labs ordered to include CBC, CMP, and CK. Unsuccessfully able to draw lab. Most likely due to volume depletion, Other differential include rhabdomyolysis, acute viral syndrome. documented in this encounter Plan of Treatment Upcoming Encounters Date Type Department Care Team (Late st Contact Info) Description 06/30/2025 9:00 AM EDT [facility] [address] [place] [address] 07/01/2025 9:00 AM EDT [facility] Day Center [address] [place] [phone] 07/05/2025 9:00 AM EDT [facility] Day Center [address] [place] [phone] 07/05/2025 12:00 PM EDT [facility] [place] [facility] [address] [place] [phone] Vida Parsons NP [address] [address] 07/07/2025 9:00 AM EDT [facility] [place] [facility] [address] [place] [address] 07/08/2025 9:00 AM EDT [facility] [place] [facility] [address] [place] [phone] 07/12/2025 9:00 AM EST [facility] [address] [place] [address] 07/12/2025 11:00 AM EST Clinical Support [facility] [place] [address] [place] [address] 07/14/2025 9:00 AM EST [facility]ACE Attendance/[place] [facility] [place] [facility] [address] [place] [address] 07/15/2025 9:00 AM EST PACE Att[place]ance[facility] [facility] [place] [facility] [address] [place] [phone] 07/19/2025 9:00 AM EST PACE Attendance/[place] [facility] [place] [facility] [address] [place] [phone] 07/19/2025 10:10 AM EST PACE External Visit [facility] [place] [address] [place] [phone] 07/19/2025 3:30 PM EST PACE External Visit [facility] [place] [address] [place] [phone] 07/21/2025 9:00 AM EST Clinical Support [facility] [place] [address] [place] [phone] 07/21/2025 9:00 AM EST PACE Attendance/[place] [facility] [address] [place] [address] 07/22/2025 9:00 AM EST [place] Attendance[place] [facility] [address] [phone] 07/26/2025 9:00 AM EST [facility] Attendance[facility] [facility] [place] [facility] [address] [place] [address] 07/26/2025 10:20 AM EST Clinical Support [facility] [place] [address] [place] [phone] 07/28/2025 9:00 AM EST PACE Attendance/[place] [facility] [place] [address] [place] [address] 07/29/2025 9:00 AM EST [facility] [place] [facility] [address] [place] [address] 08/02/2025 9:00 AM EST [facility] [place] [facility] [place] [facility] [address] [place] [address] 08/04/2025 9:00 AM EST [facility] [place] [facility] [place] [facility] [address] [place] [address] 08/05/2025 9:00 AM EST [facility] [place] [facility] [address] [place] [address] 08/09/2025 9:00 AM EST [facility] [place] [facility] [address] [place] [address] 08/11/2025 9:00 AM EST [facility] [place] [facility] [address] [place] [address] 08/12/2025 9:00 AM EST [facility] [place] [facility] [address] [place] [phone] 08/16/2025 9:00 AM EST [facility] [place] [facility] [address] [place] [phone] 08/18/2025 9:00 AM EST [facility] [place] [facility] [address] [place] [address] 08/19/2025 9:00 AM EST [facility] [place] [facility] [address] [place] [address] 08/23/2025 9:00 AM EST [facility] [facility] [place] [facility] [address] [place] [address] 08/25/2025 9:00 AM EST [facility] [place] [facility] [place] [facility] [address] [place] [address] 08/26/2025 9:00 AM EST [facility] [place] [facility] [address] [place] [phone] 08/30/2025 9:00 AM EST [facility] [place] [facility] [address] [place] [phone] 09/01/2025 9:00 AM EST [facility] [place] [facility] [address] [place] [phone] 09/02/2025 9:00 AM EST [facility] [place] [facility] [address] [address] 09/05/2025 1:00 PM EST Appointment [address] [phone] 09/06/2025 9:00 AM EST [facility] [place] [facility] [address] [address] 09/06/2025 1:30 PM EST [facility] [address] [address] 09/08/2025 9:00 AM EST PACE Attendance/[place] [facility] [place] [facility] [place] [address] [phone] 09/09/2025 9:00 AM EST PACE Attendance/Day Center [facility] [address] [address] 09/13/2025 9:00 AM EST [facility] [place] [facility] [address] [address] 09/15/2025 9:00 AM EST [facility] [place] [facility] [address] [place] [phone] 09/16/2025 9:00 AM EST [facility] [place] [facility] [address] [place] [address] 09/20/2025 9:00 AM EST [facility] [place] [facility] [address] [place] [address] 09/22/2025 9:00 AM EST [facility] [place] [facility] [address] [place] [phone] 09/23/2025 9:00 AM EST [facility] [place] [facility] [address] [place] [phone] 09/27/2025 9:00 AM EST [facility] [place] [facility] [address] [place] [phone] 09/29/2025 9:00 AM EST [facility] [place] [facility] [address] [place] [phone] 09/30/2025 9:00 AM EST [facility] [place] [facility] [address] [place] [phone] 10/04/2025 9:00 AM EST [facility] [place] [facility] [address] [place] [phone] 10/06/2025 9:00 AM EST [facility] [place] [facility] [address] [place] [address] 10/07/2025 9:00 AM EST [facility] [place] [facility] [address] [place] [address] 10/11/2025 9:00 AM EST [facility] [place] [facility] [address] [place] [address] 10/13/2025 9:00 AM EST [facility] [place] [facility] [address] [place] [address] 10/14/2025 9:00 AM EST [facility] [facility] [place] [facility] [address] [place] [phone] 10/18/2025 9:00 AM EST [facility] [place] [facility] [address] [place] [phone] 10/20/2025 9:00 AM EST [facility] [place] [facility] [address] [place] [phone] 10/21/2025 9:00 AM EST [facility] [place] [facility] [address] [place] [phone] 10/25/2025 9:00 AM EST [facility] [place] [facility] [address] [place] [phone] 10/27/2025 9:00 AM EST [facility] [place] [facility] [address] [place] [phone] 10/28/2025 9:00 AM EST [facility] [place] [facility] [address] [place] [phone] 11/01/2025 9:00 AM EST [facility] [place] [facility] [address] [place] [phone] 11/03/2025 9:00 AM EST [facility] [place] [facility] [address] [place] [phone] 11/04/2025 9:00 AM EST [facility] [place] [facility] [address] [place] [phone] 11/08/2025 9:00 AM EST [facility] [place] [facility] [place] [facility] [address] [place] [phone] 11/10/2025 9:00 AM EST [facility] Att[place] [facility] [place] [facility] [address] [place] [address] 11/11/2025 9:00 AM EST [place] [place] [facility] [place] [facility] [address] [place] [address] 11/15/2025 9:00 AM EDT [place] Att[place] [facility] [place] [facility] [address] [place] [address] 11/17/2025 9:00 AM EDT [place] Att[place] [facility] [place] [facility] [address] [place] [phone] 11/18/2025 9:00 AM EDT [place] [place] [facility] [place] [facility] [address] [place] [phone] 11/22/2025 9:00 AM EDT [place] Att[place] [facility] [place] [facility] [address] [place] [phone] 11/24/2025 9:00 AM EDT [place] Att[place] [facility] [place] [facility] [address] [place] [phone] 11/25/2025 9:00 AM EDT [facility] Att[place] [facility] [place] [facility] [address] [place] [phone] 11/29/2025 9:00 AM EDT [facility] Att[place] [facility] [place] [facility] [address] [place] [address] 12/01/2025 9:00 AM EDT [facility] [place] [facility] [address] [place] [address] 12/02/2025 9:00 AM EDT [facility] [place] [facility] [address] [place] [phone] 12/06/2025 9:00 AM EDT [facility] Att[facility] [facility] [place] [facility] [address] [place] [address] 12/08/2025 9:00 AM EDT [facility] Att[facility] [facility] [place] [facility] [address] [place] [address] 12/09/2025 9:00 AM EDT [facility] Att[facility] [facility] [place] [facility] [address] [place] [address] 12/13/2025 9:00 AM EDT [facility] Att[facility] [facility] [place] [facility] [address] [place] [address] 12/15/2025 9:00 AM EDT [facility] Att[facility] [facility] [place] [facility] [address] [place] [address] 12/16/2025 9:00 AM EDT [facility] Att[facility] [facility] [place] [facility] [address] [place] [phone] 12/20/2025 9:00 AM EDT [facility] Att[facility] [facility] [place] [facility] [address] [place] [phone] 12/22/2025 9:00 AM EDT [facility] [place] [facility] [place] [facility] [address] [place] [phone] 12/23/2025 9:00 AM EDT [facility] [facility] [place] [facility] [address] [place] [address] 12/27/2025 9:00 AM EDT [facility] [place] [facility] [address] [place] [address] 12/29/2025 9:00 AM EDT [facility] [place] [facility] [address] [place] [phone] 12/30/2025 9:00 AM EDT [facility] [place] [facility] [address] [place] [address] 01/03/2026 9:00 AM EDT [facility] [place] [facility] [address] [place] [address] 01/05/2026 9:00 AM EDT [facility] [place] [facility] [address] [place] [phone] 01/06/2026 9:00 AM EDT [facility] [place] [facility] [address] [place] [phone] 01/10/2026 9:00 AM EDT [facility] Att[facility] [facility] [place] [facility] [address] [place] [phone] 01/12/2026 9:00 AM EDT [facility] [place] [facility] [address] [place] [phone] 01/13/2026 9:00 AM EDT [facility] [place] [facility] [address] [place] [phone] 01/17/2026 9:00 AM EDT [facility] [place] [facility] [address] [place] [phone] 01/19/2026 9:00 AM EDT [facility] [place] [facility] [address] [place] [phone] 01/20/2026 9:00 AM EDT [facility] [place] [facility] [address] [place] [phone] 01/24/2026 9:00 AM EDT [facility] [place] [facility] [address] [place] [phone] 01/26/2026 9:00 AM EDT [facility] [place] [facility] [address] [place] [address] 01/27/2026 9:00 AM EDT [place] Att[place] [facility] [place] [facility] [facility] [address] [place] [address] 01/31/2026 9:00 AM EDT [place] [facility] [place] [facility] [facility] [address] [place] [address] 02/02/2026 9:00 AM EDT [place] Att[place] [facility] [place] [facility] [address] [place] [address] 02/03/2026 9:00 AM EDT [facility] Att[facility] [facility] [place] [facility] [address] [place] [address] 02/07/2026 9:00 AM EDT [facility] Att[facility] [facility] [place] [facility] [address] [place] [address] 02/09/2026 9:00 AM EDT [facility] [place] [facility] [place] [facility] [address] [place] [phone] 02/10/2026 9:00 AM EDT [facility] [place] [facility] [place] [facility] [address] [place] [phone] 02/14/2026 9:00 AM EDT [facility] [place] [facility] [address] [place] [address] 02/16/2026 9:00 AM EDT [facility] [place] [facility] [address] [place] [address] 02/17/2026 9:00 AM EDT [facility] [place] [facility] [address] [place] [address] 02/21/2026 9:00 AM EDT [facility] Att[facility] [place] [facility] [address] [place] [address] 02/23/2026 9:00 AM EDT P[facility] Attendance[facility] [place] [facility] [address] [place] [address] 02/24/2026 9:00 AM EDT P[facility] Att[facility] [place] [facility] [address] [place] [address] 02/28/2026 9:00 AM EDT [facility] Att[facility] [place] [facility] [address] [place] [address] 03/02/2026 9:00 AM EDT [facility] Attend[facility] [place] [facility] [address] [place] [address] 03/03/2026 9:00 AM EDT [facility] Attend[facility] [place] [facility] [address] [place] [address] 03/07/2026 9:00 AM EDT [facility] Att[facility] [place] [facility] [place] [facility] [address] [place] [phone] 03/09/2026 9:00 AM EDT [facility] Att[facility] [place] [facility] [address] [place] [address] 03/10/2026 9:00 AM EDT [facility] Att[facility] [place] [facility] [address] [place] [address] 03/14/2026 9:00 AM EDT [facility] Att[facility] [place] [facility] [place] [facility] [address] [place] [address] 03/16/2026 9:00 AM EDT [facility] Attend[facility] [place] [facility] [place] [facility] [address] [place] [address] 03/17/2026 9:00 AM EDT P[facility] Att[facility] [place] [facility] [place] [facility] [address] [place] [address] 03/21/2026 9:00 AM EDT P[facility] Att[facility] [place] [facility] [place] [facility] [address] [place] [address] 03/23/2026 9:00 AM EDT P[facility] Att[facility] [place] [facility] [place] [facility] [address] [place] [address] 03/24/2026 9:00 AM EDT [facility] Att[facility] [place] [facility] [place] [facility] [address] [place] [address] 03/28/2026 9:00 AM EDT [facility] Att[facility] [place] [facility] [place] [facility] [address] [place] [address] 03/30/2026 9:00 AM EDT [facility] [place] [facility] [place] [facility] [address] [place] [phone] 03/31/2026 9:00 AM EDT [facility] [place] [facility] [place] [facility] [address] [place] [phone] 04/04/2026 9:00 AM EDT [facility] [place] [place] [facility] [place] [facility] [address] [place] [phone] 04/06/2026 9:00 AM EDT [facility] Att[facility] [place] [facility] [address] [place] [address] 04/07/2026 9:00 AM EDT P[facility] Att[facility] [place] [facility] [address] [place] [address] 04/11/2026 9:00 AM EDT [facility] [place] [facility] [address] [place] [address] 04/13/2026 9:00 AM EDT P[facility] Attend[facility] [place] [facility] [address] [place] [address] 04/14/2026 9:00 AM EDT [facility] Att[facility] [place] [facility] [address] [place] [phone] 04/18/2026 9:00 AM EDT [facility] [place] [facility] [address] [place] [phone] 04/20/2026 9:00 AM EDT [facility] [place] [facility] [address] [place] [phone] 04/21/2026 9:00 AM EDT [facility] [place] [facility] [address] [place] [phone] 04/25/2026 9:00 AM EDT [facility] [place] [facility] [place] [facility] [address] [place] [phone] 04/27/2026 9:00 AM EDT [facility] [place] [facility] [address] [place] [phone] 04/28/2026 9:00 AM EDT [facility] [facility] [place] [facility] [address] [place] [phone] 05/02/2026 9:00 AM EDT [facility] [place] [facility] [address] [place] [phone] 05/04/2026 9:00 AM EDT [facility] [place] [facility] [address] [place] [phone] 05/05/2026 9:00 AM EDT [facility] [place] [facility] [address] [place] [phone] 05/09/2026 9:00 AM EDT [facility] [place] [facility] [address] [place] [phone] 05/11/2026 9:00 AM EDT [facility] [place] [facility] [place] [facility] [address] [place] [address] 05/12/2026 9:00 AM EDT [facility] [place] [facility] [address] [place] [address] 05/16/2026 9:00 AM EDT [facility] Att[facility] [place] [facility] [address] [place] [address] 05/18/2026 9:00 AM EDT [facility] [place] [facility] [address] [place] [phone] 05/19/2026 9:00 AM EDT P[facility] [place] [facility] [address] [place] [phone] 05/23/2026 9:00 AM EDT P[facility] [place] [facility] [address] [place] [phone] 05/30/2026 9:00 AM EDT P[facility] Att[facility] [facility] [place] [facility] [address] [place] [phone] 06/06/2026 9:00 AM EDT P[facility] Att[facility] [facility] [place] [facility] [address] [place] [phone] 06/13/2026 9:00 AM EDT [facility] [place] [facility] [place] [facility] [address] [place] [phone] 06/20/2026 9:00 AM EDT [facility] [place] [facility] [address] [place] [phone] 06/27/2026 9:00 AM EDT PACE Att[facility] [facility] [place] [facility] [address] [place] [phone] 07/04/2026 9:00 AM EDT P[facility] Attend[facility] [place] [facility] [address] [place] [address] 07/11/2026 9:00 AM EST [facility] [place] [facility] [address] [place] [phone] 07/18/2026 9:00 AM EST [facility] [place] [facility] [place] [facility] [address] [place] [phone] 07/25/2026 9:00 AM EST [facility] [place] [facility] [address] [place] [phone] 08/01/2026 9:00 AM EST PACE Attend[facility] [place] [facility] [address] [place] [phone] documented as of this encounter Visit Diagnoses Diagnosis Hypotension due to hypovolemia- Primary Gastroenteritis and colitis, viral Intestinal infection due to other organism, NEC Myalgia Unspecified myalgia and myositis documented in this encounter Additional Health Concerns Assessment Noted Time PHQ-9 Depression Total Score: 11 025 1:10 PM EDT documented as of this encounter Care Teams Infection Control Specialist Relationship Specialty Start Date End Date Vida Parsons NP [address] [place] [address] PCP - General Family Medicine 03/08/25 documented as of this encounter
[2025-06-28 09:37] VITALS: BP 122/64; PULSE 88; RESP 18; TEMP 36.6; O2SAT 95; BMI 30.2
[2025-06-28 10:16] LABS: MANUAL DIFF FLAG NO
[2025-06-28 10:22] LABS: Hematocrit 37.5 % (37.0-47.0); Hemoglobin 12.8 g/dl (12.0-16.0); Imm Gran Abs Auto 0.05 X10*3/uL (0.00-0.03); Imm Gran Pct Auto 0.6 % (0.0-0.4); Lymphocytes Absolute Auto 2.7 X10*3/uL (1.2-4.9); Mean Corpuscular HGB Conc 34.1 g/dl (31.0-35.0); Mean Corpuscular Hemoglobin 30.0 pg (27.0-33.0); Mean Corpuscular Volume 87.8 fL (80.0-98.0); NRBC Abs Auto 0.000 X10*3/uL (0.0-0.012); NRBC Pct Auto 0.0 /100WBC (0.0-0.2); Platelet Count 424 X10*3/uL (160-400); Red Blood Count 4.27 X10*6/uL (4.20-5.50); White Blood Count 8.2 X10*3/uL (4.8-10.8)
[2025-06-28 10:44] LABS: Anion Gap 13 (12-20); Blood Urea Nitrogen 9 mg/dL (9-16); Calcium 8.9 mg/dL (8.4-10.2); Carbon Dioxide 25 mmol/L (22-29); Chloride 105 mmol/L (96-108); Creatinine Clr Calc Pharmacy 69.0; Estimated Glomerular Filt Rate > 60; Potassium 3.7 mmol/L (3.3-5.1); Sodium 139 mmol/L (135-145)
[2025-06-28 10:51] LABS: IDNOW Serial# 08D9AD1C
[2025-06-28 10:52] LABS: COVID-19 Test Negative (Negative)
--- OUTSIDE RECORDS SUMMARY | 2025-06-28 19:33 | XMS_ITS ---
Author Organization [employer] [facility] Address [address] [place] [address] Phone Care Team Providers Care Floor Covering Contractor Name Role Phone Vida Parsons ENVIRONMENTAL COMPLIANCE SPECIALIST Primary Care Provider [phone] Program of All-Inclusive Care for the Elderly Status:Enrolled (Active) Start date:01/25/2025 Enrollment date:03/08/2025 Enrollment reason:[facility] Related social drivers of health:Housing Instability, TH Health Literacy, Financial Risk, Transportation, Social Isolation, Food Risk Overview This episode will track PACE documentation. Case Team Name Relationship Phone Vida Parsons ENVIRONMENTAL COMPLIANCE SPECIALIST Nurse Practitioner [phone] Buckner Recreational Therapist Bryanna Wetzel RN Irish Moss Bleacher Irene Cleary RN Irish Moss Bleacher Barb Osman WIRE WEAVER HELPER Research Soil Scientist Cole Reid OT Occupational Therapist Boaz Ramos RD Dietitian Surya Sood PT Physical Therapist Erasmo Romero [facility] Hospital[facility] Fuel House Attendant Danii Blanca RN Irish Moss Bleacher Layla Shea Fuel House Attendant Yessenia Merino [facility] Fuel House Attendant Karen Chapa OT Occupational Therapist Malcom Keita PT Physical Therapist Angela Alfonso RN Registered Nurse Zuleyma Liang RN Registered Nurse Miriam Pettit MD Consulting Physician Continued Care and Services Coordination
--- OUTSIDE RECORDS SUMMARY | 2025-06-28 19:33 | XMS_ITS | Encounter Summary ---
Author Organization [employer] Address [address] [place] [address] 7t [place] [address] Care Team Providers Care Concrete Bucket Loader Name Role Phone Rowena Lynne MD Primary Care Pro vider Cami Buckley Unavailable Unavailable Margarita Coulter PharmD Unavailable [phone] Encounter Details Date Type Department Care Team (Late st Contact Info) Description 01/17/2025 Orders Only [facility] MEDICINE [address] [place] [address] Rowena Lynne MD [address] [place] [address] Social History Tobacco Use Types Packs/Day Years [...] housing situation today? I have nallely ordonez 01/18/[address] you li ve. Do you have problems with any of the following? None of the above 01/18/2025 Food Insecurity Answer Date Recorded Within the past 12 months, y ou worried that your food would run out before you got money to buy more: Never True 01/18/2025 Within the past 12 months,th e food you bought just didn't last and you didn't have enough money to get more: Never True Transportation Answer Date Recorded In the past 12 months, has l ack of transportation kept you from medical appts, meetings, work or from getting things needed for daily living? No 01/18/2025 Utilities Answer Date Recorded In the past 12 months, has t he electric, gas, oil or water company threatened to shut off services in your home? No 01/18/2025 Depression Answer Date Recorded Patient Health Questionnaire-2 [...] as of this encounter Plan of Treatment Not on file documented as of this encounter Goals Goal [...] documented as of this encounter Care Teams Concrete Bucket Loader Relationship Specialty Start Date End Date Rowena Lynne MD [address] [place] [address] PCP - General Internal Medicine 02/20/23 Cami Buckley Community Health Worker 10/16/23 Margarita Coulter, PharmD [address] [place] [address] Pharmacist Internal Medicine 11/20/23 documented as of this encounter
--- OUTSIDE RECORDS SUMMARY | 2025-06-28 19:33 | XMS_ITS | Encounter Summary ---
Author Organization [employer] Address [address] [place] [address] 7[address] [place] [address] Care Team Providers Care Director Of Infection Control Name Role Phone Rowena Lynne MD Primary Care Pro vider Cami Buckley Unavailable Unavailable Margarita Coulter PharmD Unavailable [phone] Maine Bass RN Unavailable [phone] Reason for Referral * Consultation (Urgent) - Closed Specialty Diagnoses / Procedures Referred By Bertrand t Referred To Contact Vascular Surgery Diagnoses Carotid stenosis, right Lauryn Quiros MD [address] [place] [address] Phone: tel: fax: [facility] Referral ID Status Reason Start Date Expiration Date V isits Requested Visits Authorized [id number] Closed Specialty Services Required 11/11/2024 11/11/2025 6 6 Encounter Details Date Type Department Care Team (Late st Contact Info) Description 11/10/2024 Orders Only [facility] MEDICINE [address] [place], [place] [phone] Lauryn Quiros MD [address] [place] [address] Carotid stenosis, right (Primary Dx) Social History [...] as of this encounter Plan of Treatment Scheduled Referrals Name Type Priority Associated Diagnoses [...] of this encounter Care Teams Director Of Infection Control Relationship Specialty Start Date End Date Rowena Lynne MD [address] [place] [address] PCP - General Internal Medicine 02/20/23 Cami Buckley Community Health Worker 10/16/23 Margarita Coulter, PharmD [address] [place] [address] Pharmacist Internal Medicine 11/20/23 Maine Bass RN [address] [place] [address] Line WelderMagnet Valve Assembler 09/30/24 12/28/24 documented as of this encounter
--- OUTSIDE RECORDS SUMMARY | 2025-06-28 19:33 | XMS_ITS | Encounter Summary ---
Author Organization [employer] Address [address] [facility] 7t [place] [address] Care Team Providers Care Detective Private Eye Name Role Phone Rowena Lynne MD Primary Care Pro vider Cami Buckley Unavailable Unavailable Margarita Coulter PharmD Unavailable [phone] Maine Bass RN Unavailable [phone] Encounter Details Date Type Department Care Team (Late st Contact Info) Description 11/08/2024 Orders Only [facility] MEDICINE [address] [place] [address] Lauryn Quiros MD [address] [place] [address] Social History Tobacco Use Types Packs/Day Years [...] documented as of this encounter Care Teams Detective Private Eye Relationship Specialty Start Date End Date Rowena Lynne MD [address] [place] [address] PCP - General Internal Medicine 02/20/23 Cami Buckley Community Health Worker 10/16/23 Margarita Coulter, PharmD [address] [place] [address] Pharmacist Internal Medicine 11/20/23 Maine Bass RN [address] [place] [address] Health Care Facility AdministratorClinical Staff Anesthesiologist 09/30/24 12/28/24 documented as of this encounter
--- OUTSIDE RECORDS SUMMARY | 2025-06-28 19:33 | XMS_ITS | Encounter Summary ---
Author Organization [employer] Address [address] [place] [address] 7t [place] [address] Care Team Providers Care Director Retirement Name Role Phone Rowena Lynne MD Primary Care Pro vider Cami Buckley Unavailable Unavailable Margarita Coulter PharmD Unavailable [phone] Maine Bass RN Unavailable [phone] Reason for Visit * Reason Onset Date Comments Appointment Request 07/21/2023 Encounter Details Date Type Department Care Team (Late st Contact Info) Description 07/21/2023 Telephone [facility] MEDICINE [address] [place] [address] Rowena Lynne MD [address] [place] [address] Appointment Request Social History Tobacco Use Types [...] problems with any of the following? Lead [place] [employer] 06/15/2023 Food Insecurity Answer Date [...] the past 12 months, has t he [employer], gas, oil or water [employer] threatened to shut off services in your [...] EST Tc from pt requesting f/u appt, bond underwriter attempted to schedule, no availability at the moment. documented in this encounter Plan of Treatment Not on file documented as of this encounter Visit Diagnoses Not on filedocumented in this encounter Additional Health Concerns Assessment Noted Time PHQ-9 Depression Total Score: 023 3:50 PM EDT documented as of this encounter Care Teams Director Retirement Relationship Specialty Start Date End Date Rowena Lynne MD [address] [place], [place] [phone] PCP - General Internal Medicine 02/20/23 Cami Buckley Community Health Worker 10/16/23 Margarita Coulter, Bogdan [address] [place], [place] [phone] Pharmacist Internal Medicine 11/20/23 Maine Bass, FERNANDO [address] [place] [address] [place] [address] Health WorkersPiece Hand 09/30/24 12/28/24 documented as of this encounter
--- OUTSIDE RECORDS SUMMARY | 2025-06-28 19:33 | XMS_ITS | Encounter Summary ---
Author Organization [employer] Address [address] [facility] 7t [place] [address] Care Team Providers Care Corporate Aircraft Mechanic Name Role Phone Rowena Lynne MD Primary Care Pro vider Cami Buckley Unavailable Unavailable Margarita Coulter PharmD Unavailable [phone] Reason for Visit * Reason Comments Med Refill Encounter Details Date Type Department Care Team (Late st Contact Info) Description 01/14/2025 Refill [facility] [address] [place] [address] Rowena Lynne MD [address] [place] [address] Social History Tobacco Use Types Packs/Day Years [...] the past 12 months, has t he [employer], gas, oil or water company threatened to [...] as of this encounter Care Teams Corporate Aircraft Mechanic Relationship Specialty Start Date End Date Rowena Lynne MD [address] [place] [address] PCP - General Internal Medicine 02/20/23 Cami Buckley Community Health Worker 10/16/23 Margarita Coulter, PharmD [address] [place] [address] Pharmacist Internal Medicine 11/20/23 documented as of this encounter
--- OUTSIDE RECORDS SUMMARY | 2025-06-28 19:33 | XMS_ITS | Encounter Summary ---
Author Organization [employer] Address [address] [place] [address] 7t [place] [address] Care Team Providers Care Newspaper Photo Editor Name Role Phone Rowena Lynne MD Primary Care Pro vider Cami Buckley Unavailable Unavailable Margarita Coulter PharmD Unavailable [phone] Maine Bass RN Unavailable [phone] Reason for Visit * Reason Onset Date Comments Appointment Request 11/17/2023 Encounter Details Date Type Department Care Team (Late st Contact Info) Description 11/17/2023 Telephone [facility] MEDICINE [address] [place] [address] Rowena Lynne MD [address] [place] [address] Appointment Request Social History Tobacco Use Types [...] problems with any of the following? Lead [place] [employer] 06/15/2023 Food Insecurity Answer Date [...] the past 12 months, has t he [employer], gas, oil or water [employer] threatened to shut off services in your [...] attend appt due to emergency in family publicity writer did offer appt but patient wanted something sooner documented in this encounter Plan of Treatment Not on file documented as of this encounter Goals Goal Patient Goal Type Associated Problems Recent Progress Patient-Stated? Author Quit using tobacco (cigarettes, smokeless, etc) Tobacco Use Tobacco dependence syndrome On track(09/15/19 24 4:37 PM EST) No CoulterDaria verduzcol, PharmD documented as of this encounter Visit Diagnoses Not on filedocumented in this encounter Additional Health Concerns Assessment Noted Time PHQ-9 Depression Total Score: 10 023 3:50 PM EDT documented as of this encounter Care Teams Newspaper Photo Editor Relationship Specialty Start Date End Date Rowena Lynne MD [address] [place] [address] PCP - General Internal Medicine 02/20/23 Cami Buckley Community Health Worker 10/16/23 Margarita Coulter, Bogdan [address] [place] [address] Pharmacist Internal Medicine 11/20/23 Maine Bass RN [address] [place] [address] Investment AnalystMuseum Exhibit Technician 09/30/24 12/28/24 documented as of this encounter
--- OUTSIDE RECORDS SUMMARY | 2025-06-28 19:33 | XMS_ITS | Encounter Summary ---
Author Organization [employer] Address [address] [place] [address] [address] [place] [address] Care Team Providers Care Marketing Co Op Name Role Phone Rowena Lynne MD Primary Care Pro vider Cami Buckley Unavailable Unavailable Margarita Coulter PharmD Unavailable [phone] Maine Bass RN Unavailable [phone] Reason for Visit * Reason Onset Date Comments Lab Orders 05/26/2023 Encounter Details Date Type Department Care Team (Late st Contact Info) Description 05/26/2023 Telephone [facility] MEDICINE [address] [place] [address] Rowena Lynne MD [address] [place] [address] Lab Orders Social History Tobacco Use Types [...] active labs to be faxed to lab. Checking Clerk faxed all active labs except 2 lab orders made to [facility]. Labs need to be switched to [facility] labs. TSH W/Reflex to FT4 Comprehensive Metabolic Panel documented in this encounter Plan of Treatment Not on file documented as of this encounter Procedures Procedure Name Priority Date/Time Associated Diagnosis Comments TSH W/REFLEX TO FT4 Routine 10/28/2023 1 0:53 AM EST Bilateral leg edema COMPREHENSIVE METABOLIC PANEL Routine 10/28/2023 10:53 AM EST Bilateral leg edema documented in this encounter Results * TSH W/Reflex to FT4 (10/28/2023 10:53 AM EST) TSH reflex Free T4 1.87 0.32 - 4.0 uIU/mL [facility] Blood 10/28/2023 10:5 3 AM EST 10/28/2023 11:25 AM EST us Rowena Vargas MD LAB BLOOD ORDERAB LES Final Result [facility] [address] [place] [address] [phone] * (ABNORMAL) Comprehensive Metabolic Panel (10/28/2023 10:53 AM EST) Sodium 140 135 - 145 mmol/L [facility] Potassium 4.3 3.3 - 5.1 mmol/L [facility] Chloride 103 96 - 108 mmol/L [facility] Carbon Dioxide 29 22 - 29 mmol/L [facility] Anion Gap 12 12 - 20 [facility] Urea Nitrogen (BUN) 7(L) 9 - 16 mg/dL [facility] Creatinine, Serum 0.81 0.5 - 1.4 mg/dL [facility] Estimated Glomerular Filt Rate >60 [facility] Comment:NOTE: For -Am erican individuals, multiply the result by 1.210.Chronic Kidney Disease: Estimated GFR < 60 mL/min/1.15u7Vsgzuc Kidney Disease: Estimated GFR < 15 mL/min/1.73m2 Glucose 114 60 - 115 mg/dL [facility] Calcium 8.7 8.4 - 10.2 mg/dL [facility] Bilirubin, Total 0.8 0.0 - 1.0 mg/dL [facility] Aspartate Amino Transferase 18 5 - 31 U/L [facility] Alanine Aminotransferase 12 0 - 31 U/L [facility] Total Protein 6.9 6.5 - 8.0 g/dL [facility] Albumin Level 3.5 3.5 - 5.0 g/dL [facility] Alkaline Phosphatase 87 39 - 117 U/L [facility] Blood Venous blood specimen / Unknown 10/28/2023 10:53 AM EST 10/28/2023 11:25 AM EST us Rowena Varags MD LAB BLOOD ORDERAB LES Final Result [facility] [address] [place] [address] [phone] documented in this encounter Visit Diagnoses Diagnosis Bilateral leg edema Edema documented in this encounter Additional Health Concerns Assessment Noted Time PHQ-9 Depression Total Score: 10 023 3:50 PM EDT documented as of this encounter Care Teams Marketing Co Op Relationship Specialty Start Date End Date Rowena Lynne MD [address] [place] [address] PCP - General Internal Medicine 02/20/23 Cami Buckley Community Health Worker 10/16/23 Margarita Coulter, DoreenD [address] [place] [address] Pharmacist Internal Medicine 11/20/23 Maine Bass RN [address] [place] [phone] Director Of Cardiopulmonary ServicesCopy Center Operator 09/30/24 12/28/24 documented as of this encounter
--- OUTSIDE RECORDS SUMMARY | 2025-06-28 19:33 | XMS_ITS | Clinical Summary ---
Author Organization [facility] Address [address] [place] [address] Phone Care Team Providers Care Critical Care Cns Name Role Phone Vida Parsons IMMIGRATION CASE MANAGER Primary Care Provider [phone] Allergies No known active allergies Medications methadone 10 mg/mL syringeIndication s:opioid use disorder Take 70 mg by mouth 1 (one) time each day. Max Daily Amount: 70 mg Active acetaminophen (TYLENOL) 500 mg tabletIndications :Chronic midline low back pain without sciatica,Chronic bilateral thoracic back pain Take 1 tablet (500 mg total) by mouth every 6 (six) hours if needed for mild pain or moderate pain. for mild pain 100 tablet 03/20/20 Active albuterol 2.5 mg /3 mL (0.083 %) nebulizer solutionIndicatio ns:Mild persistent asthma without complication Take 3 mL (2.5 mg total) by nebulization every 6 (six) hours if needed for shortness of breath or wheezing. 75 mL 03/20/20 026 Active fluticasone-salme terol (Advair Diskus) 250-50 mcg/dose diskus inhalerIndication s:Mild persistent asthma without complication Inhale 1 puff by mouth 2 (two) times a day. 1 each 03/20/20 026 Active gabapentin (NEURONTIN) 300 mg capsuleIndication s:Right leg pain Take 1 capsule (300 mg total) by mouth at bedtime. 28 each 03/20/20 026 Active hydrOXYzine HCL (ATARAX) 25 mg tabletIndications :Anxiety Take 1 tablet (25 mg total) by mouth 1 (one) time each day. May also take 1 tablet (25 mg total) 2 (two) times a day if needed for anxiety. 56 each 03/20/20 Active ibuprofen (ADVIL,MOTRIN) 200 mg tabletIndications :pain Take 2 tablets (400 mg total) by mouth 2 (two) times a day if needed for mild pain or moderate pain. 112 tablet 03/20/20 Active lamoTRIgine (LaMICtal) 25 mg tabletIndications :Bipolar 1 disorder (CMS/HCC V24, CMS/HCC V28) Take 1 tablet (25 mg total) by mouth at bedtime. 28 each 03/20/20 Active pantoprazole (PROTONIX) 40 mg EC tabletIndications :Gastroesophageal reflux disease without esophagitis Take 1 tablet (40 mg total) by mouth 1 (one) time each day. 28 each 03/20/20 Active predniSONE (DELTASONE) 10 mg tabletIndications :giant cell arteritis Take 3 tablets (30 mg total) by mouth 1 (one) time each day. 84 each 03/20/20 Active topiramate (TOPAMAX) 25 mg tabletIndications :Chronic migraine without aura without status migrainosus, not intractable Take 1 tablet (25 mg total) by mouth at bedtime. 28 each 03/20/20 Active traZODone (DESYREL) 150 mg tabletIndications :Psychophysiologi charlene insomnia Take 1 tablet (150 mg total) by mouth at bedtime. 30 each 03/20/20 Active Ventolin HFA 90 mcg/actuation inhalerIndication s:Mild persistent asthma without complication Inhale 2 puffs by mouth every 6 (six) hours if needed for shortness of breath or wheezing. 6.7 g 03/20/20 Active ferrous sulfate 325 mg (65 mg iron) EC tabletIndications :Iron deficiency Take 1 tablet (325 mg total) by mouth every other day. Do not crush, chew, or split. 15 each 03/21/20 Active mecobalamin, vitamin B12, 1,000 mcg tablet,disintegra tingIndications:B 12 deficiency Dissolve 1,000 mcg on top of the tongue 1 (one) time each day. 28 tablet 03/21/20 Active aspirin 81 mg EC tabletIndications :Bilateral carotid artery stenosis Take 1 tablet (81 mg total) by mouth 1 (one) time each day. 28 each 04/06/20 25 026 Active atorvastatin (LIPITOR) 40 mg tabletIndications :Bilateral carotid artery stenosis Take 1 tablet (40 mg total) by mouth at bedtime. 28 each 04/06/20 25 Active ergocalciferol (VITAMIN D-2) 1,250 mcg (50,000 unit) capsuleIndication s:Vitamin D deficiency Take 1 capsule (50,000 Units total) by mouth every 30 (thirty) days. 1 capsule 05/11/20 Active ARIPiprazole (Abilify) 5 mg tabletIndications :Bipolar 1 disorder (CMS/HCC V24, CMS/HCC V28) Take 1 tablet (5 mg total) by mouth 1 (one) time each day. 30 each 06/15/20 25 026 Active losartan (Cozaar) 25 mg tabletIndications :Primary hypertension Take 1 tablet (25 mg total) by mouth 1 (one) time each day. 30 each 06/17/20 026 Active cloNIDine (CATAPRES) 0.1 mg tabletIndications :Bipolar 1 disorder (CMS/HCC V24, CMS/HCC V28) Take 1 tablet (0.1 mg total) by mouth 2 (two) times a day if needed (bipolar disorder). 56 tablet 03/20/20 025 Discontinu ed(Prescri marcel Discontinu ed) cloNIDine (CATAPRES) 0.1 mg tabletIndications :Bipolar 1 disorder (CMS/HCC V24, CMS/HCC V28) Take 1 tablet (0.1 mg total) by mouth at bedtime. 28 each 03/20/20 25 025 Discontinu ed(Prescri marcel Discontinu ed) losartan (COZAAR) 25 mg tabletIndications :Primary hypertension Take 1 tablet (25 mg total) by mouth 1 (one) time each day. 30 each 11 03/20/20 025 Discontinu ed(Prescri marcel Discontinu ed) ondansetron ODT (ZOFRAN-ODT) 4 mg disintegrating tabletIndications :LUQ abdominal pain,Nausea Dissolve 1 tablet (4 mg total) on top of the tongue every 8 (eight) hours if needed for nausea or vomiting for up to 5 days. 15 tablet 06/17/20 025 Active Problems Problem Noted Date Diagnosed Date Mild cervical dysplasia 04/14/2025 Assessment & Plan (04/14/2025 10:49 AM EDT): Chronic condition; lat pap smear approx 2 years ago. Would benefit from a repeat PAP smear. Refer to IT SECURITY ARCHITECT. Overactive bladder 04/10/2025 Assessment & Plan (04/10/2025 2:59 PM EDT): Symptoms consistent with OAB. Recommended reduction of caffeine and alcohol intake.In setting of decreased urinary output, will refer to urologist. Decreased urine output 04/10/2025 Assessment & Plan (04/10/2025 2:56 PM EDT): Unable to accurately obtain bladder scan. Par able to urinate < 100 cc of urine at once. States this is normal for her. Refer to urologist for further evaluation. Other fatigue 04/01/2025 Assessment & Plan (04/01/2025 9:44 AM EDT): Chronic condition; could be multifactorial. PAR reports using CPAP daily. Work up for underlying etiology, such as vitamin D deficiency, b12 deficiency, folate deficiency, iron deficiency, anemia, and thyroid disease. Other contributing factor to fatigue may be secondary to intake of Clonidine twice a day. Reevaluate after workup and supplementation of any deficiencies. Bilateral carotid artery stenosis 03/30/2025 Assessment & Plan (04/01/2025 9:21 AM EDT): Chronic condition; will need to obtain records from [facility]. She is already to see vascular surgery. PAR associated symptoms include numbness of upper extremities and dizziness. Chronic midline low back pain without sciatica 0 03/30/2025 Assessment & Plan (04/01/2025 9:10 AM EDT): Chronic condition. Continue use of APAP and ibuprofen as needed. Order x-ray of L-spine. Chronic bilateral thoracic back pain 03/30/2025 Assessment & Plan (04/01/2025 9:11 AM EDT): Chronic pain. Continue with current pain management. Tender on exam. Order x-ray of thoracic spine. Mild persistent asthma without complication 03/09 Assessment & Plan (04/01/2025 9:17 AM EDT): Chronic condition; stable. Continue current medications. Monitor. Intermittent claudication (CMS/[facility] V24) 03/30/20 Assessment & Plan (04/01/2025 9:13 AM EDT): Chronic condition; labile. Order arterial u/s of BLE with VAISHNAVI. Anxiety 03/30/2025 Assessment & Plan (04/01/2025 9:39 AM EDT): Chronic condition; labile. Continue use of hydroxyzine. Has been taking only once a day. Advise PAR that she can take medication twice a day as needed. Monitor and reevaluate. Gastroesophageal reflux disease without esophagi tis 03/30/2025 Assessment & Plan (04/01/2025 9:31 AM EDT): Chronic condition; stable. Continue daily dose of PPI. Advised to avoid trigger foods. Chronic migraine without aur a without status migrainosus, not intractable 03/30/2025 Assessment & Plan (04/01/2025 9:14 AM EDT): Chronic condition; progressing. PAR admits to not taking Topamax as prescribed. Advised PAR to resume medication nightly. Reevaluate. Psychophysiological insomnia 03/30/2025 Assessment & Plan (04/01/2025 9:40 AM EDT): Chronic condition; labile. Increase frequency use of hydroxyzine as needed. Continue to monitor. Right leg pain 03/30/2025 Assessment & Plan (04/01/2025 9:16 AM EDT): Chronic condition pain management mildly with gabapentin. Neurologist in the past did some studies bu PAR and daughter are unclear about results. Will need to obtain records. Temporal arteritis ([place] V24, [facility] V28) Assessment & Plan (04/01/2025 9:18 AM EDT): Currently being treated with oral prednisone at 30 mg daily. Follow up with neurologist as indicated. Episodic opioid dependence ([facility] V24, [facility] V28) 03/10/2025 Assessment & Plan (04/01/2025 9:32 AM EDT): Chronic condition. History of Heroin use. Goes to Methadone clinic weekly. Continue daily Methadone use. Bipolar 1 disorder ([facility] V24, [facility] V28) Assessment & Plan (04/01/2025 9:34 AM EDT): Chronic condition. Continue current medications. Continue therapy as indicated. Needs assistance getting back in to see psychiatry. Will message SW regarding a new referral. Chronic hepatitis C without hepatic coma ([facility] V24, [facility] V28) 03/10/2025 Assessment & Plan (04/01/2025 9:30 AM EDT): Chronic condition. Will need to obtain medical records from previous PCP regarding treatment. PTSD (post-traumatic stress disorder) Assessment & Plan (04/01/2025 9:35 AM EDT): Chronic condition; stable. Continue with therapy sessions. Monitor. Obstructive sleep apnea Assessment & Plan (04/01/2025 9:16 AM EDT): Chronic condition; stable. Uses CPAP nightly. Continue to encourage daily use. Moderate cognitive impairment Assessment & Plan (04/10/2025 2:55 PM EDT): SLUMS score 14/30. Suggestive of dementia, but is setting of low B12 could be contributing to poor cognition. Continue to supplement B12 and reevaluate. Assessment & Plan (04/01/2025 9:36 AM EDT): Need to work up. Check CBC, TSH, vitamin D, B12, folate. Plan to perform SLUMS next visit. Hypertension Assessment & Plan (04/01/2025 9:20 AM EDT): Chronic condition; stable. Blood pressure is at goal. Continue current medication. Monitor for hypotension, as PAR is prescribed clonidine which she takes twice a day for her bipolar disorder. Blind right eye Assessment & Plan (04/01/2025 9:37 AM EDT): Chronic condition; from report of daughter resulted secondary to temporal arteritis. Recommend follow up with inspector subassembly as indicated. Resolved Problems Problem Noted Date Diagnosed Date Resolved Date Examination 03/30/2025 04/01/2025 Encounters Date Type Department Care Team Description 06/23/2025 12:30 PM EDT Office Visit [address] [phone] Vida Parsons NP Hypotension due to hypovolemia (Primary Dx); Gastroenteritis and colitis, viral; Myalgia 06/17/2025 10:30 AM EDT Office Visit [address] [address] Vida Parsons NP LUQ abdominal pain (Primary Dx); Weakness; Diarrhea, unspecified type; Nausea; Primary hypertension 06/10/2025 12:00 PM EDT Office Visit [address] [address] Vida Parsons NP Other specified hypotension (Primary Dx); OAB (overactive bladder); Combined B12 and folate deficiency anemia; Iron deficiency anemia due to chronic blood loss; Other fatigue; Decreased urine output; Primary hypertension 06/09/2025 2:00 PM EDT PACE External Visit [address] [address] 06/09/2025 11:00 AM EDT PACE External Visit [address] [phone] 06/03/2025 Social Work [facility] Social Work [address] [place] [phone] Pamela Orellana LSW 06/02/[address] [phone] Zuleyma Liang, FERNANDO 05/03/2025 2:30 PM EDT Treatment [facility] Occupational Therapy [address] [place] [phone] Sugar Gutierrez, FERRER 04/27/2025 Telephone [facility] Occupational Therapy [address] [place] [phone] Sugar Gutierrez, FERRER 04/26/2025 Telephone [facility] Occupational Therapy [address] [place] [phone] Sugar Gutierrez, FERRER 04/21/2025 9:50 AM EDT PACE External Visit [address] [address] 04/14/[address] [phone] Angela Alfonso, FERNANDO 04/08/2025 11:30 AM EDT Office Visit [address] [address] Vida Parsons NP Moderate cognitive impairment (Primary Dx); Temporal arteritis (CMS/HCC V24, CMS/HCC V28); Other fatigue; Decreased urine output; Overactive bladder 04/06/2025 Plan of Care Documentation [address] [address] 03/28/2025 3:00 PM EDT Treatment [facility] Occupational Therapy [address] [place] [address] [place] [phone] Matt, Sugar, FERRER from Last 3 Months Medical History Medical History Date Comments PTSD (post-traumatic stress disorder) Depression Blind right eye Memory loss Obstructive sleep apnea Hypertension Carotid stenosis Headache Asthma GERD (gastroesophageal reflux disease) Substance abuse ([place] V24, [place] V28) Family History Medical History Relation Name Comments Emphysema Father Relation Name Status Comments Father Mother Alive Social History Tobacco Use Types Packs/Day Years Used Date Smoking Tobacco: Every Day Cigarettes Smokeless Tobacco: Never Tobacco Cessation:Ready to Q uit: Not Asked; Counseling Given: Not Answered Alcohol Use Standard Drinks/Week Comments Yes 0 [...] Orientation Straight 01/27/2025 6: 30 PM EDT Obstetrics History Para Term AB IAB SAB Ectopic Multiple Livin g Live Births 3 3 Date Outcome GA Total Labor Labor/2nd/3rd Weight Sex Type Anes PTL Anne A1 A5 Name Clin Last Filed Vital Signs Vital Sign Reading Time Taken Comments Blood Pressure 75/42 06/24/2025 11:17 AM EDT Pulse 78 06/24/2025 11:17 AM EDT Temperature 36.1 C (97 F) 06/24/2025 11:17 AM EDT Respiratory Rate 18 06/24/2025 11:17 AM EDT Oxygen Saturation 93% 06/24/2025 11:17 AM EDT Inhaled Oxygen Concentration - - Weight 70.8 kg (156 lb) 06/10/2025 12:37 PM EDT Height - - Body Mass Index - - Plan of Treatment Upcoming Encounters Date Type Department Care Team (Late st Contact Info) Description 06/30/2025 9:00 AM EDT [facility] [address] [place] [address] 07/01/2025 9:00 AM EDT [facility] Attendance/Day [facility] [place] [facility] [address] [place] [phone] 07/05/2025 9:00 AM EDT [facility] Attendance[facility] [place] [facility] [address] [place] [address] 07/05/2025 12:00 PM EDT [facility] [place] [facility] [address] [place] [phone] Vida Parsons, GERA [address] [address] 07/07/2025 9:00 AM EDT [facility] [place] [facility] [address] [place] [phone] 07/08/2025 9:00 AM EDT [facility] [place] [facility] [address] [place] [phone] 07/12/2025 9:00 AM EST [facility]end[facility] [place] [facility] [address] [place] [phone] 07/12/2025 11:00 AM EST Clinical Support [facility] [place] [address] [place] [phone] 07/14/2025 9:00 AM EST [facility] Attendance[facility] [place] [facility] [address] [place] [phone] 07/15/2025 9:00 AM EST [facility]endance[facility] [place] [facility] [address] [place] [phone] 07/19/2025 9:00 AM EST [facility] Attendance[facility] [place] [facility] [address] [place] [phone] 07/19/2025 10:10 AM EST [facility] [place] [address] [place] [phone] 07/19/2025 3:30 PM EST [facility] External Visit [facility] [place] [address] [place] [phone] 07/21/2025 9:00 AM EST Clinical Support [facility] [place] [address] [place] [phone] 07/21/2025 9:00 AM EST [facility] Attendance[facility] [facility] [place] Day [address] [address] 07/22/2025 9:00 AM EST [facility] Attendance[facility] [facility] [place] [facility] [address] [address] 07/26/2025 9:00 AM EST [facility] Attendance[facility] [place] [facility] [place] [facility] [address] [phone] 07/26/2025 10:20 AM EST Clinical Support [facility] [place] [address] [place] [phone] 07/28/2025 9:00 AM EST [facility] Attendance[facility] [facility] [facility] [address] [phone] 07/29/2025 9:00 AM EST [facility] Attendance[facility] [facility] [address] [address] 08/02/2025 9:00 AM EST [facility] Attendance[facility] [facility] [place] [address] [phone] 08/04/2025 9:00 AM EST [facility] Attendance[facility] [facility] [address] [address] 08/05/2025 9:00 AM EST [facility] Attendance[facility] [facility] [place] [address] [address] 08/09/2025 9:00 AM EST [facility] Attend[facility] [place] [facility] [address] [place] [address] 08/11/2025 9:00 AM EST [facility] [place] [facility] [address] [place] [address] 08/12/2025 9:00 AM EST [facility] [place] [facility] [address] [place] [address] 08/16/2025 9:00 AM EST [facility] [place] [facility] [address] [place] [phone] 08/18/2025 9:00 AM EST [facility] Att[facility] [place] [facility] [address] [place] [address] 08/19/2025 9:00 AM EST [facility]end[facility] [place] [facility] [address] [place] [address] 08/23/2025 9:00 AM EST [facility] [place] [facility] [address] [place] [phone] 08/25/2025 9:00 AM EST [facility] Att[facility] [place] [facility] [address] [place] [phone] 08/26/2025 9:00 AM EST [facility] [place] [facility] [address] [place] [address] 08/30/2025 9:00 AM EST [facility] [place] [facility] [address] [place] [address] 09/01/2025 9:00 AM EST [facility] Att[facility] [place] [facility] [address] [place] [address] 09/02/2025 9:00 AM EST [facility] Att[facility] [place] [facility] [address] [place] [address] 09/05/2025 1:00 PM EST Appointment [address] [place] [address] 09/06/2025 9:00 AM EST [facility] [place] [facility] [address] [place] [phone] 09/06/2025 1:30 PM EST [facility] [address] [address] 09/08/2025 9:00 AM EST [facility] [place] [facility] [address] [address] 09/09/2025 9:00 AM EST [facility] Day [address] [phone] 09/13/2025 9:00 AM EST [facility] [employer] [place] Day [address] [phone] 09/15/2025 9:00 AM EST [facility] Attendance[facility] [employer] [place] Day [address] [address] 09/16/2025 9:00 AM EST [facility] Attendance[facility] [employer] [place] Day [address] [address] 09/20/2025 9:00 AM EST [facility] Attendance[facility] [employer] [place] Day [address] [address] 09/22/2025 9:00 AM EST [facility] Attendance[facility] [employer] [place] Day [address] [phone] 09/23/2025 9:00 AM EST [facility] [place] [facility] [address] [place] [phone] 09/27/2025 9:00 AM EST [facility] [place] [facility] [address] [place] [address] 09/29/2025 9:00 AM EST [facility] Attend[facility] [place] [facility] [address] [place] [address] 09/30/2025 9:00 AM EST [facility] [place] [facility] [address] [place] [address] 10/04/2025 9:00 AM EST [facility] [place] [facility] [address] [place] [phone] 10/06/2025 9:00 AM EST [facility] [place] [facility] [address] [place] [phone] 10/07/2025 9:00 AM EST [facility] [place] [facility] [address] [place] [phone] 10/11/2025 9:00 AM EST [facility] [place] [facility] [address] [place] [phone] 10/13/2025 9:00 AM EST [facility] [place] [facility] [address] [place] [phone] 10/14/2025 9:00 AM EST [facility] [place] [facility] [address] [place] [phone] 10/18/2025 9:00 AM EST [facility] [place] [facility] [address] [place] [phone] 10/20/2025 9:00 AM EST [facility] [place] [facility] [address] [place] [address] 10/21/2025 9:00 AM EST [facility] [place] [facility] [address] [place] [address] 10/25/2025 9:00 AM EST [facility] [place] [facility] [address] [place] [phone] 10/27/2025 9:00 AM EST [facility] [place] [facility] [address] [place] [phone] 10/28/2025 9:00 AM EST [facility] [place] [facility] [address] [place] [phone] 11/01/2025 9:00 AM EST [facility] [place] [facility] [address] [place] [phone] 11/03/2025 9:00 AM EST [facility] [place] [facility] [address] [place] [phone] 11/04/2025 9:00 AM EST [facility] [place] [facility] [address] [place] [phone] 11/08/2025 9:00 AM EST [facility] [place] [facility] [address] [place] [phone] 11/10/2025 9:00 AM EST [facility] [place] [facility] [address] [place] [phone] 11/11/2025 9:00 AM EST [facility] [place] [facility] [address] [place] [phone] 11/15/2025 9:00 AM EDT [facility] [place] [facility] [address] [place] [phone] 11/17/2025 9:00 AM EDT [facility] [place] [facility] [address] [place] [phone] 11/18/2025 9:00 AM EDT [facility] Attendance[facility] [place] [facility] [address] [place] [address] 11/22/2025 9:00 AM EDT [facility] Attendance[facility] [place] [facility] [address] [place] [address] 11/24/2025 9:00 AM EDT [facility] Attend[facility] [place] [facility] [address] [place] [address] 11/25/2025 9:00 AM EDT [facility] Attendance[facility] [place] [facility] [address] [place] [phone] 11/29/2025 9:00 AM EDT [facility] Attendance[facility] [facility] [place] [facility] [address] [place] [phone] 12/01/2025 9:00 AM EDT [facility] Attendance[facility] [place] [facility] [address] [place] [phone] 12/02/2025 9:00 AM EDT [facility] Attend[facility] [facility] [place] [facility] [address] [place] [phone] 12/06/2025 9:00 AM EDT [facility] [place] [facility] [address] [place] [phone] 12/08/2025 9:00 AM EDT [facility] Attendance[facility] [facility] [place] [facility] [address] [place] [address] 12/09/2025 9:00 AM EDT [facility] [place] [facility] [address] [place] [address] 12/13/2025 9:00 AM EDT [facility] [place] [facility] [address] [place] [phone] 12/15/2025 9:00 AM EDT [facility] [place] [facility] [address] [place] [address] 12/16/2025 9:00 AM EDT [facility] [place] [facility] [address] [place] [address] 12/20/2025 9:00 AM EDT [facility] [place] [facility] [address] [place] [address] 12/22/2025 9:00 AM EDT [facility] [place] [facility] [address] [place] [address] 12/23/2025 9:00 AM EDT [facility] [place] [facility] [address] [place] [phone] 12/27/2025 9:00 AM EDT [facility] [place] [facility] [address] [place] [address] 12/29/2025 9:00 AM EDT [facility] [place] [facility] [address] [place] [phone] 12/30/2025 9:00 AM EDT [facility] [place] [facility] [address] [place] [phone] 01/03/2026 9:00 AM EDT [facility] [place] [facility] [address] [place] [address] 01/05/2026 9:00 AM EDT [facility] [place] [facility] [address] [place] [address] 01/06/2026 9:00 AM EDT [facility] [place] [facility] [address] [place] [phone] 01/10/2026 9:00 AM EDT [facility] [place] [facility] [address] [place] [address] 01/12/2026 9:00 AM EDT [facility] [place] [facility] [address] [place] [address] 01/13/2026 9:00 AM EDT [facility] [place] [facility] [facility] [address] [place] [address] 01/17/2026 9:00 AM EDT [facility] [place] [facility] [address] [place] [phone] 01/19/2026 9:00 AM EDT [facility] [place] [facility] [address] [place] [phone] 01/20/2026 9:00 AM EDT [facility] [place] [facility] [address] [place] [phone] 01/24/2026 9:00 AM EDT [facility] [place] [facility] [address] [place] [phone] 01/26/2026 9:00 AM EDT [facility] [place] [facility] [address] [place] [phone] 01/27/2026 9:00 AM EDT [facility] [place] [facility] [address] [place] [phone] 01/31/2026 9:00 AM EDT [facility] [place] [facility] [address] [place] [phone] 02/02/2026 9:00 AM EDT [facility] [place] [facility] [address] [place] [phone] 02/03/2026 9:00 AM EDT [facility] [place] [facility] [address] [place] [address] 02/07/2026 9:00 AM EDT [facility] [place] [facility] [address] [place] [address] 02/09/2026 9:00 AM EDT [facility] [place] [facility] [address] [place] [address] 02/10/2026 9:00 AM EDT [facility] [facility] [place] [facility] [address] [place] [address] 02/14/2026 9:00 AM EDT [facility] [place] [facility] [address] [place] [address] 02/16/2026 9:00 AM EDT [facility] [place] [facility] [address] [place] [address] 02/17/2026 9:00 AM EDT [facility] [facility] [place] [facility] [address] [place] [phone] 02/21/2026 9:00 AM EDT [facility] [place] [facility] [address] [place] [phone] 02/23/2026 9:00 AM EDT [facility] [facility] [place] [facility] [address] [place] [address] 02/24/2026 9:00 AM EDT [facility] [facility] [place] [facility] [address] [place] [address] 02/28/2026 9:00 AM EDT [facility] [place] [facility] [address] [place] [address] 03/02/2026 9:00 AM EDT [facility] [place] [facility] [address] [place] [address] 03/03/2026 9:00 AM EDT [facility] [place] [facility] [facility] [address] [place] [address] 03/07/2026 9:00 AM EDT [facility] [place] [facility] [address] [place] [address] 03/09/2026 9:00 AM EDT [facility] [place] [facility] [address] [place] [address] 03/10/2026 9:00 AM EDT [facility] [place] [facility] [address] [place] [address] 03/14/2026 9:00 AM EDT [facility] [place] [facility] [address] [place] [address] 03/16/2026 9:00 AM EDT [facility] [place] [facility] [address] [place] [phone] 03/17/2026 9:00 AM EDT [facility] [place] [facility] [address] [place] [phone] 03/21/2026 9:00 AM EDT [facility] [place] [facility] [address] [place] [address] 03/23/2026 9:00 AM EDT [facility] [place] [facility] [address] [place] [address] 03/24/2026 9:00 AM EDT [facility] [place] [facility] [address] [place] [address] 03/28/2026 9:00 AM EDT [facility] [place] [facility] [address] [place] [address] 03/30/2026 9:00 AM EDT [facility] [place] [facility] [address] [place] [address] 03/31/2026 9:00 AM EDT [facility] [place] [facility] [address] [place] [address] 04/04/2026 9:00 AM EDT [facility] [place] [facility] [address] [place] [address] 04/06/2026 9:00 AM EDT [facility] [place] [facility] [address] [place] [phone] 04/07/2026 9:00 AM EDT [facility] [place] [facility] [address] [place] [phone] 04/11/2026 9:00 AM EDT [facility] [place] [facility] [address] [place] [phone] 04/13/2026 9:00 AM EDT [facility] [place] [facility] [address] [place] [phone] 04/14/2026 9:00 AM EDT [facility] [place] [facility] [address] [place] [address] 04/18/2026 9:00 AM EDT [facility] [place] [facility] [address] [place] [phone] 04/20/2026 9:00 AM EDT [facility] [place] [facility] [address] [place] [address] 04/21/2026 9:00 AM EDT [facility] [place] [facility] [address] [place] [phone] 04/25/2026 9:00 AM EDT [facility] [place] [facility] [address] [place] [phone] 04/27/2026 9:00 AM EDT [facility] [place] [facility] [address] [place] [phone] 04/28/2026 9:00 AM EDT [facility] [place] [facility] [address] [place] [phone] 05/02/2026 9:00 AM EDT [facility] [place] [facility] [address] [place] [phone] 05/04/2026 9:00 AM EDT [facility] [place] [facility] [address] [place] [phone] 05/05/2026 9:00 AM EDT [facility] [place] [facility] [address] [place] [phone] 05/09/2026 9:00 AM EDT [facility] [place] [facility] [address] [place] [phone] 05/11/2026 9:00 AM EDT [facility] [place] [facility] [address] [place] [phone] 05/12/2026 9:00 AM EDT [facility] [facility] [place] [facility] [address] [place] [phone] 05/16/2026 9:00 AM EDT [facility] [place] [facility] [address] [place] [phone] 05/18/2026 9:00 AM EDT [facility] [facility] [facility] [place] [facility] [address] [place] [phone] 05/19/2026 9:00 AM EDT [facility] [place] [facility] [address] [place] [address] 05/23/2026 9:00 AM EDT [facility] [place] [facility] [address] [place] [phone] 05/30/2026 9:00 AM EDT [facility] [place] [facility] [address] [place] [phone] 06/06/2026 9:00 AM EDT [facility] [place] [facility] [address] [place] [phone] 06/13/2026 9:00 AM EDT [facility] [place] [facility] [address] [place] [phone] 06/20/2026 9:00 AM EDT [facility] [place] [facility] [address] [place] [phone] 06/27/2026 9:00 AM EDT [facility] [place] [facility] [address] [place] [phone] 07/04/2026 9:00 AM EDT [facility] [place] [facility] [address] [place] [phone] 07/11/2026 9:00 AM EST [facility] [place] [facility] [address] [place] [phone] 07/18/2026 9:00 AM EST [facility] [place] [facility] [address] [place] [phone] 07/25/2026 9:00 AM EST [facility] [place] [facility] [address] [place] [phone] 08/01/2026 9:00 AM [facility] Attend[facility]Day Center [facility] [address] [place] [address] Health Maintenance Due Date Last Done Comments Colorectal Cancer Screening: Colonoscopy 1962 Hepatitis A Vaccines (1 of 2 - Risk 2-dose series) 1981 Cervical Cancer Screening: Pap Smear 1983 RSV Immunization Adult Patients (1 - Risk 50-74 years 1-dose series) 2012 Zoster Vaccines (1 of 2) 2012 Breast Cancer Screening 11/06/2020 11/06/2018 Hepatitis B Vaccines (1 of 3 - Risk 3-dose series) 2022 HIV Screening 01/25/2025 Hepatitis C Screening 01/25/2025 Social Influencers of Health Screening 01/25/2025 COVID-19 Vaccine (2 - season) 2025 01/26/2021 Influenza Vaccine (#1) 2025 , 07/02/2015, 05/03/2013, Additional history exists Hypertension/CHF/CAD Annual BMP Blood Test 06/17/2026 06/17/2025, 06/17/2025, 03/18/2025, Additional history exists Cholesterol Screening (Lipid Panel) 03/18/2030 03/18/2025, 05/07/2021 DTaP,Tdap,and Td Vaccines (3 - Td or Tdap) 03/26/2033 03/26/2023, 01/29/2000 Pneumococcal Vaccine: 50+ Years Completed 03/26/2023 Depression Screening Completed 03/18/2025 HIB Vaccines Aged Out No longer eligi ble based on patient's age to complete this topic HPV Vaccines Aged Out No longer eligi ble based on patient's age to complete this topic IPV Vaccines Aged Out No longer eligi ble based on patient's age to complete this topic MMR Vaccines Aged Out No longer eligi ble based on patient's age to complete this topic Meningococcal ACWY Vaccine Aged Out N o longer eligible based on patient's age to complete this topic Meningococcal B Vaccine Aged Out No l onger eligible based on patient's age to complete this topic RSV Immunization Patients Under 20 months Aged Out No longer eligible based on patient's age to complete this topic Varicella Vaccines Aged Out No longer eligible based on patient's age to complete this topic Procedures Procedure Name Priority Date/Time Associated Diagnosis Comments MAGNESIUM Routine 06/17/2025 11:19 AM EDT Diarrhea, unspecified type COMPREHENSIVE METABOLIC PANEL STAT 06/17/2025 10:22 AM EDT LUQ abdominal pain Diarrhea, unspecified type AMYLASE Routine 06/17/2025 10:22 AM EDT LUQ abdominal pain LIPASE STAT 06/17/2025 10:22 AM EDT LUQ abdominal pain BASIC METABOLIC PANEL Routine 06/17/2025 10:03 AM EDT Adult general medical examination FERRITIN Routine 06/17/2025 10:03 AM EDT Adult general medical examination IRON AND TIBC Routine 06/17/2025 10:03 AM EDT Adult general medical examination THYROID STIMULATING HORMONE WITH REFLEX TO FREE T4 AND FREE T3 Routine 06/17/2025 10:03 AM EDT Adult general medical examination VITAMIN B12 AND FOLATE Routine 10:03 AM EDT Adult general medical examination CBC WITH AUTO DIFFERENTIAL Routine 06/10/2025 1:32 PM EDT Iron deficiency anemia due to chronic blood loss CBC AND DIFFERENTIAL Routine 06/10/2025 1:32 PM EDT Iron deficiency anemia due to chronic blood loss URINALYSIS WITH REFLEX MICROSCOPIC AND CULTURE Routine 04/08/2025 4:20 PM EDT Other fatigue LIPID PANEL WITH REFLEX TO DIRECT LDL Routine 03/18/2025 1:31 PM EDT Bilateral carotid artery stenosis Examination from Last 3 Months or Most Recently Relevant to Health Maintenance Results * Magnesium (06/17/2025 11:19 AM EDT) Magnesium 2.0 1.9 - 2.6 mg/dL LAB CHEMISTRY METHOD 06/17/2025 12:53 PM EDT [facility] Blood Venous blood specimen / Unknown Venipuncture / Unknown 06/17/2025 11:19 AM EDT 06/17/2025 11:19 AM EDT Vida Lia IMMIGRATION CASE MANAGER LAB BLOOD ORDERABLES Final Re sult Performing Organization Address [facility] de Phone Number [facility] [address] [place] [address], [place] [phone] * (ABNORMAL) Lipase (06/17/2025 10:22 AM EDT) Lipase <10(L) 13 - 75 unit/L LAB CHEMISTRY METHOD 06/17/2025 2:24 PM EDT [facility] Blood Venous blood specimen / Unknown Venipuncture / Unknown 06/17/2025 10:22 AM EDT 06/17/2025 10:22 AM EDT Vida Gladis Parsons IMMIGRATION CASE MANAGER LAB BLOOD ORDERABLES Final Re sult Performing Organization Address [facility] de Phone Number [facility] [address] [place] [address], [place] [phone] * Amylase (06/17/2025 10:22 AM EDT) Amylase 31 25 - 115 unit/L LAB CHEMISTRY METHOD 06/17/2025 2:20 PM EDT [facility] Blood Venous blood specimen / Unknown Venipuncture / Unknown 06/17/2025 10:22 AM EDT 06/17/2025 10:22 AM EDT [facility] Parsons IMMIGRATION CASE MANAGER LAB BLOOD ORDERABLES Final Re sult Performing Organization Address [facility] Co de Phone Number [facility] [address] [place] [address], [place] [phone] * (ABNORMAL) Comprehensive metabolic panel (06/17/2025 10:22 AM EDT) Sodium 138 133 - 145 mmol/L LAB CHEMISTRY METHOD 06/17/2025 2:36 PM EDT [facility] Potassium 4.3 3.5 - 5.5 mmol/L LAB CHEMISTRY METHOD 06/17/2025 2:36 PM T [facility] Chloride 104 96 - 110 mmol/L LAB CHEMISTRY METHOD 06/17/2025 2:36 PM EDT [facility] CO2 27 21 - 32 mmol/L LAB CHEMISTRY METHOD 06/17/2025 2:36 PM [facility] Anion Gap 7 3 - 11 LAB CHEMISTRY METHOD 06/17/2025 2:36 PM [facility] Glucose 100 70 - 100 mg/dL LAB CHEMISTRY METHOD 06/17/2025 2:36 PM [facility] BUN 5 5 - 25 mg/dL LAB CHEMISTRY METHOD 06/17/2025 2:36 PM [facility] Creatinine 0.91 0.50 - 1.10 mg/dL LAB CHEMISTRY METHOD 06/17/2025 2:36 PM EDT [facility] eGFR 71 >=60 mL/min/1. 73m2 LAB CHEMISTRY METHOD 06/17/2025 2:36 PM T [facility] Comment:Calculation based on the Chronic Kidney Disease Epidemiology Collaboration (CKD-EPI) equation refit without adjustment for race. BUN/Creatinine Ratio 5.5 LAB CHEMISTRY METHOD 06/17/2025 2:36 PM T [facility] Calcium 9.2 8.5 - 10.5 mg/dL LAB CHEMISTRY METHOD 06/17/2025 2:36 PM T [facility] AST (SGOT) 19 10 - 42 unit/L LAB CHEMISTRY METHOD 06/17/2025 2:36 PM EDT [facility] ALT (SGPT) 26 10 - 60 unit/L LAB CHEMISTRY METHOD 06/17/2025 2:36 PM EDT [facility] Comment:Results verified by repeat testing Alkaline Phosphatase 128(H) 42 - 121 unit/L LAB CHEMISTRY METHOD 06/17/2025 2:36 PM EDT [facility] Total Protein 7.3 6.0 - 8.0 g/dL LAB CHEMISTRY METHOD 06/17/2025 2:36 PM EDT [facility] Albumin 3.3 3.2 - 5.0 g/dL LAB CHEMISTRY METHOD 06/17/2025 2:36 PM EDT [facility] Total Bilirubin 0.6 0.0 - 1.4 mg/dL LAB CHEMISTRY METHOD 06/17/2025 2:36 PM EDT [facility] Blood Venous blood specimen / Unknown Venipuncture / Unknown 06/17/2025 10:22 AM EDT 06/17/2025 10:22 AM EDT Vida Parsons NP LAB BLOOD ORDERABLES Final Re sult [facility] [address] [place] [address], * Thyroid stimulating hormone with reflex to free t4 and free t3 (06/17/2025 10:03 AM EDT) TSH 0.75 0.40 - 4.00 mcIU/mL LAB CHEMISTRY METHOD 06/17/2025 2:05 PM EDT [facility] Blood Venous blood specimen / Unknown Venipuncture / Unknown 06/17/2025 10:03 AM EDT 06/17/2025 10:03 AM EDT us Vida Gladis Parsons IMMIGRATION CASE MANAGER LAB BLOOD ORDERABLES Final Re sult Performing Organization Address City/[facility]/ZIP Co de Phone Number [facility] [address] [place] [address], [place] [phone] * Vitamin B12 and folate (06/17/2025 10:03 AM EDT) Vitamin B-12 538 250 - 900 pcg/mL LAB CHEMISTRY METHOD 06/17/2025 1:22 PM EDT [facility] Folate 8.9 2.8 - 17.0 ng/ml LAB CHEMISTRY METHOD 06/17/2025 1:22 PM EDT [facility] Blood Venous blood specimen / Unknown Venipuncture / Unknown 06/17/2025 10:03 AM EDT 06/17/2025 10:03 AM EDT Vida Parsons IMMIGRATION CASE MANAGER LAB BLOOD ORDERABLES Final Re sult Performing Organization Address [facility]/ZIP Co de Phone Number [facility] [address] [place] [address], [place] [phone] * Iron and TIBC (06/17/2025 10:03 AM EDT) Iron 50 40 - 150 mcg/dL LAB CHEMISTRY METHOD 06/17/2025 1:03 PM EDT [facility] TIBC 281 250 - 450 mcg/dL LAB CHEMISTRY METHOD 06/17/2025 1:03 PM EDT [facility] Iron Saturation 18 15 - 50 % LAB CHEMISTRY METHOD 06/17/2025 1:03 PM EDT [facility] Blood Venous blood specimen / Unknown Venipuncture / Unknown 06/17/2025 10:03 AM EDT 06/17/2025 10:03 AM EDT us Vida Parsons IMMIGRATION CASE MANAGER LAB BLOOD ORDERABLES Final Re sult [facility] [address] [place] [address], [place] [phone] * (ABNORMAL) Ferritin (06/17/2025 10:03 AM EDT) [facility] Ferritin 287(H) 8 - 252 ng/mL LAB CHEMISTRY METHOD 06/17/2025 1:22 PM [facility] Blood Venous blood specimen / Unknown Venipuncture / Unknown 06/17/2025 10:03 AM EDT 06/17/2025 10:03 AM EDT us Vida Parsons IMMIGRATION CASE MANAGER LAB BLOOD ORDERABLES Final Re sult [facility] [address] [place] [address], [place] [phone] * (ABNORMAL) Basic metabolic panel (06/17/2025 10:03 AM EDT) [facility] Sodium 138 133 - 145 mmol/L LAB CHEMISTRY METHOD 06/17/2025 1:00 PM [facility] Potassium 4.1 3.5 - 5.5 mmol/L LAB CHEMISTRY METHOD 06/17/2025 1:00 PM [facility] Chloride 105 96 - 110 mmol/L LAB CHEMISTRY METHOD 06/17/2025 1:00 PM [facility] CO2 27 21 - 32 mmol/L LAB CHEMISTRY METHOD 06/17/2025 1:00 PM [facility] Anion Gap 6 3 - 11 LAB CHEMISTRY METHOD 06/17/2025 1:00 PM [facility] Glucose 100 70 - 100 mg/dL LAB CHEMISTRY METHOD 06/17/2025 1:00 PM [facility] BUN 4(L) 5 - 25 mg/dL LAB CHEMISTRY METHOD 06/17/2025 1:00 PM [facility] Creatinine 0.86 0.50 - 1.10 mg/dL LAB CHEMISTRY METHOD 06/17/2025 1:00 PM EDT [facility] eGFR 76 >=60 mL/min/1. 73m2 LAB CHEMISTRY METHOD 06/17/2025 1:00 PM EDT [facility] Comment:Calculation based on the Chronic Kidney Disease Epidemiology Collaboration (CKD-EPI) equation refit without adjustment for race. BUN/Creatinine Ratio 4.7 LAB CHEMISTRY METHOD 06/17/2025 1:00 PM EDT [facility] Calcium 9.1 8.5 - 10.5 mg/dL LAB CHEMISTRY METHOD 06/17/2025 1:00 PM EDT [facility] Blood Venous blood specimen / Unknown Venipuncture / Unknown 06/17/2025 10:03 AM EDT 06/17/2025 10:03 AM EDT Vida Parsons IMMIGRATION CASE MANAGER LAB BLOOD ORDERABLES Final Re sult [facility] [address] [place] [address], [place] [phone] * (ABNORMAL) CBC auto differential (06/10/2025 1:32 PM EDT) WBC 10.6 4.8 - 10.8 K/mcL LAB HEMETOLOGY METHOD 06/10/2025 5:52 PM EDT [facility] RBC 4.20 3.80 - 4.80 M/mcL LAB HEMETOLOGY METHOD 06/10/2025 5:52 PM EDT [facility] Hemoglobin 12.9 11.5 - 16.0 g/dL LAB HEMETOLOGY METHOD 06/10/2025 5:52 PM EDT [facility] Hematocrit 39.2 35.0 - 47.0 % LAB HEMETOLOGY METHOD 06/10/2025 5:52 PM EDT [facility] MCV 92.7 79.0 - 98.0 FL LAB HEMETOLOGY METHOD 06/10/2025 5:52 PM EDT [facility] MCH 30.5 27.0 - 32.0 pcg LAB HEMETOLOGY METHOD 06/10/2025 5:52 PM EDT [facility] MCHC 32.9 32.0 - 37.0 g/dL LAB HEMETOLOGY METHOD 06/10/2025 5:52 PM EDT [facility] RDW 13.0 11.0 - 15.0 % LAB HEMETOLOGY METHOD 06/10/2025 5:52 PM EDT [facility] Platelets 207 130 - 400 K/mcL LAB [facility]EMETOLOGY [facility]25 [facility] MPV 11.1(H) 7.0 - 11.0 FL LAB HEMETOLOGY METHOD 06/10/2025 5:52 PM EDT [facility] NRBC 0.0 <1.0 % LAB HEMETOLOGY METHOD 06/10/2025 5:52 PM EDT [facility] NRBC Absolute 0.00 <0.10 K/mcL LAB HEMETOLOGY METHOD 06/10[facility]2025 5:[facility] Neutrophils Relative 58.9 % LAB HEMETOLOGY METHOD 06/10/2025 5:52 PM [facility] Lymphocytes Relative 27.4 % LAB HEMETOLOGY METHOD 06/10/2025 5:52 PM EDT [facility] Monocytes Relative 6.7 % LAB HEMETOLOGY METHOD 06/10/2025 5:52 [facility] Eosinophils Relative 6.0 % LAB HEMETOLOGY METHOD 06/10/2025 5:52 [facility] Basophils Relative 0.4 % LAB HEMETOLOGY METHOD 06/10/2025 5:52 PM [facility] Immature Granulocytes Relative 0.6 % LAB HEMETOLOGY METHOD 06/10/2025 5:52 PM EDT [facility] Neutrophils Absolute 6.25 1.50 - 7.00 K/[facility] LAB HEMETOLOGY METHOD 06/10/2025 5:52 PM EDT [facility] Lymphocytes Absolute 2.90 1.00 - 5.00 K/[facility] LAB HEMETOLOGY METHOD 06/10/2025 5:52 PM EDT [facility] Monocytes Absolute 0.71 0.20 - 1.00 K/[facility] LAB HEMETOLOGY METHOD 06/10/2025 5:52 PM EDT [facility] Eosinophils Absolute 0.64(H) 0.00 - 0.50 K/[facility] LAB HEMETOLOGY METHOD 06/10/2025 5:52 PM EDT [facility] Basophils Absolute 0.04 0.00 - 0.20 K/[facility] LAB HEMETOLOGY METHOD 06/10/2025 5:52 PM EDT [facility] Immature Granulocytes Absolute 0.06(H) 0.00 - 0.03 K/[facility] LAB HEMETOLOGY METHOD 06/10/2025 5:52 PM EDT [facility] Blood Venous blood specimen / Unknown Venipuncture / Unknown 06/10/2025 1:32 PM EDT 06/10/2025 1:32 PM EDT us [employer] [employer] LAB BLOOD ORDERABLES Final Resul t [facility] [address] [place] [address], * Urinalysis with reflex microscopic and culture (04/08/2025 4:20 PM EDT) Specific Sage Urine 1.013 1.003 - 1.030 LAB URINALYSIS - AUTOMATED METHOD 04/08/2025 6:46 PM EDT [facility] pH, Urine 5.5 5.0 - 8.0 pH LAB URINALYSIS - AUTOMATED METHOD 04/08/2025 6:46 PM EDT [facility] Leukocytes, Urine Negative Negative LAB URINALYSIS - AUTOMATED METHOD 04/08/2025 6:46 PM EDT [facility] Nitrite, Urine Negative Negative LAB URINALYSIS - AUTOMATED METHOD 04/08/2025 6:46 PM EDT [facility] Protein, Urine Negative <=Trace mg/dL LAB URINALYSIS - AUTOMATED METHOD 04/08/2025 6:46 PM EDT [facility] Glucose, Urine Negative Negative mg/dL LAB URINALYSIS - AUTOMATED METHOD 04/08/2025 6:46 PM EDT [facility] Ketones, Urine Negative Negative mg/dL LAB URINALYSIS - AUTOMATED METHOD 04/08/2025 6:46 PM EDT [facility] Urobilinogen, Urine 0.2 0.2 - 1.0 mg/dL LAB URINALYSIS - AUTOMATED METHOD 04/08/2025 6:46 PM EDT [facility] Bilirubin, Urine Negative Negative LAB URINALYSIS - AUTOMATED METHOD 04/08/2025 6:46 PM EDT [facility] Blood, Urine Negative Negative LAB URINALYSIS - AUTOMATED METHOD 04/08/2025 6:46 PM [facility] Urine Urine specimen obtained by clean catch procedure / Unknown Non-blood Collection / Unknown 04/08/2025 4:20 PM EDT 04/08/2025 4:20 PM EDT us Vida Parsons NP LAB URINE ORDERABLES Final Re sult [facility] [address] [place] [address], [place] [phone] * Lipid panel with reflex to direct LDL (03/18/2025 1:31 PM EDT) Cholesterol 182 0 - 200 mg/dL LAB CHEMISTRY METHOD 03/18/2025 6:52 PM EDT [facility] Triglycerides 70 0 - 150 mg/dL LAB CHEMISTRY METHOD 03/18/2025 6:52 PM EDT [facility] HDL 70 >=40 mg/dL LAB CHEMISTRY METHOD 03/18/2025 6:52 PM EDT [facility] LDL Calculated 98 0 - 100 mg/dL LAB CHEMISTRY METHOD 03/18/2025 6:52 PM EDT [facility] VLDL Cholesterol Charlene 14 mg/dL LAB CHEMISTRY METHOD 03/18/2025 6:52 PM EDT [facility] Non HDL Chol. (LDL+VLDL) 112 <145 mg/dL LAB CHEMISTRY METHOD 03/18/2025 6:52 PM EDT [facility] Chol/HDL Ratio 2.6 0.0 - 4.4 LAB CHEMISTRY METHOD 03/18/2025 6:52 PM EDT [facility] Blood Venous blood specimen / Unknown Venipuncture / Unknown 03/18/2025 1:31 PM EDT 03/18/2025 1:31 PM EDT Vida Parsons IMMIGRATION CASE MANAGER LAB BLOOD ORDERABLES Final Re sult [facility] [address] [place] [address], from Last 3 Months or Most Recently Relevant to Health Maintenance Insurance MEDICAID - [place] [facility] * Guarantor: [employer] Account Type Relation to Patient Date of Phone Billing Address [place] [address] [facility] Care Teams Critical Care Cns Relationship Specialty Start Date End Date Vida Parsons NP [address] [place] [id number] PCP - General Family Medicine 03/08/25
--- OUTSIDE RECORDS SUMMARY | 2025-06-28 19:33 | XMS_ITS | Clinical Summary ---
Author Organization [employer] Address [address] [place] [address] [address] [place] [address] Care Team Providers Care Sandfill Operator Name Role Phone Rowena Lynne MD Primary Care Pro vider Cami Buckley Unavailable Unavailable Margarita Coulter PharmD Unavailable [phone] Allergies No known active allergies Medications * This document contains information received from the source organization and may not represent a complete record from that organization. methadone (Dolophine) 10 MG/ML solution Take 60 mg by mouth in the morning. Active hydrOXYzine pamoate (Vistaril) 25 MG capsule Take 1 capsule (25 mg) by mouth every 8 (eight) hours if needed for anxiety. 30 capsule 1 4 Active albuterol (2.5 MG/3ML) 0.083% nebulizer solution USE 3 ML VIA NEBULIZER THREE TIMES DAILY DIRECTED 75 mL 1 4 Active losartan (Cozaar) 25 MG tablet Take 1 tablet (25 mg) by mouth Once per day. 30 tablet 11 5 10/14/19 26 Active Blood Pressure Monitor misc Check BP daily 1 each 5 Active Acetaminophen Extra Strength 500 MG tablet TAKE 1 TABLET BY MOUTH EVERY 6 HOURS NEEDED FOR MILD PAIN 120 tablet 5 Active capsaicin (Zostrix) 0.025 % creamIndications:R ight leg pain Apply topically 2 times daily. As needed to affected areas 60 g 1 5 11/20/19 26 Active nicotine polacrilex (Commit) 2 MG lozenge DISSOLVE 1 LOZENGE IN THE MOUTH IF NEEDED FOR SMOKING CESSATION, MAY USE 1 LOZENGE EVERY 1-2 HOURS NEEDED NO MORE THAN 20 PER DAY 135 lozenge 1 5 Active pantoprazole (ProtoNix) 40 MG EC tabletIndications: Gastroesophageal reflux disease, unspecified whether esophagitis present TAKE 1 TABLET(40 MG) BY MOUTH DAILY 90 tablet 5 Active topiramate (Topamax) 25 MG tabletIndications: Chronic nonintractable headache, unspecified headache type Take 1 tablet (25 mg) by mouth at bedtime. 30 tablet 1 5 01/15/20 26 Active traZODone (Desyrel) 100 MG tablet Take 1.5 tablets (150 mg) by mouth at bedtime. 45 tablet 1 5 Active indomethacin (Indocin) 25 MG capsule TAKE 1 CAPSULE BY MOUTH TWICE DAILY NEEDED FOR HEADACHE Active predniSONE (Deltasone) 20 MG tablet Take by mouth. Active gabapentin (Neurontin) 300 MG capsule Take 1 capsule (300 mg) by mouth Once per day. 1 capsule at bedtime 90 capsule 5 Active cloNIDine (Catapres) 0.1 MG tablet Take 1 tablet (0.1 mg) by mouth if needed in the morning and at bedtime (anxiety). 30 tablet 1 5 Active Advair Diskus 250-50 MCG/ACT aerosol powder Inhale 1 puff at noon and 1 puff in the evening. 1 each 2 5 Active albuterol (Ventolin HFA) 108 (90 Base) MCG/ACT inhaler INHALE 2 PUFFS BY MOUTH EVERY 4 TO 6 HOURS NEEDED FOR ASTHMA 18 g 5 Active nicotine (Nicoderm CQ) 14 MG/24HR patch Place 1 patch on the skin 1 (one) time each day at the same time. 42 patch 1 5 Active Active Problems Problem Noted Date Diagnosed Date At high risk for falls 01/26/2025 Carotid stenosis 01/26/2025 Dysphagia 01/26/2025 Hypertension 10/15/2024 Assessment & Plan (10/15/2024 5:58 PM EST): - in a setting of systemic steroid use and pain, yet her BP has been high at home and other clinic - continue working on lifestyle modifications - start losartan 25 mg daily - check BP at home Temporal arteritis ([facility]) 10/14/2024 Assessment & Plan (10/15/2024 6:01 PM [...] arteritis - Continue prednisone until seen by patient care director and power plant electrician - Continue judicious use of gabapentin Assessment [...] patient RTC 4 weeks televisit f/u headaches Cough in adult 05/12/2024 Elevated liver enzymes [...] significantly improve within 4d. Bipolar 1 disorder ([facility]) 03/26/2023 Assessment & Plan (08/04/2024 5:12 AM EST): -states will start care w new psychiatrist this week and f w therapist already weekly -refilled today requested meds today and req waitstaff captain in green team to help w tube [...] apt if ok To be referred w Pily Jarquin to repeat pap smear and if normal [...] Plan (03/26/2023 5:29 PM EDT): asthma/COPD?f w pest control supervisor -pt on advair and albuterol prn -per pt has upcoming apt w pest control supervisor next month -pt will discuss about still needing albuterol -may need trelegy instead Anxiety 09/17/2018 Chronic hepatitis C (CMS/HCC) 02/27/2017 Assessment & Plan (03/26/2023 5:29 PM [...] if normal would to every 5 y MDD (major depressive disorder) 09/08/1957 Assessment & Plan (01/28/2025 1:59 PM EDT): During I[facility] Consult Myra presenting with depressed mood, Tearful, crying spells , hopelessness, irritable mood, loss of interests/pleasure , sense of isolation/loneliness , isolating, change in appetite or weight reduce appetite, changes in sleep difficulty falling asleep and difficulty staying asleep , psychomotor retardation, fatigue/loss of energy, worthlessness, inappropriate/excessive guilt , difficulty concentrating, indecisiveness; for a period of 18+ mo, for most or all symptoms in the context of illness or family illness and housing. Myra reports hx of Bipolar disorder, anxiety and depression. Today she presented with depressive sxs associated with her health declined and current housing situation. Pt reports chronic sleep issue (she has CPAP machine). Currently connected with [facility] for therapy and has being waiting for psych provider for a long time. Positive support received by her daughter. Episodic opioid dependence ([facility]) 09/08/1957 Assessment & Plan (03/26/2023 5:38 PM [...] Date Resolved Date Acute cystitis 01/07/2018 03/26/2023 Encounters Date Type Department Care Team Description 04/05/2025 Telephone [facility] [address] [place] [id number] Rowena Lynne MD CHART PREP from Last 3 Months Immunizations Immunization Administration Dates Next Due Influenza injectable quadrivalent [...] 14 y of age until now -smokes 2-3 a day<-------5 to 10 cigarettes a day trying to cut down -smoking x 50 h -PQT a year charlene is 27 PQT a year Alcohol Use Standard Drinks/Week Comments Not Currently 0 (1 standard drink = 0.6 oz pur e alcohol) social Depression Answer Date Recorded Patient Health Questionnaire-9 Score 01/28/2025 Patient Health Questionnaire-9 Score 23 01/28/2025 Last PHQ-9: Questionnaire Data Not on file 0 01/28/2025 Housing Stability Answer Date Recorded What is your housing situation today? I have nallelyamandeep ordonez 01/18/[address] you [...] Date Recorded Patient Health Questionnaire-2 Score 6 01/28/2025 Internet Access Answer Date Recorded Internet Access [...] Sign Reading Time Taken Comments Blood Pressure 118/70 01/25/2025 2:26 PM EDT Pulse 77 01/25/2025 2:26 PM EDT Temperature 36.7 C (98 F) 01/25/2025 2:26 PM EDT Respiratory Rate 01/25/2025 2:26 PM EDT Oxygen Saturation 97% 01/25/2025 2:26 PM EDT Inhaled Oxygen Concentration - - Weight 68 kg (150 lb) 01/25/2025 2:26 PM EDT Height 152.4 cm (5') 01/25/2025 2:26 PM EDT Body Mass Index 29.29 01/25/2025 2:26 PM EDT Plan of Treatment Health Maintenance Due Date Last Done Comments [...] - Risk 60-74 years 1-dose series) 2022 Colonoscopy 11/30/2024 11/30/2014 Colorectal Cancer Screening 11/30/2024 COVID-19 Vaccine (2 - season) 2025 01/26/2021 Influenza Vaccine (#1) 2025 , 07/02/2015, 05/03/2013, Additional history exists Depression Monitoring 07/31/2025 01/28/2025, 025 Alcohol/Substance Use Screening 10/14/2025 10/14/2024 SDOH Screening 01/18/2026 01/18/2025 Disability Screening 01/25/2026 01/25/2025 Tobacco Screening 01/25/2026 01/25/2025 Lipid Panel 05/07/2026 05/07/2021 Cervical Cancer Screening [...] Procedure Name Priority Date/Time Associated Diagnosis Comments HPV GENOTYPES 16,18/45 Routine 06/20/2021 2:58 PM EDT THINPREP PAP Routine 06/20/2021 2:58 PM EDT LIPID PANEL, STANDARD Routine 05/07/2021 11:17 AM EDT BI MAMMOGRAM SCREENING BILATERAL Routine 11/06/2018 3:42 PM EST HM COLONOSCOPY Routine 11/30/2014 8:07 AM EDT from Last 3 Months or Most Recently Relevant to Health Maintenance Results * THINPREP PAP (06/20/2021 2:58 PM EDT) Clinical Information: None given [facility] COMMENT SEE COMMENT [facility] Comment: EXPLANATORY NOTE: The Pap is a screening test for cervical cancer. It is not a diagnostic test and is subject to false negative and false positive results. It is most reliable when a satisfactory sample, regularly obtained, is submitted with relevant clinical findings and history, and when the Pap result is evaluated along with historic and current clinical information. Staff Anesthetist : SEE COMMENT [facility] Comment: YP, CT(ASCP) CT screening location: [place] [address] Interpretation/R esult: Negative for intraepithelial lesion or malignancy. [facility] LMP: NONE GIVEN [facility] Prev. BX: NONE [facility]IVEN [facility] Prev. PAP: NONE GIVEN [facility] SOURCE: None given [facility] Statement Of Adequacy: SEE COMMENT [facility] Comment: Satisfactory for evaluation. Endocervical/transformation zone component present. Age and/or menstrual status not provided 06/20/2021 2:58 PM EDT Karol Curry MD LAB PATHOLOGY ORDERABLES Fin al Result Performing Organization Address [facility] de Phone Number [facility] [address] * HPV GENOTYPES 16,18/45 (06/20/2021 2:58 PM EDT) Pathologist [facility] HPV 16 RNA NOT DETECTED NOT DETECTED [facility] HPV 18/45 RNA NOT DETECTED NOT DETECTED [facility] Comment: Methodology: Casino Cage Manager Mediated Amplification The analytical performance characteristics of this assay have been determined by [employer]. The modifications have not been cleared or approved by the FDA. This assay has been validated pursuant to the CLIA regulations and is used for clinical purposes. 06/20/2021 2:58 PM EDT Karol Curry MD LAB CYTOLOGY ORDERABLES Vilma l Result Performing Organization Address [facility] Co de Phone Number [facility] [address] [place] [address], * LIPID PANEL, STANDARD (05/07/2021 11:17 AM EDT) Pathologist [facility] Chol/HDLC Ratio 2.9 <5.0 (calc) [facility] Cholesterol, Total 163 <200 mg/dL [facility] HDL Cholesterol 56 > OR = 50 mg/dL [facility] LDL Cholesterol 91 mg/dL (calc) [facility] Comment: Reference range: <100 Desirable range <100 mg/dL for primary prevention; <70 mg/dL for patients with CHD or diabetic patients with > or = 2 CHD risk factors. LDL-C is now calculated using the Radha calculation, which is a validated novel method providing better accuracy than the Friedewald equation in the estimation of LDL-C. Chacho WILKERSON et al. EMETERIO. 2013;310(19): 7033-1355 (http://education.[employer]com/faq/EBE228) Non-HDL Cholesterol 107 <130 mg/dL (calc) [facility] Comment: For patients with diabetes plus 1 major ASCVD risk factor, treating to a non-HDL-C goal of <100 mg/dL (LDL-C of <70 mg/dL) is considered a therapeutic option. Triglycerides 72 <150 mg/dL [facility] 05/07/2021 11:1 7 AM EDT Karol Curry MD LAB BLOOD ORDERABLES Final R esult Performing Organization Address City/State/[facility] Co de Phone Number [facility] [address] [place] [address], * DIGITAL BILATERAL SCREEN 1 (11/06/2018 3:42 [...] * Hm Colonoscopy (11/30/2014 8:07 AM EDT) Betsy Provider HEALTH MAINTENANCE Final Result from Last 3 Months or Most Recently Relevant to Health Maintenance Insurance [facility] Care Teams Sandfill Operator Relationship Specialty Start Date End Date Rowena Lynne MD [address] [place] [address] PCP - General Internal Medicine 02/20/23 Cami Buckley Community Health Worker 10/16/23 Margarita Coulter, Bogdan [address] [place] [address] Pharmacist Internal Medicine 11/20/23
--- OUTSIDE RECORDS SUMMARY | 2025-06-28 19:33 | XMS_ITS | Encounter Summary ---
Author Organization [employer] Address [address] [facility] [address] [place] [address] Care Team Providers Care Gang Pusher Name Role Phone Rowena Lynne MD Primary Care Pro vider Cami Buckley Unavailable Unavailable Margarita Coulter PharmD Unavailable [phone] Maine Bass RN Unavailable [phone] Encounter Details Date Type Department Care Team (Late st Contact Info) Description 12/17/2023 Orders Only [facility] [address] [place] [address] Provider, MD Betsy Social History Tobacco Use [...] problems with any of the following? Lead [place] or [place] 06/15/2023 Food Insecurity Answer Date [...] Coulter PharmD documented as of this encounter Procedures Procedure Name Priority Date/Time Associated Diagnosis Comments COLONOSCOPY Routine 11/30/2014 8:07 AM EDT documented in this encounter Results * Colonoscopy (11/30/2014 8:07 AM EDT) Historical Provider HEALTH MAINTENANCE Final Result documented in this encounter Visit Diagnoses Not on filedocumented in this encounter Additional Health Concerns Assessment Noted Time PHQ-9 Depression Total Score: 10 023 3:50 PM EDT documented as of this encounter Care Teams Gang Pusher Relationship Specialty Start Date End Date Rowena Lynne MD [address] [place], [place] [phone] PCP - General Internal Medicine 02/20/23 Cami Buckley Community Health Worker 10/16/23 Margarita Coulter PharmD [address] [place], [place] [phone] Pharmacist Internal Medicine 11/20/23 Maine Bass, FERNANDO [address] [place] [address] [place] [address] Retort Press OperatorOcular Care Technologist 09/30/24 12/28/24 documented as of this encounter
--- OUTSIDE RECORDS SUMMARY | 2025-06-28 19:33 | XMS_ITS | Encounter Summary ---
Author Organization [employer] Address [address] [facility] [address] [place] [address] Care Team Providers Care Light Technician Name Role Phone Rowena Lynne MD Primary Care Pro vider Cami Buckley Unavailable Unavailable Margarita Coulter PharmD Unavailable [phone] Maine Bass RN Unavailable Encounter Details Date Type Department Care Team (Late st Contact Info) Description 10/08/2024 Orders Only [facility] [address] [place] [address] Lauryn Quiros MD [address] [place] [address] Social History Tobacco Use Types Packs/Day Years [...] documented as of this encounter Care Teams Light Technician Relationship Specialty Start Date End Date Rowena Lynne MD [address] [place] [phone] PCP - General Internal Medicine 02/20/23 Cami Buclkey Community Health Worker 10/16/23 Margarita Coulter, PharmD [address] [place] [phone] Pharmacist Internal Medicine 11/20/23 Maine Bass RN [address] [place] [phone] Health And Human Performance ProfessorAutomatic Lehr Operator 09/30/24 12/28/24 documented as of this encounter
== END 2025-06-28 15:47 | disposition left against medical advice (07) ==
PROVIDERS: Emergency Medicine
DX: R19.7 Diarrhea, unspecified (principal); R11.2 Nausea with vomiting, unspecified; Z53.29 Procedure and treatment not carried out because of patient's decision for other reasons; M79.10 Myalgia, unspecified site
CPT/HCPCS: 36415; 80048; 85025; 87635; 99281